=== PATIENT | female | born 1990 | race Caucasian/White ===

== ENCOUNTER 2018-01-13 08:44 | Emergency (ER) | payer SELFPAY ==
[2018-01-13 09:28] LABS: Absolute Lymphocytes (CBC) 1.6 K/uL (0.7-4.9); Absolute Monocytes 0.3 K/uL (0.1-1.3); Absolute Neutrophil 4.6 K/uL (1.8-8.0); Basophils % 0.4 % (0-1.3); Eosinophils % 1.1 % (0-4.4); Hematocrit 42.1 % (36.0-45.0); Lymphocytes % 24.1 % (15.3-44.8); MCH 29.9 pg (27.0-35.0); MCV 90.3 fL (80-100); MPV 9.5 fL (7.6-11.3); Monocytes % 5.1 % (3.3-12.3); RBC Red Blood Cell Count 4.66 M/uL (3.86-4.86)
[2018-01-13] MEDS ORDERED: NA CHLORIDE 0.9% 1,000 ML ONE (09:31)
[2018-01-13] MEDS ORDERED: ONDANSETRON 4 MG/2 ML VIAL ONE (09:31)
[2018-01-13] MEDS ORDERED: Morphine 2 MG/2 ML SYR ONE (09:36)
[2018-01-13 09:52] LABS: Potassium 3.8 mEq/L (3.6-5.0)
[2018-01-13 10:09] LABS: Urine Blood 3+ (NEG); Urine Glucose NEGATIVE (NEG); Urine Protein 1+ (NEG); Urine pH 5.5 (5.0-7.0)
--- NOTE | 2018-01-13 12:12 | RAD REPORT ---
EXAM DESCRIPTION: CTAbdomen Pelvis W Contrast - 01/13/2018 12:05 pm CLINICAL HISTORY: Abdominal pain. COMPARISON: 03/17/2014, 08/23/2013 TECHNIQUE: Biphasic CT imaging of the abdomen and pelvis was performed with 100 ml non-ionic IV cont rast. All CT scans are performed using dose optimization technique as appropriate and may include automated exposure control or mA/KV adjustment according to patient size. FINDINGS: The lung bases are clear. The liver, spleen, pancreas, adrenal glands and kidneys are within normal limits. No bowel obstruction, free air, free fluid or abscess. The appendix is normal. No evidence of signi ficant lymphadenopathy. No suspicious bony findings. IMPRESSION: No acute intra-abdominal or pelvic finding.
--- NOTE | 2018-01-13 12:16 | EDPHYS ---
Physician Documentation [facility] Name: Leonela Ramos Age: 27 yrs Sex: Female : 1990 Arrival Date: 01/13/2018 Time: 08:46 Bed 15 Private MD: Isreal Canchola E ED Physician Seth Smalls HPI: 01/13 09:12 This 27 yrs old Female presents to ER via Ambulatory with complaints of kb Abdominal Pain. 09:12 The patient presents with abdominal pain in the lower abdomen. Onset: The kb symptoms/episode began/occurred this morning, at 02:00. The symptoms do not radiate. Associated signs and symptoms: Pertinent positives: nausea, vaginal bleeding, Pertinent negatives: constipation, diarrhea, fever, vomiting. The symptoms are described as constant. Modifying factors: The symptoms are alleviated by nothing, the symptoms are aggravated by nothing. Severity of pain: At its worst the pain was moderate in the emergency department the pain is unchanged. The patient has not experienced similar symptoms in the past. The patient has not recently seen a physician. 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 - Social history:: Smoking status: Patient uses tobacco products, smokes one-half pack cigarettes per day. ROS: 09:12 Constitutional: Negative for fever, chills, and weight loss, Cardiovascular: Negative kb for chest pain, palpitations, and edema, Respiratory: Negative for shortness of breath, cough, wheezing, and pleuritic chest pain, MS/Extremity: Negative for injury and deformity, Skin: Negative for injury, rash, and discoloration, Neuro: Negative for headache, weakness, numbness, tingling, and seizure. 09:12 Abdomen/GI: Positive for abdominal pain, nausea, Negative for vomiting, diarrhea, constipation, abdominal cramps, abdominal distension, anorexia. 09:12 : Positive for vaginal bleeding. Exam: 09:12 Constitutional: This is a well developed, well nourished patient who is awake, alert, kb and in no acute distress. Head/Face: Normocephalic, atraumatic. Chest/axilla: Normal chest wall appearance and motion. Nontender with no deformity. No lesions are appreciated. Cardiovascular: Regular rate and rhythm with a normal S1 and S2. No gallops, murmurs, or rubs. Normal PMI, no JVD. No pulse deficits. Respiratory: Lungs have equal breath sounds bilaterally, clear to auscultation and percussion. No rales, rhonchi or wheezes noted. No increased work of breathing, no retractions or nasal flaring. Back: No spinal tenderness. No costovertebral tenderness. Full range of motion. Skin: Warm, dry with normal turgor. Normal color with no rashes, no lesions, and no evidence of cellulitis. MS/ Extremity: Pulses equal, no cyanosis. Neurovascular intact. Full, normal range of motion. Neuro: Awake and alert, GCS 15, oriented to person, place, time, and situation. Cranial nerves II-XII grossly intact. Motor strength 5/5 in all extremities. Sensory grossly intact. Cerebellar exam normal. Normal gait. 09:18 Abdomen/GI: Inspection: abdomen appears normal, Bowel sounds: normal, in all quadrants, kb Palpation: soft, in all quadrants, moderate abdominal tenderness, in the right upper quadrant, left upper quadrant, right lower quadrant and left lower quadrant. Vital Signs: 09:21 BP 107 / 67; Pulse 53; Resp 18; Temp 98.3; Pulse Ox 100% on R/A; Pain 10/10; em 09:50 BP 114 / 72; Pulse 53; Resp 18; Pulse Ox 99% on R/A; Pain 9/10; em 11:00 BP 104 / 68; Pulse 81; Resp 20; Pulse Ox 99% on R/A; Pain 4/10; em 12:00 BP 101 / 71; Pulse 55; Resp 18; Pulse Ox 99% on R/A; Pain 3/10; em MDM: 08:51 Patient medically screened. kb 09:15 Data reviewed: vital signs, nurses notes. Data interpreted: Pulse oximetry: on room air kb is 100 %. Interpretation: normal. 12:15 Counseling: I had a detailed discussion with the patient and/or guardian regarding: the kb historical points, exam findings, and any diagnostic results supporting the discharge/admit diagnosis, lab results, radiology results, the need for outpatient follow up, a family practitioner, to return to the emergency department if symptoms worsen or persist or if there are any questions or concerns that arise at home. 01/13 08:59 Order name: CBC with Diff; Complete Time: 09:40 em 01/13 08:59 Order name: Basic Metabolic Panel; Complete Time: 09:59 em 01/13 09:18 Order name: CT Abd/Pelvis - W/Contrast; Complete Time: 12:14 kb 01/13 09:22 Order name: Urine Dipstick--Ancillary (enter results); Complete Time: 10:10 eb 01/13 09:22 Order name: Urine --Ancillary (enter results); Complete Time: 10:10 eb 01/13 09:00 Order name: Urine Dipstick-Ancillary (obtain specimen); Complete Time: 09:19 kb 01/13 09:00 Order name: Urine Test (obtain specimen); Complete Time: 09:19 kb 01/13 09:00 Order name: IV Start; Complete Time: 09:19 kb Administered Medications: 09:35 Drug: NS 0.9% 1000 ml Route: IV; Rate: 1000 ml; Site: left antecubital; em 09:40 Drug: Zofran 4 mg Route: IVP; Site: left antecubital; iw 09:55 Drug: morphine 2 mg Route: IVP; Site: left antecubital; iw Disposition: 01/13/18 12:15 Discharged to Home. Impression: Lower abdominal pain, unspecified. - Condition is Stable. - Discharge Instructions: Abdominal Pain, Adult, [id number]. - Prescriptions for Zofran 4 mg Oral Tablet - take 1 tablet by ORAL route every 6 hours As needed; 20 tablet. Diclofenac Sodium 75 mg Oral Tablet, Delayed Release (E.C.) - take 1 tablet by ORAL route 2 times per day As needed; 30 tablet. - Medication Reconciliation Form, Thank You Letter, Antibiotic Education, Prescription Opioid Use form. - Follow up: Emergency Department; When: As needed; Reason: Worsening of condition. Follow up: Private Physician; When: 2 - 3 days; Reason: Recheck today's complaints, Continuance of care, Re-evaluation by your physician. Addendum: 01/15/2018 08:54 Co-signature as Attending Physician, Seth Slim MD I agree with the assessment and c guthrie plan of care. Signatures: Dispatcher [employer] Kirstie Rogel, CONDUIT BENDER-C CONDUIT BENDER-Seth Cline MD MD cha Munoz, Edgar, FILM PRINTER FILM PRINTER Magalys Jiménez, RN RN iw Corrections: (The following items were deleted from the chart) 01/13 10:00 09:22 Social history: Smoking status: Patient/guardian denies using tobacco, em iw
--- NOTE | 2018-01-13 12:16 | ER ---
Nurse's Notes [facility] Name: Leonela Ramos Age: 27 yrs Sex: Female : 1990 Arrival Date: 01/13/2018 Time: 08:46 Bed 15 Private MD: Isreal Canchola E Diagnosis: Lower abdominal pain, unspecified Presentation: 01/13 08:59 Presenting complaint: Patient states: has had lower abd pain since 0200 today, c/o iw nausea, denies v/d or fever. Transition of care: patient was not received from another setting of care. Onset of symptoms was January 13, 2018. Initial Sepsis Screen: Does the patient meet any 2 criteria? No. Patient's initial sepsis screen is negative. Does the patient have a suspected source of infection? No. Patient's initial sepsis screen is negative. Care prior to arrival: None. 08:59 Method Of Arrival: Ambulatory iw 08:59 Acuity: AMADA 3 iw Triage Assessment: 09:20 General: Appears uncomfortable. General: Appears in no apparent distress. Behavior is em cooperative, anxious. Pain: Complains of pain in left lower quadrant and right lower quadrant. GI: Abdomen is flat, Patient currently denies nausea, vomiting. 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 - Social history:: Smoking status: Patient uses tobacco products, smokes one-half pack cigarettes per day. Screenin:20 Abuse screen: Denies threats or abuse. Nutritional screening: No deficits noted. em Tuberculosis screening: No symptoms or risk factors identified. Fall Risk None identified. Assessment: 09:15 General: Appears in no apparent distress. uncomfortable, Behavior is cooperative, em anxious, Reports reports lower quadrant pain that started this morning with nausea, denies V/D. Pain: Complains of pain in left lower quadrant and right lower quadrant Pain currently is 10 out of 10 on a pain scale. Neuro: Level of Consciousness is awake, alert, obeys commands, Oriented to person, place, time, situation. Cardiovascular: Capillary refill < 3 seconds Patient's skin is warm and dry. Respiratory: Airway is patent Respiratory effort is even, unlabored, Respiratory pattern is regular. GI: Abdomen is flat, Bowel sounds present X 4 quads. Abd is soft and non tender X 4 quads. : No signs and/or symptoms were reported regarding the genitourinary system. EENT: No signs and/or symptoms were reported regarding the EENT system. Derm: Skin is intact, Skin is pink, warm \T\ dry. Musculoskeletal: Range of motion: intact in all extremities. 10:00 Reassessment: Patient appears in no apparent distress at this time. Patient and/or iw family updated on plan of care and expected duration. Pain level reassessed. Patient is alert, oriented x 3, equal unlabored respirations, skin warm/dry/pink. 11:02 Reassessment: Patient appears in no apparent distress at this time. Patient and/or em family updated on plan of care and expected duration. Pain level reassessed. Patient is alert, oriented x 3, equal unlabored respirations, skin warm/dry/pink. Patient states feeling better. 12:00 Reassessment: Patient appears in no apparent distress at this time. Patient and/or em family updated on plan of care and expected duration. Pain level reassessed. Patient is alert, oriented x 3, equal unlabored respirations, skin warm/dry/pink. Patient states feeling better. Patient states symptoms have improved. Vital Signs: 09:21 BP 107 / 67; Pulse 53; Resp 18; Temp 98.3; Pulse Ox 100% on R/A; Pain 10/10; em 09:50 BP 114 / 72; Pulse 53; Resp 18; Pulse Ox 99% on R/A; Pain 9/10; em 11:00 BP 104 / 68; Pulse 81; Resp 20; Pulse Ox 99% on R/A; Pain 4/10; em 12:00 BP 101 / 71; Pulse 55; Resp 18; Pulse Ox 99% on R/A; Pain 3/10; em ED Course: 08:46 Patient arrived in ED. mr 08:47 Isreal Canchola MD is Private Physician. mr 08:50 [facility]ir[facility]C [facility] kb 08:50 Seth Smalls MD is Attending Physician. kb 08:51 Catracho Navarro LVN is Primary Nurse. em 09:01 Triage completed. iw 09:20 No provider procedures requiring assistance completed. Inserted saline lock: 20 gauge em in left antecubital area, using aseptic technique. Blood collected. 09:20 Initial lab(s) drawn, by me, sent to lab. em 09:21 Arm band placed on. em 09:21 Patient has correct armband on for positive identification. Bed in low position. Call em light in reach. Side rails up X2. Adult w/ patient. 09:22 Urine collected: clean catch specimen, ysabel colored. 5 10:17 Flu and/or RSV swab sent to lab. Strep swab sent to lab. 5 12:03 CT completed. Patient moved to CT via wheelchair. Patient moved back from CT. cw1 12:06 CT Abd/Pelvis - W/Contrast In Process Unspecified. EDMS 12:50 IV discontinued, intact, bleeding controlled, No redness/swelling at site. Pressure em dressing applied. Administered Medications: 09:35 Drug: NS 0.9% 1000 ml Route: IV; Rate: 1000 ml; Site: left antecubital; em 09:40 Drug: Zofran 4 mg Route: IVP; Site: left antecubital; iw 09:55 Drug: morphine 2 mg Route: IVP; Site: left antecubital; iw Outcome: 12:15 Discharge ordered by MD. kb 12:50 Discharged to home ambulatory. em 12:50 Condition: good 12:50 Discharge instructions given to patient, Instructed on discharge instructions, follow up and referral plans. medication usage, Demonstrated understanding of instructions, follow-up care, medications, Prescriptions given X 2. 12:51 Patient left the ED. iw Signatures: Dispatcher [employer] EDMS Kirstie Altamirano, MAXIMILIANO BECKP-Sarah Santiago mr Navarro Catracho, PACKING AND WRAPPING SUPERVISOR PACKING AND WRAPPING SUPERVISOR em Magalys Steen, ROSAMARIA RN Luly Ortiz 1 Sarah Helm [facility] Corrections: (The following items were deleted from the chart) 10:00 09:22 Social history: Smoking status: Patient/guardian denies using tobacco, em iw
[2018-01-13 12:58] VITALS: O2SAT 99
[2018-01-13 12:59] VITALS: TEMP 98.3
[2018-01-13 13:00] VITALS: BP 104/68
== END 2018-01-13 12:51 | disposition home or self-care (01) ==
LOC: ER 08:44
DX: R10.30 Lower abdominal pain, unspecified (principal); F41.9 Anxiety disorder, unspecified; F17.210 Nicotine dependence, cigarettes, uncomplicated
CPT/HCPCS: 36415; 74177; 80048; 81003; 81025; 85025; 96374; 96375; 99284; J2270; J2405; J7030; Q9967

== ENCOUNTER 2018-03-10 10:57 | Emergency (ER) | payer SELFPAY ==
[2018-03-10 12:01] LABS: Urine Bacteria <20 /HPF (<20); Urine RBC <5 /HPF (NONE SEEN)
[2018-03-10 12:02] LABS: Urine Culture Reflex Order NOT NEEDED
--- NOTE | 2018-03-10 12:57 | RAD REPORT ---
EXAM DESCRIPTION: CT - Stone Protocol - 03/10/2018 12:39 pm CLINICAL HISTORY: Flank pain. abd pain COMPARISON: Abdomen Pelvis W Contrast dated 01/13/2018; CT ABD PELVIS W CONTRAST dated 03/17/2014 TECHNIQUE: Axial images were obtained without oral or IV contrast. Lack of contrast limits solid org an and vascular assessment. The [id number] spans the entirety of the system partially obscuring uppermost abdomen and lung bases. Coronal reformatted images were obtained and reviewed. All CT scans are performed using dose optimization technique as appropriate and may include automated exposure control or mA/KV adjustment according to patient size. FINDINGS: The lower lung olivo are clear. Imaged portions of the liver and spleen show no suspicious findings on non-contrast imaging. The panc reas and adrenal glands are normal. No pathologic lymphadenopathy in the abdomen or pelvis. No urinary tract stones or obstructive uropathy. No bowel obstruction, free air, intra-abdominal free fluid or abscess. Normal appendix noted.Moderate fecal retention in the colon. No significant bony abnormality. Trace pelvic free fluid, likely physiologic. IMPRESSION: No urinary tract stones or obstructive uropathy. Normal appendix.
--- NOTE | 2018-03-10 13:08 | EDPHYS ---
Physician Documentation [facility] Name: Leonela Bernardo Age: 27 yrs Sex: Female : 1990 Arrival Date: 03/10/2018 Time: 11:00 Bed 19 Private MD: ED Physician Willie Kebede HPI: 03/10 11:27 This 27 yrs old Female presents to ER via EMS with complaints of Abdominal snw Pain. 11:27 The patient presents with abdominal pain right lower quadrant. Onset: The snw symptoms/episode began/occurred suddenly, today. The symptoms do not radiate. Associated signs and symptoms: Pertinent positives: nausea. The symptoms are described as sharp. Severity of pain: At its worst the pain was moderate. The patient has not experienced similar symptoms in the past. It is unknown whether or not the patient has recently seen a physician. 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 - Social history:: Smoking status: Patient uses tobacco products, denies chronic smoking, but will smoke occasionally. - Ebola Screening: : No symptoms or risks identified at this time. ROS: 11:26 Constitutional: Negative for fever, chills, and weight loss, Eyes: Negative for injury, snw pain, redness, and discharge, ENT: Negative for injury, pain, and discharge, Neck: Negative for injury, pain, and swelling, Cardiovascular: Negative for chest pain, palpitations, and edema, Respiratory: Negative for shortness of breath, cough, wheezing, and pleuritic chest pain, Back: Negative for injury and pain, : Negative for injury, bleeding, discharge, and swelling, MS/Extremity: Negative for injury and deformity, Skin: Negative for injury, rash, and discoloration, Neuro: Negative for headache, weakness, numbness, tingling, and seizure. 11:26 Abdomen/GI: Positive for abdominal pain, nausea. Exam: 11:25 Constitutional: This is a well developed, well nourished patient who is anxious, snw alert, and in no acute distress. Head/Face: Normocephalic, atraumatic. Eyes: Pupils equal round and reactive to light, extra-ocular motions intact. Lids and lashes normal. Conjunctiva and sclera are non-icteric and not injected. Cornea within normal limits. Periorbital areas with no swelling, redness, or edema. ENT: Nares patent. No nasal discharge, no septal abnormalities noted. Tympanic membranes are normal and external auditory canals are clear. Oropharynx with no redness, swelling, or masses, exudates, or evidence of obstruction, uvula midline. Mucous membranes moist. Neck: Trachea midline, no thyromegaly or masses palpated, and no cervical lymphadenopathy. Supple, full range of motion without nuchal rigidity, or vertebral point tenderness. No Meningismus. Chest/axilla: Normal chest wall appearance and motion. Nontender with no deformity. No lesions are appreciated. Cardiovascular: Regular rate and rhythm with a normal S1 and S2. No gallops, murmurs, or rubs. Normal PMI, no JVD. No pulse deficits. Respiratory: Lungs have equal breath sounds bilaterally, clear to auscultation and percussion. No rales, rhonchi or wheezes noted. No increased work of breathing, no retractions or nasal flaring. Back: No spinal tenderness. Mild right costovertebral tenderness. Full range of motion. Skin: Warm, dry with normal turgor. Normal color with no rashes, no lesions, and no evidence of cellulitis. MS/ Extremity: Pulses equal, no cyanosis. Neurovascular intact. Full, normal range of motion. Neuro: Awake and alert, GCS 15, oriented to person, place, time, and situation. Cranial nerves II-XII grossly intact. Motor strength 5/5 in all extremities. Sensory grossly intact. Cerebellar exam normal. Normal gait. 11:25 Abdomen/GI: Inspection: abdomen appears normal, Bowel sounds: normal, Palpation: moderate abdominal tenderness, in the right lower quadrant. 11:25 Psych: pt is rocking back and forth with discomfort. Answers questions appropriately. Vital Signs: 11:06 BP 104 / 73; Pulse 56; Resp 18; Temp 98.9(O); Pulse Ox 100% on R/A; Weight 54.43 kg; em Height 5 ft. 4 in. (162.56 cm); Pain 10/10; 12:05 BP 110 / 75; Pulse 58; Resp 16; Pulse Ox 99% on R/A; em 13:00 BP 117 / 73; Pulse 58; Resp 16; Pulse Ox 99% on R/A; em 11:06 Body Mass Index 20.60 (54.43 kg, 162.56 cm) em MDM: 11:16 Patient medically screened. snw 13:09 Data reviewed: vital signs, nurses notes. Data interpreted: Pulse oximetry: on room air snw is 99 %. Interpretation: normal. Counseling: I had a detailed discussion with the patient and/or guardian regarding: the historical points, exam findings, and any diagnostic results supporting the discharge/admit diagnosis, lab results, radiology results, the need for outpatient follow up, to return to the emergency department if symptoms worsen or persist or if there are any questions or concerns that arise at home. Special discussion: Based on the patient's Hx, exam, and Dx evaluation, there is no indication for emergent surgery or inpatient Tx. It is understood by the patient/guardian that if the Sx's persist or worsen they need to return immediately for re-evaluation. Based on the history and exam findings, there is no indication for further emergent testing or inpatient evaluation. I discussed with the patient/guardian the need to see the OB Gyne specialist for further evaluation of the symptoms. I discussed with the patient/guardian the need to see the primary care provider for further evaluation of the symptoms. 03/10 11:52 Order name: Urine Microscopic Only; Complete Time: 12:20 EDMS 03/10 11:56 Order name: Urine Dipstick--Ancillary (enter results) 03/10 11:56 Order name: Test Urine - POC 03/10 11:17 Order name: Urine Test (obtain specimen); Complete Time: 11:32 snw 03/10 11:17 Order name: Urine Dipstick-Ancillary (obtain specimen); Complete Time: 11:32 snw 03/10 12:02 Order name: Stone Protocol; Complete Time: 13:05 EDMS Administered Medications: 13:18 Drug: Dulcolax Suppository 10 mg Route: DE; em 14:00 Follow up: Response: No adverse reaction em 13:18 Drug: Bisacodyl 5 mg Route: PO; em 14:00 Follow up: Response: No adverse reaction em 13:18 Drug: Bisacodyl 5 mg Route: PO; em 14:00 Follow up: Response: No adverse reaction em Disposition: 14:32 Co-signature as Attending Physician, Willie Kebede MD I agree with the assessment and kdr plan of care. Disposition: 03/10/18 13:07 Discharged to Home. Impression: Constipation, unspecified, Lower abdominal pain, unspecified. - Condition is Stable. - Discharge Instructions: Constipation, Adult, Abdominal Pain, Women. - Prescriptions for Miralax 17 gram/dose Oral - take 1 packet by ORAL route once daily dilute powder in 8 ounces of water or juice; 1 Container. - Medication Reconciliation Form, Thank You Letter, Antibiotic Education, Prescription Opioid Use, Work release form form. - Follow up: Private Physician; When: 2 - 3 days; Reason: Recheck today's complaints, Continuance of care, Re-evaluation by your physician. Follow up: Emergency Department; When: As needed; Reason: Worsening of condition. Signatures: Dispatcher [employer] [facility] Willie Kebede MD MD kdr Yael Brannon, IRIDOLOGIST-C IRIDOLOGIST-Csnw Catracho Navarro, STRING LASTER STRING LASTER em Corrections: (The following items were deleted from the chart) 13:21 13:14 Stone Protocol+CT.[email or web address].BRZ ordered. [facility] 14:08 13:07 03/10/2018 13:07 Discharged to Home. Impression: Constipation, unspecified; Lower em abdominal pain, unspecified. Condition is Stable. Forms are Medication Reconciliation Form, Thank You Letter, Antibiotic Education, Prescription Opioid Use. Follow up: Private Physician; When: 2 - 3 days; Reason: Recheck today's complaints, Continuance of care, Re-evaluation by your physician. Follow up: Emergency Department; When: As needed; Reason: Worsening of condition. snw
--- NOTE | 2018-03-10 13:08 | ER ---
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 Transition of care: patient was not received from another setting of care. Onset of symptoms was March 10, 2018. Risk Assessment: Do you want to hurt yourself or someone else? Patient reports no desire to harm self or others. Initial Sepsis Screen: Does the patient meet any 2 criteria? No. Patient's initial sepsis screen is negative. Does the patient have a suspected source of infection? No. Patient's initial sepsis screen is negative. Care prior to arrival: Medication(s) given: [place] 10/325 and Midol. 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 - Social history:: Smoking status: Patient uses tobacco products, denies chronic smoking, but will smoke occasionally. - Ebola Screening: : No symptoms or risks identified at this time. Screenin:07 Abuse screen: Denies threats or abuse. Nutritional screening: No deficits noted. em Tuberculosis screening: No symptoms or risk factors identified. Fall Risk None identified. Assessment: 11:08 General: Appears in no apparent distress. uncomfortable, Behavior is cooperative, em anxious. Pain: Complains of pain in right lower quadrant Pain currently is 10 out of 10 on a pain scale. Pain began this morning. Neuro: Level of Consciousness is awake, alert, obeys commands, Oriented to person, place, time, situation. Cardiovascular: Capillary refill < 3 seconds Patient's skin is warm and dry. Respiratory: Airway is patent Respiratory effort is even, unlabored, Respiratory pattern is regular, symmetrical. GI: Abdomen is flat, Bowel sounds present X 4 quads. Abd is soft X 4 quads Abdomen is tender to palpation in right lower quadrant Reports nausea, Patient currently denies diarrhea, vomiting. : Reports "possibly " Denies burning with urination, Patient is sexually active. EENT: No signs and/or symptoms were reported regarding the EENT system. Derm: Skin is intact, Skin is pink, warm \\T\\ dry. Musculoskeletal: Range of motion: intact in all extremities. 11:11 Reassessment: Patient appears in no apparent distress at this time. I agree with above iw assessment by Catracho Navarro LVN. 12:02 Reassessment: Patient appears in no apparent distress at this time. Patient and/or em family updated on plan of care and expected duration. Pain level reassessed. Patient is alert, oriented x 3, equal unlabored respirations, skin warm/dry/pink. 13:35 Reassessment: Patient appears in no apparent distress at this time. awaiting provider em to speak with pt, provider performing procedure. Vital Signs: 11:06 BP 104 / 73; Pulse 56; Resp 18; Temp 98.9(O); Pulse Ox 100% on R/A; Weight 54.43 kg; em Height 5 ft. 4 in. (162.56 cm); Pain 10/10; 12:05 BP 110 / 75; Pulse 58; Resp 16; Pulse Ox 99% on R/A; em 13:00 BP 117 / 73; Pulse 58; Resp 16; Pulse Ox 99% on R/A; em 11:06 Body Mass Index 20.60 (54.43 kg, 162.56 cm) em ED Course: 11:00 Patient arrived in ED. em 11:07 Patient has correct armband on for positive identification. Placed in gown. Bed in low em position. Call light in reach. Adult w/ patient. Pulse ox on. NIBP on. 11:08 Arm band placed on. em 11:10 Triage completed. iw 11:16 [facility]-C [facility]. snw 11:16 Willie Kebede MD is Attending Physician. snw 11:21 Catracho Navarro LVN is Primary Nurse. em 12:38 CT completed. Patient moved to CT via wheelchair. Patient moved back from CT. cw1 12:38 Note: net upt per santi. cw1 12:39 Stone Protocol In Process Unspecified. EDMS 14:07 No provider procedures requiring assistance completed. Patient did not have IV access em during this emergency room visit. Administered Medications: 13:18 Drug: Dulcolax Suppository 10 mg Route: MI; em 14:00 Follow up: Response: No adverse reaction em 13:18 Drug: Bisacodyl 5 mg Route: PO; em 14:00 Follow up: Response: No adverse reaction em 13:18 Drug: Bisacodyl 5 mg Route: PO; em 14:00 Follow up: Response: No adverse reaction em Outcome: 13:07 Discharge ordered by . pura 14:07 Discharged to home ambulatory. em 14:07 Condition: good 14:07 Discharge instructions given to patient, Instructed on discharge instructions, follow up and referral plans. medication usage, Demonstrated understanding of instructions, follow-up care, medications. 14:08 Patient left the ED. em Signatures: Dispatcher [employer] EDMS Yael Brannon, RESERVATION MANAGER-C RESERVATION MANAGER-Csnw Catracho Navarro LVN LVN em Magalys Steen, Luly Wilder RN cw1
[2018-03-10] MEDS ORDERED: BISACODYL 10 MG RECTAL SUPP ONE (13:14)
[2018-03-10] MEDS ORDERED: BISACODYL E.C. 5 MG TAB PO ONE (13:14)
[2018-03-10 14:14] VITALS: TEMP 98.9
[2018-03-10 14:15] VITALS: O2SAT 99
[2018-03-10 14:16] VITALS: BP 117/73
[2018-03-10 14:57] LABS: Urine Blood TRACE (NEG); Urine Glucose NEGATIVE (NEG); Urine Protein TRACE (NEG); Urine Specific Gravity >1.030 (1.005-1.030)
== END 2018-03-10 14:08 | disposition home or self-care (01) ==
LOC: ER 10:57
DX: K59.00 Constipation, unspecified (principal); F41.9 Anxiety disorder, unspecified; Z72.0 Tobacco use
CPT/HCPCS: 74176; 76377; 81003; 81015; 81025; 99284

== ENCOUNTER 2018-08-07 17:46 | Emergency (ER) | payer SELFPAY ==
[2018-08-07] MEDS ORDERED: MAGNE/ALUM HYDROXD 30 ML UCUP ONE (19:13)
[2018-08-07 19:14] LABS: Absolute Monocytes 0.4 K/uL (0.1-1.3); Absolute Neutrophil 1.9 K/uL (1.8-8.0); Basophils % 0.7 % (0-1.3); Eosinophils % 1.5 % (0-4.4); Hematocrit 39.6 % (36.0-45.0); Lymphocytes % 45.7 % (15.3-44.8); MCH 31.5 pg (27.0-35.0); MCV 89.1 fL (80-100); MPV 8.9 fL (7.6-11.3); Monocytes % 8.1 % (3.3-12.3); RBC Red Blood Cell Count 4.44 M/uL (3.86-4.86)
[2018-08-07] MEDS ORDERED: FAMOTIDINE 20 MG/2 ML VIAL IV ONE (19:14)
[2018-08-07] MEDS ORDERED: ONDANSETRON 4 MG/2 ML VIAL ONE (19:14)
[2018-08-07] MEDS ORDERED: NA CHLORIDE 0.9% 1,000 ML ONE (19:14)
[2018-08-07] MEDS ORDERED: LIDOCAINE VISCOUS 2% SOLN 15 ML UDC ONE (19:14)
[2018-08-07] MEDS ORDERED: MORPHINE 4 MG/ML SYR ONE (19:14)
[2018-08-07 19:30] LABS: Albumin 4.2 g/dL (3.4-5.0); Bilirubin Direct 0.1 mg/dL (0-0.2); Bilirubin Total 0.3 mg/dL (0.2-1.0); Potassium 3.5 mmol/L (3.5-5.1); Protein, Total 7.8 g/dL (6.4-8.2)
[2018-08-07 19:34] LABS: Urine Blood NEGATIVE (NEG); Urine Glucose NEGATIVE (NEG); Urine Protein NEGATIVE (NEG); Urine pH >8.5 (5.0-7.0)
--- NOTE | 2018-08-07 20:25 | RAD REPORT ---
EXAM DESCRIPTION: CT - Abdomen Pelvis W Contrast - 08/07/2018 8:13 pm CLINICAL HISTORY: Abdominal pain COMPARISON: February 2018 TECHNIQUE: Computed axial tomography of the abdomen pelvis was obtained. 100 cc Isovue-300 was admin istered intravenously. Oral contrast was not requested which limits evaluation of bowel. All CT scans are performed using dose optimization technique as appropriate and may include automated exposure control or mA/KV adjustment according to patient size. FINDINGS: Periportal edema is present within the liver. Spleen, pancreas, adrenal and kidneys appear unremarkable. There is no evidence of diverticulitis. The wall of the distal stomach appears thickened. 2 centimeter irregularly-shaped right ovarian cyst without significant free fluid Large amount stool is present throughout the colon. Spondylolysis involves L5 IMPRESSION: Apparent thickening of the wall of the distal stomach may be secondary to pathology such as gastritis or incomplete distention 2 centimeter irregularly-shaped right ovarian cyst without significant free fluid Periportal edema within liver is a nonspecific finding but can be associated with inflammation all
[2018-08-07] MEDS ORDERED: HYDROCODONE/APAP 7.5/325 MG TAB ONE (21:08)
--- NOTE | 2018-08-07 21:33 | ER ---
Nurse's Notes [facility] Name: Leonela Bernardo Age: 27 yrs Sex: Female : 1990 Arrival Date: 08/07/2018 Time: 17:48 Bed 23 Private MD: Isreal Canchola E Diagnosis: Gastritis and duodenitis;Constipation, unspecified Presentation: 08/07 17:50 Presenting complaint: Patient states: Lower abdominal pain and lower back pain and jl7 "When I go to stand up my head hurts really bad but then when I sit back down it goes away." x 3 days Denies N/V/D, denies urinary symptoms. Transition of care: patient was not received from another setting of care. Onset of symptoms was August 04, 2018. Risk Assessment: Do you want to hurt yourself or someone else? Patient reports no desire to harm self or others. Initial Sepsis Screen: Does the patient meet any 2 criteria? No. Patient's initial sepsis screen is negative. Does the patient have a suspected source of infection? No. Patient's initial sepsis screen is negative. Care prior to arrival: None. 17:50 Method Of Arrival: Ambulatory jl7 17:50 Acuity: AMADA 3 jl7 Triage Assessment: 17:53 General: Appears in no apparent distress. uncomfortable, Behavior is calm, cooperative. jl7 Pain: Complains of pain in left low back, right low back, right lower quadrant and left lower quadrant and [place] Pain currently is 8 out of 10 on a pain scale. Neuro: Level of Consciousness is awake, alert, obeys commands, Oriented to person, place, time, situation. Cardiovascular: Patient's skin is warm and dry. Respiratory: Airway is patent Respiratory effort is even, unlabored, Respiratory pattern is regular, symmetrical. Derm: Skin is pink, warm \\T\\ dry. 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 - Social history:: Smoking status: Patient uses tobacco products, smokes one-half pack cigarettes per day. - Ebola Screening: : No symptoms or risks identified at this time. - Family history:: not pertinent, pertinent for. - Hospitalizations: : No recent hospitalization is reported. Screenin:14 Abuse screen: Denies threats or abuse. Denies injuries from another. Nutritional aj screening: No deficits noted. Tuberculosis screening: No symptoms or risk factors identified. Fall Risk None identified. Assessment: 19:12 General: Appears in no apparent distress. comfortable, Behavior is calm, cooperative, aj appropriate for age. Pain: Complains of pain in abdomen and epigastric area and forehead. Neuro: Level of Consciousness is awake, alert, obeys commands, Oriented to person, place, time, situation, Appropriate for age. Neuro: Reports headache. Respiratory: Airway is patent Respiratory effort is even, unlabored, Respiratory pattern is regular, symmetrical. GI: Reports lower abdominal pain, upper abdominal pain, epigastric pain, nausea. Derm: Skin is intact, is healthy with good turgor, Skin is pink, warm \\T\\ dry. normal. 20:22 Reassessment: Patient appears in no apparent distress at this time. patient just came rv back from radiology. Vital Signs: 17:53 BP 116 / 81; Pulse 82; Resp 16 S; Temp 98.8(O); Pulse Ox 100% on R/A; Weight 57.15 kg jl7 (R); Height 5 ft. 4 in. (162.56 cm) (R); Pain 8/10; 19:12 BP 119 / 72; Pulse 81; Resp 16; Pulse Ox 99% on R/A; aj 20:21 BP 115 / 79; Pulse 63 MON; Resp 16 S; Pulse Ox 100% on R/A; rv 21:40 BP 95 / 72; Pulse 71 MON; Resp 16 S; Pulse Ox 100% on R/A; rv 17:53 Body Mass Index 21.63 (57.15 kg, 162.56 cm) jl7 ED Course: 17:48 Patient arrived in ED. sb2 17:49 Isreal Canchola MD is Private Physician. sb2 17:52 Triage completed. jl7 17:53 Arm band placed on right wrist. jl7 17:56 Michelle Cheng RN is Primary Nurse. aj 17:58 Benito De La Rosa MD is Attending Physician. ma2 18:00 Patient has correct armband on for positive identification. Bed in low position. Call rv light in reach. Side rails up X 1. Adult w/ patient. 18:00 Pulse ox on. NIBP on. rv 19:13 Inserted saline lock: 22 gauge in left antecubital area, using aseptic technique. Blood aj collected. By Clifford Jara. 19:28 Radiology exam delayed due to lab results not completed at this time. (BUN/Creatinine). nj 20:12 CT Abd/Pelvis - W/Contrast In Process Unspecified. EDMS 21:41 No provider procedures requiring assistance completed. IV discontinued, bleeding rv controlled, No redness/swelling at site. Pressure dressing applied. Administered Medications: 19:14 Drug: NS 0.9% 1000 ml Route: IV; Rate: 1 bolus; Site: left antecubital; aj 19:14 Drug: morphine 4 mg Route: IVP; Site: left antecubital; aj 20:47 Follow up: Response: No adverse reaction rv 19:14 Drug: Zofran 4 mg Route: IVP; Site: left antecubital; aj 20:47 Follow up: Response: No adverse reaction rv 19:15 Drug: Pepcid 20 mg Route: IVP; Site: left antecubital; aj 20:48 Follow up: Response: No adverse reaction rv 19:15 Drug: GI Cocktail without - (Maalox Suspension 30 ml, Lidocaine Liquid 2 % 15 aj ml) Route: PO; 20:48 Follow up: Response: No adverse reaction rv 21:02 Drug: [place] (7.5 mg-325 mg) 1 tabs Route: PO; rv 21:41 Follow up: Response: Pain is decreased rv Outcome: 21:33 Discharge ordered by MD. huynh 21:42 Discharged to home ambulatory. rv 21:42 Condition: improved 21:42 Discharge instructions given to patient, Instructed on discharge instructions, follow up and referral plans. medication usage, Demonstrated understanding of instructions, follow-up care, medications, Prescriptions given X 4. 21:42 Patient left the ED. rv Signatures: Dispatcher [employer] EDMS Michelle Cheng, RN Carlos Collins Jahala, RN RN jl7 Benito De La Rosa MD MD ma2 Billeau, Sheri sb2 Anthony Whitlock RN RN rv
--- NOTE | 2018-08-07 21:33 | EDPHYS ---
Physician Documentation [facility] Name: Leonela Bernardo Age: 27 yrs Sex: Female : 1990 Arrival Date: 08/07/2018 Time: 17:48 Bed 23 Private MD: Isreal Canchola E ED Physician Benito De La Rosa HPI: 08/07 18:37 This 27 yrs old Female presents to ER via Ambulatory with complaints of ma2 Abdominal Pain, Headache. 18:37 The patient complains of pain to the forehead. The patient describes the headache as ma2 pounding. Onset: The symptoms/episode began/occurred gradually, 2 day(s) ago. Severity of symptoms: At its worst the pain was moderate. Headache History: The patient has had previous headaches. The patient has experienced similar episodes in the past. diffuse abdominal pain that is constant x 3 days unchanged severe. 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 - Social history:: Smoking status: Patient uses tobacco products, smokes one-half pack cigarettes per day. - Ebola Screening: : No symptoms or risks identified at this time. - Family history:: not pertinent, pertinent for. - Hospitalizations: : No recent hospitalization is reported. ROS: 18:37 Constitutional: Negative for fever, chills, and weight loss, Eyes: Negative for injury, ma2 pain, redness, and discharge, Cardiovascular: Negative for chest pain, palpitations, and edema, Respiratory: Negative for shortness of breath, cough, wheezing, and pleuritic chest pain, Back: Negative for injury and pain, : Negative for injury, bleeding, discharge, and swelling, MS/Extremity: Negative for injury and deformity. 18:37 Abdomen/GI: Positive for abdominal pain, Negative for nausea and vomiting, abdominal cramps, anorexia, rectal bleeding, acute changes. 18:37 All other systems are negative. Exam: 18:37 Constitutional: This is a well developed, well nourished patient who is awake, alert, ma2 and in no acute distress. ENT: Nares patent. No nasal discharge, no septal abnormalities noted. Tympanic membranes are normal and external auditory canals are clear. Oropharynx with no redness, swelling, or masses, exudates, or evidence of obstruction, uvula midline. Mucous membranes moist. Neck: Trachea midline, no thyromegaly or masses palpated, and no cervical lymphadenopathy. Supple, full range of motion without nuchal rigidity, or vertebral point tenderness. No Meningismus. Chest/axilla: Normal chest wall appearance and motion. Nontender with no deformity. No lesions are appreciated. Cardiovascular: Regular rate and rhythm with a normal S1 and S2. No gallops, murmurs, or rubs. Normal PMI, no JVD. No pulse deficits. Respiratory: Lungs have equal breath sounds bilaterally, clear to auscultation and percussion. No rales, rhonchi or wheezes noted. No increased work of breathing, no retractions or nasal flaring. Back: No spinal tenderness. No costovertebral tenderness. Full range of motion. MS/ Extremity: Pulses equal, no cyanosis. Neurovascular intact. Full, normal range of motion. Neuro: Awake and alert, GCS 15, oriented to person, place, time, and situation. Cranial nerves II-XII grossly intact. Motor strength 5/5 in all extremities. Sensory grossly intact. Cerebellar exam normal. Normal gait. 18:37 Abdomen/GI: Palpation: severe abdominal tenderness, in the epigastric area and right lower quadrant. Vital Signs: 17:53 BP 116 / 81; Pulse 82; Resp 16 S; Temp 98.8(O); Pulse Ox 100% on R/A; Weight 57.15 kg [facility] (R); Height 5 ft. 4 in. (162.56 cm) (R); Pain 8/10; 19:12 BP 119 / 72; Pulse 81; Resp 16; Pulse Ox 99% on R/A; aj 20:21 BP 115 / 79; Pulse 63 MON; Resp 16 S; Pulse Ox 100% on R/A; rv 21:40 BP 95 / 72; Pulse 71 MON; Resp 16 S; Pulse Ox 100% on R/A; rv 17:53 Body Mass Index 21.63 (57.15 kg, 162.56 cm) [facility] MDM: 18:01 Patient medically screened. ma2 18:37 Differential diagnosis: appendicitis, diverticulitis, gastritis vs gerd. [facility] 21:31 Data reviewed: vital signs, nurses notes, lab test result(s), radiologic studies. ia2 Counseling: I had a detailed discussion with the patient and/or guardian regarding: the historical points, exam findings, and any diagnostic results supporting the discharge/admit diagnosis, the presence of at least one elevated blood pressure reading (>120/80) during this emergency department visit, the need for outpatient follow up. Response to treatment: the patient's symptoms have resolved after treatment. 08/07 18:37 Order name: Basic Metabolic Panel [facility] 08/07 18:37 Order name: CBC with Diff [facility] 08/07 18:37 Order name: Creatinine for Radiology [facility] 08/07 18:37 Order name: Hepatic Function [facility] 08/07 18:37 Order name: Lipase [facility] 08/07 18:50 Order name: Urine Dipstick--Ancillary (enter results) 08/07 18:37 Order name: CT Abd/Pelvis - W/Contrast; Complete Time: 20:48 [facility] 08/07 19:29 Order name: Creatinine (Radiology Only); Complete Time: 19:50 EDMS 08/07 19:31 Order name: Basic Metabolic Panel; Complete Time: 19:50 EDMS 08/07 19:31 Order name: Liver (Hepatic) Function; Complete Time: 19:50 EDMS 08/07 19:31 Order name: Lipase; Complete Time: 19:50 EDMS 08/07 19:35 Order name: Urine Dipstick-Ancillary; Complete Time: 19:50 EDMS 08/07 19:35 Order name: CBC with Automated Diff; Complete Time: 19:50 EDMS 08/07 18:37 Order name: IV Saline Lock; Complete Time: 19:03 ia2 08/07 18:37 Order name: Labs collected and sent; Complete Time: 19:03 ia2 08/07 18:37 Order name: Urine Dipstick-Ancillary (obtain specimen); Complete Time: 19:03 ma2 Administered Medications: 19:14 Drug: NS 0.9% 1000 ml Route: IV; Rate: 1 bolus; Site: left antecubital; aj 19:14 Drug: morphine 4 mg Route: IVP; Site: left antecubital; aj 20:47 Follow up: Response: No adverse reaction rv 19:14 Drug: Zofran 4 mg Route: IVP; Site: left antecubital; aj 20:47 Follow up: Response: No adverse reaction rv 19:15 Drug: Pepcid 20 mg Route: IVP; Site: left antecubital; aj 20:48 Follow up: Response: No adverse reaction rv 19:15 Drug: GI Cocktail without - (Maalox Suspension 30 ml, Lidocaine Liquid 2 % 15 aj ml) Route: PO; 20:48 Follow up: Response: No adverse reaction rv 21:02 Drug: [place] (7.5 mg-325 mg) 1 tabs Route: PO; rv 21:41 Follow up: Response: Pain is decreased rv Disposition: 08/07/18 21:33 Discharged to Home. Impression: Gastritis and duodenitis, Constipation, unspecified. - Condition is Stable. - Discharge Instructions: Constipation, Adult, Gastritis, Adult. - Prescriptions for Fleet Enema - take 1 ampule by RECTAL route 1-2 times daily for 1 day; 1 Cartridge. Colace 100 mg Oral Tablet - take 1 tablet by ORAL route every 12 hours; 14 tablet. Pepcid 20 mg Oral Tablet - take 1 tablet by ORAL route every 12 hours for 10 days; 20 tablet. Tylenol- Codeine #3 300-30 mg Oral Tablet - take 2 tablet by ORAL route every 6 hours As needed; 6 tablet. - Medication Reconciliation Form, Thank You Letter, Antibiotic Education, Prescription Opioid Use, Work release form form. - Follow up: Private Physician; When: Today; Reason: Continuance of care. Signatures: Dispatcher [employer] EDMichelle Nevarez RN RN aj Leal, Jahala, RN RN jl7 Benito De La Rosa MD MD ma2 Anthony Whitlock RN RN rv Corrections: (The following items were deleted from the chart) 21:42 21:33 08/07/2018 21:33 Discharged to Home. Impression: Gastritis and duodenitis; rv Constipation, unspecified. Condition is Stable. Discharge Instructions: Gastritis, Adult. Prescriptions for Fleet Enema - take 1 ampule by RECTAL route 1-2 times daily for 1 day; 1 Cartridge, Colace 100 mg Oral Tablet - take 1 tablet by ORAL route every 12 hours; 14 tablet, Pepcid 20 mg Oral Tablet - take 1 tablet by ORAL route every 12 hours for 10 days; 20 tablet, Tylenol-Codeine #3 300-30 mg Oral Tablet - take 2 tablet by ORAL route every 6 hours As needed; 6 tablet. and Forms are Medication Reconciliation Form, Thank You Letter, Antibiotic Education, Prescription Opioid Use. Follow up: Private Physician; When: Today; Reason: Continuance of care. ma2
[2018-08-07 22:50] VITALS: TEMP 98.8
[2018-08-07 22:52] VITALS: O2SAT 100
[2018-08-07 22:53] VITALS: BP 95/72
== END 2018-08-07 21:42 | disposition home or self-care (01) ==
LOC: ER 17:46
DX: K29.70 Gastritis, unspecified, without bleeding (principal); K29.80 Duodenitis without bleeding; K59.00 Constipation, unspecified; F41.9 Anxiety disorder, unspecified; F17.210 Nicotine dependence, cigarettes, uncomplicated
CPT/HCPCS: 36415; 74177; 80048; 80076; 81003; 83690; 85025; J2405; J7030; Q9967

== ENCOUNTER 2019-03-19 09:25 | Emergency (ER) | payer SELFPAY ==
[2019-03-19 10:26] LABS: Absolute Lymphocytes (CBC) 1.4 K/uL (0.7-4.9); Basophils % 0.3 % (0-1.3); Hematocrit 40.4 % (36.0-45.0); Lymphocytes % 24.5 % (15.3-44.8); MPV 10.3 fL (7.6-11.3); Monocytes % 5.1 % (3.3-12.3); RBC Red Blood Cell Count 4.52 M/uL (3.86-4.86)
[2019-03-19 10:34] LABS: Urine Blood 2+ (NEG); Urine Glucose NEGATIVE (NEG); Urine Protein 1+ (NEG); Urine Specific Gravity 1.015 (1.005-1.030)
--- NOTE | 2019-03-19 10:47 | RAD REPORT ---
EXAM DESCRIPTION: CT - Stone Protocol - 03/19/2019 10:36 am CLINICAL HISTORY: Suprapubic pain, left flank pain COMPARISON: CT imaging July 2018 TECHNIQUE: Axial 5 mm thick images were obtained without oral or IV contrast. The [id number] span s the entirety of the system partially obscuring uppermost abdomen and lung bases. All CT scans are performed using dose optimization technique as appropriate and may include automated exposure control or mA/KV adjustment according to patient size. FINDINGS: No hydronephrosis is present and no obstructing ureteral calculi. No nonobstructing calcul i identified. Patient has prominent extrarenal pelves as a normal anatomic variant. Size of the pelve s similar to the comparison. No suspicious renal masses. Isodense masses and pyelonephritis are not e xcluded on a stone protocol CT scan. No significant adrenal finding. Well filled urinary bladder shows subtle prominence of the bladder wall with subtle stranding in the adjacent fat. No bladder calculus or focal bladder wall mass. No intraluminal abnormality seen. No uterine abnormality seen. Ovarian assessment is limited. In the absence of IV contrast and given t he paucity of abdominal fat in each adnexae, ovaries are not clearly distinguishable from on opacifie d bowel. There is questionable fullness of the right ovary. Imaged portions of the liver, spleen and pancreas show no suspicious findings on non-contrast imaging . No gallbladder or biliary tree abnormality identified. No gastric dilatation or wall thickening. No dilated large or small bowel. Moderate stool volume is p resent filling but not dilating the entire colon. Sigmoid colon is redundant. No appendicitis. No hernia, mass or bulky lymphadenopathy noted. No free air, free fluid or inflammatory stranding. No significant bony abnormality. IMPRESSION: No hydronephrosis or obstructing calculus. Isodense masses and pyelonephritis are not ex cluded. Subtle prominence of the urinary bladder rosario. Cystitis would be a consideration and needs correlati on with UA findings. No acute GI finding. There is moderately large stool volume filling but not dilating the entirety of the colon. 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 There is some subtle fullness of the ovary; however, ovaries overall are l imited in assessment due to the isodensity with on opacified bowel
[2019-03-19 10:53] LABS: Urine Bacteria >50 /HPF (<20); Urine Culture Reflex Order REFLEXED; Urine RBC <5 /HPF (NONE SEEN)
[2019-03-19] MEDS ORDERED: KETOROLAC 30 MG/ML INJ ONE (10:56)
[2019-03-19] MEDS ORDERED: CEFTRIAXONE/SWI 1gm 1 GM/10 ML SYR ONE (11:08)
[2019-03-19] MEDS ORDERED: FENTANYL CITR 100 MCG/2 ML ONE (11:23)
--- NOTE | 2019-03-19 11:40 | EDPHYS ---
Physician Documentation [facility] Name: Leonela Bernardo Age: 28 yrs Sex: Female : 1990 Arrival Date: 03/19/2019 Time: 09:27 Bed 13 Private MD: Isreal Canchola E ED Physician Isreal Campos HPI: 03/19 10:51 This 28 yrs old Female presents to ER via Ambulatory with complaints of Back jr8 Pain, Abdominal Pain, Urinary Problem. 10:56 The patient presents with flank pain, on the left, urinary symptoms, dysuria, urgency. jr8 Onset: The symptoms/episode began/occurred gradually, 4 day(s) ago. Modifying factors: The symptoms are alleviated by nothing, the symptoms are aggravated by urinating. Associated signs and symptoms: Pertinent positives: nausea, vomiting. Severity of symptoms: At their worst the symptoms were moderate, in the emergency department the symptoms are unchanged. It is unknown whether or not the patient has had similar symptoms in the past. The patient has not recently seen a physician. 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 - Social history:: Smoking status: Patient uses tobacco products. - Ebola Screening: : Patient negative for fever greater than or equal to 101.5 degrees Fahrenheit, and additional compatible Ebola Virus Disease symptoms Patient denies exposure to infectious person Patient denies travel to an Ebola-affected area in the 21 days before illness onset No symptoms or risks identified at this time. ROS: 10:56 Constitutional: Negative for fever, chills, and weight loss. jr8 10:56 Abdomen/GI: Positive for abdominal pain, nausea and vomiting, Negative for diarrhea, constipation, abdominal cramps, abdominal distension, anorexia, dysphagia, hematemesis, black/tarry stool, rectal pain, rectal bleeding, bowel incontinence, flatulence. 10:56 : Positive for urinary symptoms, flank pain. 10:56 All other systems are negative. Exam: 10:56 Eyes: Pupils equal round and reactive to light, extra-ocular motions intact. Lids and jr8 lashes normal. Conjunctiva and sclera are non-icteric and not injected. Cornea within normal limits. Periorbital areas with no swelling, redness, or edema. ENT: Nares patent. No nasal discharge, no septal abnormalities noted. Tympanic membranes are normal and external auditory canals are clear. Oropharynx with no redness, swelling, or masses, exudates, or evidence of obstruction, uvula midline. Mucous membranes moist. Neck: Trachea midline, no thyromegaly or masses palpated, and no cervical lymphadenopathy. Supple, full range of motion without nuchal rigidity, or vertebral point tenderness. No Meningismus. Cardiovascular: Regular rate and rhythm with a normal S1 and S2. No gallops, murmurs, or rubs. Normal PMI, no JVD. No pulse deficits. Respiratory: Lungs have equal breath sounds bilaterally, clear to auscultation and percussion. No rales, rhonchi or wheezes noted. No increased work of breathing, no retractions or nasal flaring. Skin: Warm, dry with normal turgor. Normal color with no rashes, no lesions, and no evidence of cellulitis. MS/ Extremity: Pulses equal, no cyanosis. Neurovascular intact. Full, normal range of motion. Neuro: Awake and alert, GCS 15, oriented to person, place, time, and situation. Cranial nerves II-XII grossly intact. Motor strength 5/5 in all extremities. Sensory grossly intact. Cerebellar exam normal. Normal gait. 10:56 Abdomen/GI: Inspection: abdomen appears normal, Bowel sounds: active, all quadrants, Palpation: soft, in all quadrants, mild abdominal tenderness, in the suprapubic area, moderate abdominal tenderness, in the anterior aspect of left lateral abdomen and left lower quadrant, mass, is not appreciated, rebound tenderness, is not appreciated, voluntary guarding, is not appreciated, involuntary guarding, is not appreciated, no appreciated organomegaly, Indicators: McBurney's point is not tender, Duvall's sign is negative, Rovsing's sign is negative, Liver: tenderness, is not appreciated. 10:56 Back: pain, is absent, ROM is normal, normal spinal alignment noted, CVA tenderness, that is moderate, is noted on the left. Vital Signs: 09:34 Weight 58.97 kg; Height 5 ft. 4 in. (162.56 cm); Pain 10/10; sg 09:35 BP 127 / 80; Pulse 86; Resp 16; Pulse Ox 100% on R/A; sg 10:30 BP 127 / 80; Pulse 64; Resp 17 S; Pulse Ox 95% ; ca1 11:40 BP 131 / 82; Pulse 67; Resp 16 S; Temp 98(O); Pulse Ox 98% on R/A; ca1 09:34 Body Mass Index 22.31 (58.97 kg, 162.56 cm) sg MDM: 09:38 Patient medically screened. jr8 11:38 Differential diagnosis: ectopic , kidney stone, nonspecific abdominal pain, jr8 ovarian cyst, pelvic inflammatory disease, urinary tract infection. Data reviewed: vital signs, nurses notes, lab test result(s), radiologic studies, CT scan. Data interpreted: Pulse oximetry: on room air is 95 %. Interpretation: normal. Counseling: I had a detailed discussion with the patient and/or guardian regarding: the historical points, exam findings, and any diagnostic results supporting the discharge/admit diagnosis, lab results, radiology results, the need for outpatient follow up, a family practitioner, to return to the emergency department if symptoms worsen or persist or if there are any questions or concerns that arise at home. Response to treatment: the patient's symptoms have markedly improved after treatment. 03/19 10:05 Order name: Basic Metabolic Panel [facility] 03/19 10:05 Order name: CBC with Diff; Complete Time: 10:35 [facility] 03/19 10:05 Order name: Creatinine for Radiology; Complete Time: 10:49 [facility] 03/19 10:05 Order name: Hepatic Function [facility] 03/19 10:05 Order name: Lipase [facility] 03/19 10:05 Order name: Urine Microscopic Only; Complete Time: 10:54 [facility] 03/19 10:05 Order name: IV Saline Lock; Complete Time: 10:13 [facility] 03/19 10:05 Order name: CT Stone Protocol; Complete Time: 10:49 [facility] 03/19 10:25 Order name: Urine Dipstick--Ancillary (enter results); Complete Time: 10:35 em1 03/19 10:25 Order name: Urine --Ancillary (enter results); Complete Time: 10:35 em 03/19 10:58 Order name: Urine Culture [facility] [place] 03/19 10:05 Order name: Labs collected and sent; Complete Time: 10:13 03/19 10:05 Order name: Urine Test (obtain specimen); Complete Time: 10:24 03/19 10:05 Order name: Urine Dipstick-Ancillary (obtain specimen); Complete Time: 10:24 Administered Medications: 10:49 Not Given (Physician Discretion): TORadol - Ketorolac 15 mg IVP once 8 11:01 Drug: Rocephin 1 grams Route: IV; Rate: calculated rate; Site: left antecubital; ca1 11:40 Follow up: Response: No adverse reaction; IV Status: Completed infusion ca1 11:11 Drug: fentaNYL (PF) 50 mcg Route: IVP; Site: left antecubital; ca1 11:40 Follow up: Response: No adverse reaction; Pain is decreased ca1 Disposition: 03/20 09:42 Co-signature as Attending Physician, Isreal Campos MD I agree with the assessment and wa plan of care. Disposition: 03/19/19 11:39 Discharged to Home. Impression: Acute cystitis, Acute tubulo-interstitial nephritis. - Condition is Stable. - Discharge Instructions: Pyelonephritis, Adult, Urinary Tract Infection, Adult. - Prescriptions for Augmentin 875- 125 mg Oral Tablet - take 1 tablet by ORAL route every 12 hours for 10 days; 20 tablet. Zofran 4 mg Oral Tablet - take 1 tablet by ORAL route every 12 hours As needed; 20 tablet. Tramadol 50 mg Oral Tablet - take 1 tablet by ORAL route every 8 hours as needed; 12 tablet. - Work release form, Medication Reconciliation Form, Thank You Letter, Antibiotic Education, Prescription Opioid Use form. - Follow up: Isreal Canchola MD; When: 2 - 3 days; Reason: Recheck today's complaints, Continuance of care, Re-evaluation by your physician. - Problem is new. - Symptoms have improved. Signatures: Dispatcher [employer] EDMS Jean Chisholm RN RN Nabeel Flannery PA PA jr8 Isreal Campos MD MD wa Acob, Cheryl RN RN ca1 Corrections: (The following items were deleted from the chart) 03/19 10:51 09:35 Allergies: NKA; sg ca1 11:55 11:39 03/19/2019 11:39 Discharged to Home. Impression: Acute cystitis; Acute ca1 tubulo-interstitial nephritis. Condition is Stable. Forms are Medication Reconciliation Form, Thank You Letter, Antibiotic Education, Prescription Opioid Use. Follow up: Isreal Canchola; When: 2 - 3 days; Reason: Recheck today's complaints, Continuance of care, Re-evaluation by your physician. Problem is new. Symptoms have improved. jr8
--- NOTE | 2019-03-19 11:40 | ER ---
Nurse's Notes [facility] Name: Leonela Bernardo Age: 28 yrs Sex: Female : 1990 Arrival Date: 03/19/2019 Time: 09:27 Bed 13 Private MD: Isreal Canchola E Diagnosis: Acute cystitis;Acute tubulo-interstitial nephritis Presentation: 03/19 09:33 Presenting complaint: Patient states: Suprapubic pain, flank pain and pain with sg urination, blood with urination for 2-3 days now, reports urinating and having severe pain then noticed a small black object in the toilet with bloody urine but the pain did not get any better, denies fever/chills/diarrhea at this time. Transition of care: patient was not received from another setting of care. Onset of symptoms was March 19, 2019. Risk Assessment: Do you want to hurt yourself or someone else? Patient reports no desire to harm self or others. Initial Sepsis Screen: Does the patient meet any 2 criteria? No. Patient's initial sepsis screen is negative. Does the patient have a suspected source of infection? No. Patient's initial sepsis screen is negative. Care prior to arrival: None. 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 - Social history:: Smoking status: Patient uses tobacco products. - Ebola Screening: : Patient negative for fever greater than or equal to 101.5 degrees Fahrenheit, and additional compatible Ebola Virus Disease symptoms Patient denies exposure to infectious person Patient denies travel to an Ebola-affected area in the 21 days before illness onset No symptoms or risks identified at this time. Screenin:35 Abuse screen: Denies threats or abuse. Denies injuries from another. Nutritional ca1 screening: No deficits noted. Tuberculosis screening: No symptoms or risk factors identified. Fall Risk IV access (20 points). Assessment: 09:35 General: Appears in no apparent distress. comfortable, Behavior is calm, cooperative, ca1 appropriate for age. Pain: Complains of pain in suprapubic area, right lower quadrant and left lower quadrant Pain radiates to low back area, left low back and right low back, groin Pain currently is 10 out of 10 on a pain scale. Pain began 1 day ago. Neuro: Level of Consciousness is awake, alert, obeys commands, Oriented to person, place, time, situation. Cardiovascular: Heart tones S1 S2 present Capillary refill < 3 seconds Patient's skin is warm and dry. Respiratory: Airway is patent Respiratory effort is even, unlabored, Respiratory pattern is regular, symmetrical, Breath sounds are clear bilaterally. GI: Abdomen is flat, non-distended, Bowel sounds present X 4 quads. Abd is soft X 4 quads Abdomen is tender to palpation in suprapubic area, right lower quadrant and left lower quadrant Reports nausea, vomiting. : Urine is cloudy, Reports burning with urination. EENT: No deficits noted. No signs and/or symptoms were reported regarding the EENT system. Derm: Skin is intact, is healthy with good turgor, Skin is pink, warm \T\ dry. Musculoskeletal: Circulation, motion, and sensation intact. Capillary refill < 3 seconds, Range of motion: intact in all extremities. 10:30 Reassessment: Patient appears in no apparent distress at this time. Patient and/or ca1 family updated on plan of care and expected duration. Pain level reassessed. Patient is alert, oriented x 3, equal unlabored respirations, skin warm/dry/pink. 11:40 Reassessment: Patient appears in no apparent distress at this time. Patient and/or ca1 family updated on plan of care and expected duration. Pain level reassessed. Patient is alert, oriented x 3, equal unlabored respirations, skin warm/dry/pink. Patient states feeling better. Vital Signs: 09:34 Weight 58.97 kg; Height 5 ft. 4 in. (162.56 cm); Pain 10/10; sg 09:35 BP 127 / 80; Pulse 86; Resp 16; Pulse Ox 100% on R/A; sg 10:30 BP 127 / 80; Pulse 64; Resp 17 S; Pulse Ox 95% ; ca1 11:40 BP 131 / 82; Pulse 67; Resp 16 S; Temp 98(O); Pulse Ox 98% on R/A; ca1 09:34 Body Mass Index 22.31 (58.97 kg, 162.56 cm) ED Course: 09:27 Patient arrived in ED. mr 09:27 Isreal Canchola MD is Private Physician. mr 09:33 Iliana Machado, ROSAMARIA is Primary Nurse. ca1 09:33 Nabeel Washburn PA is PHCP. jr8 09:33 Isreal Campos MD is Attending Physician. jr8 09:34 Triage completed. sg 09:34 Arm band placed on. sg 09:35 Patient has correct armband on for positive identification. Placed in gown. Bed in low ca1 position. Call light in reach. Side rails up X 1. Pulse ox on. NIBP on. Warm blanket given. 10:00 No provider procedures requiring assistance completed. Inserted saline lock: 22 gauge ca1 in left antecubital area, using aseptic technique. Blood collected. 10:08 Radiology exam delayed due to test not completed at this time. jg6 10:[address] via wheelchair. ca1 10:36 CT Stone Protocol In Process Unspecified. EDMS 10:36 CT completed. Patient tolerated procedure well. Patient moved to CT via wheelchair. jg6 Patient moved back from CT. 11:38 Isreal Canchola MD is Referral Physician. jr8 11:53 IV discontinued, intact, bleeding controlled, No redness/swelling at site. Pressure ca1 dressing applied. Administered Medications: 10:49 Not Given (Physician Discretion): TORadol - Ketorolac 15 mg IVP once jr8 11:01 Drug: Rocephin 1 grams Route: IV; Rate: calculated rate; Site: left antecubital; ca1 11:40 Follow up: Response: No adverse reaction; IV Status: Completed infusion ca1 11:11 Drug: fentaNYL (PF) 50 mcg Route: IVP; Site: left antecubital; ca1 11:40 Follow up: Response: No adverse reaction; Pain is decreased ca1 Outcome: 11:39 Discharge ordered by . jr8 11:53 Discharged to home ambulatory, with significant other. ca1 11:53 Condition: stable 11:53 Discharge instructions given to patient, Instructed on discharge instructions, follow up and referral plans. medication usage, Demonstrated understanding of instructions, follow-up care, medications, Prescriptions given X 3. 11:55 Patient left the ED. ca1 Signatures: Dispatcher [employer] EDMS Chisholm, JeanROSAMARIA han RN Siri pacheco Nabeel Washburn PA PA jr8 Leonela Espana jg6 Iliana Machado RN RN ca1 Corrections: (The following items were deleted from the chart) :51 09:35 Allergies: MADISON; tammy ca1
[2019-03-19 12:49] LABS: ALT/SGPT 23 U/L (12-78); AST/SGOT 23 U/L (15-37); Alkaline Phosphatase 52 U/L (45-117); BUN Blood Urea Nitrogen 10 mg/dL (7-18); Bicarbonate 26 mmol/L (21-32); Bilirubin Direct 0.1 mg/dL (0-0.2); Bilirubin Total 0.5 mg/dL (0.2-1.0); Glucose Level 85 mg/dL (74-106); Lipase 149 U/L (73-393); Potassium 3.9 mmol/L (3.5-5.1); Protein, Total 7.1 g/dL (6.4-8.2); Sodium Level 141 mmol/L (136-145)
[2019-03-20 19:05] VITALS: BP 131/82; TEMP 98; O2SAT 98
== END 2019-03-19 11:55 | disposition home or self-care (01) ==
LOC: ER 09:25
DX: N30.00 Acute cystitis without hematuria (principal); N10 Acute pyelonephritis; Z72.0 Tobacco use; Z88.6 Allergy status to analgesic agent
CPT/HCPCS: 36415; 74176; 76377; 80048; 80076; 81003; 81015; 81025; 83690; 85025; 87086; 87088; 96365; 96375; 99284; J0696; J3010

== ENCOUNTER 2019-06-16 20:11 | Emergency (ER) | payer SELFPAY ==
[2019-06-16 20:45] LABS: Urine Blood 3+ (NEG); Urine Glucose NEGATIVE (NEG); Urine Specific Gravity 1.025 (1.005-1.030)
[2019-06-16 20:46] LABS: Urine Protein 3+ (NEG)
[2019-06-16] MEDS ORDERED: MORPHINE 2 MG/ML SYR ONE (20:49)
[2019-06-16] MEDS ORDERED: ONDANSETRON 4 MG/2 ML VIAL ONE (20:50)
[2019-06-16 21:07] LABS: Absolute Lymphocytes (CBC) 2.2 K/uL (0.7-4.9); Basophils % 0.2 % (0-1.3); Hematocrit 38.5 % (36.0-45.0); Lymphocytes % 24.3 % (15.3-44.8); MPV 9.7 fL (7.6-11.3); RBC Red Blood Cell Count 4.26 M/uL (3.86-4.86)
[2019-06-16 21:24] LABS: Bilirubin Direct 0.1 mg/dL (0-0.2); Bilirubin Total 0.3 mg/dL (0.2-1.0); Potassium 3.7 mmol/L (3.5-5.1); Protein, Total 6.6 g/dL (6.4-8.2)
[2019-06-16] MEDS ORDERED: MORPHINE 4 MG/ML SYR ONE (21:53)
--- NOTE | 2019-06-16 22:58 | ER ---
Nurse's Notes [facility] Name: Leonela Bernardo Age: 28 yrs Sex: Female : 1990 Arrival Date: 06/16/2019 Time: 20:13 Bed 20 Private MD: Diagnosis: Unspecified ovarian cysts;Urinary tract infection, site not specified Presentation: 06/16 20:17 Presenting complaint: Patient states: i have abdominal and lower back pain, vomiting mg2 and bloody urine for 2 days. i also have history of uti. Transition of care: patient was not received from another setting of care. Onset of symptoms was June 14, 2019. Risk Assessment: Do you want to hurt yourself or someone else? Patient reports no desire to harm self or others. Initial Sepsis Screen: Does the patient meet any 2 criteria? No. Patient's initial sepsis screen is negative. Does the patient have a suspected source of infection? No. Patient's initial sepsis screen is negative. Care prior to arrival: None. 20:17 Method Of Arrival: Ambulatory mg2 20:17 Acuity: AMADA 3 mg2 Triage Assessment: 20:41 General: Appears in no apparent distress. uncomfortable, Behavior is calm, cooperative, cc3 appropriate for age. Pain: Complains of pain in right lower quadrant. GI: Abdomen is flat. 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 - Social history:: Smoking status: Patient uses tobacco products, 3 cigarettes a day, Patient/guardian denies using alcohol, street drugs, IV drugs. - Ebola Screening: : No symptoms or risks identified at this time. Screenin:21 Abuse screen: Denies threats or abuse. Denies injuries from another. Nutritional mg2 screening: No deficits noted. Tuberculosis screening: No symptoms or risk factors identified. 20:41 Fall Risk Ambulatory Aid- None/Bed Rest/Nurse Assist (0 pts). Gait- Normal/Bed cc3 Rest/Wheelchair (0 pts) Mental Status- Oriented to own ability (0 pts). Assessment: 20:41 General: Appears in no apparent distress. uncomfortable, Behavior is calm, cooperative, cc3 appropriate for age. Pain: Complains of pain in right lower quadrant Quality of pain is described as aching. Neuro: Level of Consciousness is awake, alert, obeys commands, Oriented to person, place, time, situation, Appropriate for age. Cardiovascular: Denies chest pain, Capillary refill < 3 seconds in bilateral fingers Patient's skin is warm and dry. Respiratory: Airway is patent Respiratory effort is even, unlabored, Respiratory pattern is regular, symmetrical. GI: Abdomen is flat, Bowel sounds present X 4 quads. Abd is soft X 4 quads Abdomen is tender to palpation in right side. : Reports pain with urination. EENT: No signs and/or symptoms were reported regarding the EENT system. Derm: Skin is intact, is healthy with good turgor, Skin is pink, warm \T\ dry. normal. Musculoskeletal: Circulation, motion, and sensation intact. Range of motion: intact in all extremities. 21:18 Reassessment: Patient appears in no apparent distress at this time. Patient and/or cc3 family updated on plan of care and expected duration. Pain level reassessed. Patient is alert, oriented x 3, equal unlabored respirations, skin warm/dry/pink. 22:10 Reassessment: Patient appears in no apparent distress at this time. Patient and/or cc3 family updated on plan of care and expected duration. Pain level reassessed. Patient is alert, oriented x 3, equal unlabored respirations, skin warm/dry/pink. Patient said she's not relieved from pain with the Morphine, GISELA Barrow informed, no new orders made and said he's waiting for the CT scan result. 23:07 Reassessment: Patient appears in no apparent distress at this time. Patient and/or cc3 family updated on plan of care and expected duration. Pain level reassessed. Patient is alert, oriented x 3, equal unlabored respirations, skin warm/dry/pink. Patient's blood pressure came down to 93/62 mmHg now, patient denies dizziness though and said her blood pressure is always low. GISELA Barrow informed and said to walk the patient around and recheck the blood pressure after. 06/17 00:00 Reassessment: Patient appears in no apparent distress at this time. Patient and/or cc3 family updated on plan of care and expected duration. Pain level reassessed. Patient is alert, oriented x 3, equal unlabored respirations, skin warm/dry/pink. GISELA Barrow discharged the patient home with prescriptions given. IV cannula removed and patient left ER vitally stable and ambulatory. No valuables left in the patient's room. Patient denies pain at this time. Patient states feeling better. Patient states symptoms have improved. Vital Signs: 06/16 20:20 BP 122 / 81; Pulse 83; Resp 18; Temp 98.4(TE); Pulse Ox 100% on R/A; Weight 61.23 kg; mg2 Height 5 ft. 4 in. (162.56 cm); Pain 8/10; 21:15 BP 107 / 88; Pulse 70; Resp 18 S; Pulse Ox 98% on R/A; Pain 8/10; cc3 22:15 BP 94 / 56; Pulse 65; Resp 18 S; Pulse Ox 100% on R/A; cc3 23:07 BP 93 / 62; Pulse 62; Resp 17 S; Pulse Ox 100% on R/A; cc3 23:15 BP 92 / 58; Pulse 86; Resp 17 S; Pulse Ox 100% on R/A; cc3 23:45 BP 98 / 54; Pulse 65; Resp 17 S; Pulse Ox 100% on R/A; Pain 2/10; cc3 20:20 Body Mass Index 23.17 (61.23 kg, 162.56 cm) mg2 ED Course: 20:13 Patient arrived in ED. cf2 20:19 Triage completed. mg2 20:21 Arm band placed on. mg2 20:24 Justin Barrow PA is PHCP. jmm 20:24 Adelfo Blankenship MD is Attending Physician. jmm 20:35 Radiology exam delayed due to lab results not completed at this time. (BUN/Creatinine) kw1 test not completed at this time. 20:41 Naima Rosa is Primary Nurse. cc3 20:41 Patient has correct armband on for positive identification. Bed in low position. Call cc3 light in reach. Side rails up X 1. Pulse ox on. NIBP on. 21:36 CT completed. Patient tolerated procedure well. Patient moved back from CT. mw3 21:39 CT Abd/Pelvis - IV Contrast Only In Process Unspecified. EDMS 06/17 00:00 No provider procedures requiring assistance completed. IV discontinued, intact, cc3 bleeding controlled, No redness/swelling at site. Pressure dressing applied. Administered Medications: 06/16 20:55 Drug: morphine 2 mg Route: IVP; Site: left antecubital; cc3 21:30 Follow up: Response: No adverse reaction; Pain is unchanged, physician notified; RASS: cc3 Alert and Calm (0) 21:00 Drug: Zofran 4 mg Route: IVP; Site: left antecubital; cc3 21:30 Follow up: Response: No adverse reaction; Nausea is decreased cc3 21:50 Drug: morphine 4 mg Route: IVP; Site: left antecubital; cc3 22:10 Follow up: Response: No adverse reaction; Pain is unchanged, physician notified cc3 22:10 Follow up: Response: RASS: Alert and Calm (0) cc3 23:20 Drug: NS 0.9% 1000 ml Route: IV; Rate: 1 bolus; Site: left antecubital; cc3 06/17 00:00 Follow up: Response: No adverse reaction; IV Status: Completed infusion; IV Intake: cc3 1000ml Intake: 00:00 IV: 1000ml; Total: 1000ml. cc3 Outcome: 06/16 22:57 Discharge ordered by . jorje 06/17 00:00 Patient left the ED. cc3 00:00 Discharged to home ambulatory. cc3 00:00 Condition: stable 00:00 Discharge instructions given to patient, Instructed on discharge instructions, follow up and referral plans. medication usage, Demonstrated understanding of instructions, follow-up care, medications, Prescriptions given X 2. Signatures: Dispatcher [employer] EDKS Justin Barrow PA PA Carolann Preciado kw1 Rusty Tafoya RN RN Kristi Quintero mw3 Naima Rosa cc3 Mikey Guerrero cf2 Corrections: (The following items were deleted from the chart) 06/16 22:59 22:10 Reassessment: Patient appears in no apparent distress at this time. Patient cc3 and/or family updated on plan of care and expected duration. Pain level reassessed. Patient is alert, oriented x 3, equal unlabored respirations, skin warm/dry/pink. Patient said she's not relieved from pain with the Morphine, GISELA Barrow informed. cc3 23:14 23:07 Reassessment: Patient appears in no apparent distress at this time. Patient cc3 and/or family updated on plan of care and expected duration. Pain level reassessed. Patient is alert, oriented x 3, equal unlabored respirations, skin warm/dry/pink. Patient's blood pressure came down to 93/62 mmHg now, patient said her blood pressure is always low. GISELA Barrow informed and said to walk the patient around and recheck the blood pressure after. cc3
--- NOTE | 2019-06-16 22:58 | EDPHYS ---
Physician Documentation [facility] Name: Leonela Bernardo Age: 28 yrs Sex: Female : 1990 Arrival Date: 06/16/2019 Time: 20:13 Bed 20 Private MD: ED Physician Adelfo Blankenship HPI: 06/16 20:35 This 28 yrs old Female presents to ER via Ambulatory with complaints of jmm Abdominal Pain, Bloody urine. 20:35 The patient presents with abdominal pain. Onset: The symptoms/episode began/occurred jmm gradually, 3 day(s) ago. The symptoms radiate to right back. Associated signs and symptoms: Pertinent positives: vomiting. This is a 28 year old female with a history of anxiety that presents to the ED with complaints od painful urination, hematuria beginning today along with vomiting and right flank pain. Denies diarrhea. . 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 - Social history:: Smoking status: Patient uses tobacco products, 3 cigarettes a day, Patient/guardian denies using alcohol, street drugs, IV drugs. - Ebola Screening: : No symptoms or risks identified at this time. ROS: 20:35 Constitutional: Negative for fever, chills, and weight loss, Cardiovascular: Negative jmm for chest pain, palpitations, and edema, Respiratory: Negative for shortness of breath, cough, wheezing, and pleuritic chest pain. 20:35 Abdomen/GI: Positive for abdominal pain, vomiting. 20:35 Back: Positive for flank pain, on the right. 20:35 : Positive for urinary symptoms. 20:35 All other systems are negative. Exam: 20:35 Constitutional: This is a well developed, well nourished patient who is awake, alert, jmm and in no acute distress. Head/Face: atraumatic. Eyes: EOMI, no conjunctival erythema appreciated ENT: Moist Mucus Membranes Neck: Trachea midline, Supple Chest/axilla: Normal chest wall appearance and motion. Cardiovascular: Regular rate and rhythm. No edema appreciated Respiratory: Normal respirations, no respiratory distress appreciated 20:35 Abdomen/GI: Inspection: abdomen appears normal, Bowel sounds: normal, Palpation: soft, mild abdominal tenderness, in the right lower quadrant. 20:35 Back: CVA tenderness, that is mild, is noted on the right. 20:35 Musculoskeletal/extremity: ROM: intact in all extremities. 20:35 Skin: Appearance: Color: normal in color. 20:35 Neuro: Orientation: is normal, Mentation: is normal, Memory: is normal. 20:35 Psych: Behavior/mood is pleasant, cooperative. Vital Signs: 20:20 BP 122 / 81; Pulse 83; Resp 18; Temp 98.4(TE); Pulse Ox 100% on R/A; Weight 61.23 kg; mg2 Height 5 ft. 4 in. (162.56 cm); Pain 8/10; 21:15 BP 107 / 88; Pulse 70; Resp 18 S; Pulse Ox 98% on R/A; Pain 8/10; cc3 22:15 BP 94 / 56; Pulse 65; Resp 18 S; Pulse Ox 100% on R/A; cc3 23:07 BP 93 / 62; Pulse 62; Resp 17 S; Pulse Ox 100% on R/A; cc3 23:15 BP 92 / 58; Pulse 86; Resp 17 S; Pulse Ox 100% on R/A; cc3 23:45 BP 98 / 54; Pulse 65; Resp 17 S; Pulse Ox 100% on R/A; Pain 2/10; cc3 20:20 Body Mass Index 23.17 (61.23 kg, 162.56 cm) mg2 MDM: 20:30 Patient medically screened. [facility] 22:52 Data reviewed: vital signs, nurses notes. Counseling: I had a detailed discussion with jorje the patient and/or guardian regarding: the historical points, exam findings, and any diagnostic results supporting the discharge/admit diagnosis, lab results, radiology results, the need for outpatient follow up, to return to the emergency department if symptoms worsen or persist or if there are any questions or concerns that arise at home. ED course: Patient is alert and non toxic in appearance in the ED. Imaging studies negative for appendicitis. Patient prescribed oral abx and advised to follow up with pcp. Patient was otherwise given strict return precaution. Patient understood and agrees with the plan of care. . 06/16 20:31 Order name: Basic Metabolic Panel; Complete Time: 21:25 [facility] 06/16 20:31 Order name: CBC with Diff; Complete Time: 21: [facility] 06/16 20:31 Order name: Creatinine for Radiology; Complete Time: 21: [facility] 06/16 20:31 Order name: Hepatic Function; Complete Time: 21:25 [facility] 06/16 20:31 Order name: Lipase; Complete Time: 21: [facility] 06/16 20:43 Order name: Urine Dipstick--Ancillary (enter results); Complete Time: 20:53 [facility] 06/16 20:31 Order name: IV Saline Lock; Complete Time: 21: [facility] 06/16 20:31 Order name: Labs collected and sent; Complete Time: 21: [facility] 06/16 20:31 Order name: CT Abd/Pelvis - IV Contrast Only [facility] 06/16 20:43 Order name: Urine --Ancillary (enter results); Complete Time: 20:53 [facility] 06/16 20:31 Order name: Urine Dipstick-Ancillary (obtain specimen); Complete Time: 20:41 [facility] 06/16 20:31 Order name: Urine Test (obtain specimen); Complete Time: 20:41 [facility] Administered Medications: 20:55 Drug: morphine 2 mg Route: IVP; Site: left antecubital; cc3 21:30 Follow up: Response: No adverse reaction; Pain is unchanged, physician notified; RASS: cc3 Alert and Calm (0) 21:00 Drug: Zofran 4 mg Route: IVP; Site: left antecubital; cc3 21:30 Follow up: Response: No adverse reaction; Nausea is decreased cc3 21:50 Drug: morphine 4 mg Route: IVP; Site: left antecubital; cc3 22:10 Follow up: Response: No adverse reaction; Pain is unchanged, physician notified cc3 22:10 Follow up: Response: RASS: Alert and Calm (0) cc3 23:20 Drug: NS 0.9% 1000 ml Route: IV; Rate: 1 bolus; Site: left antecubital; cc3 06/17 00:00 Follow up: Response: No adverse reaction; IV Status: Completed infusion; IV Intake: cc3 1000ml Disposition: 06:31 Co-signature as Attending Physician, Adelfo Blankenship MD Available for consultation at ps1 all times . Disposition: 06/16/19 22:57 Discharged to Home. Impression: Unspecified ovarian cysts, Urinary tract infection, site not specified. - Condition is Stable. - Discharge Instructions: Ovarian Cyst, Urinary Tract Infection, Adult. - Prescriptions for Ultracet 37.5- 325 mg Oral Tablet - take 1 tablet by ORAL route every 6 hours - for up to 5 days; do not exceed 8 tablets per day.; 12 tablet. Bactrim DS 800- 160 mg Oral Tablet - take 1 tablet by ORAL route every 12 hours for 10 days; 20 tablet. - Medication Reconciliation Form, Thank You Letter, Antibiotic Education, Prescription Opioid Use form. - Follow up: Private Physician; When: 2 - 3 days; Reason: If symptoms return, Recheck today's complaints, Continuance of care, Re-evaluation by your physician. Signatures: Dispatcher [employer] EDMS Justin Barrow PA PA jmm Singer, Phillip, MD MD ps1 Rusty Tafoya RN RN mg2 Naima Rosa cc3 Corrections: (The following items were deleted from the chart) 00:00 06/16 22:57 06/16/2019 22:57 Discharged to Home. Impression: Unspecified ovarian cysts; cc3 Urinary tract infection, site not specified. Condition is Stable. Forms are Medication Reconciliation Form, Thank You Letter, Antibiotic Education, Prescription Opioid Use. Follow up: Private Physician; When: 2 - 3 days; Reason: If symptoms return, Recheck today's complaints, Continuance of care, Re-evaluation by your physician. jorje
[2019-06-16] MEDS ORDERED: NA CHLORIDE 0.9% 1,000 ML ONE (23:27)
[2019-06-17 00:52] VITALS: TEMP 98.4
[2019-06-17 00:55] VITALS: O2SAT 100
[2019-06-17 00:59] VITALS: BP 98/54
--- NOTE | 2019-06-18 16:41 | RAD REPORT ---
EXAM DESCRIPTION: Abdomen Pelvis W Contrast CLINICAL HISTORY: 28 years Female right lower abdominal pain COMPARISON: None TECHNIQUE: Images were obtained in axial, sagittal, and coronal planes. Intravenous contrast was adm inistered. This exam was performed according to our departmental dose-optimization program which includes use of Automated Exposure Control, adjustment of the mA and/or kV according to patient size and/or use of i terative reconstruction technique. FINDINGS: No abnormality involving the liver, spleen, pancreas, and adrenal glands bilaterally. Mild ly contracted gallbladder. No obstructing renal calcifications bilaterally. No hydronephrosis bilaterally. Unremarkable bladder. Appendix within normal limits. No bowel obstruction, perforation, or inflammation. Marked constipatio n. Cystic appearance right ovary. The largest cyst measures 2.1 cm. No abnormality abdominal aorta or portal vein. No abnormality lower lungs bilaterally. No acute osseous abnormality. IMPRESSION: No acute intra-abdominal abnormality. Marked constipation. Electronically signed by: Hien Teresa MD 06/16/2019 9:48 PM CDT Due to temporary technical issues with the PACS/Fluency reporting system, reports are being signed by the in house radiologist as a courtesy to ensure prompt reporting. The interpreting radiologist is f ully responsible for the content of the report.
== END 2019-06-17 | disposition home or self-care (01) ==
LOC: ER 20:11
DX: N39.0 Urinary tract infection, site not specified (principal); N83.209 Unspecified ovarian cyst, unspecified side; F41.9 Anxiety disorder, unspecified; Z72.0 Tobacco use; Z88.6 Allergy status to analgesic agent
CPT/HCPCS: 36415; 74177; 80048; 80076; 81003; 81025; 83690; 85025; 96361; 96374; 96375; 99284; J2270; J2405; J7030; Q9967

== ENCOUNTER 2019-11-20 20:16 | Emergency (ER) | payer SELFPAY ==
--- OUTSIDE RECORDS SUMMARY | 2019-11-20 20:18 | XMS REPORT ---
:1990 [facility] [address] Maradiaga [address] [place] [address] Care Team Providers Name Role Phone Unavailable Unavailable Unavailable Problems This patient has no known problems. Allergies, Adverse Reactions, Alerts This patient has no known allergies or adverse reactions. Medications This patient has no known medications.
--- NOTE | 2019-11-20 21:10 | ER ---
Nurse's Notes [facility] Name: Leonela Bernardo Age: 29 yrs Sex: Female : 1990 Arrival Date: 11/20/2019 Time: 20:17 Bed 20 Private MD: Diagnosis: Acute upper respiratory infection, unspecified Presentation: 11/19 20:25 Chief complaint: Patient states: Sore throat, cough and congestion x 3 days. Reports ca1 body aches, decreased appetite. Fever at 104.3 today. Coronavirus screen: The patient has NOT traveled to a country currently being monitored by the [facility] within the last 14 days. The patient has NOT had contact with any known and/or suspected case of coronavirus. Ebola Screen: Patient negative for fever greater than or equal to 101.5 degrees Fahrenheit, and additional compatible Ebola Virus Disease symptoms Patient denies exposure to infectious person. Patient denies travel to an Ebola-affected area in the 21 days before illness onset. No symptoms or risks identified at this time. Initial Sepsis Screen: Does the patient meet any 2 criteria? No. Patient's initial sepsis screen is negative. Does the patient have a suspected source of infection? No. Patient's initial sepsis screen is negative. Risk Assessment: Do you want to hurt yourself or someone else? Patient reports no desire to harm self or others. Onset of symptoms was November 20, 2019. 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 - Social history:: Smoking status: Patient reports the use of cigarette tobacco products, smokes one-half pack cigarettes per day. Screenin:41 Abuse screen: Denies threats or abuse. Nutritional screening: No deficits noted. ea Tuberculosis screening: No symptoms or risk factors identified. Fall Risk None identified. Assessment: 20:40 General: Appears in no apparent distress. Behavior is calm, cooperative, appropriate ea for age. Pain: Complains of pain in body aches. Neuro: Level of Consciousness is awake, alert, obeys commands, Oriented to person, place, time. Cardiovascular: Patient's skin is warm and dry. Respiratory: Airway is patent Respiratory effort is Respiratory pattern is regular, symmetrical. Derm: Skin is pink, warm \T\ dry. 21:14 Reassessment: Dm Altamirano HAIR MACHINE OPERATOR at bedside to discuss results with patient; patient lp1 demonstrates understanding of discharge instructions. Vital Signs: 20:25 BP 117 / 79; Pulse 74; Resp 16 S; Temp 98.2(O); Pulse Ox 100% on R/A; Weight 58.97 kg ca1 (R); Height 5 ft. 4 in. (162.56 cm) (R); 20:25 Body Mass Index 22.31 (58.97 kg, 162.56 cm) ca1 ED Course: 20:17 Patient arrived in ED. cl3 20:19 Kirstie Altamirano FNP-C is [facility] kb 20:19 Lee Martinez MD is Attending Physician. kb 20:28 Triage completed. ca1 20:29 Arm band placed on right wrist. ca1 20:31 Yakelin Rodriguez, RN is Primary Nurse. ea 20:41 Patient has correct armband on for positive identification. Bed in low position. Call ea light in reach. Side rails up X2. 21:13 No provider procedures requiring assistance completed. Patient did not have IV access lp1 during this emergency room visit. Administered Medications: No medications were administered Outcome: 21:09 Discharge ordered by MD. kb 21:14 Discharged to home ambulatory. lp1 21:14 Condition: good 21:14 Discharge instructions given to patient, Instructed on discharge instructions, follow up and referral plans. Demonstrated understanding of instructions, follow-up care. 21:15 Patient left the ED. lp1 Signatures: Kirstie Altamirano FNP-C FNP-Ckb Pena, Laura RN RN lp1 Yakelin Rodriguez RN RN ea Acob, Cheryl, RN RN ca1 Carmen Vidal cl3
--- NOTE | 2019-11-20 21:10 | EDPHYS ---
Physician Documentation [facility] Name: Leonela Bernardo Age: 29 yrs Sex: Female : 1990 Arrival Date: 11/20/2019 Time: 20:17 Bed 20 Private MD: ED Physician Lee Martinez HPI: 11/19 21:06 This 29 yrs old Female presents to ER via Ambulatory with complaints of Flu kb Symptoms. 21:06 The patient or guardian reports cough, that is intermittent, described as moderate, kb with no sputum, flu symptoms, low-grade fever, myalgias. Onset: The symptoms/episode began/occurred 2 day(s) ago. Severity of symptoms: At their worst the symptoms were moderate, in the emergency department the symptoms are unchanged. Modifying factors: The symptoms are alleviated by nothing, the symptoms are aggravated by nothing. Associated signs and symptoms: Pertinent positives: fever, rhinorrhea, sore throat. The patient has not experienced similar symptoms in the past. The patient has not recently seen a physician. 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 - Social history:: Smoking status: Patient reports the use of cigarette tobacco products, smokes one-half pack cigarettes per day. ROS: 21:01 Neck: Negative for injury, pain, and swelling, Cardiovascular: Negative for chest pain, kb palpitations, and edema, Abdomen/GI: Negative for abdominal pain, nausea, vomiting, diarrhea, and constipation, Back: Negative for injury and pain, MS/Extremity: Negative for injury and deformity, Skin: Negative for injury, rash, and discoloration, Neuro: Negative for headache, weakness, numbness, tingling, and seizure. 21:01 Constitutional: Positive for body aches, chills, fatigue, fever, malaise. 21:01 ENT: Positive for rhinorrhea, sinus congestion, sore throat. 21:01 Respiratory: Positive for cough, Negative for dyspnea on exertion, hemoptysis, orthopnea, pleurisy, shortness of breath, sputum production, wheezing. Exam: 21:01 Constitutional: This is a well developed, well nourished patient who is awake, alert, kb and in no acute distress. Head/Face: Normocephalic, atraumatic. ENT: Nares patent. No nasal discharge, no septal abnormalities noted. Tympanic membranes are normal and external auditory canals are clear. Oropharynx with no redness, swelling, or masses, exudates, or evidence of obstruction, uvula midline. Mucous membranes moist. Neck: Trachea midline, no thyromegaly or masses palpated, and no cervical lymphadenopathy. Supple, full range of motion without nuchal rigidity, or vertebral point tenderness. No Meningismus. Chest/axilla: Normal chest wall appearance and motion. Nontender with no deformity. No lesions are appreciated. Cardiovascular: Regular rate and rhythm with a normal S1 and S2. No gallops, murmurs, or rubs. Normal PMI, no JVD. No pulse deficits. Respiratory: Lungs have equal breath sounds bilaterally, clear to auscultation and percussion. No rales, rhonchi or wheezes noted. No increased work of breathing, no retractions or nasal flaring. Abdomen/GI: Soft, non-tender, with normal bowel sounds. No distension or tympany. No guarding or rebound. No evidence of tenderness throughout. Skin: Warm, dry with normal turgor. Normal color with no rashes, no lesions, and no evidence of cellulitis. MS/ Extremity: Pulses equal, no cyanosis. Neurovascular intact. Full, normal range of motion. Neuro: Awake and alert, GCS 15, oriented to person, place, time, and situation. Cranial nerves II-XII grossly intact. Motor strength 5/5 in all extremities. Sensory grossly intact. Cerebellar exam normal. Normal gait. Vital Signs: 20:25 BP 117 / 79; Pulse 74; Resp 16 S; Temp 98.2(O); Pulse Ox 100% on R/A; Weight 58.97 kg ca1 (R); Height 5 ft. 4 in. (162.56 cm) (R); 20:25 Body Mass Index 22.31 (58.97 kg, 162.56 cm) ca1 MDM: 20:29 Patient medically screened. kb 21:06 Data reviewed: vital signs, nurses notes. Data interpreted: Pulse oximetry: on room air kb is 100 %. Interpretation: normal. 21:08 Counseling: I had a detailed discussion with the patient and/or guardian regarding: the kb historical points, exam findings, and any diagnostic results supporting the discharge/admit diagnosis, lab results, the need for outpatient follow up, a family practitioner, to return to the emergency department if symptoms worsen or persist or if there are any questions or concerns that arise at home. 11/19 20:30 Order name: Flu; Complete Time: 21:08 kb 11/19 20:30 Order name: Strep; Complete Time: 21:08 kb 11/19 21:09 Order name: Throat Culture EDMS Administered Medications: No medications were administered Disposition: 11/20 06:04 Co-signature as Attending Physician, Lee Martinez MD I agree with the assessment and 4 plan of care. Disposition: 11/20/19 21:09 Discharged to Home. Impression: Acute upper respiratory infection, unspecified. - Condition is Stable. - Discharge Instructions: Upper Respiratory Infection, Adult, [id number], Viral Respiratory Infection, [id number]. - Medication Reconciliation Form, Thank You Letter, Antibiotic Education, Prescription Opioid Use form. - Follow up: Emergency Department; When: As needed; Reason: Worsening of condition. Follow up: Private Physician; When: 2 - 3 days; Reason: Recheck today's complaints, Continuance of care, Re-evaluation by your physician. Signatures: Dispatcher [employer] EDPR Kirstie Altamirano, DWAYNE-C OPERATIONS RESEARCH MANAGER-Ckb Khushboo Yen RN RN lp1 Lee Martinez MD MD 4 Iliana Machado RN RN ca1 Corrections: (The following items were deleted from the chart) 11/19 21:15 21:09 11/20/2019 21:09 Discharged to Home. Impression: Acute upper respiratory lp1 infection, unspecified. Condition is Stable. Discharge Instructions: Upper Respiratory Infection, Adult, [id number], Viral Respiratory Infection, [id number]. Forms are Medication Reconciliation Form, Thank You Letter, Antibiotic Education, Prescription Opioid Use. Follow up: Emergency Department; When: As needed; Reason: Worsening of condition. Follow up: Private Physician; When: 2 - 3 days; Reason: Recheck today's complaints, Continuance of care, Re-evaluation by your physician. kb
[2019-11-20 21:31] VITALS: BP 117/79; TEMP 98.2; O2SAT 100
== END 2019-11-20 21:15 | disposition home or self-care (01) ==
LOC: ER 20:16
DX: J06.9 Acute upper respiratory infection, unspecified (principal); F41.9 Anxiety disorder, unspecified; F17.210 Nicotine dependence, cigarettes, uncomplicated
CPT/HCPCS: 87070; 87081; 87804; 99281

== ENCOUNTER 2019-12-01 21:45 | Emergency (ER) | payer SELFPAY ==
--- OUTSIDE RECORDS SUMMARY | 2019-12-01 21:52 | XMS REPORT ---
:1990 [facility] [address] [place] [address] Dr. Mar[address]aga [address] [place] [id number] Care Team Providers Name Role Phone Unavailable Unavailable Unavailable Problems This patient has no known problems. Allergies, Adverse Reactions, Alerts This patient has no known allergies or adverse reactions. Medications This patient has no known medications.
[2019-12-01] MEDS ORDERED: ONDANSETRON 4 MG/2 ML VIAL ONE (21:54)
[2019-12-01] MEDS ORDERED: NA CHLORIDE 0.9% 1,000 ML ONE (21:54)
[2019-12-01] MEDS ORDERED: MORPHINE 4 MG/ML SYR ONE ×2 (21:54→23:08)
[2019-12-01 22:14] LABS: Basophils % 0.3 % (0-1.3); Hematocrit 37.8 % (36.0-45.0); Lymphocytes % 27.1 % (15.3-44.8); MPV 9.5 fL (7.6-11.3); RBC Red Blood Cell Count 4.23 M/uL (3.86-4.86)
[2019-12-01 22:32] LABS: ALT/SGPT 14 U/L (12-78); AST/SGOT 17 U/L (15-37); Albumin 3.6 g/dL (3.4-5.0); Alkaline Phosphatase 64 U/L (45-117); BUN Blood Urea Nitrogen 14 mg/dL (7-18); Bicarbonate 26 mmol/L (21-32); Bilirubin Direct < 0.1 mg/dL (0-0.2); Bilirubin Total 0.3 mg/dL (0.2-1.0); Glucose Level 93 mg/dL (74-106); Lipase 193 U/L (73-393); Potassium 3.6 mmol/L (3.5-5.1); Protein, Total 6.9 g/dL (6.4-8.2); Sodium Level 141 mmol/L (136-145)
[2019-12-01] MEDS ORDERED: PROMETHAZINE INJ 25 MG/ML AMP ONE (23:06)
[2019-12-02] MEDS ORDERED: CEFTRIAXONE/SWI 1gm 1 GM/10 ML SYR ONE (00:28)
--- NOTE | 2019-12-02 00:29 | ER ---
Nurse's Notes [facility] Name: Leonela Bernardo Age: 29 yrs Sex: Female : 1990 Arrival Date: 12/01/2019 Time: 21:39 Bed 8 Private MD: Diagnosis: Cystitis Presentation: 11/30 21:40 Chief complaint: EMS states: RLQ abdominal pain that began one hour ago, reports has a sg hx of frequent UTI but this pain feels differently than those episodes, EMS report pt states her LMP was the beginning of Oct. states that she has also had blood on tissue after urinating then wiping herself,denies fever/chills, reports today having N/V. Coronavirus screen: The patient has NOT traveled to a country currently being monitored by the CDC within the last 14 days. The patient has NOT had contact with any known and/or suspected case of coronavirus. Ebola Screen: Patient negative for fever greater than or equal to 101.5 degrees Fahrenheit, and additional compatible Ebola Virus Disease symptoms Patient denies exposure to infectious person. Patient denies travel to an Ebola-affected area in the 21 days before illness onset. No symptoms or risks identified at this time. Initial Sepsis Screen: Does the patient meet any 2 criteria? No. Patient's initial sepsis screen is negative. Does the patient have a suspected source of infection? Yes: Acute abdominal pain. Risk Assessment: Do you want to hurt yourself or someone else? Patient reports no desire to harm self or others. Care prior to arrival: None. 21:40 Method Of Arrival: EMS: [facility] sg 21:40 Acuity: AMADA 3 sg Historical: - Allergies: 22:10 No Known Allergies; sg - PMHx: 22:10 Anxiety; kidney infection; Ovarian cyst; sg - PSHx: 22:10 None; sg - Immunization history:: Adult Immunizations not up to date. - Social history:: Smoking status: Patient denies any tobacco usage or history of. Screenin:43 Abuse screen: Denies threats or abuse. Denies injuries from another. Nutritional sg screening: No deficits noted. Tuberculosis screening: No symptoms or risk factors identified. Never had TB. Fall Risk None identified. Assessment: 21:43 General: Appears in no apparent distress. well groomed, well developed, well nourished, sg Behavior is calm, cooperative, appropriate for age. Pain: Complains of pain in right lower quadrant Quality of pain is described as aching, sharp. Neuro: Level of Consciousness is awake, alert, obeys commands, Oriented to person, place, time, Telemetry Technician are equal bilaterally Speech is normal, Facial symmetry appears normal. Cardiovascular: Patient's skin is warm and dry. Chest pain is denied. Respiratory: Airway is patent Respiratory effort is even, unlabored, Respiratory pattern is regular, symmetrical. GI: Abdomen is round non-distended, Bowel sounds present X 4 quads. Reports lower abdominal pain, nausea, vomiting. : Reports cramping, vaginal bleeding that is bright red, spotty. EENT: No signs and/or symptoms were reported regarding the EENT system. Derm: Skin is pink, warm \T\ dry. Musculoskeletal: Circulation, motion, and sensation intact. Range of motion: intact in all extremities. 22:23 Reassessment: Patient appears in no apparent distress at this time. awaiting a urine sg specimen at this time, awaiting CT scan. 22:37 Reassessment: Patient appears in no apparent distress at this time. pt denies needing sg to urinate at this time, a sample will be obtained, IV fluids continue to infuse at this time. Vital Signs: 21:44 BP 114 / 54; Pulse 76; Resp 18; Temp 97.8(O); Pulse Ox 100% on R/A; oe 22:36 BP 116 / 79; Pulse 55; Resp 17; Pulse Ox 100% on R/A; sg 23:30 BP 112 / 72; Pulse 55; Resp 16; Pulse Ox 100% on R/A; sg 12/01 00:00 BP 108 / 60; Pulse 52; Resp 17; Temp 97.8; Pulse Ox 100% on R/A; sg ED Course: 11/30 21:39 Patient arrived in ED. sg 21:40 Patient has correct armband on for positive identification. Bed in low position. Pulse sg ox on. NIBP on. Warm blanket given. Head of bed elevated. 21:42 Triage completed. sg 21:42 Rocael Galeano NP is PHCP. pm1 21:42 Lee Martinez MD is Attending Physician. pm1 21:42 Jean Chisholm RN is Primary Nurse. sg 21:42 Arm band placed on. EKG completed in triage. Results shown to MD. EKG completed in sg triage. Results shown to MD. 22:00 Initial lab(s) drawn, by me, sent to lab. Inserted saline lock: 20 gauge in left sg antecubital area, using aseptic technique. Blood collected. 22:09 Radiology exam delayed due to lab results not completed at this time. test bq not completed at this time. 22:[address] Scan. sg 22:51 Radiology exam delayed due to test not completed at this time. md1 12/01 00:09 CT Abd/Pelvis - IV Contrast Only In Process Unspecified. EDMS 00:38 Awaiting transportation. sg 00:54 No provider procedures requiring assistance completed. IV discontinued, intact, sg bleeding controlled, No redness/swelling at site. Pressure dressing applied. Administered Medications: 11/30 22:00 Drug: NS 0.9% 1000 ml Route: IV; Rate: 1000 ml; Site: left antecubital; sg 22:00 Drug: morphine 4 mg Route: IVP; Site: left antecubital; 22:57 Follow up: Response: No adverse reaction; No change in condition; Pain is unchanged, sg physician notified 22:00 Drug: Zofran (Ondansetron) 4 mg Route: IVP; Site: left antecubital; 22:57 Follow up: Response: No adverse reaction; Nausea is decreased sg 23:11 Drug: Phenergan 12.5 mg Route: IVP; Site: left antecubital; 12/01 00:37 Follow up: Response: No adverse reaction; Nausea is decreased 11/30 23:11 Drug: morphine 4 mg Route: IVP; Site: left antecubital; 12/01 00:37 Follow up: Response: No adverse reaction; Pain is decreased 00:29 Drug: Rocephin 1 grams Route: IV; Rate: calculated rate; Site: left antecubital; Outcome: 11/30 00:56 Discharged to home ambulatory, with family. sg Condition: good Discharge instructions given to patient, Instructed on discharge instructions, follow up and referral plans. medication usage, safety practices, Demonstrated understanding of instructions, follow-up care, medications, Prescriptions given X 4. 12/01 00:26 Discharge ordered by MD. pm1 00:56 Patient left the ED. sg Addendum: 12/05/2019 08:04 Addendum: Culture Results: Positive urine culture. No further action required. Bacteria i w sensitive to prescribed antibiotic. Signatures: Dispatcher [employer] EDJean Ayala, RN Kelley Roy Irene, RN RN iw Marinas, Patrick, MARINE TOWER OPERATOR MARINE TOWER OPERATOR pm1 Jude Mclaughlin Mikaela md1
--- NOTE | 2019-12-02 00:30 | EDPHYS ---
Physician Documentation [facility] Name: Leonela Bernardo Age: 29 yrs Sex: Female : 1990 Arrival Date: 12/01/2019 Time: 21:39 Bed 8 Private MD: ED Physician Lee Martinez HPI: 11/30 21:44 This 29 yrs old Female presents to ER via EMS with complaints of Abdominal pm1 Pain. 21:44 The patient presents with abdominal pain. pm1 21:44 Onset: The symptoms/episode began/occurred 1 hour(s) ago. The symptoms do not radiate. pm1 Associated signs and symptoms: Pertinent positives: nausea and vomiting, dysuria, Pertinent negatives: chest pain, constipation, fever, headache, shortness of breath, vaginal discharge. The symptoms are described as sharp. Modifying factors: The symptoms are alleviated by nothing, the symptoms are aggravated by urinating. Severity of pain: in the emergency department the pain is actually worse. The patient has experienced similar episodes in the past, multiple times, today's symptoms are similar, to previous UTI, but worse. Historical: - Allergies: 22:10 No Known Allergies; sg - PMHx: 22:10 Anxiety; kidney infection; Ovarian cyst; sg - PSHx: 22:10 None; sg - Immunization history:: Adult Immunizations not up to date. - Social history:: Smoking status: Patient denies any tobacco usage or history of. ROS: 21:44 Constitutional: Negative for fever, chills, and weight loss, Neck: Negative for injury, pm1 pain, and swelling, Cardiovascular: Negative for chest pain, palpitations, and edema, Respiratory: Negative for shortness of breath, cough, wheezing, and pleuritic chest pain, MS/Extremity: Negative for injury and deformity, Skin: Negative for injury, rash, and discoloration. 21:44 Abdomen/GI: Positive for abdominal pain, Negative for nausea, vomiting, and diarrhea. 21:44 Back: Positive for flank pain, bilaterally. 21:44 All other systems are negative. Exam: 21:44 Constitutional: This is a well developed, well nourished patient who is awake, alert, pm1 and in no acute distress. Head/Face: Normocephalic, atraumatic. Neck: Trachea midline, no thyromegaly or masses palpated, and no cervical lymphadenopathy. Supple, full range of motion without nuchal rigidity, or vertebral point tenderness. No Meningismus. Chest/axilla: Normal chest wall appearance and motion. Nontender with no deformity. No lesions are appreciated. Cardiovascular: Regular rate and rhythm with a normal S1 and S2. No gallops, murmurs, or rubs. Normal PMI, no JVD. No pulse deficits. Respiratory: Lungs have equal breath sounds bilaterally, clear to auscultation and percussion. No rales, rhonchi or wheezes noted. No increased work of breathing, no retractions or nasal flaring. 21:44 Back: No spinal tenderness. No costovertebral tenderness. Full range of motion. Skin: Warm, dry with normal turgor. Normal color with no rashes, no lesions, and no evidence of cellulitis. MS/ Extremity: Pulses equal, no cyanosis. Neurovascular intact. Full, normal range of motion. 21:44 Abdomen/GI: Inspection: abdomen appears normal, Bowel sounds: normal, Palpation: soft, in all quadrants, moderate abdominal tenderness, in the suprapubic area, mass, is not appreciated, rebound tenderness, is not appreciated. 21:44 Neuro: Orientation: is normal, Motor: is normal, moves all fours. Vital Signs: 21:44 BP 114 / 54; Pulse 76; Resp 18; Temp 97.8(O); Pulse Ox 100% on R/A; oe 22:36 BP 116 / 79; Pulse 55; Resp 17; Pulse Ox 100% on R/A; sg 23:30 BP 112 / 72; Pulse 55; Resp 16; Pulse Ox 100% on R/A; sg 12/01 00:00 BP 108 / 60; Pulse 52; Resp 17; Temp 97.8; Pulse Ox 100% on R/A; sg MDM: 11/30 21:45 Patient medically screened. pm1 12/01 00:21 Data reviewed: vital signs. Data interpreted: Pulse oximetry: on room air is 100 %. pm1 Interpretation: normal. Counseling: I had a detailed discussion with the patient and/or guardian regarding: the historical points, exam findings, and any diagnostic results supporting the discharge/admit diagnosis, lab results, radiology results, the need for outpatient follow up, to return to the emergency department if symptoms worsen or persist or if there are any questions or concerns that arise at home. 11/30 21:44 Order name: Basic Metabolic Panel pm1 11/30 21:44 Order name: CBC with Diff pm11/30 21:44 Order name: Creatinine for Radiology; Complete Time: 22:32 pm1 11/30 21:44 Order name: Hepatic Function; Complete Time: 22:42 pm1 11/30 21:44 Order name: Lipase; Complete Time: 22:42 pm1 11/30 21:48 Order name: Basic Metabolic Panel; Complete Time: 22:42 EDMS 11/30 21:44 Order name: CT Abd/Pelvis - IV Contrast Only pm1 11/30 21:48 Order name: CBC with Automated Diff; Complete Time: 22:26 EDMS 11/30 23:02 Order name: Urine Dipstick--Ancillary (enter results); Complete Time: 00:55 2 11/30 23:02 Order name: Urine --Ancillary (enter results); Complete Time: 00:55 [facility] 12/01 00:27 Order name: Urine Microscopic Only 12/01 00:27 Order name: Urine Culture pm11/30 21:44 Order name: Urine Dipstick-Ancillary (obtain specimen); Complete Time: 22:57 pm1 11/30 21:44 Order name: Urine Test (obtain specimen); Complete Time: 22:57 pm1 11/30 21:44 Order name: IV Saline Lock; Complete Time: 22:09 pm1 11/30 21:44 Order name: Labs collected and sent; Complete Time: 22:10 pm1 Administered Medications: 11/30 22:00 Drug: NS 0.9% 1000 ml Route: IV; Rate: 1000 ml; Site: left antecubital; sg 22:00 Drug: morphine 4 mg Route: IVP; Site: left antecubital; sg 22:57 Follow up: Response: No adverse reaction; No change in condition; Pain is unchanged, sg physician notified 22:00 Drug: Zofran (Ondansetron) 4 mg Route: IVP; Site: left antecubital; sg 22:57 Follow up: Response: No adverse reaction; Nausea is decreased sg 23:11 Drug: Phenergan 12.5 mg Route: IVP; Site: left antecubital; sg 03/16 00:37 Follow up: Response: No adverse reaction; Nausea is decreased sg 11/30 23:11 Drug: morphine 4 mg Route: IVP; Site: left antecubital; sg 12/01 00:37 Follow up: Response: No adverse reaction; Pain is decreased 00:29 Drug: Rocephin 1 grams Route: IV; Rate: calculated rate; Site: left antecubital; sg Disposition: 04:26 Co-signature as Attending Physician, Lee Martinez MD I agree with the assessment and tw4 plan of care. Disposition: 12/02/19 00:26 Discharged to Home. Impression: Cystitis. - Condition is Stable. - Discharge Instructions: Urinary Tract Infection, Adult. - Prescriptions for Pyridium 200 mg Oral Tablet - take 1 tablet by ORAL route every 8 hours for 3 days; 9 tablet. Bactrim DS 800- 160 mg Oral Tablet - take 1 tablet by ORAL route every 12 hours for 10 days; 20 tablet. Tylenol- Codeine #3 300-30 mg Oral Tablet - take 2 tablets by ORAL route every 6 hours As needed; 20 tablet. Zofran 4 mg Oral Tablet - take 1 tablet by ORAL route every 8 hours As needed; 20 tablet. - Medication Reconciliation Form, Thank You Letter, Antibiotic Education, Prescription Opioid Use form. - Follow up: Emergency Department; When: As needed; Reason: Worsening of condition. Follow up: Private Physician; When: 2 - 3 days; Reason: Recheck today's complaints, Continuance of care, Re-evaluation by your physician. - Problem is new. - Symptoms have improved. Signatures: Dispatcher [employer] EDJean Ayala RN RN sg Rocael Galeano, SALES ENABLEMENT ANALYST SALES ENABLEMENT ANALYST pm1 Lee Martinez MD MD tw4 Corrections: (The following items were deleted from the chart) 00:56 00:26 12/02/2019 00:26 Discharged to Home. Impression: Cystitis. Condition is Stable. sg Forms are Medication Reconciliation Form, Thank You Letter, Antibiotic Education, Prescription Opioid Use. Follow up: Emergency Department; When: As needed; Reason: Worsening of condition. Follow up: Private Physician; When: 2 - 3 days; Reason: Recheck today's complaints, Continuance of care, Re-evaluation by your physician. Problem is new. Symptoms have improved. pm1
[2019-12-02 00:54] LABS: Urine Culture Reflex Order NOT NEEDED
[2019-12-02 00:54] LABS: Urine Blood 3+ (NEG); Urine Glucose NEGATIVE (NEG); Urine Protein 3+ (NEG); Urine Specific Gravity 1.025 (1.005-1.030)
[2019-12-02 00:56] LABS: Urine Bacteria >50 /HPF (<20); Urine RBC >50 /HPF (NONE SEEN)
[2019-12-02 01:28] VITALS: O2SAT 100
[2019-12-02 01:30] VITALS: BP 108/60; TEMP 97.8
--- NOTE | 2019-12-02 09:03 | RAD REPORT ---
EXAM DESCRIPTION: CT Abdomen and Pelvis With Intravenous Contrast CLINICAL HISTORY: The patient is 29 years old and is Female; ABD PAIN TECHNIQUE: Axial computed tomography images of the abdomen and pelvis with intravenous contrast. S agittal and coronal reformatted images were created and reviewed. This CT exam was performed using one or more of the following dose reduction techniques: automated exposure control, adjustment of t he mA and/or kV according to patient size, and/or use of iterative reconstruction technique. COMPARISON: CT of the abdomen and pelvis June 16, 2019. FINDINGS: LUNG BASES: Unremarkable. No mass. No consolidation. ABDOMEN: LIVER: Unremarkable. No mass. GALLBLADDER AND BILE DUCTS: No calcified stones. No ductal dilation. PANCREAS: No ductal dilation. No mass. SPLEEN: Unremarkable. ADRENALS: Unremarkable. No mass. KIDNEYS AND URETERS: Mild enhancement of the urothelium of the right ureter is present. The kidn eys enhance symmetrically. No obstructing renal or ureteral calculus is seen. STOMACH AND BOWEL: The stomach is distended with food contents. The small bowel is relatively no rmal in caliber. A moderate amount stool is present throughout colon. There is no bowel obstruction. PELVIS: APPENDIX: The appendix is normal in caliber without surrounding inflammation. BLADDER: Mild diffuse bladder wall thickening is present. REPRODUCTIVE: A 2 cm left ovarian cyst is present. No follow-up imaging is recommended. The uter us and right ovary are unremarkable. ABDOMEN and PELVIS: INTRAPERITONEAL SPACE: Unremarkable. No free air. No significant fluid collection. 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 There is no anterolisthesis. SOFT TISSUES: The soft tissues are normal. VASCULATURE: Unremarkable. No abdominal aortic aneurysm. LYMPH NODES: Unremarkable. No enlarged lymph nodes. IMPRESSION: 1. Bladder wall thickening out of proportion to the degree of distention suggestive of cystitis. 2. Mild enhancement of the right urothelium which may be secondary to ureteritis. Electronically signed by: Carmen Skinner MD 12/01/2019 11:52 PM CDT Due to temporary technical issues with the PACS/Fluency reporting system, reports are being signed by the in house radiologist as a courtesy to ensure prompt reporting. The interpreting radiologist is f ully responsible for the content of the report.
== END 2019-12-02 00:56 | disposition home or self-care (01) ==
LOC: ER 21:45
DX: N30.90 Cystitis, unspecified without hematuria (principal)
CPT/HCPCS: 36415; 74177; 80048; 80076; 81003; 81015; 81025; 83690; 85025; 87077; 87086; 87088; 87186; 96374; 96375; 99284; J0696; J2405; J2550; J7030; Q9967

== ENCOUNTER 2020-03-10 01:39 | Emergency (ER) | payer SELFPAY ==
--- OUTSIDE RECORDS SUMMARY | 2020-03-10 02:35 | XMS REPORT | Continuity of Care Document ---
:1990 Author Organization [facility] t Address [address] [place] [address] Care Team Providers Name Role Phone Pcp, Does Not Have A Attending Clinician Problems This patient has no known problems. Allergies, Adverse Reactions, Alerts This patient has no known allergies or adverse reactions. Medications This patient has no known medications. Procedures This patient has no known procedures. 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
--- OUTSIDE RECORDS SUMMARY | 2020-03-10 02:35 | XMS REPORT | Summary of Care ---
:1990 Author Organization [facility] Address [address] [place] [address] Care Team Providers Name Role Phone Pcp, Does Not Have A Primary Care Provider Reason for Visit Reason Comments Appointment Encounter Details Date Type Department Care Team Description 01/14/2020 Telephone [facility]- A delmy Pcp, Patient Does Not Appointment [address] [place] [address] [address] [facility] [phone] [place], [place] [address] Allergies No Known Allergiesdocumented as of this encounter (statuses as of 01/14/2020) Medications Medication Sig Dispensed Refills Start Date End Date Status ALPRAZOLAM ORAL Take by mouth. 0 Active amoxicillin 875 mg Take 1 tablet by 20 tablet 0 01/30/2018 Active tablet mouth 2 (two) times daily. traMADOL 50 mg tablet Take 1 tablet by 12 tablet 0 01/30/2018 Active mouth every 6 (six) hours as needed for Pain (scale 4-6). documented as of this encounter (statuses as of 01/14/2020) Active Problems No known active problemsdocumented as of this encounter (statuses as of 01/14/2020) Social History Tobacco Use Types Packs/Day Years Used Date Current Every Day Smoker Cigarettes 0.25 Smokeless Tobacco: Never Used Alcohol Use Drinks/Week oz/Week Comments Not Asked 0 Standard drinks or equivalent 0.0 Sex Assigned at Date Recorded Not on file Job Start Date Occupation Industry Not on file Not on file Not on file Travel History Travel Start Travel End No recent travel history available. documented as of this encounter Last Filed Vital Signs Not on filedocumented in this encounter Plan of Treatment Date Type Specialty Care Team Description 01/17/2020 [facility] [address], [place] [address] [phone] Health Maintenance Due Date Last Done Comments VARICELLA VACCINES (1 of 2 - 2-dose childhood series) 1991 PNEUMOCOCCAL 0-64 YEARS COMBINED SERIES (1 of 1 - 1996 PPSV23) DTaP,Tdap,and Td Vaccines (1 - Tdap) 2001 PAP SMEAR 2011 INFLUENZA VACCINE (#1) 2019 documented as of this encounter Results Not on filedocumented in this encounter Insurance Payer Benefit Plan Subscriber ID Effective Phone Address Typ e / Group Dates [place] xxxxxxxxx 2019-Prese [phone] P [address] [place] X Medicaid WOMEN WOMEN nt 00 [id number] [place] [address] [facility] [id number] 2015-Pres [address] [place] [address] documented as of this encounter
[2020-03-10 03:05] LABS: Urine Blood 3+ (NEG); Urine Glucose NEGATIVE (NEG); Urine Protein 2+ (NEG); Urine Specific Gravity >1.030 (1.005-1.030)
[2020-03-10] MEDS ORDERED: PROMETHAZINE INJ 25 MG/ML AMP ONE ×2 (03:31→04:14)
[2020-03-10] MEDS ORDERED: NA CHLORIDE 0.9% 1,000 ML ONE (03:32)
[2020-03-10] MEDS ORDERED: FENTANYL CITR 100 MCG/2 ML ONE (03:32)
[2020-03-10 03:40] LABS: Absolute Lymphocytes (CBC) 2.1 K/uL (0.7-4.9); Basophils % 0.3 % (0-1.3); Hematocrit 37.9 % (36.0-45.0); Lymphocytes % 34.4 % (15.3-44.8); MPV 10.3 fL (7.6-11.3); RBC Red Blood Cell Count 4.19 M/uL (3.86-4.86)
[2020-03-10 03:48] LABS: Potassium 3.6 mmol/L (3.5-5.1)
[2020-03-10 04:03] LABS: Urine Bacteria <20 /HPF (<20); Urine Culture Reflex Order NOT NEEDED; Urine Mucus 2+ /HPF (NONE SEEN); Urine RBC >50 /HPF (NONE SEEN)
[2020-03-10 04:04] LABS: Urine Urothelial Cells <5 /HPF (NONE SEEN)
[2020-03-10] MEDS ORDERED: CIPROFLOXACIN HCL 500 MG TAB ONE (06:09)
--- NOTE | 2020-03-10 06:21 | EDPHYS ---
Physician Documentation [facility] Name: Leonela Bernardo Age: 29 yrs Sex: Female : 1990 Arrival Date: 03/10/2020 Time: 01:42 Bed 16 Private MD: ED Physician Hayden Mancuso HPI: 03/10 03:19 This 29 yrs old Female presents to ER via Ambulatory with complaints of snw Abdominal Pain, Vomiting. 03:19 The patient presents with abdominal pain right lower quadrant. Onset: The snw symptoms/episode began/occurred gradually, 3 day(s) ago, and became worse and became persistent. The symptoms do not radiate. Associated signs and symptoms: Pertinent positives: nausea and vomiting. The symptoms are described as steady. Severity of pain: At its worst the pain was moderate severe in the emergency department the pain is unchanged. The patient has not experienced similar symptoms in the past. The patient has not recently seen a physician, the patient's primary care provider is Dr. Dr. Canchola. 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 - Social history:: Smoking status: Patient denies any tobacco usage or history of. Patient/guardian denies using alcohol, street drugs. ROS: 03:18 Constitutional: Negative for fever, chills, and weight loss, Eyes: Negative for injury, snw pain, redness, and discharge, ENT: Negative for injury, pain, and discharge, Neck: Negative for injury, pain, and swelling, Cardiovascular: Negative for chest pain, palpitations, and edema, Respiratory: Negative for shortness of breath, cough, wheezing, and pleuritic chest pain, Back: Negative for injury and pain, MS/Extremity: Negative for injury and deformity, Skin: Negative for injury, rash, and discoloration, Neuro: Negative for headache, weakness, numbness, tingling, and seizure, Psych: Negative for depression, anxiety, suicide ideation, homicidal ideation, and hallucinations. 03:18 Abdomen/GI: Positive for abdominal pain, nausea and vomiting, of the suprapubic area and right lower quadrant. 03:18 : Positive for urinary symptoms, hematuria, burning with urination. Exam: 03:18 Constitutional: This is a well developed, well nourished patient who is awake, alert, snw and in no acute distress. Head/Face: Normocephalic, atraumatic. Eyes: Pupils equal round and reactive to light, extra-ocular motions intact. Lids and lashes normal. Conjunctiva and sclera are non-icteric and not injected. Cornea within normal limits. Periorbital areas with no swelling, redness, or edema. ENT: Nares patent. No nasal discharge, no septal abnormalities noted. Tympanic membranes are normal and external auditory canals are clear. Oropharynx with no redness, swelling, or masses, exudates, or evidence of obstruction, uvula midline. Mucous membranes moist. Neck: Trachea midline, no thyromegaly or masses palpated, and no cervical lymphadenopathy. Supple, full range of motion without nuchal rigidity, or vertebral point tenderness. No Meningismus. Chest/axilla: Normal chest wall appearance and motion. Nontender with no deformity. No lesions are appreciated. Cardiovascular: Regular rate and rhythm with a normal S1 and S2. No gallops, murmurs, or rubs. Normal PMI, no JVD. No pulse deficits. Respiratory: Lungs have equal breath sounds bilaterally, clear to auscultation and percussion. No rales, rhonchi or wheezes noted. No increased work of breathing, no retractions or nasal flaring. Back: No spinal tenderness. No costovertebral tenderness. Full range of motion. Skin: Warm, dry with normal turgor. Normal color with no rashes, no lesions, and no evidence of cellulitis. MS/ Extremity: Pulses equal, no cyanosis. Neurovascular intact. Full, normal range of motion. Neuro: Awake and alert, GCS 15, oriented to person, place, time, and situation. Cranial nerves II-XII grossly intact. Motor strength 5/5 in all extremities. Sensory grossly intact. Cerebellar exam normal. Normal gait. Psych: Awake, alert, with orientation to person, place and time. Behavior, mood, and affect are within normal limits. 03:18 Abdomen/GI: Inspection: abdomen appears normal, Bowel sounds: diminished, Palpation: moderate abdominal tenderness, in the suprapubic area and right lower quadrant. Vital Signs: 02:00 BP 123 / 49; Pulse 51; Resp 16; Temp 97.9; Pulse Ox 100% on R/A; Weight 58.97 kg (R); jb4 Height 5 ft. 4 in. (162.56 cm); Pain 10/10; 03:30 BP 98 / 45; Pulse 50; Resp 16; Pulse Ox 100% on R/A; jb4 04:15 BP 100 / 61; Pulse 41; Resp 16; Pulse Ox 100% on R/A; jb4 05:45 BP 97 / 64; Pulse 52; Resp 16; Pulse Ox 98% on R/A; Pain 5/10; jb4 02:00 Body Mass Index 22.31 (58.97 kg, 162.56 cm) jb4 MDM: 02:55 Patient medically screened. [facility] 04:05 Data reviewed: vital signs, nurses notes, lab test result(s), radiologic studies. Data [facility] interpreted: Pulse oximetry: on room air is 100 %. Interpretation: normal. Counseling: I had a detailed discussion with the patient and/or guardian regarding: the historical points, exam findings, and any diagnostic results supporting the discharge/admit diagnosis, lab results, radiology results. Transition of care: After a detail discussion of the patient's case, care is transferred to Hayden Mancuso MD. 06:17 Differential diagnosis: Nonspecific abd pain, gastritis, diverticulitis, 7 pyelonephritis, UTI, renal calculus. Response to treatment: the patient's symptoms have markedly improved after treatment. 03/10 02:24 Order name: Urine Culture [facility] 03/10 02:24 Order name: Urine Microscopic Only; Complete Time: 04:06 [facility] 03/10 02:45 Order name: Urine Dipstick--Ancillary (enter results); Complete Time: 03:08 [facility] 03/10 02:45 Order name: Urine --Ancillary (enter results); Complete Time: 03:08 [facility] 03/10 02:52 Order name: CBC with Diff; Complete Time: 03:57 [facility] 03/10 02:52 Order name: Chem 7; Complete Time: 03:57 [facility] 03/10 02:24 Order name: Urine Test (obtain specimen); Complete Time: 02:45 snw 03/10 03:01 Order name: CT Abd/Pelvis - PO and IV Contrast snw 03/10 02:24 Order name: Urine Dipstick-Ancillary (obtain specimen); Complete Time: 02:45 snw Administered Medications: 02:51 Not Given (Other Intervention Used): Phenergan 25 mg IM once snw 03:35 Drug: Phenergan 6.25 mg Route: IVP; Site: left antecubital; 4 04:00 Follow up: Response: No adverse reaction; Nausea is decreased jb4 03:38 Drug: NS 0.9% 1000 ml Route: IV; Rate: 1 bolus; Site: left antecubital; jb4 03:38 Drug: fentaNYL (PF) 25 mcg {Note: Rass score 0.} Route: IVP; Site: left antecubital; jb4 04:14 Follow up: Response: No adverse reaction; Pain is decreased; RASS: Alert and Calm (0) jb4 04:09 Drug: Phenergan 6.25 mg Route: IVP; Site: left antecubital; jb4 04:30 Follow up: Response: No adverse reaction; Nausea is decreased jb4 06:05 Drug: Cipro 500 mg Route: PO; jb4 06:20 Follow up: Response: No adverse reaction 4 Disposition: 06:35 Co-signature as Attending Physician, Hayden Mancuso MD. mh7 Disposition: 03/10/20 06:19 Discharged to Home. Impression: Urinary tract infection, site not specified, Constipation, unspecified. - Condition is Stable. - Discharge Instructions: High-Fiber Diet, Urinary Tract Infection, Adult, Constipation, Adult, [id number]. - Prescriptions for Colace 100 mg Oral Tablet - take 1 tablet by ORAL route every 12 hours; 14 tablet. Lactulose 10 gram/15 mL Oral Solution - take 30 milliliters by ORAL route once daily; 150 milliliter. Cipro 500 mg Oral Tablet - take 1 tablet by ORAL route every 12 hours for 7 days; 14 tablet. Dulcolax 10 mg Rectal Suppository - insert 1 suppository by RECTAL route once daily As needed; 5 suppository. promethazine 25 mg Oral Tablet - take 1 tablet by ORAL route every 8 hours As needed; 10 tablet. - Medication Reconciliation Form, Thank You Letter, Antibiotic Education, Prescription Opioid Use form. - Follow up: Private Physician; When: 1 - 2 days; Reason: Worsening of condition, Recheck today's complaints, Re-evaluation by your physician. - Problem is an acute exacerbation. - Symptoms have improved. Signatures: Dispatcher [employer] EDMS Leonela Brannony, DWAYNE-C AIRFRAME AND POWERPLANT MECHANIC-Csnw Mathew Calabrese RN RN jb4 Hayden Mancuso MD MD [email or web address] Corrections: (The following items were deleted from the chart) 06:41 06:19 03/10/2020 06:19 Discharged to Home. Impression: Urinary tract infection, site jb4 not specified; Constipation, unspecified. Condition is Stable. Forms are Medication Reconciliation Form, Thank You Letter, Antibiotic Education, Prescription Opioid Use. Follow up: Private Physician; When: 1 - 2 days; Reason: Worsening of condition, Recheck today's complaints, Re-evaluation by your physician. Problem is an acute exacerbation. Symptoms have improved. mh7
--- NOTE | 2020-03-10 06:21 | ER ---
Nurse's Notes [facility] Name: Leonela Bernardo Age: 29 yrs Sex: Female : 1990 Arrival Date: 03/10/2020 Time: 01:42 Bed 16 Private MD: Diagnosis: Urinary tract infection, site not specified;Constipation, unspecified Presentation: 03/10 02:00 Chief complaint: Patient states: I have a UTI and it has been getting worse to the jb4 point now there is blood in my urine. I have been trying to call my primary doctor to be seen and could not get in to be seen. Now I am throwing up and have been for the past 4 days. I am having pain on my right lower stomach that radiates to my right lower back. 02:00 Coronavirus screen: Proceed with normal triage. Ebola Screen: No symptoms or risks jb4 identified at this time. Initial Sepsis Screen: Does the patient meet any 2 criteria? No. Patient's initial sepsis screen is negative. Does the patient have a suspected source of infection? Yes: Acute abdominal pain. Risk Assessment: Do you want to hurt yourself or someone else? Patient reports no desire to harm self or others. Onset of symptoms was March 04, 2020. Transition of care: patient was not received from another setting of care. 02:00 Method Of Arrival: Ambulatory jb4 02:00 Acuity: AMADA 3 jb4 Triage Assessment: 02:00 General: Appears in no apparent distress. uncomfortable, Behavior is calm, cooperative, jb4 appropriate for age. Pain: Complains of pain in right lower quadrant Pain radiates to right low back Pain currently is 10 out of 10 on a pain scale. Quality of pain is described as stabbing, Pain began 4 days ago Is continuous. EENT: No signs and/or symptoms were reported regarding the EENT system. Neuro: Level of Consciousness is awake, alert, obeys commands, Oriented to person, place, time, situation. Cardiovascular: Patient's skin is warm and dry. Respiratory: Airway is patent Respiratory effort is even, unlabored, Respiratory pattern is regular, symmetrical. GI: Abdomen is flat, non-distended, Reports lower abdominal pain, nausea, vomiting. : Reports burning with urination, pain in right flank(s), lower quadrant(s) in lower back since 4 days ago with urination. Derm: Skin is intact, Skin is pink, warm \T\ dry. Musculoskeletal: Circulation, motion, and sensation intact. Range of motion: intact in all extremities. 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 - Social history:: Smoking status: Patient denies any tobacco usage or history of. Patient/guardian denies using alcohol, street drugs. Screenin:20 Abuse screen: Denies threats or abuse. Nutritional screening: No deficits noted. jb4 Tuberculosis screening: No symptoms or risk factors identified. Fall Risk None identified. Assessment: 02:20 General: see triage assessment.. jb4 02:20 Reassessment: Pt states my heart rate and blood pressure always run low. jb4 03:30 Reassessment: Patient appears in no apparent distress at this time. Patient and/or jb4 family updated on plan of care and expected duration. Pain level reassessed. Patient is alert, oriented x 3, equal unlabored respirations, skin warm/dry/pink. Patient states feeling better. 04:00 Reassessment: Patient appears in no apparent distress at this time. Patient and/or jb4 family updated on plan of care and expected duration. Pain level reassessed. Patient is alert, oriented x 3, equal unlabored respirations, skin warm/dry/pink. PT finished oral contrast, CT notified, Reports increase nausea, provider notified, see MAR for orders. 05:35 Reassessment: Patient appears in no apparent distress at this time. Patient and/or jb4 family updated on plan of care and expected duration. Pain level reassessed. Pt is resting in bed with eyes closed. no s/s of pain, distress, or discomfort noted. 06:35 Reassessment: Patient appears in no apparent distress at this time. Patient and/or jb4 family updated on plan of care and expected duration. Pain level reassessed. Patient is alert, oriented x 3, equal unlabored respirations, skin warm/dry/pink. Pt verbalized understanding of d/c and follow up instructions. Denies questions or concerns. Ambulated out of ED with steady gait. Vital Signs: 02:00 BP 123 / 49; Pulse 51; Resp 16; Temp 97.9; Pulse Ox 100% on R/A; Weight 58.97 kg (R); jb4 Height 5 ft. 4 in. (162.56 cm); Pain 10/10; 03:30 BP 98 / 45; Pulse 50; Resp 16; Pulse Ox 100% on R/A; jb4 04:15 BP 100 / 61; Pulse 41; Resp 16; Pulse Ox 100% on R/A; jb4 05:45 BP 97 / 64; Pulse 52; Resp 16; Pulse Ox 98% on R/A; Pain 5/10; jb4 02:00 Body Mass Index 22.31 (58.97 kg, 162.56 cm) jb4 ED Course: 01:42 Patient arrived in ED. ag3 02:00 Mathew Calabrese, RN is Primary Nurse. jb4 02:00 Arm band placed on right wrist. jb4 02:19 Triage completed. jb4 02:20 Patient has correct armband on for positive identification. Placed in gown. Bed in low jb4 position. Call light in reach. Side rails up X 1. Pulse ox on. NIBP on. 02:45 Hayden Mancuso MD is Attending Physician. mh7 02:45 Urine Microscopic Only Sent. jb4 02:45 Urine Culture Sent. jb4 02:59 [facility] 03:31 Radiology exam delayed due to lab results not completed at this time. (BUN/Creatinine) kw1 test not completed at this time. 03:51 Radiology exam delayed due to lab results not completed at this time. test kw1 not completed at this time. 05:23 CT Abd/Pelvis - PO and IV Contrast In Process Unspecified. EDMS 06:40 No provider procedures requiring assistance completed. IV discontinued, intact, jb4 bleeding controlled, No redness/swelling at site. Pressure dressing applied. Administered Medications: 02:51 Not Given (Other Intervention Used): Phenergan 25 mg IM once snw 03:35 Drug: Phenergan 6.25 mg Route: IVP; Site: left antecubital; jb4 04:00 Follow up: Response: No adverse reaction; Nausea is decreased jb4 03:38 Drug: NS 0.9% 1000 ml Route: IV; Rate: 1 bolus; Site: left antecubital; jb4 03:38 Drug: fentaNYL (PF) 25 mcg {Note: Rass score 0.} Route: IVP; Site: left antecubital; jb4 04:14 Follow up: Response: No adverse reaction; Pain is decreased; RASS: Alert and Calm (0) jb4 04:09 Drug: Phenergan 6.25 mg Route: IVP; Site: left antecubital; jb4 04:30 Follow up: Response: No adverse reaction; Nausea is decreased jb4 06:05 Drug: Cipro 500 mg Route: PO; jb4 06:20 Follow up: Response: No adverse reaction jb4 Outcome: 06:19 Discharge ordered by . mh7 06:40 Discharged to home ambulatory. jb4 06:40 Condition: stable 06:40 Discharge instructions given to patient, Instructed on discharge instructions, follow up and referral plans. medication usage, Demonstrated understanding of instructions, follow-up care, medications, Prescriptions given X 5 06:41 Patient left the ED. jb4 Signatures: Dispatcher [employer] EDMS Yael Brannon, MACHINE BUFFER-C MACHINE BUFFER-Csnw Mathew Calabrese, RN RN jb4 Carolann Chao Alice ag3 Holmes, Maurice, MD MD mh7 Corrections: (The following items were deleted from the chart) 07:26 07:26 No provider procedures requiring assistance completed. jb4 jb4 07:26 07:26 IV discontinued, intact, bleeding controlled, No redness/swelling at site. jb4 Pressure dressing applied, jb4
[2020-03-10 06:47] VITALS: TEMP 97.9
[2020-03-10 06:52] VITALS: BP 97/64; O2SAT 98
[2020-03-10] MEDS ORDERED: LEVALBUTEROL 1.25 MG/3 ML NEB ONE (07:53)
[2020-03-10] MEDS ORDERED: METHYLPREDNISOLONE 125 MG INJ ONE (07:53)
--- NOTE | 2020-03-11 12:41 | RAD REPORT ---
EXAM DESCRIPTION: CT - Abdomen Pelvis W Contrast - 03/10/2020 7:16 am CLINICAL HISTORY: Hematuria. Vomiting. TECHNIQUE: Axial computed tomography images of the abdomen and pelvis with intravenous contrast. S agittal and coronal reformatted images were created and reviewed. This CT exam was performed using one or more of the following dose reduction techniques: automated exposure control, adjustment of t he mA and/or kV according to patient size, and/or use of iterative reconstruction technique. COMPARISON: 12/01/2019. FINDINGS: Lung bases: Unremarkable. No mass. No consolidation. ABDOMEN: Liver: Unremarkable. No mass. Gallbladder and bile ducts: Unremarkable. No calcified stones. No ductal dilation. Pancreas: Unremarkable. No mass. No ductal dilation. Spleen: Unremarkable. No splenomegaly. Adrenals: Unremarkable. No mass. Kidneys and ureters: Right urothelial thickening has resolved. Homogeneous and symmetric enhan cement of each kidney without stone. No perinephric fluid collection noted. No hydronephrosis. Stomach and bowel: Large amounts of colonic stool identified diffusely. No obstruction. No i nflammatory process noted. No mucosal thickening. PELVIS: Appendix: No findings to suggest acute appendicitis. Bladder: Urinary bladder thickening has resolved. Reproductive: Unremarkable as visualized. ABDOMEN and PELVIS: Intraperitoneal space: Unremarkable. No free air. No significant fluid collection. Bones/joints: No acute fracture. No dislocation. Soft tissues: Unremarkable. Vasculature: Unremarkable. No abdominal aortic aneurysm. Lymph nodes: Unremarkable. No enlarged lymph nodes. IMPRESSION: 1. There has been resolution of right urothelial and bladder thickening since 0. 2. Large amount of diffuse colonic stool present without obstruction. Electronically signed by: Miranda Hancock MD 03/10/2020 5:32 AM CDT Due to temporary technical issues with the PACS/Fluency reporting system, reports are being signed by the in house radiologist without review as a courtesy to ensure prompt reporting. The interpreting r adiologist is fully responsible for the content of the report.
== END 2020-03-10 06:41 | disposition home or self-care (01) ==
LOC: ER 01:39
DX: N39.0 Urinary tract infection, site not specified (principal); K59.00 Constipation, unspecified; F41.9 Anxiety disorder, unspecified; Z88.6 Allergy status to analgesic agent
CPT/HCPCS: 36415; 74177; 80048; 81003; 81015; 81025; 85025; 87086; 87088; 96374; 96375; 99284; J2550; J2930; J3010; J7030; Q9967

== ENCOUNTER 2022-08-01 06:42 | Emergency (ER) | payer SELFPAY ==
--- OUTSIDE RECORDS SUMMARY | 2022-08-01 06:48 | XMS REPORT | Continuity of Care Document ---
:[address] [facility] t Address [address] [place] [address] Care Team Providers Name Role Phone Sanam Bowers Primary Care Physician JUAN MANUEL GTZ Attending Clinician Unavailable Juan Manuel Zavala Attending Clinician Siri Silverio RN Attending Clinician Markell Fisher Attending Clinician Unavailable Evangelina Collado LVN Attending Clinician RITESH INMAN Attending Clinician Unavailable Elis Ozuna Attending Clinician Tony Hill MD Attending Clinician Margie Gill MD Attending Clinician [phone] Ritesh Inman MD Attending Clinician Mireya CASTELLON Attending Clinician Unavailable Mireya Gomez Attending Clinician Trista Reddy Attending Clinician Jose Graves Attending Clinician Pcp, Patient Does Not Have A Attending Clinician [phone] UNKNOWN, ATTENDING Attending Clinician Unavailable ROZINA LUJAN Attending Clinician Unavailable kaleigh Attending Clinician Unavailable Margie Gill MD Admitting Clinician [phone] MARGIE GILL Admitting Clinician Unavailable kaleigh Admitting Clinician Unavailable Payers Payer Name Policy Type Policy Number Effective Date Expiration Date S ource Problems Condition Condition Condition Status Onset Resolution Last Treating Co mments Source Name Details Category Date Date Treatment Clinician Date Bradycardi Bradycardi Disease Active U nivers a a 9-11 ity of 00:00: [place] [facility] Hypotensio Hypotensio Disease Active U nivers n n 9-11 ity of 00:00: [place] [facility] Hypothyroi Hypothyroi Disease Active U nivers dism dism 9- ity of 00:00: [place] [facility] Elevated Elevated Disease Active Unive rs brain brain -11 ity of natriureti natriureti 00:[place] c peptide c peptide 00 Medi aric (BNP) (BNP) Branch level level Cigarette Cigarette Disease Active Uni vers smoker smoker - ity of 00:00: [place] [facility] Syncope, Syncope, Disease Active Unive rs unspecifie unspecifie 9-10 it y of d syncope d [place]ope [place] 00 [place] No known No known Disease Unive rs active active ity of problems problems [facility] Allergies, Adverse Reactions, Alerts Allergy Allergy Status Severity Reaction(s) Onset Inactive Treating Comm ents Source Name Type Date Date Clinician DEXTROAM DRUG Active Other-Cmnt Univ ers PHETAMIN 9-10 ity of E-AMPHET 00:00: [place] AMINE [address] [facility] Dextroam Propensi Active Other - See U nivers phetamin ty to comments 9-10 ity of e-Amphet adverse 00:00: [place] amine reaction 00 Medical s Branch TRAMADOL DRUG Active Rash Univers INGREDI 1- ity of 00:00: [place] [facility] Tramadol Propensi Active Rash Univer s ty to 10-09 ity of adverse 00:00: [place] reaction 00 Medical s [place] NO KNOWN Drug Active Univers ALLERGIE Class ity of S [facility] Social History Social Habit Start Date Stop Date Quantity Comments Source History of tobacco Passive smoker Un iversity of use [facility] ASSERTION [facility] Exposure to 2022-07-14 2022-07-24 Not sure [facility] SARS-CoV-2 (event) 00:00:00 08:16:00 [facility] Alcohol intake 2022-07-24 2022-07-24 0 /d [facility] 00:00:00 00:00:00 [facility] Cigarettes smoked 2022-05-31 2022-05-31 Univers ity of current (pack per 00:00:00 00:00:00 [facility] [place] [facility] ) - Reported Branch Tobacco use and 2022-05-31 2022-05-31 Smokeless Universit y of exposure 00:00:00 00:00:00 tobacco non-user [facility] [place] Sex Ass[birth year] At [birth year] Universit y of 00:00:00 00:00:00 [facility] Smoking Status Start Date Stop Date Source Smokes tobacco daily 2022-05-31 00:00:00 [facility] [place] [facility] Ordered Filled Start Stop Current Ordering Indication Dosage Frequency Signature Comments Components Source Medication Medication Date Date Medication? Clinician (SIG) Name Name HYDROcodone 2021-09 No 1{tbl} 1 tablet, Univers -acetaminop 09-23 Oral, ity of hen (NORCO 15:15: 15:14 ONCE, 1 Rajeev as 5) 5-325 mg 00 :00 dose, On Medi aric tablet 1 [place] Branch tablet 07/24/22 at 0915, CONSTANTIN ketorolac 2021-09 No 60mg 60 mg, Unive rs (TORADOL) 09-23 Intramuscu ity of injection 15:15: 15:16 lar, ONCE, [place] 60 mg 00 :00 1 dose, On Medical [place] [facility] 07/24/22 at 0915, CONSTANTIN levothyroxi Yes [id number] 100ug Take 1 Univers ne 100 mcg 9-17 tablet by ity of tablet 00:00: mouth [place] 00 every Medical morning. Branch levothyroxi 2021-0 Yes [id number] 100ug Take 1 Univers ne 100 mcg 9-17 tablet by ity of tablet 00:00: mouth [place] 00 every Medical morning. Branch levothyroxi 2021-0 Yes [id number] 100ug Take 1 Univers ne 100 mcg 9-17 tablet by ity of tablet 00:00: mouth [place] 00 every Medical morning. Branch levothyroxi 2021-0 Yes [id number] 100ug Take 1 Univers ne 100 mcg 9-17 tablet by ity of tablet 00:00: mouth [place] 00 every Medical morning. Branch levothyroxi 2021-0 Yes [id number] 100ug Take 1 Univers ne 100 mcg 9-17 tablet by ity of tablet 00:00: mouth [place] 00 every Medical morning. Branch levothyroxi 2021-0 Yes [id number] 100ug Take 1 Univers ne 100 mcg 9-17 tablet by ity of tablet 00:00: mouth [place] 00 every Medical morning. Branch levothyroxi 2021-0 Yes [id number] 100ug Take 1 Univers ne 100 mcg 9-17 tablet by ity of tablet 00:00: mouth [place] 00 every Medical morning. Branch levothyroxi 2021-0 Yes [id number] 100ug Take 1 Univers ne 100 mcg 9-17 tablet by ity of tablet 00:00: mouth [place] 00 every Medical morning. Branch levothyroxi 2021-0 Yes [id number] 100ug Take 1 Univers ne 100 mcg 9-17 tablet by ity of tablet 00:00: mouth [place] 00 every Medical morning. Branch amphetamine 0 Yes 25mg Take 25 mg Univers -dextroamph 9-16 by mouth ity of etamine 11:43: every [place] (ADDERALL 45 morning. Medica l XR) 25 mg Branch 24 hr capsule amphetamine 2021-0 Yes 25mg Take 25 mg Univers -dextroamph 9-16 by mouth ity of etamine 11:43: every [place] (ADDERALL 45 morning. Medica l XR) 25 mg Branch 24 hr capsule amphetamine 2021-0 Yes 25mg Take 25 mg Univers -dextroamph 9-16 by mouth ity of etamine 11:43: every [place] (ADDERALL 45 morning. Medica l XR) 25 mg Branch 24 hr capsule amphetamine 2021-0 Yes 25mg Take 25 mg Univers -dextroamph 9-16 by mouth ity of etamine 11:43: every [place] (ADDERALL 45 morning. Medica l XR) 25 mg Branch 24 hr capsule amphetamine 2022-0 Yes 25mg Take 25 mg Univers -dextroamph 9-16 by mouth ity of etamine 11:43: every [place] (ADDERALL 45 morning. Medica l XR) 25 mg Branch 24 hr capsule amphetamine 2022-0 Yes 25mg Take 25 mg Univers -dextroamph 9-16 by mouth ity of etamine 11:43: every (ADDERALL 45 morning. Medica l XR) 25 mg Branch 24 hr capsule amphetamine 2022-0 Yes 25mg Take 25 mg Univers -dextroamph 9-16 by mouth ity of etamine 11:43: every [place] (ADDERALL 45 morning. Medica l XR) 25 mg Branch 24 hr capsule amphetamine 2022-0 Yes 25mg Take 25 mg Univers -dextroamph 9-16 by mouth ity of etamine 11:43: every [place] (ADDERALL 45 morning. Medica l XR) 25 mg Branch 24 hr capsule amphetamine 2022-0 Yes 25mg Take 25 mg Univers -dextroamph 9-16 by mouth ity of etamine 11:43: every [place] (ADDERALL 45 morning. Medica l XR) 25 mg Branch 24 hr capsule ketorolac 2021- No 30mg 30 mg, Unive rs (TORADOL) 06-03 Slow IV ity of injection 03:45: 02:55 Push, [place] 30 mg 00 :00 ONCE, 1 Medical dose, On [facility] 06/02/22 at 2245, Routine NaCl 0.9% 2021- No 1000mL at 250 Uni vers (NS) bolus 06-02 mL/hr, ity of infusion 21:00: 21:30 1,000 mL, Rajeev as 1,000 mL 00 :36 IV Medical Piggyback, [place] ONCE, 1 dose, On [facility] 06/02/22 at 1600, CONSTANTIN ketorolac 2021- No 30mg 30 mg, Unive rs (TORADOL) 06-02 Slow IV ity of injection 18:45: 18:02 Push, [place] 30 mg 00 :00 ONCE, 1 Medical dose, On [facility] 06/02/22 at 1345, Routine pantoprazol Yes 40mg 40 mg, Univ ers e - Oral, ity of (PROTONIX) 17:30: DAILY, [place] EC tablet 00 First dose Medi aric 40 mg on [facility] Branch 06/02/22 at 1230, Until Discontinu ed, Routine gadobenate 2021- No [id number] .2mL/kg 11.3 mL Univers dimeglumine 06-02 (0.2 mL/kg i ty of (MULTIHANCE 16:00: 15:36 ?56.5 kg), [place] -20 mL) 00 :00 Intravenou Medica l injection s, ONCE, 1 Bran ch 11.3 mL dose, On [place] 06/02/22 at 1100, Routine acetaminoph Yes 1{tbl} 1 tablet, Univers en-codeine 06-02 Oral, ity of (TYLENOL 12:30: Q4HPRN, [place] #3) 300-30 26 Starting Medic al mg tablet 1 on [place] Branch tablet 06/02/22 at 0730, Until Discontinu ed, Routine, Pain (scale 4-6) HYDROcodone Yes 1{tbl} 1 tablet, Univers -acetaminop -15 Oral, ity of hen (NORCO 12:30: Q[facility]HPRN, [facility]) 5-325 mg 16 Starting Medi aric tablet 1 on [place] Branch tablet 06/02/22 at 0730, Until Discontinu ed, Routine, Pain (scale 7-10) sennosides- Yes 1{tbl} 1 tablet, Univers docusate -15 Oral, ity of sodium 02:00: DAILY, [place] (SENOKOT-S) 00 First dose Me dical 8.6-50 mg on Mon per tablet 06/01/22 at 1 tablet 2100, Until Discontinu ed, Routine ketorolac 2021- No 30mg 30 mg, Unive rs (TORADOL) 06-01 Slow IV ity of injection 20:45: 20:48 Push, [place] 30 mg 00 :00 ONCE, 1 Medical dose, On Branch Mon06/01/22 at 1545, Routine lactated 2021- No 1000mL at 999 [facility] ers ringers IV 06-01 mL/hr, ity of infusion 18:00: 18:00 1,000 mL, Rajeev as 1,000 mL 00 :00 Intravenou Medic al s, ONCE, 1 Branch dose, On Mon06/01/22 at 1300, Routine polyethylen 2021- No 17g 17 g, Univ ers e glycol 06-01 Oral, ity of 3350 powder 14:00: 01:50 DAILY, [place] as 17 g 00 :52 First dose Medical on Mon06/01/22 at 0900, Until Discontinu ed, Routine magnesium 2021- No 4g 4 g, IV [facility] ers sulfate in 06-01 Piggyback, it y of water 4 13:30: 14:00 ONCE, 1 [place] gram/50 mL 00 :00 dose, On Medic al (8 %) IV Mon Piggyback 4 06/01/22 at g 0830, Routine KCL 2021- No 40meq 40 mEq, Univers (KLOR-CON 06-01 Oral, ity of M20) tablet 13:30: 13:19 ONCE, 1 [place] 40 mEq 00 :00 dose, On Medical Mon06/01/22 at 0830, Routine cyclobenzap Yes 10mg 10 mg, [facility] ers rine 05-31 Oral, TID, ity of (FLEXERIL) 19:00: First dose [place] tablet 10 00 (after Medical mg last Branch modificati on) on Mon05/31/22 at 1400, Until Discontinu ed, Routine levothyroxi Yes 100ug 100 mcg, U nivers ne 05-31 Oral, ity of (SYNTHROID) 11:00: QAM-0600, [place] tablet 100 00 First dose Med ical mcg (after Branch last modificati on) on Mon05/31/22 at 0600, Until Discontinu ed, Routine cyclobenzap 2021- No 5mg 5 mg, Univ ers rine 05-30 Oral, TID, ity of (FLEXERIL) 16:45: 17:51 First dose [place] tablet 5 mg 00 :10 on Mon Medica l 05/30/22 at Branch 1145, Until Discontinu ed, Routine DOPamine 2021- No 2.5ug/k 2.5-7.5 Un maría 800 mg/500 05-30 g/min mcg/kg/min i ty of mL (1,600 16:30: 01:51 ?55.5 kg Rajeev as mcg/mL) 55 :19 ( Medica l infusion .6094 Branch RTU mL/hr, rounded to 5.2-15.61 mL/hr), IV Infusion, TITRATE, Target SBP > 90, OK to keep HR > 40 if SBP at target and patient comfortabl e, Starting on Mon05/30/22 at 1130
In itiate infusion at 2.5 mcg/kg/min . &nb sp;Increas e by 2.5 mcg/kg/min every 1 minute to 5 minutes as needed to reach and maintain goal blood pressure.& nbsp;&nbsp ;Maximum dose = 20 mcg/kg/min . If goal not maintained at maximum allowed dose, contact prescriber . &nb sp;Adminis ter only one peripheral intravenou s vasopresso r at a time.
lidocaine 2021- No 5mL 5 mL, Univer s 1% (PF) 05-30 Subcutaneo ity o f (XYLOCAINE) 16:30: 17:45 , ONCE, [place] injection 5 00 :00 1 dose, On Me dical mL Mon [place] 05/30/22 at 1130, Routine NaCl 0.9% Yes 10mL 10 mL, Univer s (NS) 05-30 Slow IV ity of injection 16:20: [place], PRN, [place] 10 mL 14 Starting Medical on Mon [place] 05/30/22 at 1120, Until Discontinu ed, Routine, line maintenanc e morpHINE (2 2021- No 2mg 2 mg, Slow Univers mg/mL) 05-30 IV Push, ity of injection 2 14:49: 12:30 Q6HPRN, [place] mg 56 :42 Starting Medical on Mon [place] 05/30/22 at 0949, Until [place] 06/02/22 at 0730, Routine, Pain (scale 7-10) HYDROcodone 2021- No 1{tbl} 1 tablet, Univers -acetaminop 05-30 Oral, ity of hen (NORCO 14:49: 12:30 Q4HPRN, Rajeev as 5) 5-325 mg 30 :42 Starting Medi aric tablet 1 on [facility] Branch tablet 05/30/22 at 0949, Until [place] 06/02/22 at 0730, Routine, Pain (scale 4-6) cholecalcif Yes 2000U 2,000 Univ ers lorenzo 05-30 Units, ity of (vitamin 14:00: Oral, [place] D3) tablet 00 DAILY, Medical 2,000 Units First dose Br anch (after last modificati on) on Mon05/30/22 at 0900, Until Discontinu ed, Routine thiamine Yes 100mg 100 mg, Unive rs (VITAMIN 05-30 Oral, ity of B1) tablet 14:00: DAILY, [place] 100 mg 00 First dose Medical on [facility] Branch 05/30/22 at 0900, Until Discontinu ed, Routine levothyroxi 2021- No 100ug 100 mcg, Univers ne 05-30 Intravenou ity of (SYNTHROID) 13:45: 13:52 s, ONCE, 1 [place] injection 00 :00 dose, On Medica l 100 mcg [facility] 05/30/22 at 0845, Routine levothyroxi 2021- No 50ug 50 mcg, Un maría ne 05-30 Oral, ity of (SYNTHROID) 11:00: 16:20 QAM-0600, [place] tablet 50 00 :48 First dose Medi aric mcg (after Branch last modificati on) on [facility] 05/30/22 at 0600, Until Discontinu ed, Routine morpHINE (2 2021- No 2mg 2 mg, Slow Univers mg/mL) 05-30 IV Push, ity of injection 2 09:14: 09:27 PRN, 1 [place] as mg 26 :00 dose, Medical Starting Branch on Mon05/30/22 at 0414, Until Mon05/30/22 at 0427, Routine, headache DOPamine 2021- No 2.5ug/k 2.5-7.5 [place] maría 800 mg/500 05-30 g/min mcg/kg/min i ty of mL (1,600 02:53: 16:32 ?55.5 kg Rajeev as mcg/mL) 09 :25 ( Medica l infusion .6094 Branch RTU mL/hr, rounded to 5.2-15.61 mL/hr), IV Infusion, TITRATE, SBP Goal 100-140 mmHg, HR > 60, Starting on [place] 05/29/22 at 2153
In itiate infusion at 2.5 mcg/kg/min . &nb sp;Increas e by 2.5 mcg/kg/min every 1 minute to 5 minutes as needed to reach and maintain goal blood pressure.& nbsp;&nbsp ;Maximum dose = 20 mcg/kg/min . If goal not maintained at maximum allowed dose, contact prescriber . &nb sp;Adminis ter only one peripheral intravenou s vasopresso r at a time.
ibuprofen 2021- No 600mg 600 mg, Uni vers (IBU) 05-30 Oral, ity of tablet 600 02:52: 15:41 TIDPRN, [place] as mg 32 :06 Starting Medical on [facility] 05/29/22 at 2152, Until [facility] 05/30/22 at 1041, Routine, Pain (scale 1-3) DOPamine 2021- No 2.5ug/k 2.5-7.5 [place] maría 800 mg/500 05-30 g/min mcg/kg/min i ty of mL (,600 02:39: 02:53 ?55.5 kg Rajeev as mcg/mL) 25 :28 ( Medica l infusion .6094 Branch RTU mL/hr, rounded to 5.2-15.61 mL/hr), IV Infusion, TITRATE, SBP Goal 100-140 mmHg, HR > 60, Starting on [place] 05/29/22 at 2139
In itiate infusion at 2.5 mcg/kg/min . &nb sp;Increas e by 2.5 mcg/kg/min every 1 minute to 5 minutes as needed to reach and maintain goal blood pressure.& nbsp;&nbsp ;Maximum dose = 7.5 mcg/kg/min . If goal not maintained at maximum allowed dose, contact prescriber . &nb sp;Adminis ter only one peripheral intravenou s vasopresso r at a time.
hydrocortis 2021- No 50mg 50 mg, Uni vers one sod 05-29 Intravenou ity o f succ 22:00: 09:27 s, Q6H, 3 [place] (CORTEF) 00 :00 doses, Medical injection First dose Bran ch 50 mg on [place] 05/29/22 at 1700, Last dose on 05/30/22 at 0000, 2 mL proCHLORper Yes 10mg 10 mg, Univ ers azine 05-29 Slow IV ity of (COMPAZINE) 21:28: Push, [place] injection 31 Q6HPRN, Medical 10 mg Starting Branch on [place] 05/29/22 at 1628, Until Discontinu ed, Routine, Nausea and Vomiting (N/V), alternate with ondansetro n levothyroxi No 50ug 50 mcg, Un maría ne 05-29 Intravenou ity of (SYNTHROID) 17:15: 17:53 s, ONCE, 1 [place] injection 00 :00 dose, On Medica l 50 mcg [facility] 05/29/22 at 1215, Routine clonazePAM Yes 2mg 2 mg, Univer s (KLONOPIN) 05-29 Oral, BID, ity of tablet 2 mg 16:15: First dose [place] 00 (after Medical last Branch modificati on) on [place] 05/29/22 at 1115, Until Discontinu ed, Routine cosyntropin 2021- No 250ug 250 mcg, Univers (CORTROSYN) 05-29 Slow IV ity of injection 15:45: 16:40 Push, [place] 250 mcg 00 :00 ONCE, 1 Medical dose, On Branch [place] 05/29/22 at 1045, Routine enoxaparin Yes 30mg 30 mg, Unive rs (LOVENOX) 05-29 Subcutaneo ity of injection 14:00: [place], DAILY, [place] 30 mg 00 First dose Medical on [facility] 05/29/22 at 0900, Until Discontinu ed, Routine DOPamine No 5ug/kg/ 5 Unive rs 800 mg/500 05-29 min mcg/kg/min it y of mL (1,600 12:00: 01:40 ?55.5 kg Rajeev as mcg/mL) 00 :01 (10.4063 Medical infusion mL/hr, Branch RTU rounded to 10.41 mL/hr), IV Infusion, CONTINUOUS , Starting on [place] 05/29/22 at 0700 levothyroxi 2021- No 25ug 25 mcg, Un maría ne 05-29 Oral, ity of (SYNTHROID) 11:00: 11:19 QAM-0600, [place] tablet 25 00 :00 1 dose, Medical mcg First dose Branch on [place] 05/29/22 at 0600, Routine atropine No .5mg 0.5 mg, IV Un maría injection 05-29 Push, ity of 0.5 mg 06:00: 05:02 ONCE, 1 [place] 00 :00 dose, On Medical [facility] 05/29/22 at 0100, Routine ondansetron Yes 4mg 4 mg, Slow Univers (ZOFRAN 05-29 IV Push, ity of (PF)) 05:41: Q6HPRN, [place] injection 4 54 Starting Medi aric mg on [facility] 05/29/22 at 0041, Until Discontinu ed, Routine, Nausea and Vomiting (N/V) butalbital- 2021- No 1{tbl} 1 tablet, Univers acetaminoph 05-29 Oral, ity of en-caff 01:18: 16:35 Q4HPRN, [place] (ESGIC) 20 :31 Starting Medical 50-325-40 on Sat Branch mg tablet 1 05/28/22 at tablet 2018, Until 05/30/22 at 1135, Routine, headache clonazePAM 2021- No 1mg 1 mg, Unive rs (KLONOPIN) 05-28 Oral, BID, it y of tablet 1 mg 20:45: 05:01 First dose [place] 00 :41 on Sat Medical 05/28/22 at Branch 1545, Until Discontinu ed, Routine acetaminoph Yes 650mg 650 mg, Un maría en 05-28 Oral, ity of (TYLENOL) 18:51: Q6HPRN, [place] tablet 650 25 Starting Medic al mg on Sat Branch 05/28/22 at 1351, Until Discontinu ed, Routine, Pain (scale 1-3) ketorolac 2021- No 15mg 15 mg, Unive rs (TORADOL) 05-28 Slow IV ity of injection 18:50: 15:41 Push, [place] 15 mg 26 :06 Q6HPRN, Medical Starting Branch on 05/28/22 at 1350, Until 05/30/22 at 1041, Routine, Pain (scale 4-6) iopamidol 2021- No [id number] 70mL 70 mL, Univers (ISOVUE 05-28 Intravenou ity o f 370-500 mL) 18:15: 18:15 s, ONCE, 1 [place] injection 00 :00 dose, On Medica l 70 mL Sat Branch 05/28/22 at 1315, Routine NaCl 0.9% 2021- No 1000mL at 999 Uni vers (NS) bolus 05-28 mL/hr, ity of infusion 16:00: 16:36 1,000 mL, Rajeev as 1,000 mL 00 :00 IV Medical Infusion, Branch ONCE, 1 dose, On 05/28/22 at 1100, CONSTANTIN acetaminoph 2021- No 1000mg 1,000 mg, Univers en 05-28 Oral, ity of (TYLENOL) 16:00: 15:50 ONCE, 1 [place] tablet 00 :00 dose, On Medical 1,000 mg Sat Branch 05/28/22 at 1100, CONSTANTIN ALPRAZOLAM 2021- No Take by Uni vers ORAL 05-28 mouth. ity of 15:31: 00:00 [place] 37 :00 Medical Branch NaCl 0.9% 2021- No 1000mL at 999 Uni vers (NS) bolus 05-28 mL/hr, ity of infusion 14:45: 15:05 1,000 mL, Rajeev as 1,000 mL 00 :00 IV Medical Infusion, Branch ONCE, 1 dose, On 05/28/22 at 0945, CONSTANTIN ondansetron 2021- No 4mg 4 mg, Slow Univers (ZOFRAN 05-28 IV Push, ity of (PF)) 14:45: 14:35 ONCE, 1 [place] injection 4 00 :00 dose, On Medi aric mg Sat Branch 05/28/22 at 0945, CONSTANTIN NaCl 0.9% 2021- No 1000mL at 999 Uni vers (NS) bolus 05-28 mL/hr, ity of infusion 14:30: 15:05 1,000 mL, Rajeev as 1,000 mL 00 :00 IV Medical Infusion, Branch ONCE, 1 dose, On 05/28/22 at 0930, CONSTANTIN ondansetron Yes [id number] 4mg Take 1 Univers (ZOFRAN 10-10 tablet by ity of ODT) 4 mg 00:00: mouth [place] disintegrat 00 every 8 Medic al ing tablet (eight) Branch hours as needed for Nausea and Vomiting (N/V). ondansetron 2021-2021- No [id number] 4mg Take 1 Univers (ZOFRAN 10-10 tablet by ity of ODT) 4 mg 00:00: 00:00 mouth [place] disintegrat 00 :00 every 8 Medic al ing tablet (eight) Branch hours as needed for Nausea and Vomiting (N/V). cephALEXin 2021-2- No [id number] 500mg Take 1 Univers (KEFLEX) 10-10 capsule by ity of 500 mg 00:00: 05:59 mouth 3 [place] capsule 00 :00 (three) Medical times Branch daily for 10 days. metroNIDAZO 2020-0 2020- No [id number] 500mg Take 1 Univers LE (FLAGYL) 05-13 tablet by it y of 500 mg 00:00: 04:59 mouth 2 [place] tablet 00 :00 (two) Medical times Branch daily for 7 days. metroNIDAZO 2020-0 1- No [id number] 500mg Take 1 Univers LE 500 mg 05-10 tablet by ity of tablet 00:00: 04:59 mouth 2 [place] 00 :00 (two) Medical times Branch daily for 7 days. metroNIDAZO 2020- No [id number] 500mg Take 1 Univers LE 500 mg 05-10 tablet by ity of tablet 00:00: 04:59 mouth 2 [place] 00 :00 (two) Medical times Branch daily for 7 days. metroNIDAZO 2020- No [id number] 500mg Take 1 Univers LE 500 mg 05-10 tablet by ity of tablet 00:00: 04:59 mouth 2 [place] 00 :00 (two) Medical times Branch daily for 7 days. metroNIDAZO 2020- No [id number] 500mg Take 1 Univers LE 500 mg 05-10 tablet by ity of tablet 00:00: 04:59 mouth 2 [place] 00 :00 (two) Medical times Branch daily for 7 days. ALPRAZOLAM Yes Take by [facility] ers ORAL 8-21 mouth. ity of 23:35: [address] ALPRAZOLAM Yes Take by [facility] ers ORAL 8-21 mouth. ity of 23:35: [address] ALPRAZOLAM Yes Take by [facility] ers ORAL 8-21 mouth. ity of 23:35: [address] ALPRAZOLAM Yes Take by [facility] ers ORAL 8-21 mouth. ity of 23:35: [address] ALPRAZOLAM Yes Take by [facility] ers ORAL 8-21 mouth. ity of 18:35: [address] valACYclovi 2020- No [id number] 1g Take 1 Univers r 1 gram 05-08- tablet by ity o f tablet 00:00: 04:59 mouth 3 [place] 00 :00 (three) Medical times Branch daily for 7 days. valACYclovi 2020- No [id number] 1g Take 1 Univers r 1 gram -08 05-29 tablet by ity o f tablet 00:00: 04:59 mouth 3 [place] 00 :00 (three) Medical times Branch daily for 7 days. valACYclovi 2020- No [id number] 1g Take 1 Univers r 1 gram -08 05-29 tablet by ity o f tablet 00:00: 04:59 mouth 3 [place] 00 :00 (three) Medical times Branch daily for 7 days. valACYclovi 2021-0 2021- No [id number] 1g Take 1 Univers r 1 gram 05-08- tablet by ity o f tablet 00:00: 04:59 mouth 3 [place] 00 :00 (three) Medical times [place] daily for 7 days. clonazePAM 2021-0 Yes 2mg Take 2 mg Un maría 2 mg tablet 8-09 by mouth 2 it y of 00:00: (two) [place] 00 times Medical daily. Branch clonazePAM 2021-0 Yes 2mg Take 2 mg Un mar[place] 2 mg tablet 8-09 by mouth 2 it y of 00:00: (two) [place] 00 times Medical daily. Branch clonazePAM 2021-0 Yes 2mg Take 2 mg [place] mar[place] 2 mg tablet 8-09 by mouth 2 it y of 00:00: (two) [place] 00 times Medical daily. Branch clonazePAM 2021-0 Yes 2mg Take 2 mg [place] 2 mg tablet 8-09 by mouth 2 it y of 00:00: (two) [place] 00 times Medical daily. Branch clonazePAM 2021-0 Yes 2mg Take 2 mg [place] 2 mg tablet 8-09 by mouth 2 it y of 00:00: (two) [place] 00 times Medical daily. Branch clonazePAM 2021-0 Yes 2mg Take 2 mg Un mar[place] 2 mg tablet 8-09 by mouth 2 it y of 00:00: (two) [place] 00 times Medical daily. Branch clonazePAM 2021-0 Yes 2mg Take 2 mg [place] 2 mg tablet 8-09 by mouth 2 it y of 00:00: (two) [place] 00 times Medical daily. Branch clonazePAM 2021-0 Yes 2mg Take 2 mg [place] 2 mg tablet 8-09 by mouth 2 it y of 00:00: (two) [place] 00 times Medical daily. Branch clonazePAM 2021-0 Yes 2mg Take 2 mg Un mar[place] 2 mg tablet 8-09 by mouth 2 it y of 00:00: (two) [place] 00 times Medical daily. Branch clonazePAM 2021-0 Yes 2mg Take 2 mg Un mar[place] 2 mg tablet 8-09 by mouth 2 it y of 00:00: (two) [place] 00 times Medical daily. Branch clonazePAM 2021-0 Yes 2mg Take 2 mg Un mar[place] 2 mg tablet 8-09 by mouth 2 it y of 00:00: (two) 00 times Medical daily. Branch clonazePAM 2020-0 Yes 2mg Take 2 mg Un maría 2 mg tablet 04-26 by mouth 2 it y of 00:00: (two) times Medical daily. Branch clonazePAM 2020-0 Yes 2mg Take 2 mg Un maría 2 mg tablet 04-26 by mouth 2 it y of 00:00: (two) 00 times Medical daily. Branch clonazePAM 2020-0 Yes 2mg Take 2 mg Un maría 2 mg tablet 04-26 by mouth 2 it y of 00:00: (two) 00 times Medical daily. Branch ALPRAZOLAM 2017-0 Yes Take by Univ ers ORAL 5-15 mouth. ity of 16:08: [place] 13 Medical Branch amoxicillin 2018-0 Yes 875mg Take 1 Uni vers 875 mg 5-15 tablet by ity of tablet 00:00: mouth 2 (two) Medical times Branch daily. traMADOL 50 2018-0 Yes 50mg Take 1 Univ ers mg tablet 5-15 tablet by ity o f 00:00: mouth 00 every 6 Medical (six) Branch hours as needed for Pain (scale 4-6). amoxicillin 2018-0 Yes 875mg Take 1 Uni vers 875 mg 5-15 tablet by ity of tablet 00:00: mouth [place] (two) Medical times Branch daily. traMADOL 50 2018-0 Yes 50mg Take 1 Univ ers mg tablet 5-15 tablet by ity o f 00:00: mouth 00 every 6 Medical (six) Branch hours as needed for Pain (scale 4-6). amoxicillin 2018-0 Yes 875mg Take 1 Uni vers 875 mg 5-15 tablet by ity of tablet 00:00: mouth 2 (two) Medical times Branch daily. traMADOL 50 2018-0 Yes 50mg Take 1 Univ ers mg tablet 5-15 tablet by ity o f 00:00: mouth 00 every 6 Medical (six) Branch hours as needed for Pain (scale 4-6). amoxicillin 2018-0 Yes 875mg Take 1 Uni vers 875 mg 5-15 tablet by ity of tablet 00:00: mouth 2 (two) Medical times Branch daily. traMADOL 50 2018-0 Yes 50mg Take 1 Univ ers mg tablet 5-15 tablet by ity o f 00:00: mouth [place] 00 every 6 Medical (six) Branch hours as needed for Pain (scale 4-6). amoxicillin 2018-0 Yes 875mg Take 1 Uni vers 875 mg 5-15 tablet by ity of tablet 00:00: mouth 2 [place] 00 (two) Medical times Branch daily. traMADOL 50 2017-0 Yes 50mg Take 1 Univ ers mg tablet 5-15 tablet by ity o f 00:00: mouth [place] 00 every 6 Medical (six) Branch hours as needed for Pain (scale 4-6). amoxicillin 2017-0 Yes 875mg Take 1 Uni vers 875 mg 5-15 tablet by ity of tablet 00:00: mouth 2 [place] 00 (two) Medical times Branch daily. traMADOL 50 2017-0 Yes 50mg Take 1 Univ ers mg tablet 5-15 tablet by ity o f 00:00: mouth [place] 00 every 6 Medical (six) Branch hours as needed for Pain (scale 4-6). amoxicillin 2017-2021- No 875mg Take 1 Un maría 875 mg 5-15 09-10 tablet by ity of tablet 00:00: 00:00 mouth 2 [place] 00 :00 (two) Medical times Branch daily. traMADOL 50 2017-0 2021- No 50mg Take 1 Uni vers mg tablet 5-15 09-10 tablet by ity of 00:00: 00:00 mouth [place] 00 :00 every 6 Medical (six) Branch hours as needed for Pain (scale 4-6). Vital Signs Vital Name Observation Time Observation Value Comments Source Systolic blood 2022-07-24 117 mm[Hg] [facility] pressure 14:19: [facility] Diastolic blood 2022-07-24 85 mm[Hg] [place] o pressure 14:19: [facility] Heart rate 2022-07-24 89 /min : [facility] Body temperature 2022-07-24 36.28 Arlene :: [facility] Respiratory rate 2022-07-24 16 /min :: [facility] Body height 2022-07-24 162.6 cm : [facility] Body weight 2022-07-24 58.968 kg : [facility] BMI 2022-07-24 22.31 kg/m2 University 14:19:00 [facility] Systolic blood 2022-06-03 98 mm[Hg] University of pressure 13:23:00 [facility] Diastolic blood 2022-06-03 65 mm[Hg] University o f pressure 13:23:00 [facility] Heart rate 2022-06-03 107 /min University 13:23:00 [facility] Body temperature 2022-06-03 36.44 Arlene [facility] 13:19:00 [facility] Respiratory rate 2022-06-03 18 /min University 13:19:00 [facility] Oxygen saturation 2022-06-03 97 /min [facility] in Arterial blood 13:19:00 [facility] by Pulse oximetry [place] Body weight 2022-06-03 58.469 kg bed scale was [facility] 09:36:00 used, pt [facility] [place] [facility] to Branch stand on the regular scale BMI 2022-06-03 22.13 kg/m2 [facility] 09:36:00 [facility] Body height 2022-06-01 162.6 cm [facility] 01:00:00 [facility] Systolic blood 2021-10-10 121 mm[Hg] University of pressure 05:10:00 [facility] Diastolic blood 2021-10-10 90 mm[Hg] University o f pressure 05:10:00 [facility] Heart rate 2021-10-10 74 /min [facility] 05:10:00 [facility] Body temperature 2021-10-10 36.56 Arlene [facility] 05:10:00 [facility] Respiratory rate 2021-10-10 19 /min [facility] 05:10:00 [facility] Body height 2021-10-10 162.6 cm [facility] 05:10:00 [facility] Body weight 2021-10-10 56.7 kg [facility] 05:10:00 [facility] BMI 2021-10-10 21.46 kg/m2 [facility] 05:10:00 [facility] Oxygen saturation 2021-10-10 100 /min [facility] in Arterial blood 05:10:00 [facility] by Pulse oximetry [place] Procedures Procedure Date / Time Performing Source Performed Clinician CONSENT/REFUSAL FOR DIAGNOSIS 2022-07-24 Doctor Unassigned, [facility] AND TREATMENT 14:13:56 [employer] Medical Branch MAGNESIUM 2022-06-03 Balaji Krueger [facility] [place] 09:34:00 Medical Branch BASIC METABOLIC PANEL (NA, K, 2022-06-03 Balaji Krueger [facility] CL, CO2, GLUCOSE, BUN, 09:34:00 Medical B ran CREATININE, CA) CBC WITH DIFF 2022-06-03 Balaji Krueger [facility] [place] 09:34:00 Medical Branch MR CARDIAC MORPHOLOGY W WO 2022-06-02 Richie [facility] CONTRAST 15:45:00 Medical Branch MAGNESIUM 2022-06-02 Malik [facility] [place] 10:03:00 Medical Branch HEPATIC FUNCTION PANEL 2022-06-02 [facility] ([id number]) (ALB,T.PRO,BILI 10:03:00 Medical Branch T,BU/BC,ALT,AST,ALK PHOS) BASIC METABOLIC PANEL (NA, K, 2022-06-02 Richie [facility] CL, CO2, GLUCOSE, BUN, 10:03:00 Medical [facility] CREATININE, CA) CBC WITH DIFF 2022-06-02 Malik [facility] 10:03:00 Medical Branch PROTHROMBIN TIME / INR 2022-06-02 [facility] 10:03:00 Medical Branch HEPATITIS B SURFACE ANTIBODY 2022-06-02 Malik [facility] 10:03:00 Medical Branch HCV ANTIBODY 2022-06-02 Richie [facility] 10:03:00 Medical Branch HBC ANTIBODY (IGM & IGG) 2022-06-02 Malik [facility] 10:03:00 Medical Branch GC & CHLAMYDIA AMPLIFIED 2022-06-01 [facility] ASSAY 17:08:[address] [facility] Branch ANTICARDIOLIPIN ANTIBODIES 2022-06-01 Malki [facility] 15:17:00 Medical Branch THYROID PEROXIDASE (TPO) AB 2022-06-01 Malik [facility] 15:17:00 Medical Branch CYCLIC CITRULLINATED PEPTIDE 2022-06-01 Malik [facility] 15:17:00 Medical Branch ANTI-B2 GLYCOPROTEIN I AB 2022-06-01 Darshan [facility] 15:17:00 Medical Branch BASIC METABOLIC PANEL (NA, K, 2022-06-01 Jean Huynh [facility] CL, CO2, GLUCOSE, BUN, 00:45:00 Medical B ran CREATININE, CA) CBC WITH DIFF 2022-06-01 Amina [facility] 00:45:00 Medical Branch PROTHROMBIN TIME / INR 2022-06-01 Amina, [facility] 00:45:00 Medical Branch ACTIVATED PARTIAL THRMPLAS 2022-06-01 Amina, [facility] RAJ 00:45:00 Medical Branch HEPATITIS B SURFACE ANTIGEN 2022-06-01 Darshan Gan [facility] 00:45:00 Medical Branch LACTIC ACID WHOLE BLOOD 2022-06-01 Amina, [facility] 00:45:00 Medical Branch LYME, LATE DISEASE (ABS, 2022-06-01 Abhi Moseley [facility] JESS W/REFLEX TO WB) 00:45:00 Medical Br anch MAGNESIUM 2022-05-31 [facility] 08:24:00 Medical Branch BASIC METABOLIC PANEL (NA, K, 2022-05-31 Tony Hill [facility] CL, CO2, GLUCOSE, BUN, 08:24:00 [facility] CREATININE, CA) HIV 1/2 AG-AB WITH REFLEX 2022-05-31 Pradip Abhi [facility] 08:24:[address] [facility] Branch XR CHEST 1 VW 2022-05-30 Daniel [facility] xa 18:12:[address] [facility] Branch URINALYSIS 2022-05-30 [facility] [facility] Branch URINE CULTURE 2022-05-30 Liz [facility] xa 18:08:[address] [facility] Branch PROTEIN CREAT RATIO URINE 2022-05-30 [facility] 18:08:[address] [facility] Branch CREATINE KINASE 2022-05-30 Daniel [facility] xa 17:56:00 Medical Branch BASIC METABOLIC PANEL (NA, K, 2022-05-30 Tony Hill [facility] CL, CO2, GLUCOSE, BUN, 17:56:00 Medical B ranzachary CREATININE, CA) CT HEAD WO CONTRAST 2022-05-30 [facility] [place] 11:06:02 Medical Branch FREE T4 2022-05-30 Liz [facility] [place] 06:11:00 Medical Branch CBC WITH DIFF 2022-05-30 Liz [facility] [place] 06:11:00 [facility] HB ECG ROUTINE & RHYTHM STRIP 2022-05-30 [facility] 05:23:39 [facility] RHEUMATOID FACTOR 2022-05-29 Liz [facility] 22:41:00 [facility] C4 COMPLEMENT 2022-05-29 Liz [facility] [place] 22:41:00 Medical Branch SEDIMENTATION RATE 2022-05-29 Liz [facility] 22:41:00 [facility] PROTHROMBIN TIME / INR 2022-05-29 Liz [facility] 22:41:00 [facility] ACTIVATED PARTIAL THRMPLAS 2022-05-29 [facility] 22:41:00 [facility] ANTI-NUCLEAR ANTIBODY SCREEN 2022-05-29 Tony Hill [facility] 22:41:00 Medical [place] ANTI-NUCLEAR ANTIBODY TITER 2022-05-29 Liz Tony [facility] 22:41:00 [facility] ANTI-SSB(LA) 2022-05-29 Abhi Moseley [facility] xa 22:41:00 [facility] ANTI-DOUBLE STRANDED DNA 2022-05-29 Liz Tony [facility] 22:41:00 [facility] GALV ONLY - SYPHILIS IGG/IGM 2022-05-29 Darshan Gan [facility] 22:41:00 [facility] ANTI-NUCLEAR 2022-05-29 [facility]augh [facility] [place] ANTIBODY-PATHOLOGIST 22:41:00 Medical [facility] nch INTERPRETATION CORTISOL STIMULATION 60 MIN 2022-05-29 Tony Hill [facility] 17:46:00 Medical Branch CORTISOL STIMULATION 30 MIN 2022-05-29 [facility] 17:16[facility] [facility] Branch ADRENOCORTICOTROPIC HORMONE 2022-05-[address] [facility] 16:30:00 Medical Branch C-REACTIVE PROTEIN 2022-05-[address] [facility] 16:30:00 Medical Branch CORTISOL STIMULATION 0 MIN 2022-05-29 [facility] 16:30:00 Medical Branch XR CHEST 1 VW 2022-05-29 [facility] 14:46:47 Medical Branch TRANSTHORACIC ECHO (TTE) 2022-05-29 [facility] COMPLETE 13:59:00 Medical Branch HB ECG ROUTINE & RHYTHM STRIP 2022-05-29 Daniel Tony [facility] 12:47:45 Medical Branch PHOSPHORUS 2022-05-29 [facility] [place] 09:48:00 Medical Branch MAGNESIUM 2022-05-29 [facility] xa 09:48:00 Medical Branch CORTISOL AM 2022-05-29 [facility] 09:48:00 Medical Branch TROPONIN I 2022-05-29 [facility] xa 09:48:[address] [facility] Branch HEPATIC FUNCTION PANEL 2022-05-29 [facility] ([id number]) (ALB,T.PRO,BILI 09:48:00 Medical Branch T,BU/BC,ALT,AST,ALK PHOS) BASIC METABOLIC PANEL (NA, K, 2022-05-29 [facility] CL, CO2, GLUCOSE, BUN, 09:48:00 Medical B ranch CREATININE, CA) CBC WITH DIFF 2022-05-29 [facility] xa 09:48:00 Medical Branch LACTIC ACID WHOLE BLOOD 2022-05-28 [facility] 19:46:00 Medical Branch HB ECG ROUTINE & RHYTHM STRIP 2022-05-28 [facility] Tony [facility] 19:30:05 Medical Branch MRSA / MSSA SCREEN BY PCR, 2022-05-28 [facility] [place] NARES 18:47:[address] CHEST PULMONARY ANGIOGRAM 2022-05-28 Elis Oconnor [facility] 17:17:12 Medical Branch COVID-19 (ID NOW RAPID 2022-05-28 Elis Oconnor [facility] TESTING) 16:37:00 Medical Branch LAB ONLY COVID INTERPRETATION 2022-05-28 Elis Oconnor [facility] 16:37:00 [facility] HB ECG ROUTINE & RHYTHM STRIP 2022-05-28 Elis Oconnor [facility] 13:55:[address] [facility] Branch PHOSPHORUS 2022-05-28 [facility] [facility] Branch CREATINE KINASE 2022-05-28 [facility] [place] 13:36:00 [facility] MAGNESIUM 2022-05-28 [facility] [place] 13:36:00 [facility] TROPONIN I 2022-05-28 [facility] 13:36:00 [facility] FREE T4 2022-05-28 [facility] 13:36:00 [facility] THYROID STIMULATING HORMONE 2022-05-28 Elvin Elis [facility] 13:36:00 [facility] COMP. METABOLIC PANEL ([id number]) 2022-05-28 Elis Oconnor [facility] 13:36:00 [facility] ETHANOL 2022-05-28 [facility] [place] 13:36:00 [facility] CBC WITH DIFF 2022-05-28 [facility] [place] 13:36:00 [facility] URINALYSIS 2022-05-28 [facility] 13:36:00 [facility] POCT TEST 2022-05-28 [facility] 13:36:00 [facility] N-TERMINAL PRO-BNP 2022-05-28 Elvin [facility] f [place] 13:36:00 [facility] URINE DRUG (IMMUNOASSAY) - 2022-05-28 Elvin Elis [facility] COMPREHENSIVE DRUG SCREEN W/O 13:36:00 [place] dical Branch REFLEX CONSENT/REFUSAL FOR DIAGNOSIS 2022-05-28 Doctor Unassigned, [facility] AND TREATMENT 13:23:47 [employer] Medical Branch HOSPITAL ADMISSION 2022-05-28 Doctor Unassigned, [facility] 05:01:00 [employer] Medical Branch ASSIGNMENT OF BENEFITS 2021-10-10 Doctor Unasstabby, [facility] 06:40:03 [employer] Medical Branch URINALYSIS 2021-10-10 Mireya Castellon [facility] [place] 06:00:00 Medical [place] POCT TEST 2021-10-10 Mireya Castellon [place] o f [place] 06:00:00 Medical [place] NOTICE OF PRIVACY PRACTICES 2021-10-10 Doctor Unasstabby [facility] 05:07:28 [employer] Medical Branch CONSENT/REFUSAL FOR DIAGNOSIS 2021-10-10 Doctor Unassigned, [facility] AND TREATMENT 05:07:13 [employer] Medical [place] Encounters Start End Encounter Admission Attending Care Care Encounter Source Date/Time Date/Time Type Type Clinicians Facility Department ID 2022-07-24 2022-07-24 Emergency X [facility] [id number] Univers 08:22:00 10:05:00 JUAN MANUEL itmiranda [facility] 2022-07-24 2022-07-24 [facility] [id number] Univers 08:22:00 10:05:00 Juan Manuel S ANGELTON 350.1.13.10 i ty of [place] QUIT[place] [id number] [facility] 084 Branch 2022-07-19 2022-07-19 Patient Siri Silverio [id number] Univers 00:00:00 00:00:00 Outreach Sejal H[place] 350.1.13.10 i [place] [id number] [facility] 403 Branch 2022-06-20 2022-06-20 Patient JASON Tran [id number] Univers 00:00:00 00:00:00 Outreach Markell [place] 350.1.13.10 [place] [id number] [address] 2022-06-15 2022-06-15 Patient Siri Silverio JASON [id number] Univers 00:00:00 00:00:00 Outreach E H[place] 350.1.13.10 [place] [id number] [address] 2022-06-14 2022-06-14 Patient Siri Silverio JASON [id number] Univers 00:00:00 00:00:00 Outreach E H[place] 350.1.13.10 [place] [id number] [address] 2022-06-10 2022-06-10 Transition JASON Collado [id number] Univers 00:00:00 00:00:00 of Care Evangelina H[place] 350.1.13.10 [place] [id number] [address] 2022-06-06 2022-06-06 Transition JASON Collado [id number] Univers 00:00:00 00:00:00 of Care Evangelina [place] 350.1.13.10 [place] [id number] [address] 2022-06-06 2022-06-06 Transition JASON Collado [id number] Univers 00:00:00 00:00:00 of Care Evangelina [place] 350.1.13.10 [place] [id number] [address] 2022-06-03 2022-06-03 Outpatient Justina INMAN [facility] [id number] Univers 13:52:31 23:59:00 RITESH apple of [facility] 2022-05-28 2022-06-03 Elis Oakes 1.2.840. 114 [id number] Univers 08:29:00 11:43:00 Encounter Tony Hill 350.1.13.10 ity [facility] 4.2 .7.2.686 Bobbi Ritesh Inman [id number] [place] [id number] Branch 2022-05-28 2022-06-03 Inpatient U [facility] [id number] Univers 08:29:00 11:43:00 [facility] of [facility] 2021-10-09 2021-10-10 Emergency X Mireya [facility] ERT [id number] Univers 23:25:00 01:50:00 ity of [facility] 2021-10-09 2021-10-10 Emergency Mireya Castellon [facility] [id number] Univers 23:25:00 01:50:00 Latrice DAVIS 350.1.13.10 i ty of [facility] 4.2.7.2.686 [facility] [id number] [address] 2021-05-12 2021-05-12 Telephone [facility] 1.2.840.114 [id number] Univers 00:00:00 00:00:00 [facility] 350.1.13.10 i ty of [place] 4.2.7.2.686 Rajeev as Balbir?Blea [id number] [address] Medical Office Building 2021-05-10 2021-05-10 Telephone [facility] 1.2.840.114 [id number] Univers 00:00:00 00:00:00 [facility] 350.1.13.10 it y of [place] [facility] [id number] [address] ([facility]) 2021-05-10 2021-05-10 Telephone [facility] [id number] Univers 00:00:00 00:00:00 Patient Health 350.1.13.10 it y of [place] A Balbir?Blea [id number] [address] Medical Office Building 2021-05-08 2021-05-08 Outpatient R LALI, [facility] [id number] Univers 18:20:00 18:20:00 ATTENDING ity of [facility] 2021-05-07 2021-05-07 Outpatient R TAI, [facility] [id number] Univers 09:00:00 09:00:00 WONDIFUL ity o da [facility] 2020-05-05 2020-05-05 Outpatient attema_bailee [facility] [id number] [place] 11:45:00 11:45:00 [id number] [facility] 2020-01-14 2020-01-14 Telephone Pcp, [facility] [id number] 00:00:00 00:00:00 Patient [employer] 350.1.13.10 Does Not REGIONAL 4.2.7.2.686 Have A MATERNAL [id number] & CHILD [address] [place] [address] 2020-01-14 2020-01-14 Telephone Pcp, [facility] [id number] Univers 00:00:00 00:00:00 Patient [employer] 350.1.13.10 it y of Does Not [facility] [place] A MATERNAL [id number] Med ical & CHILD [address] [place] [address] Results Test Description Test Time Test Comments Results Result Comments Source LYME, LATE DISEASE (ABS, JESS W/REFLEX TO WB) 2022-06-03 04 :33:35 Test Item Value Reference Range Interpretation Comme nts LYME EIA (test code = 89926-9) See_Comment When the Borrelia burgdorferi Abs, Total by JESS result is negative, no further testing is done.INTERPRETIVE INFORMATION: Aditya rrelia Burgdorferi Abs,Total by EL JANA ?0.99 BETHEL or Less: ...... Negative : Antibody to B. ? burgdorferi not detected. ?1.00 - 1.20 BETHEL......... Equivocal: Repe at testing in ? 10-14 days may be helpful. ?1.21 BETHEL or Greater: ... Positive: Proba ble presence of ? antibody to B. burgdorferi ? detected.Perfor med By: [address] [id number] aboratory Director: Gavin villafana MD, PhD [Automated message] The sy stem which generated this result tra nsmitted reference range: 0.00 - 1 .20 BETHEL. The reference range was not u sed to interpret this result as ermias l/abnormal. [facility]OX[facility] (TPO) [id number] 16:21:03 Test Item Value Reference Interpretation Comments Range TPO Ab IgG (test See_Comment H [Automated code = [id number]) message] The system which generated this result transmitted reference range : 0.0 - 100.0 WHO Units. The reference range was not used to interpret this result as normal/abnormal . ДМИТРИЙ (test code = Interpretation: ДМИТРИЙ) Negative: ?<= 100 WHO UnitsPositive: ? > 100 WHO Units A positive result indicates the presence of TPO antibodies and suggests thepossibility of John's thyroiditis and/or Graves' disease. ?A negativeresult indicates no TPO antibodies or levels below the negative cut-off ofthe assay. ?The presence of antibodies to TPO can be used in conjunction withclinical findings and other laboratory tests to aid in the diagnosis ofautoimmune thyroid diseases such as John's thyroiditis and Graves'disease. Lab Interpretation Abnormal (test code = 00251-8) [facility]aleCYCLIC CITRULLINATED [id number] 16:04:26 Test Item Value Reference Range Interpretation Comments CCP IgG (test code = 2.6 U 0-20 [id number]) ДМИТРИЙ (test code = ДМИТРИЙ) INTERPRETATION: UNITS: Negative <20Weak Positive 20-39Moderate Positive 40-59Strong Positive >=60 A positive result indicates the presence of CCP IgG antibodies and suggests the possibility of RA antibodies and suggests the possibility of SLE. A negative result indicates no CCP IgG antibodies or levels below the cut-off ofthe assay. Lab Interpretation (test Normal code = 58657-0) [facility]aleANTICARDIOLIPIN [id number] 15:58:16 Test Item Value Reference Interpretation Comments Range Anticardiolipin See_Comment [Automated Antibody IgG (test message] The code = [id number]) system wh ich generated this result transmitted reference range: 0.0 - 10.0 GPL. The reference range was not used to interpret this result as normal/abnormal . Anticardiolipin See_Comment [Automated Antibody IgM (test message] The code = [id number]) system [facility] generated this result transmitted reference range: 0.0 - 10.0 MPL. The reference range was not used to interpret this result as normal/abnormal . Anticardiolipin See_Comment [Automated Antibody IgA (test message] The code = [id number]) system [facility] generated this result transmitted reference range: 0.0 - 15.0 APL. The reference range was not used to interpret this result as normal/abnormal . ДМИТРИЙ (test code = Interpretation: ? ДМИТРИЙ) ? IgG ?IgM ?IgANegative Values: ? <10.0 ?<10.0 ? <15.0Indeterminate ("Montero" zone) Values: ? ?10.0-19.0 ? ?10.0-25.0 ? ? 15.0-27.0Medium Values: ? 20.0-80.0 ? ?26.0-80.0 ? ? 28.0-80.0High Positive Values: ? >80.0 ?>80.0 ? >80.0 Note:Medium-high levels of anticardiolipin antibodies (mainly of the IgG isotype)have been associated with thrombosis, recurrent losses andthrombocytopenia in patients with Antiphospholipid Syndrome and SLE relateddisorders.It is recommended to repeat the test that give values in theIndeterminate "Montero" zone range at a later date (i.e. 4-6 weeks) to confirmpositivity. ?Juan Horn et al. ?J Thromb Haemost 2006; 4: 2210-4 Lab Interpretation Normal (test code = 94387-7) [facility] GLYCOPROTEIN I [id number] 15:53:57 Test Item Value Reference Interpretation Comments Range Anti-B2 See_Comment [Automated Glycoprotein 1 IgG message] The (test code = system which 0661874575) generated this result transmitted reference range : 0.0 - 20.0 SGU. The reference range was not used to interpret this result as normal/abnormal . Anti-B2 See_Comment [Automated Glycoprotein 1 IgM message] The (test code = system which 2797983541) generated this result transmitted reference range : 0.0 - 20.0 SMU. The reference range was not used to interpret this result as normal/abnormal . Anti-B2 See_Comment [Automated Glycoprotein 1 IgA message] The (test code = system which 0926162898) generated this result transmitted reference range : 0.0 - 20.0 JAY. The reference range was not used to interpret this result as normal/abnormal . ДМИТРИЙ (test code = INTERPRETATION:Values ДМИТРИЙ) over 20 SGU, SMU, or JAY units are considered positive. NOTE:A positive test for anti-B2 Glycoprotein I antibodies may indicate the presence of Antiphospholipid Syndrome. ?Anti-B2 Glycoprotein I antibodies have been associated with thrombosis, recurrent losses and/or thrombocytopenia. TEST PERFORMED AT:[facility] [id number] [place] [address] [place] [address] Lab Interpretation Normal (test code = 88734-1) [facility]AT[facility] SURFACE [id number] 15:44:25 Test Item Value Reference Range Interpretation Comments HBsAB (test code = Indeterminate 7173697549) HBsAb mIU/mL Semi-Quantitative (test code = 8728801432) ДМИТРИЙ (test code = Unable to determine if ДМИТРИЙ) antibody to Hepatitis B Surface Antigen is present at levels consistent with immunity. ?Patient's immune status should be assessed with other clinical information and/or retesting in 4-6 weeks as clinically indicated. ?If any questions, please contact Clinical Chemistry Director manager field investigations at .Interpretati on: ?Hepatitis B Surface Antibody ? Negative - Patient is considered to be not immune to infection with HBV. ? ? Positive - Anti-HBs detected at greater than or equal to 12 mIU/mL. ?Patient is considered to be immune to infection with HBV. ? [facility]BC ANTIBODY (IGM & IGG)2022-06-02 11:48:38 Test Item Value Reference Range Interpretation Comments HBC (test code = 6050111556) Negative HBC Semi-Quantitative (test code = 4622351664) [facility]aleHCV [id number] 11:48:37 Test Item Value Reference Range Interpretation Comments HCV Ab (test code = 58429-8) Negative HCV Semi-Quantitative (test code = 86128-2) [facility]aleHEPATIC FUNCTION PANEL (41976) (ALB,T.PRO,BILI T,BU/BC,ALT,AST,ALK PHOS)2022-06-02 11:06:34 Test Item Value Reference Range Interpretation Comments TOTAL BILI (test code = 2459660833) 0.2 mg/dL 0.1-1.1 BILI UNCON (test code = 9101730787) 0.1 mg/dL 0.1-1.1 BILI CONJ (test code = 7190345227) 0.0 mg/dL 0-0.3 T PROTEIN (test code = 0982005055) 5.0 g/dL 6.3-8.2 L ALBUMIN (test code = 3308553693) 2.8 g/dL 3.5-5 L ALK PHOS (test code = 8450621700) 54 U/L 34-122 ALTv (test code = 1742-6) 12 U/L 5-35 AST(SGOT) (test code = 2927843432) 18 U/L 13-40 Lab Interpretation (test code = Abnormal 96355-3) [facility]IUM2022-09-15 11:06:34 Test Item Value Reference Range Interpretation Comments MAGNESIUM (test code = 6324218872) 2.1 mg/dL 1.7-2.4 Lab Interpretation (test code = Normal 66349-1) [facility]OLIC PANEL (NA, K, CL, CO2, GLUCOSE, BUN, CREATININE, CA)2022-06-02 11:06:34 Test Item Value Reference Range Interpretation Comments NA (test code = 139 mmol/L 135-145 6469279230) K (test code = 4.2 mmol/L 3.5-5 1885221142) CL (test code = 112 mmol/L 98-108 H 7080156864) CO2 TOTAL (test code = 26 mmol/L 23-31 3285214813) AGAP (test code = 2-16 L 1924500450) BUN (test code = 16 mg/dL 7-23 7434412187) GLUCOSE (test code = 84 mg/dL 70-110 4886848200) CREATININE (test code = 0.75 mg/dL 0.5-1.04 4344593523) CALCIUM (test code = 7.9 mg/dL 8.6-10.6 L 6073645496) eGFR (test code = mL/min/1.73m2 0002504306) ДМИТРИЙ (test code = ДМИТРИЙ) Association of Glomerular Filtration Rate (GFR) and Staging of Kidney Disease* + --+ --+ ------+| GFR (mL/min/1.73 m2) ?| With Kidney Damage ?| ?Without Kidney Damage+ --------+ --------+ +| ?>90 ?| ?Stage one ?| ? Normal ?+ ---+ ---+ -------+| ?60-89 ?| ?Stage two ?| ? Decreased GFR ? + --+ --+ ------+| ?30-59 ?| ?Stage three ?| ? Stage three ? + --+ --+ ------+| ?15-29 ?| ?Stage four ? | ? Stage four ?+ ---+ ---+ -------+| ?<15 (or dialysis) ? ?| ?Stage five ? | ? Stage five ?+ ---+ ---+ -------+ *Each stage assumes the associated GFR level has been in effect for at least three months. ?Stages 1 to 5, with or without kidney disease, indicate chronic kidney disease. Notes: Determination of stages one and two (with eGFR >59mL/min/1.73 m2) requires estimation of kidney damage for at least three months as defined by structural or functional abnormalities of the kidney, manifested by either:Pathological abnormalities or Markers of kidney damage (including abnormalities in the composition of the blood or urine or abnormalities in imaging tests). Lab Interpretation Abnormal (test code = 08328-3) [facility] WITH [id number] 10:25:33 Test Item Value Reference Range Interpretation Comments WBC (test code = See_Comment [Automated 6690-2) message] The sy stem which generated this result transmitted reference range : 4.30 - 11.10 10*3/?L. The reference range was not used to interpret this result as normal/abnormal . RBC (test code = See_Comment L [Automated 789-8) message] The sy stem which generated this result transmitted reference range : 3.93 - 5.25 10*6/?L. The reference range was not used to interpret this result as normal/abnormal . HGB (test code = 10.9 g/dL 11.6-15 L 718-7) HCT (test code = 31.4 % 35.7-45.2 L 4544-3) MCV (test code = 89.2 fL 80.6-95.5 787-2) MCH (test code = 31.0 pg 25.9-32.8 785-6) MCHC (test code = 34.7 g/dL 31.6-35.1 786-4) RDW-SD (test code = 41.0 fL 39-49.9 58381-2) RDW-CV (test code = 12.6 % 12-15.5 788-0) PLT (test code = See_Comment L [Automated 777-3) message] The sy stem which generated this result transmitted reference range : 166 - 358 10*3/ ?L. The reference r merlyn was not used to interpret this result as normal/abnormal . MPV (test code = 10.6 fL 9.5-12.9 79737-1) NRBC/100 WBC (test See_Comment [Automat ed code = 6213699514) message] The system which generated this result transmitted reference range : 0.0 - 10.0 /100 WBCs. The refer ence range was not u sed to interpret th is result as normal/abnormal . NRBC x10^3 (test code See_Comment [Auto mated = 6604768438) message] The s ystem which generated this result transmitted reference range : 10*3/?L. The reference range was not used to interpret this result as normal/abnormal . GRAN MAT (NEUT) % 58.3 % (test code = 770-8) IMM GRAN % (test code 0.30 % = 4874778736) LYMPH % (test code = 33.2 % 736-9) MONO % (test code = 5.5 % 5905-5) EOS % (test code = 2.5 % 713-8) BASO % (test code = 0.2 % 706-2) GRAN MAT x10^3(ANC) 3.49 10*3/uL 1.88-7.09 (test code = 7088946243) IMM GRAN x10^3 (test 0-0.06 code = 1597664830) LYMPH x10^3 (test code 1.99 10*3/uL 1.32-3.29 = 731-0) MONO x10^3 (test code 0.33 10*3/uL 0.33-0.92 = 742-7) EOS x10^3 (test code = 0.15 10*3/uL 0.03-0.39 711-2) BASO x10^3 (test code 0.01-0.07 = 704-7) Lab Interpretation Abnormal (test code = 80665-1) [facility]aleProthrombin Time / [id number] 10:25:12 Test Item Value Reference Range Interpretation Comments PROTIME PATIENT (test See_Comment [Auto mated message] code = 5964-2) The system [employer] generated this result transmitted ref erence range: 10.1 - 1 2.6 Seconds. The re ference range was not u sed to interpret this result as normal/abnor mal. INR (test code = 6301-6) Nor mal INR <1.1; Warfarin Therap eutic range 2.0 to 3. 0 or 2.5 to 3.5, dep ending upon the indica tions. Lab Interpretation (test Normal code = 55899-3) [facility]aleHEPATITIS B SURFACE [id number] 21:24:29 Test Item Value Reference Range Interpretation Comments HBsAg Semi-Quantitative (test code = Negative Negative 5195-3) [facility]aleBASI METABOLIC PANEL (NA, K, CL, CO2, GLUCOSE, BUN, CREATININE, CA)2022-06-01 01:26:24 Test Item Value Reference Range Interpretation Comments NA (test code = 141 mmol/L 135-145 1656172053) K (test code = 3.7 mmol/L 3.5-5 1477435701) CL (test code = 110 mmol/L 98-108 H 6583839664) CO2 TOTAL (test code = 27 mmol/L 23-31 0688686891) AGAP (test code = 2-16 3299518582) BUN (test code = 16 mg/dL 7-23 8286065501) GLUCOSE (test code = 101 mg/dL 70-110 9700252862) CREATININE (test code = 0.83 mg/dL 0.5-1.04 4089683559) CALCIUM (test code = 8.3 mg/dL 8.6-10.6 L 1838806128) eGFR (test code = mL/min/1.73m2 5600019574) ДМИТРИЙ (test code = ДМИТРИЙ) Association of Glomerular Filtration Rate (GFR) and Staging of Kidney Disease* + --+ --+ ------+| GFR (mL/min/1.73 m2) ?| With Kidney Damage ?| ?Without Kidney Damage+ --------+ --------+ +| ?>90 ?| ?Stage one ?| ? Normal ?+ ---+ ---+ -------+| ?60-89 ?| ?Stage two ?| ? Decreased GFR ? + --+ --+ ------+| ?30-59 ?| ?Stage three ?| ? Stage three ? + --+ --+ ------+| ?15-29 ?| ?Stage four ? | ? Stage four ?+ ---+ ---+ -------+| ?<15 (or dialysis) ? ?| ?Stage five ? | ? Stage five ?+ ---+ ---+ -------+ *Each stage assumes the associated GFR level has been in effect for at least three months. ?Stages 1 to 5, with or without kidney disease, indicate chronic kidney disease. Notes: Determination of stages one and two (with eGFR >59mL/min/1.73 m2) requires estimation of kidney damage for at least three months as defined by structural or functional abnormalities of the kidney, manifested by either:Pathological abnormalities or Markers of kidney damage (including abnormalities in the composition of the blood or urine or abnormalities in imaging tests). Lab Interpretation Abnormal (test code = 92760-4) [facility] BranchL[facility] Acid Whole [id number] 01:17:52 Test Item Value Reference Range Interpretation Comments LACTIC ACID (test code = 1.01 mmol/L 0.5-2.2 9180095826) Lab Interpretation (test code = Normal 22013-4) [facility]aleaPTT2022-09-14 01:09:01 Test Item Value Reference Range Interpretation Comments APTT Patient (test code = See_Comment [ Automated message] 3173-2) The system [employer] generated this result transmitted ref erence range: 26 - 36 Seconds. The re ference range was not u sed to interpret this result as normal/abnor mal. Lab Interpretation (test Normal code = 00552-7) [facility]aleProthrombin Time / [id number] 01:09:01 Test Item Value Reference Range Interpretation Comments PROTIME PATIENT (test See_Comment [Auto mated message] code = 5964-2) The system [employer] generated this result transmitted ref erence range: 10.1 - 1 2.6 Seconds. The re ference range was not u sed to interpret this result as normal/abnor mal. INR (test code = 6301-6) Nor mal INR <1.1; Warfarin Therap eutic range 2.0 to 3. 0 or 2.5 to 3.5, dep ending upon the indica tions. Lab Interpretation (test Normal code = 05954-2) [facility]aleCB WITH [id number] 01:03:39 Test Item Value Reference Range Interpretation Comments WBC (test code = See_Comment [Automated message] 6690-2) The system [employer] generated this result transmitted ref erence range: 4.30 - 1 1.10 10*3/?L. The re ference range was not u sed to interpret this result as normal/abnor mal. RBC (test code = See_Comment [Automated message] 789-8) The system [employer] generated this result transmitted ref erence range: 3.93 - 5 .25 10*6/?L. The re ference range was not u sed to interpret this result as normal/abnor mal. HGB (test code = 13.4 g/dL 11.6-15 718-7) HCT (test code = 39.5 % 35.7-45.2 4544-3) MCV (test code = 91.0 fL 80.6-95.5 787-2) MCH (test code = 30.9 pg 25.9-32.8 785-6) MCHC (test code = 33.9 g/dL 31.6-35.1 786-4) RDW-SD (test code 40.8 fL 39-49.9 = 96081-3) RDW-CV (test code 12.3 % 12-15.5 = 788-0) PLT (test code = See_Comment [Automated message] 777-3) The system whic h generated this result transmitted ref erence range: 166 - 35 8 10*3/?L. The re ference range was not u sed to interpret this result as normal/abnor mal. MPV (test code = 10.8 fL 9.5-12.9 10113-1) NRBC/100 WBC (test See_Comment [Automat ed message] code = 7127959020) The syste m which generated this result transmitted ref erence range: 0.0 - 10 .0 /100 WBCs. The refer ence range was not u sed to interpret this result as normal/abnor mal. NRBC x10^3 (test See_Comment [Automated message] code = 9334547758) The syste m which generated this result transmitted ref erence range: 10*3/?L. The reference range was not used to interpr et this result as normal/abnormal . GRAN MAT (NEUT) % 56.8 % (test code = 770-8) IMM GRAN % (test 0.10 % code = 1115288871) LYMPH % (test code 37.1 % = 736-9) MONO % (test code 4.3 % = 5905-5) EOS % (test code = 1.2 % 713-8) BASO % (test code 0.5 % = 706-2) GRAN MAT 4.67 10*3/uL 1.88-7.09 x10^3(ANC) (test code = 7631419748) IMM GRAN x10^3 0-0.06 (test code = 3117969848) LYMPH x10^3 (test 3.05 10*3/uL 1.32-3.29 code = 731-0) MONO x10^3 (test 0.35 10*3/uL 0.33-0.92 code = 742-7) EOS x10^3 (test 0.10 10*3/uL 0.03-0.39 code = 711-2) BASO x10^3 (test 0.04 10*3/uL 0.01-0.07 code = 704-7) [facility]aleTransthoracic echo (TTE)2022-05-29 16:43:30 Test Item Value Reference Range Interpretation Comments Height (test code = in 8904638675) Weight (test code = lbs 8264202803) Systolic BP (test code = mmHg 1789861414) Diastolic BP (test code mmHg = 9903829284) Heart Rate (test code = bpm 3521385971) BSA (test code = 1.60 m2 9208240698) Ao root annulus (test 2.8 cm code = 1364322577) Ao root diam (test code 2.80 cm = 7300021988) Aortic root (test code = 2.8 cm 4706344885) LVOT diameter (test code 1.80 cm = 8796507900) LVOT area (test code = 2.60 cm2 8038454889) LVIDD (test code = 4.50 cm 3282794447) Left Ventricular End 91.2 mL Diastolic Volume by Teichholz Method (test code = 2662981) IVS (test code = 0.71 cm 1986083961) Interventricular Septum 0.71 cm Diastolic Thickness by 2D (test code = 2417679) LVPWD (test code = 0.71 cm 0228751784) PW (test code = 0.71 cm 0.6-1.4 8629239122) EF(Teich) (test code = 61.00 % 0833001942) LVIDS (test code = 3.00 cm 6045341261) Left Ventricular End 35.6 mL Systolic Volume by Teichholz Method (test code = 7077929) FS (test code = 33 % 9033113876) EF - 2D (test code = 61.00 % 00344946) LA size (test code = 2.9 cm 5445313478) Pulmonic Regurgitant End 161.8 cm/s Max Velocity (test code = 1750390552) LAV(MOD-sp4) (test code 29.10 mL = 3967512147) MV stenosis pressure 1/2 65.3 ms time (test code = 5909993174) E wave decelartion time 0.23 s (test code = 1504265863) MV Peak E Yaz (test code 121.5 cm/s = 5003166010) MV Peak A Yaz (test code 43.8 cm/s = 9149325031) E/A ratio (test code = ratio 7971863328) MR max PG (test code = 65.00 mm[Hg] 3561239442) MR max yaz (test code = 401.70 cm/s 9337883160) Mr max yaz (test code = 401.7 m/s 6894719984) MV Prop V (test code = 44.60 cm/s 6586097132) MV E/e' septal (test 19.3 cm/s code = 8706179225) Tapse (test code = 2.13 cm 5087250977) LVOT stroke volume (test 72.90 cm3 code = 8188123997) LVOT peak yaz (test code 144.5 cm/s = 7294833618) LVOT mn grad (test code mmHg = 4389691531) AV LVOT peak gradient mmHg (test code = 9132648366) LVOT peak VTI (test code 28.5 cm = 5449192478) LV V1 mean (test code = 104.40 cm/s 4599009043) Aortic valve mean 112.8 cm/s velocity (test code = 7996475031) Ao peak yaz (test code = 161.3 cm/s 5619809151) Ao VTI (test code = 34.5 cm 7434318841) AV area by cont VTI 2.1 cm2 (test code = 4841558203) AV area peak yaz (test 2.3 cm2 code = 3871262192) Ao max PG (test code = 10.40 mm[Hg] 2836066092) AV peak gradient (test mmHg code = 0138755138) AV valve area (test code 2.11 cm2 = 0088900282) AV mean gradient (test mmHg code = 1966515018) Radiology Study observation (narrative) (test code = 46150-9) ДМИТРИЙ (test code = ДМИТРИЙ) ?Left?Ventricle: Left ventricle size is normal. Normal wall thickness. Normal wall motion. Normal systolic function with a visually estimated EF of 60 - 65%. Normal diastolic function. ?Tricuspid?Valve: Insufficient regurgant jet to estimate RVSP. ?RA pressure is 0-5 mmHg. Left VentricleLeft ventricle size is normal. Normal wall thickness. Normal wall motion. Normal systolic function with a visually estimated EF of 60 - 65%. Normal diastolic function.Right VentricleRight ventricle size is normal. Normal systolic function.Left AtriumLeft atrium size is normal.Right AtriumRight atrium size is normal.Mitral ValveMitral valve structure is normal. Trace transvalvular regurgitation.Tricusp id ValveTricuspid valve structure is normal. Trace transvalvular regurgitation. Insufficient regurgant jet to estimate RVSP. RA pressure is 0-5 mmHg.Aortic ValveAortic valve structure is normal.Pulmonic ValveNot well visualized. Pulmonic valve is normal in structure and function.Ascending AortaAorta is normal in size.PericardiumThe pericardium is normal.Study DetailsStudy quality was adequate. A complete echocardiogram was performed using 2D, color flow Doppler and spectral Doppler. [facility] [id number] 13:36:00 Test Item Value Reference Range Interpretation Comments POCT PREG (test code = 1605) Negative On board controls acceptable with Present C Line (test code = 3574) POCT PREG LOT # (test code = 3575) [id number] POCT PREG TEST DATE (test 08/17/2023 code = 3576) Lab Interpretation (test code = Normal 55369-2) [facility] [id number] 06:00:00 Test Item Value Reference Range Interpretation Comments POCT PREG (test code = 1605) negative On board controls acceptable with positive C Line (test code = 3574) POCT PREG LOT # (test code = 3575) [id number] POCT PREG TEST DATE (test 09/17/2022 code = 3576) Lab Interpretation (test code = Normal 89927-8) [facility]
[2022-08-01 08:11] LABS: Absolute Lymphocytes (CBC) 1.7 K/uL (0.7-4.9); Hematocrit 40.1 % (36.0-45.0); Lymphocytes % 23.4 % (15.3-44.8); MCV 92.3 fL (80-100); MPV 8.5 fL (7.6-11.3); RBC Red Blood Cell Count 4.34 M/uL (3.86-4.86)
[2022-08-01] MEDS ORDERED: NA CHLORIDE 0.9% 500 ML ONE (08:12)
[2022-08-01] MEDS ORDERED: HYDROCODONE/APAP 5/325 MG TAB ONE (08:12)
[2022-08-01 08:37] LABS: Albumin 3.9 g/dL (3.4-5.0); Bilirubin Direct 0.2 mg/dL (0-0.2); Bilirubin Total 0.9 mg/dL (0.2-1.0); Magnesium 2.3 mg/dL (1.8-2.4); Potassium 3.9 mmol/L (3.5-5.1); Protein, Total 7.3 g/dL (6.4-8.2); Troponin High Sensitivity 3.6 pg/mL (<58.9)
[2022-08-01] MEDS ORDERED: MORPHINE 4 MG/ML SYR ONE (08:41)
[2022-08-01 08:52] LABS: Urine Blood Negative (Negative); Urine Glucose Negative (Negative); Urine Protein Negative (Negative); Urine Specific Gravity >=1.030 (1.005-1.030); Urine pH 5.5 (5.0-7.0)
[2022-08-01 09:03] LABS: Urine Bacteria <20 /HPF (<20); Urine Mucus 1+ /HPF (None Seen); Urine RBC <5 /HPF (None Seen)
[2022-08-01 09:07] LABS: Urine Specific Gravity/Preg >1.030 (1.005-1.030)
--- NOTE | 2022-08-01 09:15 | EDPHYS ---
Physician Documentation [facility] Name: Leonela Bernardo Age: 31 yrs Sex: Female : 1990 Arrival Date: 08/01/2022 Time: 06:47 Bed 13 Private MD: ED Physician Noah Louis HPI: 08/01 07:24 This 31 yrs old Female presents to ER via Unassigned with complaints of Passed Out rn Prior To Arrival. 07:24 The patient has experienced syncope. Onset: The symptoms/episode began/occurred this rn morning. Duration: The patient has had multiple episodes, that last an unknown period of time. Associated injury: The patient did not suffer any apparent associated injury. Associated signs and symptoms: Pertinent positives: lightheadedness, weakness, Pertinent negatives: abdominal pain, chest pain, confusion, diaphoresis, seizure, shortness of breath, vomiting. Current symptoms: "pain all over". The patient has experienced similar episodes in the past. The patient has been recently seen by a physician:. Pt reports 2 episodes of syncope this AM, unknown duration. Has POTS and recently diagnosed with Lupus, pcp placed on hydroxychloroquine, prednisone, and methotrexate. Pt reports started medication almost 1 month ago, has been hurting "all over", and trouble sleeping. Denies drug use. No injury from syncope or fall. Denies recent illness or fever. No chest pain/sob/abd pain/vomiting/diarrhea. . 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 - Social history:: Smoking status: Reported history of juuling and/or vaping. - Family history:: not pertinent. - Hospitalizations: : Patient was recently seen at. ROS: 07:24 Constitutional: Negative for fever, chills, and weight loss, Eyes: Negative for injury, rn pain, redness, and discharge, Neck: Negative for injury, pain, and swelling, Cardiovascular: Negative for chest pain, palpitations, and edema, Respiratory: Negative for shortness of breath, cough, wheezing, and pleuritic chest pain, Abdomen/GI: Negative for abdominal pain, nausea, vomiting, diarrhea, and constipation, Back: Negative for injury and pain, MS/Extremity: Negative for injury and deformity, Skin: Negative for injury, rash, and discoloration, Neuro: Negative for headache, numbness, tingling, and seizure. Exam: 07:24 Constitutional: This is a well developed, well nourished patient who is awake, alert, rn and in no acute distress. Ambulatory without assistance to triage room. Head/Face: Normocephalic, atraumatic. Eyes: Pupils equal round and reactive to light, extra-ocular motions intact. Neck: Trachea midline, no masses palpated, and no cervical lymphadenopathy. Supple, full range of motion without nuchal rigidity, or vertebral point tenderness. No Meningismus. Cardiovascular: Tachycardic, regular. No pulse deficits. Respiratory: No increased work of breathing, no retractions or nasal flaring. Abdomen/GI: Soft, non-tender Back: No spinal tenderness. No costovertebral tenderness. Full range of motion. Skin: Warm, dry with normal turgor. Normal color with no rashes, no lesions, and no evidence of cellulitis. MS/ Extremity: Pulses equal, no cyanosis. Neuro: Awake and alert, GCS 15, oriented to person, place, time, and situation. Cranial nerves II-XII grossly intact. Motor strength 5/5 in all extremities. Sensory grossly intact. Cerebellar exam normal. Normal gait. Vital Signs: 07:34 BP 122 / 83; Pulse 91; Resp 16; Temp 98.6; Pulse Ox 99% on R/A; Weight 58.97 kg; Height iw 5 ft. 4 in. (162.56 cm); Pain 10/10; 09:23 BP 118 / 78; Pulse 89; Pulse Ox 100% on R/A; ko1 07:34 Body Mass Index 22.31 (58.97 kg, 162.56 cm) iw MDM: 06:51 ED course: Patient medically screened awaiting Dr Louis's arrival.. ms3 06:58 Patient medically screened. ms3 09:10 Differential Diagnosis: cardiac arrhythmia, idiopathic syncope, vasovagal episode, furniture reproducer side effect, POTS. Data reviewed: vital signs, nurses notes, lab test result(s), and as a result, I will discharge patient. Counseling: I had a detailed discussion with the patient and/or guardian regarding: the historical points, exam findings, and any diagnostic results supporting the discharge/admit diagnosis, lab results, the need for outpatient follow up, to return to the emergency department if symptoms worsen or persist or if there are any questions or concerns that arise at home. Response to treatment: the patient's symptoms have mildly improved after treatment, and as a result, I will discharge patient. Special discussion: I discussed with the patient/guardian in detail that at this point there is no indication for admission to the hospital. It is understood, however, that if the symptoms persist or worsen the patient needs to return immediately for re-evaluation. Based on the history and exam findings, there is no indication for further emergent testing or inpatient evaluation. I discussed with the patient/guardian the need to see the wiping rag washer for further evaluation of the symptoms. ED course: No acute findings in blood today, normal vitals, most likely medication side effect, recommend rheumatology f/u since patient no longer comfortable taking her meds prescribed by pcp. She states she is going to stop taking her meds. Understands how stopping meds abruptly can lead to problems and understands risks, she believes this is best course. Return precautions given and understood.. 08/01 07:17 Order name: Basic Metabolic Panel; Complete Time: :08/01 07:17 Order name: CBC with Diff; Complete Time: :08/01 07:17 Order name: CPK; Complete Time: :08/01 07:17 Order name: Hepatic Function; Complete Time: :08/01 07:17 Order name: Magnesium; Complete Time: :08/01 07:17 Order name: Protime (+inr); Complete Time: :08/01 07:17 Order name: Ptt, Activated; Complete Time: 09:08/01 07:17 Order name: Troponin High Sensitivity; Complete Time: 09:08/01 07:17 Order name: Urine Microscopic Only; Complete Time: 09:10 08/01 08:53 Order name: Urine Dipstick-Ancillary; Complete Time: 09:02 EDMS 08/01 08:57 Order name: Urine --Ancillary (enter results); Complete Time: 09:10 bd 08/01 07:17 Order name: Cardiac monitoring; Complete Time: 09:25 rn 08/01 07:17 Order name: EKG - Nurse/Tech; Complete Time: 09:25 rn 08/01 07:17 Order name: IV Saline Lock; Complete Time: 08:54 rn 08/01 07:17 Order name: Labs collected and sent; Complete Time: 09:25 rn 08/01 07:17 Order name: O2 Per Protocol; Complete Time: 08:54 rn 08/01 07:17 Order name: O2 Sat Monitoring; Complete Time: 08:54 rn 08/01 07:17 Order name: Urine Dipstick-Ancillary (obtain specimen); Complete Time: 08:54 rn 08/01 07:17 Order name: Urine Test (obtain specimen); Complete Time: 08:54 rn Administered Medications: 08:23 Drug: NS 0.9% 500 ml Route: IV; Rate: bolus; Site: left antecubital; iw 08:23 Not Given (Patient Refused): HYDROcodone-acetaminophen 5 mg-325 mg 1 tabs PO once iw 08:45 Drug: morphine 4 mg Route: IVP; Infused Over: 4 mins; Site: left antecubital; ko1 09:25 Follow up: Response: No adverse reaction; Pain is decreased ko1 Disposition Summary: 08/01/22 09:14 Discharge Ordered Location: Home rn Problem: an ongoing problem rn Symptoms: have improved rn Condition: Stable rn Diagnosis - Syncope rn - Adverse effect of medication rn Followup: rn - With: Private Physician - When: As needed - Reason: Recheck today's complaints, Re-evaluation by your physician Discharge Instructions: - Discharge Summary Sheet rn - Syncope rn Forms: - Medication Reconciliation Form rn - Thank You Letter rn - Antibiotic 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
--- NOTE | 2022-08-01 09:15 | ER ---
Nurse's Notes [facility] Name: Leonela Bernardo Age: 31 yrs Sex: Female : 1990 Arrival Date: 08/01/2022 Time: 06:47 Bed 13 Private MD: Diagnosis: Syncope;Adverse effect of medication Presentation: 08/01 07:34 Chief complaint: Patient states: woke up on kitchen floor twice , started at 2 am, has iw hx of POTS. Coronavirus screen: At this time, the client does not indicate any symptoms associated with coronavirus-19. Ebola Screen: Patient negative for fever greater than or equal to 101.5 degrees Fahrenheit, and additional compatible Ebola Virus Disease symptoms Patient denies exposure to infectious person. Patient denies travel to an Ebola-affected area in the 21 days before illness onset. No symptoms or risks identified at this time. Initial Sepsis Screen: Does the patient meet any 2 criteria? No. Patient's initial sepsis screen is negative. Does the patient have a suspected source of infection? No. Patient's initial sepsis screen is negative. Risk Assessment: Do you want to hurt yourself or someone else? Patient reports no desire to harm self or others. Onset of symptoms was August 01, 2022. 07:34 Method Of Arrival: Ambulatory iw 07:34 Acuity: AMAAD 3 iw Triage Assessment: 09:24 General: Appears in no apparent distress. uncomfortable, Behavior is cooperative, ko1 appropriate for age, agitated. Pain: Complains of pain in all over. 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 - Social history:: Smoking status: Reported history of juuling and/or vaping. - Family history:: not pertinent. - Hospitalizations: : Patient was recently seen at. Screenin:24 Abuse screen: Denies threats or abuse. Denies injuries from another. Nutritional iw screening: No deficits noted. Tuberculosis screening: No symptoms or risk factors identified. Fall Risk IV access (20 points). Assessment: 08:23 Reassessment: pt refuses hydrocodone, states "that's not gonna work, i dont want that, iw I already take that, i wanna talk to the doctor". Vital Signs: 07:34 BP 122 / 83; Pulse 91; Resp 16; Temp 98.6; Pulse Ox 99% on R/A; Weight 58.97 kg; Height iw 5 ft. 4 in. (162.56 cm); Pain 10/10; 09:23 BP 118 / 78; Pulse 89; Pulse Ox 100% on R/A; ko1 07:34 Body Mass Index 22.31 (58.97 kg, 162.56 cm) iw ED Course: 06:47 Patient arrived in ED. bp1 06:58 Noah Louis MD is Attending Physician. rn 07:36 Triage completed. iw 07:38 Arm band placed on. iw 07:41 Magalys Steen, RN is Primary Nurse. iw 08:04 Initial lab(s) drawn, by me, sent to lab. Inserted saline lock: 22 gauge in left iw antecubital area, using aseptic technique. Blood collected. 08:54 Urine Microscopic Only Sent. ko1 09:23 Patient has correct armband on for positive identification. Bed in low position. Call ko1 light in reach. Side rails up X 1. Adult w/ patient. Client placed on continuous cardiac and pulse oximetry monitoring. NIBP monitoring applied. 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 09:23 No provider procedures requiring assistance completed. IV discontinued, intact, ko1 bleeding controlled, No redness/swelling at site. Pressure dressing applied. Administered Medications: 08:23 Drug: NS 0.9% 500 ml Route: IV; Rate: bolus; Site: left antecubital; iw 08:23 Not Given (Patient Refused): HYDROcodone-acetaminophen 5 mg-325 mg 1 tabs PO once iw 08:45 Drug: morphine 4 mg Route: IVP; Infused Over: 4 mins; Site: left antecubital; ko1 09:25 Follow up: Response: No adverse reaction; Pain is decreased ko1 Medication: 09:23 VIS not applicable for this client. ko1 Outcome: 09:14 Discharge ordered by . rn 09:23 Discharged to home ambulatory, with family. ko1 09:23 Condition: improved 09:23 Discharge instructions given to patient, family, Instructed on discharge instructions, follow up and referral plans. Demonstrated understanding of instructions, follow-up care. 09:26 Patient left the ED. ko1 Signatures: Magalys Steen RN RN iw Nieto, Roman, MD MD rn Paniauga, Brittany bp1 Oliver, Kathy, RN RN ko1
[2022-08-01 09:41] VITALS: TEMP 98.6
[2022-08-01 09:47] VITALS: BP 118/78; O2SAT 100
== END 2022-08-01 09:26 | disposition home or self-care (01) ==
LOC: ER 06:42
DX: R55 Syncope and collapse (principal); T50.995A Adverse effect of other drugs, medicaments and biological substances, initial encounter
CPT/HCPCS: 36415; 80048; 80076; 81003; 81015; 81025; 82550; 83735; 84484; 85025; 85610; 85730; 96374; 99284; J7040

== ENCOUNTER → 2023-10-30 | Emergency (ER) | payer SELFPAY ==
[~2023-10-30] MED LIST: CEFTRIAXONE 1000 MG/VIAL ONE; FENTANYL CITR 100 MCG/2 ML ONE; KETOROLAC 30 MG/ML INJ ONE; NA CHLORIDE 0.9% 1,000 ML ONE; ONDANSETRON 4 MG/2 ML VIAL ONE
--- OUTSIDE RECORDS SUMMARY | 2023-10-30 14:45 | XMS REPORT | Continuity of Care Document ---
Author Name Unknown Address [address] [facility] [place]. [address] [place] [address] [facility] Address [address] [facility]. 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 Role Phone ADAL CROOKS Primary Care Physician Unavailab JARED Heath Attending Clinician Unavailable Jared Hancock MD Attending Clinician [phone] REMIGIO WALLIS Attending Clinician UnavailRemigio Randle Attending Clinician + [phone] JUAN MANUEL GTZ Attending Clinician Unavailable Juan Manuel Zavala S Attending Clinician [phone] Siri Silverio RN Attending Clinician [phone] Markell Fisher Attending Clinician Unavail able Evangelina Collado LVN Attending Clinician [phone] MARCUS INMAN Attending Clinician Unavailable Elis Ozuna Attending Clinician [phone] Tony Hill MD Attending Clinician [phone] Margie Gill MD Attending Clinici an Marcus Inman MD Attending Clinician Mireya CASTELLON Attending Clinician Unavailable Mireya Gomez Attending Clinician [phone] Trista Reddy Attending Clinician Jose Graves Attending Clinician [phone] Pcp, Patient Does Not Have A Attending Clinician UNKNOWN, ATTENDING Attending Clinician Unavailab ROZINA Redding Attending Clinician Unavailjonatan farris Attending Clinician Unavailable JARED HANCOCK Admitting Clinician Unavailable REMIGIO WALLIS Admitting Clinician UnavailMargie Broderick MD Admitting Clinici an MARGIE GILL Admitting Clinician Unavailable kaleigh Admitting Clinician Unavailable Payers Payer Name Policy Type Policy Number Effective Date Expirati on Date Source Problems Condition Name Condition Details Condition Category Status Onset Date Resolution Date Last Treatment Date Treating Clinician Comments Source Bradycardi a Bradycardi a Disease Active 05-29 00:00: 00 [facility] Hypotensio n Hypotensio n Disease Active 05-29 00:00: 00 [facility] Hypothyroi dism Hypothyroi dism Disease Active 05-29 00:00: 00 [facility] Elevated brain natriureti c peptide (BNP) level Elevated brain natriureti c peptide (BNP) level Disease Active 05-29 00:00: 00 [facility] Cigarette smoker Cigarette smoker Disease Active 05-29 00:00: 00 [facility] Syncope, unspecifie d syncope type Syncope, unspecifie d syncope type Disease Active 05-28 00:00: 00 [facility] No known active problems No known active problems Disease [facility] Allergies, Adverse Reactions, Alerts Allergy Name Allergy Type Status Severity Reaction(s) Onset Date Inactive Date Treating Clinician Comments Source PHENAZOP YRIDINE DRUG INGREDI Active Other-Cmnt 4-16 00:00: 00 [facility] Phenazop yridine Propensi ty to adverse reaction s Active Other - See comments -16 00:00: 00 [facility] DEXTROAM PHETAMIN E-AMPHET AMINE DRUG Active Other-Cmnt 9- 00:00: 00 [facility] Dextroam phetamin e-Amphet amine Propensi ty to adverse reaction s Active Other - See comments 9- 00:00: 00 [facility] TRAMADOL DRUG INGREDI Active Rash - 00:00: 00 [facility] Tramadol Propensi ty to adverse reaction s Active Rash 10-09 00:00: 00 [facility] NO KNOWN ALLERGIE S Drug Class Active [facility] Social History Social Habit Start Date Stop Date Quantity Comments Source History of tobacco use Passive smoker [facility] ASSERTION [facility] Exposure to SARS-CoV-2 (event) 2022-12-22 00:00:00 2023-01-01 21:11:00 Not sure [facility] Alcohol intake 2022-12-29 00:00:00 2022-12-29 00:00:00 0 /d [facility] Cigarettes smoked current (pack per day) - Reported 2022-05-31 00:00:00 2022-05-31 00:00:00 [facility] Tobacco use and exposure 2022-05-31 00:00:00 2022-05-31 00:00:00 Smokeless tobacco non-user [facility] Sex Assigned At 1990 00:00:00 1990 00:00:00 [facility] Smoking Status Start Date Stop Date Source Smokes tobacco daily 2022-05-31 00:00:00 [facility] Medications Ordered Medication Name Filled Medication Name Start Date Stop Date Current Medication? Ordering Clinician Indication Dosage Frequency Signature (SIG) Comments Components Source ciprofloxac in HCl (CIPRO) tablet 500 mg 01-02 06:00: 00 01-02 04:58 :00 No 500mg 500 mg, Oral, ONCE, 1 dose, On 01/02/23 at 0100, [facility]
Re ason for Anti-Infec tive: Documented Infection< br>Documen michael Infection Site: Urine
D uration of Therapy: Other (see Comments) [facility] morpHINE (4 mg/mL) injection 4 mg 01-02 04:30: 00 01-02 04:15 :00 No 4mg 4 mg, Slow IV Push, ONCE, 1 dose, On 01/01/23 at 2330, STAT [facility] NaCl 0.9% (NS) bolus infusion 500 mL 01-02 04:29: 00 01-02 05:06 :00 No 500mL at 999 mL/hr, 500 mL, IV Piggyback, ONCE, 1 dose, On 01/01/23 at 2330, STAT [facility] ondansetron (ZOFRAN (PF)) injection 4 mg 01-02 03:45: 00 01-02 03:34 :00 No 4mg 4 mg, Slow IV Push, ONCE, 1 dose, On 01/01/23 at 2245, CONSTANTIN [facility] ketorolac (TORADOL) injection 30 mg 01-02 03:30: 00 01-02 03:34 :00 No 30mg 30 mg, Slow IV Push, ONCE, 1 dose, On 01/01/23 at 2245, Routine [facility] ciprofloxac in HCl 500 mg tablet 01-01 00:00: 00 Yes [id number] 500mg Take 1 tablet by mouth in the morning and 1 tablet in the evening. [facility] ondansetron (ZOFRAN (PF)) injection 4 mg 12-29 08:30: 00 12-29 08:19 :00 No 4mg 4 mg, Slow IV Push, ONCE, 1 dose, On Yashira 12/29/22 at 0330, CONSTANTIN [facility] FENTanyl PF (SUBLIMAZE (PF)) injection 50 mcg 12-29 08:15: 00 12-29 08:19 :00 No 50ug 50 mcg, Slow IV Push, ONCE, 1 dose, On [facility] 12/29/22 at 0315, STAT [facility] HYDROcodone -acetaminop hen (NORCO 5) 5-325 mg tablet 1 tablet 12-29 08:15: 00 12-29 07:32 :00 No 1{tbl} 1 tablet, Oral, ONCE, 1 dose, On [facility] 12/29/22 at 0315, CON[facility]ANTIN [facility] iopamidol (ISOVUE 370-500 mL) injection 75 mL 12-29 08:15: 00 12-29 08:15 :00 No [id number] 75mL 75 mL, Intravenou s, ONCE, 1 dose, On [facility] 12/29/22 at 0315, Routine [facility] ketorolac (TORADOL) injection 15 mg 12-29 07:30: 00 12-29 06:50 :00 No 15mg 15 mg, Slow IV Push, ONCE, 1 dose, On Yashira 12/29/22 at 0230, Routine [facility] cefTRIAXone (ROCEPHIN) 1,000 mg in NaCl 0.9% (NS) 100 mL MINI-BAG 12-29 07:15: 00 12-29 08:23 :00 No 1000mg 1,000 mg, IV Piggyback, ONCE, 1 dose, On [facility] 12/29/22 at 0215, Administer over 30 Minutes, 100 mL
Reas on for Anti-Infec tive: Documented Infection< br>Documen michael Infection Site: Urine
D uration of Therapy: Other (see Comments) [facility] phenazopyri dine 200 mg tablet 12-29 00:00: 00 Yes [id number] 200mg Take 1 tablet by mouth in the morning and 1 tablet at noon and 1 tablet in the evening. [facility] phenazopyri dine 200 mg tablet 12-29 00:00: 00 Yes [id number] 200mg Take 1 tablet by mouth in the morning and 1 tablet at noon and 1 tablet in the evening. [facility] cefpodoxime 100 mg tablet 12-29 00:00: 00 01-06 04:59 :00 No [id number] 100mg Take 1 tablet by mouth in the morning and 1 tablet in the evening. Do all this for 7 days. [facility] cefpodoxime 100 mg tablet 12-29 00:00: 00 01-06 04:59 :00 No [id number] 100mg Take 1 tablet by mouth in the morning and 1 tablet in the evening. Do all this for 7 days. [facility] HYDROcodone -acetaminop hen (NORCO 5) 5-325 mg tablet 1 tablet 2021-09 15:15: 00 07-24 15:14 :00 No 1{tbl} 1 tablet, Oral, ONCE, 1 dose, On 07/24/22 at 0915, CON[facility]ANTIN [facility] ketorolac (TORADOL) injection 60 mg 2021-09 15:15: 00 07-24 15:16 :00 No 60mg 60 mg, Intramuscu lar, ONCE, 1 dose, On 07/24/22 at 0915, CON[facility]ANTIN [facility] levothyroxi ne 100 mcg tablet 06-04 00:00: 00 Yes [id number] 100ug Take 1 tablet by mouth every morning. [facility] levothyroxi ne 100 mcg tablet 06-04 00:00: 00 Yes [id number] 100ug Take 1 tablet by mouth every morning. [facility] levothyroxi ne 100 mcg tablet 06-04 00:00: 00 Yes [id number] 100ug Take 1 tablet by mouth every morning. [facility] levothyroxi ne 100 mcg tablet 06-04 00:00: 00 Yes [id number] 100ug Take 1 tablet by mouth every morning. [facility] levothyroxi ne 100 mcg tablet 06-04 00:00: 00 Yes [id number] 100ug Take 1 tablet by mouth every morning. [facility] levothyroxi ne 100 mcg tablet 06-04 00:00: 00 Yes [id number] 100ug Take 1 tablet by mouth every morning. [facility] levothyroxi ne 100 mcg tablet 0 06-04 00:00: 00 Yes [id number] 100ug Take 1 tablet by mouth every morning. [facility] levothyroxi ne 100 mcg tablet 0 06-04 00:00: 00 Yes [id number] 100ug Take 1 tablet by mouth every morning. [facility] levothyroxi ne 100 mcg tablet 06-04 00:00: 00 Yes [id number] 100ug Take 1 tablet by mouth every morning. [facility] levothyroxi ne 100 mcg tablet 06-04 00:00: 00 Yes [id number] 100ug Take 1 tablet by mouth every morning. [facility] levothyroxi ne 100 mcg tablet 06-04 00:00: 00 Yes [id number] 100ug Take 1 tablet by mouth every morning. [facility] amphetamine -dextroamph etamine (ADDERALL XR) 25 mg 24 hr capsule 06-03 11:43: 45 Yes 25mg Take 25 mg by mouth every morning. [facility] amphetamine -dextroamph etamine (ADDERALL XR) 25 mg 24 hr capsule 06-03 11:43: 45 Yes 25mg Take 25 mg by mouth every morning. [facility] amphetamine -dextroamph etamine (ADDERALL XR) 25 mg 24 hr capsule 06-03 11:43: 45 Yes 25mg Take 25 mg by mouth every morning. [facility] amphetamine -dextroamph etamine (ADDERALL XR) 25 mg 24 hr capsule 06-03 11:43: 45 Yes 25mg Take 25 mg by mouth every morning. [facility] amphetamine -dextroamph etamine (ADDERALL XR) 25 mg 24 hr capsule 06-03 11:43: 45 Yes 25mg Take 25 mg by mouth every morning. [facility] amphetamine -dextroamph etamine (ADDERALL XR) 25 mg 24 hr capsule 06-03 11:43: 45 Yes 25mg Take 25 mg by mouth every morning. [facility] amphetamine -dextroamph etamine (ADDERALL XR) 25 mg 24 hr capsule 06-03 11:43: 45 Yes 25mg Take 25 mg by mouth every morning. [facility] amphetamine -dextroamph etamine (ADDERALL XR) 25 mg 24 hr capsule 06-03 11:43: 45 Yes 25mg Take 25 mg by mouth every morning. [facility] amphetamine -dextroamph etamine (ADDERALL XR) 25 mg 24 hr capsule 06-03 11:43: 45 Yes 25mg Take 25 mg by mouth every morning. [facility] amphetamine -dextroamph etamine (ADDERALL XR) 25 mg 24 hr capsule 06-03 11:43: 45 Yes 25mg Take 25 mg by mouth every morning. [facility] amphetamine -dextroamph etamine (ADDERALL XR) 25 mg 24 hr capsule 06-03 11:43: 45 Yes 25mg Take 25 mg by mouth every morning. [facility] ketorolac (TORADOL) injection 30 mg 06-03 03:45: 00 06-03 02:55 :00 No 30mg 30 mg, Slow IV Push, ONCE, 1 dose, On Yashira 06/02/22 at 2245, Routine [facility] NaCl 0.9% (NS) bolus infusion 1,000 mL 06-02 21:00: 00 06-02 21:30 :36 No 1000mL at 250 mL/hr, 1,000 mL, IV Piggyback, ONCE, 1 dose, On Yashira 06/02/22 at 1600, CONSTANTIN [facility] ketorolac (TORADOL) injection 30 mg 06-02 18:45: 00 06-02 18:02 :00 No 30mg 30 mg, Slow IV Push, ONCE, 1 dose, On Yashira 06/02/22 at 1345, Routine [facility] pantoprazol e (PROTONIX) EC tablet 40 mg 06-02 17:30: 00 Yes 40mg 40 mg, Oral, DAILY, First dose on Mon06/02/22 at 1230, Until Discontinu ed, Routine [facility] gadobenate dimeglumine (MULTIHANCE -20 mL) injection 11.3 mL 06-02 16:00: 00 06-02 15:36 :00 No [id number] .2mL/kg 11.3 mL (0.2 mL/kg ?56.5 kg), Intravenou s, ONCE, 1 dose, On Mon06/02/22 at 1100, Routine [facility] acetaminoph en-codeine (TYLENOL #3) 300-30 mg tablet 1 tablet 06-02 12:30: 26 Yes 1{tbl} 1 tablet, Oral, Q4HPRN, Starting on Mon06/02/22 at 0730, Until Discontinu ed, Routine, Pain (scale 4-6) [facility] HYDROcodone -acetaminop hen (NORCO 5) 5-325 mg tablet 1 tablet 06-02 12:30: 16 Yes 1{tbl} 1 tablet, Oral, Q4HPRN, Starting on Mon06/02/22 at 0730, Until Discontinu ed, Routine, Pain (scale 7-10) [facility] sennosides- docusate sodium (SENOKOT-S) 8.6-50 mg per tablet 1 tablet 06-02 02:00: 00 Yes 1{tbl} 1 tablet, Oral, DAILY, First dose on Mon06/01/22 at 2100, Until Discontinu ed, [facility]ine [facility] ketor[facility]TORADOL[facility] injection 30 mg 06-01 20:45: 00 06-01 20:48 :00 No 30mg 30 mg, Slow IV Push, ONCE, 1 dose, On Mon06/01/22 at 1545, Routine [facility] lactated ringers IV infusion 1,000 mL 06-01 18:00: 00 06-01 18:00 :00 No 1000mL at 999 mL/hr, 1,000 mL, Intravenou s, ONCE, 1 dose, On Mon06/01/22 at 1300, Routine [facility] polyethylen e glycol 3350 powder 17 g 06-01 14:00: 00 06-02 01:50 :52 No 17g 17 g, Oral, DAILY, First dose on Mon06/01/22 at 0900, Until Discontinu ed, Routine [facility] magnesium sulfate in water 4 gram/50 mL (8 %) IV Piggyback 4 g 06-01 13:30: 00 06-01 14:00 :00 No 4g 4 g, IV Piggyback, ONCE, 1 dose, On Mon06/01/22 at 0830, Routine [facility] KCL (KLOR-CON M20) tablet 40 mEq 06-01 13:30: 00 06-01 13:19 :00 No 40meq 40 mEq, Oral, ONCE, 1 dose, On Mon06/01/22 at 0830, Routine [facility] cyclobenzap rine (FLEXERIL) tablet 10 mg 05-31 19:00: 00 Yes 10mg 10 mg, Oral, TID, First dose (after last modificati on) on Mon05/31/22 at 1400, Until Discontinu ed, Routine [facility] levothyroxi ne (SYNTHROID) tablet 100 mcg 05-31 11:00: 00 Yes 100ug 100 mcg, Oral, QAM-0600, First dose (after last modificati on) on Mon05/31/22 at 0600, Until Discontinu ed, Routine [facility] cyclobenzap rine (FLEXERIL) tablet 5 mg 05-30 16:45: 00 05-31 17:51 :10 No 5mg 5 mg, Oral, TID, First dose on Mon05/30/22 at 1145, Until Discontinu ed, Routine [facility] DOPamine 800 mg/500 mL (1,600 mcg/mL) infusion RTU 05-30 16:30: 55 06-02 01:51 :19 No 2.5ug/k g/min 2.5-7.5 mcg/kg/min ?55.5 kg (5.2031-15 .6094 mL/hr, rounded to 5.2-15.61 mL/hr), IV Infusion, TITRATE, Target SBP > 90, OK to keep HR > 40 if SBP at target and patient comfortabl e, Starting on Mon05/30/22 at 1130
In itiate infusion at 2.5 mcg/kg/min . &nb sp;Increas e by 2.5 mcg/kg/min every 1 minute to 5 minutes as needed to reach and maintain goal blood pressure.& amp;nbsp;& nbsp;Maxim um dose = 20 mcg/kg/min . If goal not maintained at maximum allowed dose, contact prescriber . &nb sp;Adminis ter only one peripheral intravenou s vasopresso r at a time.
[facility] lidocaine 1% (PF) (XYLOCAINE) injection 5 mL 05-30 16:30: 00 05-30 17:45 :00 No 5mL 5 mL, Subcutaneo us, ONCE, 1 dose, On Mon05/30/22 at 1130, Routine [facility] NaCl 0.9% (NS) injection 10 mL 05-30 16:20: 14 Yes 10mL 10 mL, Slow IV Push, PRN, Starting on Mon05/30/22 at 1120, Until Discontinu ed, Routine, line maintenanc e [facility] morpHINE (2 mg/mL) injection 2 mg 05-30 14:49: 56 06-02 12:30 :42 No 2mg 2 mg, Slow IV Push, Q6HPRN, Starting on Mon05/30/22 at 0949, Until Yashira 06/02/22 at 0730, Routine, Pain (scale 7-10) [facility] HYDROcodone -acetaminop hen (NORCO 5) 5-325 mg tablet 1 tablet 05-30 14:49: 30 06-02 12:30 :42 No 1{tbl} 1 tablet, Oral, Q4HPRN, Starting on Mon05/30/22 at 0949, Until Yashira 06/02/22 at 0730, Routine, Pain (scale 4-6) [facility] cholecalcif lorenzo (vitamin D3) tablet 2,000 Units 05-30 14:00: 00 Yes 2000U 2,000 Units, Oral, DAILY, First dose (after last modificati on) on Mon05/30/22 at 0900, Until Discontinu ed, Routine [facility] thiamine (VITAMIN B1) tablet 100 mg 05-30 14:00: 00 Yes 100mg 100 mg, Oral, DAILY, First dose on Mon05/30/22 at 0900, Until Discontinu ed, Routine [facility] levothyroxi ne (SYNTHROID) injection 100 mcg 05-30 13:45: 00 05-30 13:52 :00 No 100ug 100 mcg, Intravenou s, ONCE, 1 dose, On Mon05/30/22 at 0845, Routine [facility] levothyroxi ne (SYNTHROID) tablet 50 mcg 05-30 11:00: 00 05-30 16:20 :48 No 50ug 50 mcg, Oral, QAM-0600, First dose (after last modificati on) on Mon05/30/22 at 0600, Until Discontinu ed, Routine [facility] morpHINE (2 mg/mL) injection 2 mg 05-30 09:14: 26 05-30 09:27 :00 No 2mg 2 mg, Slow IV Push, PRN, 1 dose, Starting on Mon05/30/22 at 0414, Until Mon05/30/22 at 0427, Routine, headache [facility] DOPamine 800 mg/500 mL (1,600 mcg/mL) infusion RTU 05-30 02:53: 09 05-30 16:32 :25 No 2.5ug/k g/min 2.5-7.5 mcg/kg/min ?55.5 kg (5.2031-15 .6094 mL/hr, rounded to 5.2-15.61 mL/hr), IV Infusion, TITRATE, SBP Goal 100-140 mmHg, HR > 60, Starting on Mon05/29/22 at 2153
In itiate infusion at 2.5 mcg/kg/min . &nb sp;Increas e by 2.5 mcg/kg/min every 1 minute to 5 minutes as needed to reach and maintain goal blood pressure.& nbsp;&nbsp ;Maximum dose = 20 mcg/kg/min . If goal not maintained at maximum allowed dose, contact prescriber . &nb sp;Adminis ter only one peripheral intravenou s vasopresso r at a time.
[facility] ibuprofen (IBU) tablet 600 mg 05-30 02:52: 32 05-30 15:41 :06 No 600mg 600 mg, Oral, TIDPRN, Starting on Mon05/29/22 at 2152, Until Mon05/30/22 at 1041, Routine, Pain (scale 1-3) [facility] DOPamine 800 mg/500 mL (1,600 mcg/mL) infusion RTU 05-30 02:39: 25 05-30 02:53 :28 No 2.5ug/k g/min 2.5-7.5 mcg/kg/min ?55.5 kg (5.2031-15 .6094 mL/hr, rounded to 5.2-15.61 mL/hr), IV Infusion, TITRATE, SBP Goal 100-140 mmHg, HR > 60, Starting on Mon05/29/22 at 2139
In itiate infusion at 2.5 mcg/kg/min . &nb sp;Increas e by 2.5 mcg/kg/min every 1 minute to 5 minutes as needed to reach and maintain goal blood pressure.& nbsp;&nbsp ;Maximum dose = 7.5 mcg/kg/min . If goal not maintained at maximum allowed dose, contact prescriber . &nb sp;Adminis ter only one peripheral intravenou s vasopresso r at a time.
[facility] hydrocortis one sod succ (CORTEF) injection 50 mg 05-29 22:00: 00 05-30 09:27 :00 No 50mg 50 mg, Intravenou s, Q6H, 3 doses, First dose on Mon05/29/22 at 1700, Last dose on Mon05/30/22 at 0000, 2 mL [facility] proCHLORper azine (COMPAZINE) injection 10 mg 05-29 21:28: 31 Yes 10mg 10 mg, Slow IV Push, Q6HPRN, Starting on Mon05/29/22 at 1628, Until Discontinu ed, Routine, Nausea and Vomiting (N/V), alternate with ondansetro n [facility] levothyroxi ne (SYNTHROID) injection 50 mcg 05-29 17:15: 00 05-29 17:53 :00 No 50ug 50 mcg, Intravenou s, ONCE, 1 dose, On Mon05/29/22 at 1215, Routine [facility] clonazePAM (KLONOPIN) tablet 2 mg 05-29 16:15: 00 Yes 2mg 2 mg, Oral, BID, First dose (after last modificati on) on Mon05/29/22 at 1115, Until Discontinu ed, Routine [facility] cosyntropin (CORTROSYN) injection 250 mcg 05-29 15:45: 00 05-29 16:40 :00 No 250ug 250 mcg, Slow IV Push, ONCE, 1 dose, On Mon05/29/22 at 1045, Routine [facility] enoxaparin (LOVENOX) injection 30 mg 05-29 14:00: 00 Yes 30mg 30 mg, Subcutaneo us, DAILY, First dose on Mon05/29/22 at 0900, Until Discontinu ed, Routine [facility] DOPamine 800 mg/500 mL (1,600 mcg/mL) infusion RTU 05-29 12:00: 00 05-30 01:40 :01 No 5ug/kg/ min 5 mcg/kg/min ?55.5 kg (10.4063 mL/hr, rounded to 10.41 mL/hr), IV Infusion, CONTINUOUS , Starting on 05/29/22 at 0700 [facility] levothyroxi ne (SYNTHROID) tablet 25 mcg 05-29 11:00: 00 05-29 11:19 :00 No 25ug 25 mcg, Oral, QAM-0600, 1 dose, First dose on 05/29/22 at 0600, Routine [facility] atropine injection 0.5 mg 05-29 06:00: 00 05-29 05:02 :00 No .5mg 0.5 mg, IV Push, ONCE, 1 dose, On 05/29/22 at 0100, Routine [facility] ondansetron (ZOFRAN (PF)) injection 4 mg 05-29 05:41: 54 Yes 4mg 4 mg, Slow IV Push, Q6HPRN, Starting on 05/29/22 at 0041, Until Discontinu ed, Routine, Nausea and Vomiting (N/V) [facility] butalbital- acetaminoph en-caff (ESGIC) 50-325-40 mg tablet 1 tablet 05-29 01:18: 20 05-30 16:35 :31 No 1{tbl} 1 tablet, Oral, Q4HPRN, Starting on 05/28/22 at 2018, Until 05/30/22 at 1135, Routine, headache [facility] clonazePAM (KLONOPIN) tablet 1 mg 05-28 20:45: 00 05-29 05:01 :41 No 1mg 1 mg, Oral, BID, First dose on 05/28/22 at 1545, Until Discontinu ed, Routine [facility] acetaminoph en (TYLENOL) tablet 650 mg 05-28 18:51: 25 Yes 650mg 650 mg, Oral, Q6HPRN, Starting on 05/28/22 at 1351, Until Discontinu ed, Routine, Pain (scale 1-3) [facility] ketorolac (TORADOL) injection 15 mg 05-28 18:50: 26 05-30 15:41 :06 No 15mg 15 mg, Slow IV Push, Q6HPRN, Starting on 05/28/22 at 1350, Until 05/30/22 at 1041, Routine, Pain (scale 4-6) [facility] iopamidol (ISOVUE 370-500 mL) injection 70 mL 05-28 18:15: 00 05-28 18:15 :00 No [id number] 70mL 70 mL, Intravenou s, ONCE, 1 dose, On 05/28/22 at 1315, Routine [facility] NaCl 0.9% (NS) bolus infusion 1,000 mL 05-28 16:00: 00 05-28 16:36 :00 No 1000mL at 999 mL/hr, 1,000 mL, IV Infusion, ONCE, 1 dose, [facility] 05/28/22 at 1100[facility] 1,000 mg 05-28 16:00: 00 05-28 15:50 :00 No 1000mg 1,000 mg, Oral, ONCE, 1 dose, On 05/28/22 at 1100, [facility] ALPRAZOLAM ORAL 05-28 15:31: 37 05-28 00:00 :00 No Take by mouth. [facility] NaCl 0.9% (NS) bolus infusion 1,000 mL 05-28 14:45: 00 05-28 15:05 :00 No 1000mL at 999 mL/hr, 1,000 mL, IV Infusion, ONCE, 1 dose, On 05/28/22 at 0945, [facility] ondans[facility] (ZOFRAN (PF)) injection 4 mg 05-28 14:45: 00 05-28 14:35 :00 No 4mg 4 mg, Slow IV Push, ONCE, 1 dose, On 05/28/22 at 0945, [facility] NaCl 0.9% (NS) bolus infusion 1,000 mL 05-28 14:30: 00 05-28 15:05 :00 No 1000mL at 999 mL/hr, 1,000 mL, IV Infusion, ONCE, 1 dose, On 05/28/22 at 0930, CONSTANTIN [facility] ondansetron (ZOFRAN ODT) 4 mg disintegrat ing tablet 10-10 00:00: 00 Yes [id number] 4mg Take 1 tablet by mouth every 8 (eight) hours as needed for Nausea and Vomiting (N/V). [facility] ondansetron (ZOFRAN ODT) 4 mg disintegrat ing tablet 10-10 00:00: 00 05-28 00:00 :00 No [id number] 4mg Take 1 tablet by mouth every 8 (eight) hours as needed for Nausea and Vomiting (N/V). [facility] cephALEXin (KEFLEX) 500 mg capsule 10-10 00:00: 00 10-21 05:59 :00 No [id number] 500mg Take 1 capsule by mouth 3 (three) times daily for 10 days. [facility] metroNIDAZO LE (FLAGYL) 500 mg tablet 05-13 00:00: 00 05-21 04:59 :00 No [id number] 500mg Take 1 tablet by mouth 2 (two) times daily for 7 days. [facility] metroNIDAZO LE 500 mg tablet 05-10 00:00: 00 05-18 04:59 :00 No [id number] 500mg Take 1 tablet by mouth 2 (two) times daily for 7 days. [facility] metroNIDAZO LE 500 mg tablet 05-10 00:00: 00 05-18 04:59 :00 No [id number] 500mg Take 1 tablet by mouth 2 (two) times daily for 7 days. [facility] metroNIDAZO LE 500 mg tablet 05-10 00:00: 00 05-18 04:59 :00 No [id number] 500mg Take 1 tablet by mouth 2 (two) times daily for 7 days. [facility] metroNIDAZO LE 500 mg tablet 05-10 00:00: 00 05-18 04:59 :00 No [id number] 500mg Take 1 tablet by mouth 2 (two) times daily for 7 days. [facility] ALPRAZOLAM ORAL 05-08 23:35: 02 Yes Take by mouth. [facility] ALPRAZOLAM ORAL 05-08 23:35: 02 Yes Take by mouth. [facility] ALPRAZOLAM ORAL 05-08 23:35: 02 Yes Take by mouth. [facility] ALPRAZOLAM ORAL 05-08 23:35: 02 Yes Take by mouth. [facility] ALPRAZOLAM ORAL 05-08 18:35: 02 Yes Take by mouth. [facility] valACYclovi r 1 gram tablet 05-08 00:00: 00 05-16 04:59 :00 No [id number] 1g Take 1 tablet by mouth 3 (three) times daily for 7 days. [facility] valACYclovi r 1 gram tablet 05-08 00:00: 00 05-16 04:59 :00 No [id number] 1g Take 1 tablet by mouth 3 (three) times daily for 7 days. [facility] valACYclovi r 1 gram tablet 05-08 00:00: 00 05-16 04:59 :00 No [id number] 1g Take 1 tablet by mouth 3 (three) times daily for 7 days. [facility] valACYclovi r 1 gram tablet 05-08 00:00: 00 05-16 04:59 :00 No [id number] 1g Take 1 tablet by mouth 3 (three) times daily for 7 days. [facility] clonazePAM 2 mg tablet 04-26 00:00: 00 Yes 2mg Take 2 mg by mouth 2 (two) times daily. [facility] clonazePAM 2 mg tablet 04-26 00:00: 00 Yes 2mg Take 2 mg by mouth 2 (two) times daily. [facility] clonazePAM 2 mg tablet 2020-0 04-26 00:00: 00 Yes 2mg Take 2 mg by mouth 2 (two) times daily. [facility] clonazePAM 2 mg tablet 04-26 00:00: 00 Yes 2mg Take 2 mg by mouth 2 (two) times daily. [facility] clonazePAM 2 mg tablet 04-26 00:00: 00 Yes 2mg Take 2 mg by mouth 2 (two) times daily. [facility] clonazePAM 2 mg tablet 04-26 00:00: 00 Yes 2mg Take 2 mg by mouth 2 (two) times daily. [facility] clonazePAM 2 mg tablet 04-26 00:00: 00 Yes 2mg Take 2 mg by mouth 2 (two) times daily. [facility] clonazePAM 2 mg tablet 04-26 00:00: 00 Yes 2mg Take 2 mg by mouth 2 (two) times daily. [facility] clonazePAM 2 mg tablet 04-26 00:00: 00 Yes 2mg Take 2 mg by mouth 2 (two) times daily. [facility] clonazePAM 2 mg tablet 04-26 00:00: 00 Yes 2mg Take 2 mg by mouth 2 (two) times daily. [facility] clonazePAM 2 mg tablet 04-26 00:00: 00 Yes 2mg Take 2 mg by mouth 2 (two) times daily. [facility] clonazePAM 2 mg tablet 2020-0 04-26 00:00: 00 Yes 2mg Take 2 mg by mouth 2 (two) times daily. [facility] clonazePAM 2 mg tablet 0 04-26 00:00: 00 Yes 2mg Take 2 mg by mouth 2 (two) times daily. [facility] clonazePAM 2 mg tablet 04-26 00:00: 00 Yes 2mg Take 2 mg by mouth 2 (two) times daily. [facility] clonazePAM 2 mg tablet 2020-04-26 00:00: 00 Yes 2mg Take 2 mg by mouth 2 (two) times daily. [facility] clonazePAM 2 mg tablet 8-09 00:00: 00 Yes 2mg Take 2 mg by mouth 2 (two) times daily. [facility] ALPRAZOLAM ORAL 15 16:08: 13 Yes Take by mouth. [facility] amoxicillin 875 mg tablet 01-30 00:00: 00 Yes 875mg Take 1 tablet by mouth 2 (two) times daily. [facility] traMADOL 50 mg tablet 01-30 00:00: 00 Yes 50mg Take 1 tablet by mouth every 6 (six) hours as needed for Pain (scale 4-6). [facility] amoxicillin 875 mg tablet 01-30 00:00: 00 Yes 875mg Take 1 tablet by mouth 2 (two) times daily. [facility] traMADOL 50 mg tablet 01-30 00:00: 00 Yes 50mg Take 1 tablet by mouth every 6 (six) hours as needed for Pain (scale 4-6). [facility] amoxicillin 875 mg tablet 01-30 00:00: 00 Yes 875mg Take 1 tablet by mouth 2 (two) times daily. [facility] traMADOL 50 mg tablet 01-30 00:00: 00 Yes 50mg Take 1 tablet by mouth every 6 (six) hours as needed for Pain (scale 4-6). [facility] amoxicillin 875 mg tablet 01-30 00:00: 00 Yes 875mg Take 1 tablet by mouth 2 (two) times daily. [facility] traMADOL 50 mg tablet 15 00:00: 00 Yes 50mg Take 1 tablet by mouth every 6 (six) hours as needed for Pain (scale 4-6). [facility] amoxicillin 875 mg tablet 0 15 00:00: 00 Yes 875mg Take 1 tablet by mouth 2 (two) times daily. [facility] traMADOL 50 mg tablet 0 15 00:00: 00 Yes 50mg Take 1 tablet by mouth every 6 (six) hours as needed for Pain (scale 4-6). [facility] amoxicillin 875 mg tablet 01-30 00:00: 00 Yes 875mg Take 1 tablet by mouth 2 (two) times daily. [facility] traMADOL 50 mg tablet 01-30 00:00: 00 Yes 50mg Take 1 tablet by mouth every 6 (six) hours as needed for Pain (scale 4-6). [facility] amoxicillin 875 mg tablet 01-30 00:00: 00 05-28 00:00 :00 No 875mg Take 1 tablet by mouth 2 (two) times daily. [facility] traMADOL 50 mg tablet 01-30 00:00: 00 05-28 00:00 :00 No 50mg Take 1 tablet by mouth every 6 (six) hours as needed for Pain (scale 4-6). [facility] Vital Signs Vital Name Observation Time Observation Value Comments S ource Systolic blood pressure 2023-01-02 05:00:00 93 mm[Hg] [facility] Diastolic blood pressure 2023-01-02 05:00:00 64 mm[Hg] [facility] Heart rate 2023-01-02 05:00:00 50 /min [facility] Body temperature 2023-01-02 05:00:00 36.22 Arlene [facility] Oxygen saturation in Arterial blood by Pulse oximetry 2023-01-02 05:00:00 98 /min [facility] Respiratory rate 2023-01-02 03:00:00 19 /min [facility] Body height 2023-01-02 02:00:00 162.6 cm [facility] Body weight 2023-01-02 02:00:00 63.504 kg [facility] BMI 2023-01-02 02:00:00 24.03 kg/m2 [facility] Systolic blood pressure 2022-12-29 08:00:00 118 mm[Hg] [facility] Diastolic blood pressure 2022-12-29 08:00:00 68 mm[Hg] [facility] Heart rate 2022-12-29 08:00:00 53 /min [facility] Respiratory rate 2022-12-29 08:00:00 16 /min [facility] Oxygen saturation in Arterial blood by Pulse oximetry 2022-12-29 08:00:00 100 /min [facility] Body temperature 2022-12-29 06:43:00 36.61 Arlene [facility] Body height 2022-12-29 06:43:00 162.6 cm [facility] Body weight 2022-12-29 06:43:00 58.968 kg [facility] BMI 2022-12-29 06:43:00 22.31 kg/m2 [facility] Systolic blood pressure 2022-07-24 14:19:00 117 mm[Hg] [facility] Diastolic blood pressure 2022-07-24 14:19:00 85 mm[Hg] [facility] Heart rate 2022-07-24 14:19:00 89 /min [facility] Body temperature 2022-07-24 14:19:00 36.28 Arlene [facility] Respiratory rate 2022-07-24 14:19:00 16 /min [facility] Body height 2022-07-24 14:19:00 162.6 cm [facility] Body weight 2022-07-24 14:19:00 58.968 kg [facility] BMI 2022-07-24 14:19:00 22.31 kg/m2 [facility] Systolic blood pressure 2022-06-03 13:23:00 98 mm[Hg] [facility] Diastolic blood pressure 2022-06-03 13:23:00 65 mm[Hg] [facility] Heart rate 2022-06-03 13:23:00 107 /min [facility] Body temperature 2022-06-03 13:19:00 36.44 Arlene [facility] Respiratory rate 2022-06-03 13:19:00 18 /min [facility] Oxygen saturation in Arterial blood by Pulse oximetry 2022-06-03 13:19:00 97 /min [facility] Body weight 2022-06-03 09:36:00 58.469 kg bed scale was used, pt refused to stand on the regular scale [facility] BMI 2022-06-03 09:36:00 22.13 kg/m2 [facility] Body height 2022-06-01 01:00:00 162.6 cm [facility] Systolic blood pressure 2021-10-10 05:10:00 121 mm[Hg] [facility] Diastolic blood pressure 2021-10-10 05:10:00 90 mm[Hg] [facility] Heart rate 2021-10-10 05:10:00 74 /min [facility] Body temperature 2021-10-10 05:10:00 36.56 Arlene [facility] Respiratory rate 2021-10-10 05:10:00 19 /min [facility] Body height 2021-10-10 05:10:00 162.6 cm [facility] Body weight 2021-10-10 05:10:00 56.7 kg [facility] BMI 2021-10-10 05:10:00 21.46 kg/m2 [facility] Oxygen saturation in Arterial blood by Pulse oximetry 2021-10-10 05:10:00 100 /min [facility] Procedures Procedure Date / Time Performed Performing Clinician Source US OVARY TORSION 2023-01-02 04:11:07 Jared Hancock [facility] POCT TEST 2023-01-02 02:50:00 Jared Hancock [facility] COMP. METABOLIC PANEL (32634) 2023-01-02 02:44:00 Jared Hancock [facility] CBC WITH DIFF 2023-01-02 02:44:00 Jared Hancock [facility] URINALYSIS 2023-01-02 02:44:00 Jared Hancock [facility] NOTICE OF PRIVACY PRACTICES 2023-01-02 01:58:59 Doctor Unassigned, [place] [facility] CONSENT/REFUSAL FOR DIAGNOSIS AND TREATMENT 2023-01-02 01:58:33 Doctor Unassigned, [place] [facility] BASIC METABOLIC PANEL (NA, K, CL, CO2, GLUCOSE, BUN, CREATININE, CA) 2022-12-29 06:49:00 Remigio Wallis [facility] CBC WITH DIFF 2022-12-29 06:49:00 Yasmin [facility] URINALYSIS 2022-12-29 06:47:00 Yasmin [facility] POCT TEST 2022-12-29 06:47:00 Yasmin [facility] NOTICE OF PRIVACY PRACTICES 2022-12-29 06:39:53 Doctor Unassigned, [place] [facility] CONSENT/REFUSAL FOR DIAGNOSIS AND TREATMENT 2022-12-29 06:37:56 Doctor Unassigned, [place] [facility] CONSENT/REFUSAL FOR DIAGNOSIS AND TREATMENT 2022-07-24 14:13:56 Doctor Unassigned, [place] [facility] MAGNESIUM 2022-06-03 09:34:00 Evans [facility] BASIC METABOLIC PANEL (NA, K, CL, CO2, GLUCOSE, BUN, CREATININE, CA) 2022-06-03 09:34:00 Evans [facility] CBC WITH DIFF 2022-06-03 09:34:00 Evans [facility] MR CARDIAC MORPHOLOGY W WO CONTRAST 2022-06-02 15:45:00 [facility] MAGNESIUM 2022-06-02 10:03:00 [facility] HEPATIC FUNCTION PANEL ([id number]) (ALB,T.PRO,BILI T,BU/BC,ALT,AST,ALK PHOS) 2022-06-02 10:03:00 [facility] BASIC METABOLIC PANEL (NA, K, CL, CO2, GLUCOSE, BUN, CREATININE, CA) 2022-06-02 10:03:00 [facility] CBC WITH DIFF 2022-06-02 10:03:00 [facility] PROTHROMBIN TIME / INR 2022-06-02 10:03:00 [facility] HEPATITIS B SURFACE ANTIBODY 2022-06-02 10:03:00 [facility] HCV ANTIBODY 2022-06-02 10:03:00 [facility] HBC ANTIBODY (IGM & IGG) 2022-06-02 10:03:00 [facility] GC & CHLAMYDIA AMPLIFIED ASSAY 2022-06-01 17:08:00 [facility] ANTICARDIOLIPIN ANTIBODIES 2022-06-01 15:17:00 [facility] THYROID PEROXIDASE (TPO) AB 2022-06-01 15:17:00 [facility] CYCLIC CITRULLINATED PEPTIDE 2022-06-01 15:17:00 [facility] ANTI-B2 GLYCOPROTEIN I AB 2022-06-01 15:17:00 [facility] BASIC METABOLIC PANEL (NA, K, CL, CO2, GLUCOSE, BUN, CREATININE, CA) 2022-06-01 00:45:00 Amina [facility] CBC WITH DIFF 2022-06-01 00:45:00 Amina [facility] PROTHROMBIN TIME / INR 2022-06-01 00:45:00 Amina [facility] ACTIVATED PARTIAL THRMPLAS RAJ 2022-06-01 00:45:00 Amina [facility] HEPATITIS B SURFACE ANTIGEN 2022-06-01 00:45:00 [facility] LACTIC ACID WHOLE BLOOD 2022-06-01 00:45:00 Amina [facility] LYME, LATE DISEASE (ABS, JESS W/REFLEX TO WB) 2022-06-01 00:45:00 Abhi Moseley [facility] MAGNESIUM 2022-05-31 08:24:00 Aria Hyde [facility] BASIC METABOLIC PANEL (NA, K, CL, CO2, GLUCOSE, BUN, CREATININE, CA) 2022-05-31 08:24:00 Tony Hill [facility] HIV 1/2 AG-AB WITH REFLEX 2022-05-31 08:24:00 [facility]W 2022-05-30 18:12:00 Tony Hill [facility] URINALYSIS 2022-05-30 18:08:00 Tony Hill [facility] URINE CULTURE 2022-05-30 18:08:00 Tony Hill [facility] PROTEIN CREAT RATIO URINE RANDOM 2022-05-30 18:08:00 Tony Hill [facility] CREATINE KINASE 2022-05-30 17:56:00 Tony Hill [facility] BASIC METABOLIC PANEL (NA, K, CL, CO2, GLUCOSE, BUN, CREATININE, CA) 2022-05-30 17:56:00 Tony Hill [facility] CT HEAD WO CONTRAST 2022-05-30 11:06:02 Barrett [facility] FREE T4 2022-05-30 06:11:00 Tony Hill [facility] CBC WITH DIFF 2022-05-30 06:11:00 Tony Hill [facility] HB ECG ROUTINE & RHYTHM STRIP 2022-05-30 05:23:39 Barrett [facility] RHEUMATOID FACTOR 2022-05-29 22:41:00 Liz Tony [facility] C4 COMPLEMENT 2022-05-29 22:41:00 Liz Tony [facility] SEDIMENTATION RATE 2022-05-29 22:41:00 Liz [facility] PROTHROMBIN TIME / INR 2022-05-29 22:41:00 Liz [facility] ACTIVATED PARTIAL THRMPLAS RAJ 2022-05-29 22:41:00 Liz [facility] ANTI-NUCLEAR ANTIBODY SCREEN 2022-05-29 22:41:00 Tony Hill [facility] ANTI-NUCLEAR ANTIBODY TITER 2022-05-29 22:41:00 Liz Tony [facility] ANTI-SSB(LA) 2022-05-29 22:41:00 Abhi Moseley [facility] ANTI-DOUBLE STRANDED DNA 2022-05-29 22:41:00 Liz Tony [facility] GALV ONLY - SYPHILIS IGG/IGM 2022-05-29 22:41:00 Darshan Gan [facility] ANTI-NUCLEAR ANTIBODY-PATHOLOGIST INTERPRETATION 2022-05-29 22:41:00 Tony Hill [facility] CORTISOL STIMULATION 60 MIN 2022-05-29 17:46[facility]00 [facility] 30 MIN 2022-05-29 17:16:00 Liz [facility] ADRENOCORTICOTROPIC HORMONE 2022-05-29 16:30:00 Liz [facility] C-REACTIVE PROTEIN 2022-05-29 16:30:00 [facility] 0 MIN 2022-05-29 16:30:00 Liz [facility] XR CHEST 1 VW 2022-05-29 14:46:47 Anthony Fischer [facility] TRANSTHORACIC ECHO (TTE) COMPLETE 2022-05-29 13:59:00 Liz [facility] HB ECG ROUTINE & RHYTHM STRIP 2022-05-29 12:47:45 Liz [facility] PHOSPHORUS 2022-05-29 09:48:00 Liz [facility] MAGNESIUM 2022-05-29 09:48:00 Liz [facility] CORTISOL AM 2022-05-29 09:48:00 Aria Hyde [facility] TROPONIN I 2022-05-29 09:48:00 Liz [facility] HEPATIC FUNCTION PANEL ([id number]) (ALB,T.PRO,BILI T,BU/BC,ALT,AST,ALK PHOS) 2022-05-29 09:48:00 Liz [facility] BASIC METABOLIC PANEL (NA, K, CL, CO2, GLUCOSE, BUN, CREATININE, CA) 2022-05-29 09:48:00 Liz [facility] CBC WITH DIFF 2022-05-29 09:48:00 Liz [facility] LACTIC ACID WHOLE BLOOD 2022-05-28 19:46:00 Liz [facility] HB ECG ROUTINE & RHYTHM STRIP 2022-05-28 19:30:05 Liz [facility] MRSA / MSSA SCREEN BY MELISSA ACEVEDO 2022-05-28 18:47:00 Tony Hill [facility] CT CHEST PULMONARY ANGIOGRAM 2022-05-28 17:17:12 [facility] (ID NOW RAPID TESTING) 2022-05-28 16:37:00 [facility] COVID INTERPRETATION 2022-05-28 16:37:00 [facility] HB ECG ROUTINE & RHYTHM STRIP 2022-05-28 13:55:45 [facility] PHOSPHORUS 2022-05-28 13:36:00 [facility] CREATINE KINASE 2022-05-28 13:36:00 [facility] MAGNES[facility]UM 2022-05-28 13:36:00 Elvin [facility] TROPONIN I 2022-05-28 13:36:00 [facility] FREE T4 2022-05-28 13:36:00 Tony Hill [facility] THYROID STIMULATING HORMONE 2022-05-28 13:36:00 Elvin [facility] COMP. METABOLIC PANEL ([id number]) 2022-05-28 13:36:00 [facility] ETHANOL 2022-05-28 13:36[facility] 2022-05-28 13:36[facility]00 [facility] 2022-05-28 13:36:00 [facility] PO[facility] 2022-05-28 13:36:00 Elvin [facility] N-TERMINAL PRO-BNP 2022-05-28 13:36:00 Elvin [facility] URINE DRUG (IMMUNOASSAY) - COMPREHENSIVE DRUG SCREEN W/O REFLEX 2022-05-28 13:36:00 Elvin [facility] CONSENT/REFUSAL FOR DIAGNOSIS AND TREATMENT 2022-05-28 13:23:47 Doctor Unassigned, [place] [facility] HOSPITAL ADMISSION 2022-05-28 05:01:00 Doctor Unassigned, [place] [facility] ASSIGNMENT OF BENEFITS 2021-10-10 06:40:03 Doctor Unassigned, [place] [facility] URINALYSIS 2021-10-10 06:00:00 Mireya Castellon [facility] POCT TEST 2021-10-10 06:00:00 Mireya Castellon [facility] NOTICE OF PRIVACY PRACTICES 2021-10-10 05:07:28 Doctor Unassigned, [place] [facility] CONSENT/REFUSAL FOR DIAGNOSIS AND TREATMENT 2021-10-10 05:07:13 Doctor Unassigned, [place] [facility] Encounters Start Date/Time End Date/Time Encounter Type Admission Type Attending [facility] Facility Care Department Encounter ID Source 2023-05-17 08:28:58 2023-05-17 08:28:[address] [facility] [id number] Crow Mckeon 2023-01-01 21:14:00 2023-01-02 00:10:00 Emergency X JARED HANCOCK [facility] ERT [id number] [facility] 2023-01-01 21:14:00 2023-01-02 00:10:00 Emergency Jared Hancock [facility] [id number] 350.1.13.10 4.2.7.2.686 [id number] [facility] 2022-12-29 01:38:00 2022-12-29 03:46:00 Emergency X REMIGIO WALLIS [facility] ERT [id number] [facility] 2022-12-29 01:38:00 2022-12-29 03:46:00 Emergency Remigio Wallis [facility] [id number] 350.1.13.10 4.2.7.2.686 [id number] [facility] 2022-07-24 08:22:00 2022-07-24 10:05:00 Emergency X JUAN MANUEL GTZ [facility] ERT [id number] [facility] 2022-07-24 08:22:00 2022-07-24 10:05:00 Emergency Juan Manuel Gtz [facility] [id number] 350.1.13.10 4.2.7.2.686 [id number] [facility] 2022-07-19 00:00:00 2022-07-19 00:00:00 Patient Outreach Siri Silverio JASON [facility] [id number] 350.1.13.10 4.2.7.2.686 [id number] [facility] 2022-06-20 00:00:00 2022-06-20 00:00:00 Patient Outreach ChelseaMarkell elder [place] [id number] 350.1.13.10 4.2.7.2.686 [id number] [facility] 2022-06-15 00:00:00 2022-06-15 00:00:00 Patient Outreach Siri Silverio JASON [place] [id number] 350.1.13.10 4.2.7.2.686 [id number] [facility] 2022-06-14 00:00:00 2022-06-14 00:00:00 Patient Outreach Siri Silverio [facility] [id number] 350.1.13.10 4.2.7.2.686 [id number] [facility] 2022-06-10 00:00:00 2022-06-10 00:00:00 Transition of Care Evangelina Collado [id number] 350.1.13.10 4.2.7.2.686 [id number] [facility] 2022-06-06 00:00:00 2022-06-06 00:00:00 Transition of Care Evangelina Collado [id number] 350.1.13.10 4.2.7.2.686 [id number] [facility] 2022-06-06 00:00:00 2022-06-06 00:00:00 Transition of Care Evangelina Collado [id number] 350.1.13.10 4.2.7.2.686 [id number] [facility] 2022-06-03 13:52:31 2022-06-03 23:59:00 Outpatient Justina [facility] [id number] [facility] 2022-05-28 08:29:00 2022-06-03 11:43:00 Hospital Encounter Elvin, Elis Hill, Tony Young, Margie Inman, [facility] 1..114 350.1.13.10 4.2.7.2.686 [id number] [facility] 2022-05-28 08:29:00 2022-06-03 11:43:00 Inpatient Rip [facility] [id number] [facility] 2021-10-09 23:25:00 2021-10-10 01:50:00 Emergency X Mireya CASTELLON [facility] ERT [id number] [facility] 2021-10-09 23:25:00 2021-10-10 01:50:00 Emergency Mireya Castellon [facility] 1..114 350.1.13.10 4.2.7.2.686 [id number] [facility] 2021-05-12 00:00:00 2021-05-12 00:00:00 Telephone Trista Eason [facility] access hospitale?[facility] 1..114 350.1.13.10 4.2.7.2.686 [id number] [facility] 2021-05-10 00:00:00 2021-05-10 00:00:00 Telephone Jose Álvarez [facility] 1.2.840.114 350.1.13.10 4.2.7.2.686 [id number] [facility] 2021-05-10 00:00:00 2021-05-10 00:00:00 Telephone Pcp, Patient Does Not Have A [facility] Balbir?[facility] 1.840.114 350.1.13.10 4.2.7.2.686 [id number] [facility] 2021-05-08 18:20:00 2021-05-08 18:20:00 Outpatient R LALI, ATTENDING [facility] [id number] [facility] 2021-05-07 09:00:00 2021-05-07 09:00:00 Outpatient R TAI, JOSHFUL [facility] [id number] [facility] 2020-05-05 11:45:00 2020-05-05 11:45:00 Outpatient kaleigh [facility] [id number] [facility] 2020-01-14 00:00:00 2020-01-14 00:00:00 Telephone Pcp, Patient Does Not Have A [facility] NUCLEAR RADIATION ENGINEER [facility] & CHILD [facility] [id number] [facility] 2020-01-14 00:00:00 2020-01-14 00:00:00 Telephone Pcp, Patient Does Not Have A [facility] NUCLEAR RADIATION ENGINEER [facility] CHILD [facility] [id number] Results Test Description Test Time Test Comments Results Result Co mments Source [facility] [id number] 06:47:00* Test Item Value Reference Range Interpretation Comme nts POCT PREG (test code = 1605) Negative On board controls acceptable with C Line (test code = 3574) Present POCT PREG LOT # (test code = 3575) [id number] POCT PREG TEST DATE ( test code = 3576) 04/25/2024 Lab Interpretation (test cod e = 23648-1) Normal [facility] SouthLY[facility], LATE DISEASE (ABS, JESS W/REFLEX TO WB) 2022-06-03 04:33:35* Test Item Value Reference Range Interpretation Comme nts LYME EIA (test code = 03716-5) See_Comment When the Borreli a burgdorferi Abs, Total by JESS result is negative, no further testing is done.INTERPRETIVE INFORMATION: Borrelia Burgdorferi Abs,Total by JESS ?0.99 BETHEL or Less: ...... Negative: Antibody to B. ? burgdorferi not detected. ?1.00 - 1.20 BETHEL......... Equivocal: Repeat testing in ? 10-14 days may be helpful. ?1.21 BETHEL or Greater: ... Positive: Probable presence of ? antibody to B. burgdorferi ? detected.Performed By: [facility] [place] [address] [id number] Director: Gavin Collado MD, PhD [Automated message] The system which generated this result transmitted reference range: 0.00 - 1.20 BETHEL. The reference range was not used to interpret this result as normal/abnormal. [facility] SouthTHYROID PEROXIDASE (TPO) [id number] 16:21:03 * Test Item Value Reference Range Interpretation Comments TPO Ab IgG (test code = 2174844559) See_Comment H [Automated message] The system which generated this result transmitted reference range: 0.0 - 100.0 WHO Units. The reference range was not used to interpret this result as normal/abnormal. ДМИТРИЙ (test code = ДМИТРИЙ) Interpretation: Negative: ?<= 100 WHO UnitsPositive: ? > [...] as John's thyroiditis and Graves'disease. Lab Interpretation (test code = 86216-9) Abnormal [facility] SouthCYCLIC CITRULLINATED [id number] 16:04:26* Test Item Value Reference Range Interpretation Comme nts CCP IgG (test code = 2110818246) 2.6 U 0-20 ДМИТРИЙ (test code = ДМИТРИЙ) INTERPRETATION: UNITS: Negative <20Weak Positive 20-39Moderate Positive 40-59Strong Positive >=60 A positive result indicates the presence of CCP IgG antibodies and suggests the possibility of RA antibodies and suggests the possibility of SLE. A negative result indicates no CCP IgG antibodies or levels below the cut-off ofthe assay. Lab Interpretation (test code = 94658-0) Normal [facility] SouthANTICARDIOLIPIN [id number] 15:58:16 * Test Item Value Reference Range Interpretation Comments Anticardiolipin Antibody IgG (test code = 2520777906) See_Comment [Automated message] The system which generated this result transmitted reference range: 0.0 - 10.0 GPL. The reference range was not used to interpret this result as normal/abnormal . Anticardiolipin Antibody IgM (test code = 2240534258) See_Comment [Automated message] The system which generated this result transmitted reference range: 0.0 - 10.0 MPL. The reference range was not used to interpret this result as normal/abnormal . Anticardiolipin Antibody IgA (test code = 9352125056) See_Comment [Automated message] The system which generated this result transmitted reference range: 0.0 - 15.0 APL. The reference range was not used to interpret this result as normal/abnormal . ДМИТРИЙ (test code = ДМИТРИЙ) Interpretation: ? IgG ?IgM ?IgANegative Values: ? <10.0 [...] Thromb Haemost 2006; 4: 2210-4 Lab Interpretation (test code = 37670-5) Normal [facility] SouthANTI-B2 GLYCOPROTEIN I [id number] 15:53:57* Test Item Value Reference Range Interpretation Comments Anti-B2 Glycoprotein 1 IgG (test code = 0233087935) See_Comment [Automated message] The system which generated this result transmitted reference range: 0.0 - 20.0 SGU. The reference range was not used to interpret this result as normal/abnormal. Anti-B2 Glycoprotein 1 IgM (test code = 1033463525) See_Comment [Automated message] The system which generated this result transmitted reference range: 0.0 - 20.0 SMU. The reference range was not used to interpret this result as normal/abnormal. Anti-B2 Glycoprotein 1 IgA (test code = 7769811457) See_Comment [Automated message] The system which generated this result transmitted reference range: 0.0 - 20.0 JAY. The reference range was not used to interpret this result as normal/abnormal. ДМИТРИЙ (test code = ДМИТРИЙ) INTERPRETATION:Values over 20 SGU, SMU, or JAY units are considered positive. NOTE:A positive test for anti-B2 Glycoprotein I antibodies may indicate the presence of Antiphospholipid Syndrome. ?Anti-B2 Glycoprotein I antibodies have been associated with thrombosis, recurrent losses and/or thrombocytopenia. TEST PERFORMED AT:[facility] [id number] [place] [address], [address] [employer] [facility] [place] [address] Lab Interpretation (test code = 44362-1) Normal [facility] SouthHEPATITIS B SURFACE [id number] 15:44:25* Test Item Value Reference Range Interpretation Comme nts HBsAB (test code = 5261119327) Indeterminate HBsAb Semi-Quantitative (test code = 6216232461) mIU/mL ДМИТРИЙ (test code = ДМИТРИЙ) Unable to determine if antibody to Hepatitis B Surface Antigen is present at levels consistent with immunity. ?Patient's immune status should be assessed with other clinical information and/or retesting in 4-6 weeks as clinically indicated. ?If any questions, please contact Clinical Chemistry Director traffic operations manager at .Interpretati on: ?Hepatitis B Surface Antibody ? Negative - Patient is considered to be not immune to infection with HBV. ? ? Positive - Anti-HBs detected at greater than or equal to 12 mIU/mL. ?Patient is considered to be immune to infection with HBV. ? [facility] SouthHBC ANTIBODY (IGM & IGG)2022-06-02 11:48:38* Test Item Value Reference Range Interpretation Comme [facility] H[facility] (test code = 3049387366) Negative HBC Semi-Quantitative (test code = 0234398484) [facility] SouthHCV [id number] 11:48:37* Test Item Value Reference Range Interpretation Comme [facility] HCV Ab (test code = 40609-5) Negative HCV Semi-Quantitative (test code = 20208-1) [facility] SouthHEPATIC FUNCTION PANEL (50829) (ALB,T.PRO,BILI T,BU/BC,ALT,AST,ALK PHOS)2022-06-02 11:06:34* Test Item Value Reference Range Interpretation Comme nts TOTAL BILI (test code = 4437761827) 0.2 mg/dL 0.1-1.1 BILI UNCON (test code = 6440056230) 0.1 mg/dL 0.1-1.1 BILI CONJ (test code = 0933980460) 0.0 mg/dL 0-0.3 T PROTEIN (test code = 4509101088) 5.0 g/dL 6.3-8.2 L ALBUMIN (test code = 1158920466) 2.8 g/dL 3.5-5 L ALK PHOS (test code = 3313374491) 54 U/L 34-122 ALTv (test code = 1742-6) 12 U/L 5-35 AST(SGOT) (test code = 7605276117) 18 U/L 13-40 Lab Interpretation (test cod e = 11255-8) Abnormal [facility] SouthMAGNESIUM2022-09-15 11:06:34* Test Item Value Reference Range Interpretation Comme nts MAGNESIUM (test code = 0627200527) 2.1 mg/dL 1.7-2.4 Lab Interpretation (test cod e = 02552-2) Normal [facility] (NA, K, CL, CO2, GLUCOSE, BUN, CREATININE, CA)2022-06-02 11:06:34* Test Item Value Reference Range Interpretation Comme nts NA (test code = 2880354139) 139 mmol/L 135-145 K (test code = 2591270299) 4.2 mmol/L 3.5-5 CL (test code = 6948713824) 112 mmol/L 98-108 H CO2 TOTAL (test code = 0491052840) 26 mmol/L 23-31 AGAP (test code = 8963803572) 2-16 L BUN (test code = 9263380097) 16 mg/dL 7-23 GLUCOSE (test code = 6573201012) 84 mg/dL 70-110 CREATININE (test code = 4344350554) 0.75 mg/dL 0.5-1.04 CALCIUM (test code = 4029048732) 7.9 mg/dL 8.6-10.6 L eGFR (test code = 1270990407) mL/min/1.73m2 ДМИТРИЙ (test code = ДМИТРИЙ) Association of [...] or abnormalities in imaging tests). Lab Interpretation (test code = 86918-2) Abnormal [facility] WITH [id number] 10:25:33* Test Item Value Reference Range Interpretation Comme nts WBC (test code = 6690-2) See_Comment [Automated [employer]] The system which generated this result transmitted reference range: 4.30 - 11.10 10*3/?L. The reference range was not used to interpret this result as normal/abnormal. RBC (test code = 789-8) See_Comment L [[employer]] The system which generated this result transmitted reference range: 3.93 - 5.25 10*6/?L. The reference range was not used to interpret this result as normal/abnormal. HGB (test code = 718-7) 10.9 g/dL 11.6-15 L HCT (test code = 4544-3) 31.4 % 35.7-45.2 L MCV (test code = 787-2) 89.2 fL 80.6-95.5 MCH (test code = 785-6) 31.0 pg 25.9-32.8 MCHC (test code = 786-4) 34.7 g/dL 31.6-35.1 RDW-SD (test code = 80306-0) 41.0 fL 39-49.9 RDW-CV (test code = 788-0) 12.6 % 12-15.5 PLT (test code = 777-3) See_Comment L [Automated messa ge] The system which generated this result transmitted reference range: 166 - 358 10*3/?L. The reference range was not used to interpret this result as normal/abnormal. MPV (test code = 92241-7) 10.6 fL 9.5-12.9 NRBC/100 WBC (test code = 5911602259) See_Comment [Automated [employer]] The system which generated this result transmitted reference range: 0.0 - 10.0 /100 WBCs. The reference range was not used to interpret this result as normal/abnormal. NRBC x10^3 (test code = 3968091149) See_Comment [Automated messa ge] The system which generated this result transmitted reference range: 10*3/?L. The reference range was not used to interpret this result as normal/abnormal. GRAN MAT (NEUT) % (test code = 770-8) 58.3 % IMM GRAN % (test code = 2054726178) 0.30 % LYMPH % (test code = 736-9) 33.2 % MONO % (test code = 5905-5) 5.5 % EOS % (test code = 713-8) 2.5 % BASO % (test code = 706-2) 0.2 % GRAN MAT x10^3(ANC) (test code = 3959498066) 3.49 10*3/uL 1.88-7.09 IMM GRAN x10^3 (test code = 7066384160) 0-0.06 LYMPH x10^3 (test code = 731-0) 1.99 10*3/uL 1.32-3.29 MONO x10^3 (test code = 742-7) 0.33 10*3/uL 0.33-0.92 EOS x10^3 (test code = 711-2) 0.15 10*3/uL 0.03-0.39 BASO x10^3 (test code = 704-7) 0.01-0.07 Lab Interpretation (test code = 11667-5) Abnormal [facility] SouthProthrombin Time / [id number] 10:25:12* Test Item Value Reference Range Interpretation Comme nts PROTIME PATIENT (test code = 5964-2) See_Comment [Automated [employer]] The system which generated this result transmitted reference range: 10.1 - 12.6 Seconds. The reference range was not used to interpret this result as normal/abnormal. INR (test code = 6301-6) Normal INR <1.1; Warfarin Therapeutic range 2.0 to 3.0 or 2.5 to 3.5, depending upon the indications. Lab Interpretation (test code = 32015-3) Normal [facility] B SURFACE [id number] 21:24:29 * Test Item Value Reference Range Interpretation Comme [facility] HBsAg Semi-Quantitative (basilio t code = 5195-3) Negative Negative [facility] METABOLIC PANEL (NA, K, CL, CO2, GLUCOSE, BUN, CREATININE, CA)2022-06-01 01:26:24* Test Item Value Reference Range Interpretation Comme [facility] NA (test code = 0467253185) 141 mmol/L 135-145 K (test code = 7035270726) 3.7 mmol/L 3.5-5 CL (test code = 3823715686) 110 mmol/L 98-108 H CO2 TOTAL (test code = 2200156865) 27 mmol/L 23-31 AGAP (test code = 2625280419) 2-16 BUN (test code = 0114246246) 16 mg/dL 7-23 GLUCOSE (test code = 0488308217) 101 mg/dL 70-110 CREATININE (test code = 6614999395) 0.83 mg/dL 0.5-1.04 CALCIUM (test code = 6958211395) 8.3 mg/dL 8.6-10.6 L eGFR (test code = 5512285567) mL/min/1.73m2 ДМИТРИЙ (test code = ДМИТРИЙ) Association of [...] or abnormalities in imaging tests). Lab Interpretation (test code = 12925-3) Abnormal [facility] SouthLactic Acid Whole [id number] 01:17:52* Test Item Value Reference Range Interpretation Comme [facility] LACTIC ACID (test code = 0264885603) 1.01 mmol/L 0.5-2.2 Lab Interpretation (test cod e = 29730-6) Normal [facility] SouthaPTT2022-09-14 01:09:01* Test Item Value Reference Range Interpretation Comme [facility] APTT Patient (test code = 3173-2) See_Comment [[employer]] The system which generated this result transmitted reference range: 26 - 36 Seconds. The reference range was not used to interpret this result as normal/abnormal. Lab Interpretation (test code = 50162-1) Normal [facility] SouthProthrombin Time / [id number] 01:09:01* Test Item Value Reference Range Interpretation Comme [facility] PROTIME PATIENT (test code = 5964-2) See_Comment [[employer]] The system which generated this result transmitted reference range: 10.1 - 12.6 Seconds. The reference range was not used to interpret this result as normal/abnormal. INR (test code = 6301-6) Normal INR <1.1; Warfarin Therapeutic range 2.0 to 3.0 or 2.5 to 3.5, depending upon the indications. Lab Interpretation (test code = 84686-0) Normal [facility] WITH [id number] 01:03:39* Test Item Value Reference Range Interpretation Comme nts WBC (test code = 6690-2) See_Comment [Automated messa ge] The system which generated this result transmitted reference range: 4.30 - 11.10 10*3/?L. The reference range was not used to interpret this result as normal/abnormal. RBC (test code = 789-8) See_Comment [Automated messa ge] The system which generated this result transmitted reference range: 3.93 - 5.25 10*6/?L. The reference range was not used to interpret this result as normal/abnormal. HGB (test code = 718-7) 13.4 g/dL 11.6-15 HCT (test code = 4544-3) 39.5 % 35.7-45.2 MCV (test code = 787-2) 91.0 fL 80.6-95.5 MCH (test code = 785-6) 30.9 pg 25.9-32.8 MCHC (test code = 786-4) 33.9 g/dL 31.6-35.1 RDW-SD (test code = 76445-3) 40.8 fL 39-49.9 RDW-CV (test code = 788-0) 12.3 % 12-15.5 PLT (test code = 777-3) See_Comment [Automated [employer] ge] The system which generated this result transmitted reference range: 166 - 358 10*3/?L. The reference range was not used to interpret this result as normal/abnormal. MPV (test code = 53804-0) 10.8 fL 9.5-12.9 NRBC/100 WBC (test code = 0854232889) See_Comment [Automated me ssage] The system which generated this result transmitted reference range: 0.0 - 10.0 /100 WBCs. The reference range was not used to interpret this result as normal/abnormal. NRBC x10^3 (test code = 0886567475) See_Comment [Automated me ssage] The system which generated this result transmitted reference range: 10*3/?L. The reference range was not used to interpret this result as normal/abnormal. GRAN MAT (NEUT) % (test code = 770-8) 56.8 % IMM GRAN % (test code = 8942063987) 0.10 % LYMPH % (test code = 736-9) 37.1 % MONO % (test code = 5905-5) 4.3 % EOS % (test code = 713-8) 1.2 % BASO % (test code = 706-2) 0.5 % GRAN MAT x10^3(ANC) (test code = 6354571732) 4.67 10*3/uL 1.88-7.09 IMM GRAN x10^3 (test code = 6981829053) 0-0.06 LYMPH x10^3 (test code = 731-0) 3.05 10*3/uL 1.32-3.29 MONO x10^3 (test code = 742-7) 0.35 10*3/uL 0.33-0.92 EOS x10^3 (test code = 711-2) 0.10 10*3/uL 0.03-0.39 BASO x10^3 (test code = 704-7) 0.04 10*3/uL 0.01-0.07 [facility]Transthor[facility] echo (TTE)2022-05-29 16:43:30* Test Item Value Reference Range Interpretation Comme nts Height (test code = 4207344814) in Weight (test code = 7088872087) lbs Systolic BP (test code = 9786411348) mmHg Diastolic BP (test code = 9483838214) mmHg Heart Rate (test code = 8508337196) bpm BSA (test code = 1505271027) 1.60 m2 Ao root annulus (test code = 1466456204) 2.8 cm Ao root diam (test code = 8921831638) 2.80 cm Aortic root (test code = 3823703102) 2.8 cm LVOT diameter (test code = 2768395154) 1.80 cm LVOT area (test code = 4081751360) 2.60 cm2 LVIDD (test code = 8876743193) 4.50 cm Left Ventricular End Diastolic Volume by Teichholz Method (test code = 3195402) 91.2 mL IVS (test code = 6267210298) 0.71 cm Interventricular Septum Diastolic Thickness by 2D (test code = 2302749) 0.71 cm LVPWD (test code = 2401562876) 0.71 cm PW (test code = 3798109457) 0.71 cm 0.6-1.1 EF(Teich) (test code = 6678155160) 61.00 % LVIDS (test code = 5292613081) 3.00 cm Left Ventricular End Systolic Volume by Teichholz Method (test code = 4929346) 35.6 mL FS (test code = 4046488303) 33 % EF - 2D (test code = 66792888) 61.00 % LA size (test code = 6030393288) 2.9 cm Pulmonic Regurgitant End Max Velocity (test code = 1704687514) 161.8 cm/s LAV(MOD-sp4) (test code = 2786612466) 29.10 mL MV stenosis pressure 1/2 time (test code = 2945525860) 65.3 ms E wave decelartion time (test code = 8528465839) 0.23 s MV Peak E Rafat (test code = 6717962060) 121.5 cm/s MV Peak A Rafat (test code = 9437533956) 43.8 cm/s E/A ratio (test code = 8826300244) ratio MR max PG (test code = 2948479006) 65.00 mm[Hg] MR max rafat (test code = 1903711180) 401.70 cm/s Mr max rafat (test code = 7456658883) 401.7 m/s MV Prop V (test code = 7599268353) 44.60 cm/s MV E/e' septal (test code = 0692786427) 19.3 cm/s Tapse (test code = 8145581098) 2.13 cm LVOT stroke volume (test code = 7860187379) 72.90 cm3 LVOT peak rafat (test code = 8962036185) 144.5 cm/s LVOT mn grad (test code = 7526948749) mmHg AV LVOT peak gradient (test code = 5333767180) mmHg LVOT peak VTI (test code = 6324979315) 28.5 cm LV V1 mean (test code = 3362429739) 104.40 cm/s Aortic valve mean velocity (test code = 3726427628) 112.8 cm/s Ao peak rafat (test code = 9313190603) 161.3 cm/s Ao VTI (test code = 1466996387) 34.5 cm AV area by cont VTI (test code = 3207899908) 2.1 cm2 AV area peak rafat (test code = 3298717331) 2.3 cm2 Ao max PG (test code = 7749496406) 10.40 mm[Hg] AV peak gradient (test code = 9425826028) mmHg AV valve area (test code = 6256038438) 2.11 cm2 AV mean gradient (test code = 7203098309) mmHg Radiology Study observation (narrative) (test code = 25598-9) ДМИТРИЙ (test code = ДМИТРИЙ) ?Left?Ventricle: Left [...] 2D, color flow Doppler and spectral Doppler. [facility] [id number] 13:36:00* Test Item Value Reference Range Interpretation Comme nts POCT PREG (test code = 1605) Negative On board controls acceptable with C Line (test code = 3574) Present POCT PREG LOT # (test code = 3575) [id number] POCT PREG TEST DATE ( test code = 3576) 08/17/2023 Lab Interpretation (test cod e = 72326-7) [facility] [id number] 06:00:00* Test Item Value Reference Range Interpretation Comme nts POCT PREG (test code = 1605) negative On board controls acceptable with C Line (test code = 3574) positive POCT PREG LOT # (test code = 3575) [id number] POCT PREG TEST DATE ( test code = 3576) 09/17/2022 Lab Interpretation (test cod e = 43953-9) Normal [facility]
[2023-10-30 17:51] LABS: Absolute Lymphocytes (CBC) 2.1 K/uL (0.7-4.9); Hematocrit 36.8 % (36.0-45.0); Lymphocytes % 34.7 % (15.3-44.8); MCV 88.5 fL (80-100); MPV 9.3 fL (7.6-11.3); Platelets 165 thou/uL (152-406); RBC Red Blood Cell Count 4.16 M/uL (3.86-4.86)
[2023-10-30 18:01] LABS: Urine Bacteria <20 /HPF (<20); Urine Bilirubin NEGATIVE (Negative); Urine Blood Negative (Negative); Urine Clarity Extremely Turbid (Clear); Urine Color Light-Yellow (Yellow); Urine Glucose NEGATIVE (Negative); Urine Mucus Slight /HPF (None Seen); Urine Protein TRACE (Negative); Urine RBC <5 /HPF (None Seen); Urine Urobilinogen 1+ (Normal)
[2023-10-30 18:10] LABS: Albumin 3.6 g/dL (3.4-5.0); Bilirubin Total 0.3 mg/dL (0.2-1.0); Protein, Total 6.8 g/dL (6.4-8.2)
[2023-10-30 18:23] LABS: Potassium 3.8 mEq/L (3.5-5.1)
--- NOTE | 2023-10-30 19:59 | RAD REPORT ---
EXAM DESCRIPTION: CT - Abdomen Pelvis W Contrast - 10/30/2023 7:35 pm CLINICAL HISTORY: Abdominal pain COMPARISON: 2022 TECHNIQUE: Computed axial tomography of the abdomen pelvis was obtained. 100 cc Isovue-300 was admin istered intravenously. Oral contrast was not requested which limits evaluation of bowel and appendix All CT scans are performed using dose optimization technique as appropriate and may include automated exposure control or mA/KV adjustment according to patient size. FINDINGS: The liver, spleen, pancreas, adrenal and kidneys appear unremarkable. There is no evidence of diverticulitis. Large amount stool within the colon. No adnexal mass. Normal appendix IMPRESSION: Large amount stool within the colon.
--- NOTE | 2023-10-30 20:15 | ER ---
Nurse's Notes [facility] Name: Leonela Ramos Age: 32 yrs Sex: Female : 1990 Arrival Date: 10/30/2023 Time: 14:39 Bed 19 Private MD: Diagnosis: UTI/ Urinary tract infection, site not specified Presentation: 10/30 16:01 Chief complaint: Patient states: Right side back and abdominal pain for about 1.5 nj1 weeks, getting worse. Urine smell strong, has only urinated once today. Vomited today, nauseous, able to keep fluids down. Coronavirus screen: Vaccine status: Patient reports being unvaccinated. Ebola Screen: Patient denies travel to an Ebola-affected area in the 21 days before illness onset. Initial Sepsis Screen: Does the patient meet any 2 criteria? No. Patient's initial sepsis screen is negative. Does the patient have a suspected source of infection? No. Patient's initial sepsis screen is negative. Risk Assessment: Do you want to hurt yourself or someone else? Patient reports no desire to harm self or others. Onset of symptoms was October 2023. 16:01 Method Of Arrival: Ambulatory nj1 16:01 Acuity: AMADA 3 nj1 16:05 Note Pt states "This is fucking ridiculous" when asked to go back to waiting room and nj1 informed about the process for treatment. Historical: - Allergies: 16:04 PENICILLINS; nj1 16:04 Tramadol HCl; nj1 - PMHx: 16:04 Lupus erythematosus; POTS; UTI; nj1 - Immunization history:: Client reports having NOT received the Covid vaccine. - Social history:: Smoking status: Reported history of juuling and/or vaping. Screenin:00 [facility] ED Fall Risk Assessment (Adult) History of falling in the last 3 months, db including since admission No falls in past 3 months (0 pts) Confusion or Disorientation No (0 pts) Intoxicated or Sedated No (0 pts) Impaired Gait No (0 pts) Mobility Assist Device Used No (0 pt) Altered Elimination No (0 pt) Score/Fall Risk Level 0 - 2 = Low Risk Oriented to surroundings, Maintained a safe environment. Abuse screen: Denies threats or abuse. Denies injuries from another. Nutritional screening: No deficits noted. Tuberculosis screening: No symptoms or risk factors identified. Assessment: 17:35 Reassessment: Patient appears in no apparent distress at this time. Patient and/or db family updated on plan of care and expected duration. Pain level reassessed. Patient is alert, oriented x 3, equal unlabored respirations, skin warm/dry/pink. General: Appears in no apparent distress. comfortable, Behavior is calm, cooperative. Pain: Complains of pain in back and abdomen. Neuro: Level of Consciousness is awake, alert, obeys commands, Oriented to person, place, time, situation. GI: Abdomen is flat, non-distended, Bowel sounds present X 4 quads. Abd is soft. 19:15 General: Appears uncomfortable, Behavior is cooperative. Pain: Complains of pain in ha1 abdomen Pain radiates to back Pain currently is 8 out of 10 on a pain scale. Quality of pain is described as throbbing, Pain began suddenly, Is intermittent, Alleviated by medications. Neuro: Level of Consciousness is awake, alert, obeys commands, Oriented to person, place, time, situation. Cardiovascular: Capillary refill < 3 seconds Patient's skin is warm and dry. Respiratory: Airway is patent Respiratory effort is even, unlabored, Respiratory pattern is regular, symmetrical. Derm: Skin is pink, warm \\T\\ dry. Musculoskeletal: Circulation, motion, and sensation intact. Range of motion: intact in all extremities. 20:15 Reassessment: Patient and/or family updated on plan of care and expected duration. Pain ha1 level reassessed. Patient is alert, oriented x 3, equal unlabored respirations, skin warm/dry/pink. 20:40 Reassessment: DISCHARGE PENDING ON PROVIDER SEE PT. FOR DISCHARGE. [facility] Vital Signs: 16:01 BP 114 / 84; Pulse 69; Resp 16; Temp 98.7(O); Pulse Ox 100% ; Weight 58.97 kg; Height 5 az1 ft. 4 in. ; Pain 8/10; 17:53 BP 111 / 56; Pulse 57; Resp 18; Pulse Ox 100% on R/A; db 18:30 BP 113 / 81; Pulse 57; Resp 18; Pulse Ox 99% on R/A; db 16:01 Body Mass Index 22.31 (58.97 kg, 162.56 cm) [facility] 16:01 Pain Scale: Adult nj1 ED Course: 14:42 Patient arrived in ED. im 14:45 [facility] sb[facility] 14:45 Terence Amaya MD is Attending Physician. sb4 16:04 Triage completed. nj1 16:04 Arm band placed on right wrist. nj1 16:35 Radiology exam delayed due to IV insertion attempt and/or patient not having nj appropriate IV at this time. 16:35 Radiology exam delayed due to lab results not completed at this time. (BUN/Creatinine) nj test not completed at this time. 17:27 Daniela Martinez, RN is Primary Nurse. db 17:40 Inserted saline lock: 20 gauge in right antecubital area, using aseptic technique. db Blood collected. 18:00 Patient has correct armband on for positive identification. Call light in reach. Side db rails up X 1. Pulse ox on. NIBP on. Warm blanket given. 19:37 CT Abd/Pelvis - IV Contrast Only In Process Unspecified. EDMS 20:15 Roger Lam MD is Referral Physician. sb4 21:00 No provider procedures requiring assistance completed. IV discontinued, intact, ha1 bleeding controlled, No redness/swelling at site. Pressure dressing applied. 21:01 Provided Education on: MEDICATION ADMINISTRATION . ha1 Administered Medications: 17:40 Drug: NS 0.9% IV 1000 ml IV at 1 bolus Per protocol; 1000 mL bolus Route: IV; Rate: 1 db bolus; Site: right antecubital; 17:40 Drug: Ondansetron IVP 4 mg IVP once; over 2 minutes Route: IVP; Site: right antecubital;db 18:02 Drug: Ketorolac IVP 30 mg IVP once Route: IVP; Site: right antecubital; db 19:28 Drug: fentaNYL (PF) IVP 50 mcg IVP once Route: IVP; Site: right antecubital; ha1 20:00 Follow up: Response: No adverse reaction; Pain is decreased; RASS: Alert and Calm (0) ha1 20:32 Drug: Rocephin IV 1 grams IV at calculated rate once; Given slow IV push per pharmacy ha1 instructions Route: IV; Rate: calculated rate; Site: left antecubital; 20:58 Follow up: Response: No adverse reaction ha1 Medication: 21:01 VIS not applicable for this client. ha1 Outcome: 20:15 Discharge ordered by MD. luna 21:00 Discharged to home ambulatory, with family, ha1 21:00 Condition: stable 21:00 Discharge instructions given to patient, family, Instructed on discharge instructions, follow up and referral plans. medication usage, Demonstrated understanding of instructions, follow-up care, medications, Prescriptions given X 1, 21:02 Patient left the ED. 1 Signatures: Dispatcher [employer] EDAR Carlos Grove Heidy, RN RN 1 Daniela Martinez RN RN Andra Montano, PA-C PA-C sb4 Valeria Ho RN RN nj1 Teresa Dietrich Corrections: (The following items were deleted from the chart) 16:04 16:04 PMHx: UTI; [facility] nj1
--- NOTE | 2023-10-30 20:15 | EDPHYS ---
Physician Documentation [facility] Name: Leonela Ramos Age: 32 yrs Sex: Female : 1990 Arrival Date: 10/30/2023 Time: 14:39 Bed 19 Private MD: ED Physician Terence Amaya HPI: 10/30 18:30 This 32 yrs old Female presents to ER via Ambulatory with complaints of Low Back Pain, sb4 Abdominal Pain, Vomiting. 18:30 right low back pain and lower abdominal pain x 2 weeks. also reports foul smelling sb4 urine. reports history of pyelonephritis. denies fever. has been vomiting over the past few days, can no longer keep anything down. urinating less frequently now. states she originally was experiencing dysuria but is not anymore. Historical: - Allergies: 16:04 PENICILLINS; nj1 16:04 Tramadol HCl; nj1 - PMHx: 16:04 Lupus erythematosus; POTS; UTI; nj1 - Immunization history:: Client reports having NOT received the Covid vaccine. - Social history:: Smoking status: Reported history of juuling and/or vaping. ROS: 18:30 Constitutional: Negative for fever, chills, and weight loss, sb4 18:30 Abdomen/GI: Positive for abdominal pain, nausea and vomiting, 18:30 : Positive for injury or acute deformity, urinary symptoms, flank pain, 18:30 All other systems are negative, Exam: 18:30 Constitutional: This is a well developed, well nourished patient who is awake, alert, sb4 and in no acute distress. Head/Face: Normocephalic, atraumatic. Eyes: Extra-ocular motions intact. Periorbital areas with no swelling, redness, or edema. ENT: Mucous membranes moist. Cardiovascular: Regular rate and rhythm with a normal S1 and S2. Respiratory: Lungs have equal breath sounds bilaterally, clear to auscultation and percussion. No rales, rhonchi or wheezes noted. No increased work of breathing, no retractions or nasal flaring. Abdomen/GI: Soft, non-tender, no distension. Skin: Warm, dry with normal turgor. Normal color with no rashes, no lesions, and no evidence of cellulitis. MS/ Extremity: Pulses equal, no cyanosis. Neurovascular intact. Full, normal range of motion. Neuro: Awake and alert, GCS 15, oriented to person, place, time, and situation. Motor strength 5/5 in all extremities. Sensory grossly intact. 18:30 Back: CVA tenderness, that is moderate, is noted on the right, Vital Signs: 16:01 BP 114 / 84; Pulse 69; Resp 16; Temp 98.7(O); Pulse Ox 100% ; Weight 58.97 kg; Height 5 nj1 ft. 4 in. ; Pain 8/10; 17:53 BP 111 / 56; Pulse 57; Resp 18; Pulse Ox 100% on R/A; db 18:30 BP 113 / 81; Pulse 57; Resp 18; Pulse Ox 99% on R/A; db 16:01 Body Mass Index 22.31 (58.97 kg, 162.56 cm) nj1 16:01 Pain Scale: Adult nj1 MDM: 16:06 Patient medically screened. sb4 18:30 Differential diagnosis: UTI, pyelo, nephrolithiasis, ureterolithiasis. sb4 20:14 Data reviewed: vital signs, nurses notes, lab test result(s), radiologic studies, and sb4 as a result, I will discharge patient. Counseling: I had a detailed discussion with the patient and/or guardian regarding the historical points, exam findings, and any diagnostic results supporting the discharge/admit diagnosis, lab results, radiology results, the need for outpatient follow up, a urologist. 10/30 16:06 Order name: CBC with Diff; Complete Time: 17:55 sb4 10/30 16:06 Order name: CMP; Complete Time: 18:24 sb4 10/30 16:06 Order name: Lipase; Complete Time: 18:24 sb4 10/30 16:06 Order name: Test, Urine; Complete Time: 18:07 sb4 10/30 16:06 Order name: Urinalysis w/ reflexes; Complete Time: 18:06 sb4 10/30 18:07 Order name: Urine Culture EDDC 10/30 16:06 Order name: CT Abd/Pelvis - IV Contrast Only; Complete Time: 20:01 sb4 10/30 16:06 Order name: IV Saline Lock; Complete Time: 17:51 sb4 10/30 16:06 Order name: Labs collected and sent; Complete Time: 17:51 sb4 Administered Medications: 17:40 Drug: NS 0.9% IV 1000 ml IV at 1 bolus Per protocol; 1000 mL bolus Route: IV; Rate: 1 db bolus; Site: right antecubital; 17:40 Drug: Ondansetron IVP 4 mg IVP once; over 2 minutes Route: IVP; Site: right antecubital;db 18:02 Drug: Ketorolac IVP 30 mg IVP once Route: IVP; Site: right antecubital; db 19:28 Drug: fentaNYL (PF) IVP 50 mcg IVP once Route: IVP; Site: right antecubital; ha1 20:00 Follow up: Response: No adverse reaction; Pain is decreased; RASS: Alert and Calm (0) ha1 20:32 Drug: Rocephin IV 1 grams IV at calculated rate once; Given slow IV push per pharmacy ha1 instructions Route: IV; Rate: calculated rate; Site: left antecubital; 20:58 Follow up: Response: No adverse reaction ha1 Disposition Summary: 10/30/23 20:15 Discharge Ordered Notes: Location: Home sb4 Problem: new sb4 Symptoms: are unchanged sb4 Condition: Stable sb4 Diagnosis - UTI/ Urinary tract infection, site not specified sb4 Followup: sb4 - With: Roger Lam MD - When: 2 - 3 days - Reason: Further diagnostic work-up, Recheck today's complaints, Re-evaluation by your physician Discharge Instructions: - Discharge Summary Sheet sb4 - Urodynamic Testing sb4 - Urinary Tract Infection, Adult, [id number] sb4 Forms: - Medication Reconciliation Form sb4 - Thank You Letter sb4 - Antibiotic Education sb4 - Prescription Opioid Use sb4 - Patient Portal Instructions sb4 - Leadership Thank You Letter sb4 Prescriptions: - ketorolac 10 mg Oral tablet - take 1 tablet ORAL route every 4 to 6 hours for 3 days as needed for pain; do sb4 not exceed 4 doses per 24 hrs; 15 tablet; Refills: 0, Product Selection Permitted - Zofran 4 mg Oral Tablet - take 1 tablet ORAL route every 12 hours As needed; 20 tablet; Refills: 0, sb4 Product Selection Permitted - Bactrim DS 800-160 mg Oral Tablet - take 1 tablet ORAL route every 12 hours for 10 days; 20 tablet; Refills: 0, sb4 Product Selection Permitted Signatures: Dispatcher [employer] Jeanne Steele RN RN ha1 Daniela Martinez RN RN Andra Montano PA-C PADonna sb4 Valeria Ho RN RN nj1 Corrections: (The following items were deleted from the chart) 16:04 16:04 PMHx: UTI; nj1 nj1
[2023-10-30 21:09] VITALS: TEMP 98.7
[2023-10-30 21:32] VITALS: BP 113/81; O2SAT 99
== END ==
LOC: MERGE 14:39 → ER 14:39
DX: N39.0 Urinary tract infection, site not specified (principal)
CPT/HCPCS: 36415; 74177; 80053; 81001; 81025; 83690; 85025; 87086; 87088; J0696; J2405; J3010; J7030; Q9967

== ENCOUNTER 2024-02-26 16:30 | Emergency (ER) | payer SELFPAY ==
--- OUTSIDE RECORDS SUMMARY | 2024-02-26 16:37 | XMS REPORT | Continuity of Care Document ---
Author Name Unknown Address [address] [facility]. [address] [place] [address] [facility] [address] [facility]. [address] [place] [address] Care Team Providers [facility] Expedition Guide Name Role Phone ADAL CROOKS Primary Care Physician Unavailab CONCEPCIÓN Burton Attending Clinician Unavail able Alex Concepción MANZANO Attending Clinician + ASHLYN RAMOS Attending Clinician UnavailAshlyn Carcamo CNM Attending Clinician JARED HANCOCK Attending Clinician Unavailable Jared Hancock MD Attending Clinician [phone] REMIGIO WALLIS Attending Clinician UnavailRemigio Randle Attending Clinician + [phone] JUAN MANUEL GTZ Attending Clinician Unavailable Juan Manuel Zavala Attending Clinician [phone] Siri Silverio RN Attending Clinician [phone] Markell Fisher Attending Clinician Unavail able Evangelina Collado LVN Attending Clinician RITESH INMAN Attending Clinician Unavailable Shonna Ozunaanne Attending Clinician Tony Hill MD Attending Clinician [phone] Margie Gill MD Attending Clinici an Ritesh Inman MD Attending Clinician [phone] Mireya CASTELLON Attending Clinician Unavailable Mireya Gomez Attending Clinician [phone] Jenaro SLOTTER OPERATOR HELPERTrista Gabriel Attending Clinician [phone] Jose Graves Attending Clinician [phone] Pcp, Patient Does Not Have A Attending Clinician UNKNOWN, ATTENDING Attending Clinician Unavailab ROZINA Redding Attending Clinician Unavaila traci farris Attending Clinician Unavailable CONCEPCIÓN JOHNSON Admitting Clinician Unavail able JARED HANCOCK Admitting Clinician Unavailable REMIGIO WALLIS Admitting Clinician Unavaila Margie Corona MD Admitting Clinici an MARGIE GILL Admitting Clinician Unavailable kaleigh Admitting Clinician Unavailable Payers Payer Name Policy Type Policy Number Effective Date Expirati on Date Source [employer] [place] [employer] [id number] 2023 00:00:00 Problems Condition Name Condition Details Condition Category Status Onset Date Resolution Date Last Treatment Date Treating Clinician Comments Source Menorrhagi a with irregular cycle Menorrhagi a with irregular cycle Disease Active 01-16 00:00: 00 [facility] Dysmenorrh ea Dysmenorrh ea Disease Active 01-16 00:00: 00 [facility] Well woman exam Well woman exam Disease Active - 00:00: 00 [facility] Bradycardi a Bradycardi a Disease Active - 00:00: 00 [facility] Hypotensio n Hypotensio n Disease Active 00:00: 00 [facility] Hypothyroi dism Hypothyroi dism Disease Active 9-11 00:00: 00 [facility] Elevated brain natriureti c peptide (BNP) level Elevated brain natriureti c peptide (BNP) level Disease Active 9- 00:00: 00 [facility] Cigarette smoker Cigarette smoker Disease Active - 00:00: 00 [facility] Elevated brain natriureti c peptide (BNP) level Elevated brain natriureti c peptide (BNP) level Disease Active 05-29 00:00: 00 [facility] Syncope, unspecifie d syncope type Syncope, unspecifie d syncope type Disease Active 05-28 00:00: 00 [facility] No known active problems No known active problems Disease [facility] Allergies, Adverse Reactions, Alerts Allergy Name Allergy Type Status Severity Reaction(s) Onset Date Inactive Date Treating Clinician Comments Source PHENAZOP YRIDINE DRUG INGREDI Active N/V 4-16 00:00: 00 [facility] Phenazop yridine Propensi ty to adverse reaction s Active Nausea and/or Vomiting -16 00:00: 00 [facility] DEXTROAM PHETAMIN E-AMPHET AMINE DRUG Active Dizziness - 00:00: 00 [facility] Dextroam phetamin e-Amphet amine Propensi ty to adverse reaction s Active Dizziness - 00:00: 00 [facility] TRAMADOL DRUG INGREDI Active Rash -22 00:00: 00 [facility] Tramadol Propensi ty to adverse reaction s Active Rash - 00:00: 00 [facility] NO KNOWN ALLERGIE S Drug Class Active [facility] Social History Social Habit Start Date Stop Date Quantity Comments Source History of tobacco use Passive smoker [facility] ASSERTION [facility]coholic beverage intake 2024-02-05 00:00:00 2024-02-05 00:00:00 Current drinker of alcohol (finding) [facility] Alcohol intake 2024-01-17 00:00:00 2024-01-17 00:00:00 Current drinker of alcohol (finding) [facility] Tobacco use and exposure 2024-01-12 00:00:00 2024-01-12 00:00:00 Smokeless tobacco non-user [facility] History of Social function 2024-01-12 00:00:00 2024-01-12 00:00:00 [facility] Alcohol Comment 2024-01-12 00:00:00 2024-01-12 00:00:00 Socially [facility] Exposure to SARS-CoV-2 (event) 2022-12-22 00:00:00 2023-01-01 21:11:00 Not sure [facility] Cigarettes smoked current (pack per day) - Reported 2022-05-31 00:00:00 2022-05-31 00:00:00 [facility] Sex assigned at 1990 00:00:00 1990 00:00:00 [facility] Smoking Status Start Date Stop Date Source Never smoked tobacco [facility] Smokes tobacco daily 2022-05-31 00:00:00 [facility] Medications Ordered Medication Name Filled Medication Name Start Date Stop Date Current Medication? Ordering Clinician Indication Dosage Frequency Signature (SIG) Comments Components Source medroxyPROG ESTERone (DEPO-PROVE RA) syringe 150 mg 01-16 12:30: 00 03-12 12:29 :00 Yes [id number] 150mg 150 mg, Intramuscu lar, [id number], 5 doses, First dose on Mon01/17/24 at 0730, Last dose on Mon12/18/24 at 0730, Routine [facility] ciprofloxac in HCl (CIPRO) tablet 500 mg 01-02 06:00: 00 01-02 04:58 :00 No 500mg 500 mg, Oral, ONCE, 1 dose, On 01/02/23 at 0100, CONSTANTIN
Re ason for Anti-Infec tive: Documented Infection< br>Documen michael Infection Site: Urine
D uration of Therapy: Other (see Comments) [facility] morpHINE (4 mg/mL) injection 4 mg 01-02 04:30: 00 01-02 04:15 :00 No 4mg 4 mg, Slow IV Push, ONCE, 1 dose, On [place] 01/01/23 at 2330, STAT [facility] NaCl 0.9% (NS) bolus infusion 500 mL 01-02 04:29: 00 01-02 05:06 :00 No 500mL at 999 mL/hr, 500 mL, IV Piggyback, ONCE, 1 dose, On [place] 01/01/23 at 2330, STAT [facility] ondansetron (ZOFRAN (PF)) injection 4 mg 01-02 03:45: 00 01-02 03:34 :00 No 4mg 4 mg, Slow IV Push, ONCE, 1 dose, On [place] 01/01/23 at 2245, CONSTANTIN [facility] ketorolac (TORADOL) injection 30 mg 01-02 03:30: 00 01-02 03:34 :00 No 30mg 30 mg, Slow IV Push, ONCE, 1 dose, On [place] 01/01/23 at 2245, Routine [facility] ciprofloxac in HCl 500 mg tablet 01-01 00:00: 00 01-11 00:00 :00 No [id number] 500mg Take 1 tablet by mouth in the morning and 1 tablet in the evening. [facility] ondansetron (ZOFRAN (PF)) injection 4 mg 12-29 08:30: 00 12-29 08:19 :00 No 4mg 4 mg, Slow IV Push, ONCE, 1 dose, On [place] 12/29/22 at 0330, CONSTANTIN [facility] FENTanyl PF (SUBLIMAZE (PF)) injection 50 mcg 12-29 08:15: 00 12-29 08:19 :00 No 50ug 50 mcg, Slow IV Push, ONCE, 1 dose, On [place] 12/29/22 at 0315, STAT [facility] HYDROcodone -acetaminop hen (NORCO 5) 5-325 mg tablet 1 tablet 12-29 08:15: 00 12-29 07:32 :00 No 1{tbl} 1 tablet, Oral, ONCE, 1 dose, On [place] 12/29/22 at 0315, CONSTANTIN [facility] iopamidol (ISOVUE 370-500 mL) injection 75 mL 12-29 08:15: 00 12-29 08:15 :00 No [id number] 75mL 75 mL, Intravenou s, ONCE, 1 dose, On [place] 12/29/22 at 0315, Routine [facility] ketorolac (TORADOL) injection 15 mg 12-29 07:30: 00 12-29 06:50 :00 No 15mg 15 mg, Slow IV Push, ONCE, 1 dose, On [place] 12/29/22 at 0230, Routine [facility] cefTRIAXone (ROCEPHIN) 1,000 mg in NaCl 0.9% (NS) 100 mL MINI-BAG 12-29 07:15: 00 12-29 08:23 :00 No 1000mg 1,000 mg, IV Piggyback, ONCE, 1 dose, On [place] 12/29/22 at 0215, Administer over 30 Minutes, 100 mL
Reas on for Anti-Infec tive: Documented Infection< br>Documen michael Infection Site: Urine
D uration of Therapy: Other (see Comments) [facility] phenazopyri dine 200 mg tablet 12-29 00:00: 00 01-11 00:00 :00 No [id number] 200mg Take 1 tablet by mouth in the morning and 1 tablet at noon and 1 tablet in the evening. [facility] cefpodoxime 100 mg tablet 12-29 00:00: 00 01-06 04:59 :00 No [id number] 100mg Take 1 tablet by mouth in the morning and 1 tablet in the evening. Do all this for 7 days. [facility] HYDROcodone -acetaminop hen (NORCO 5) 5-325 mg tablet 1 tablet 2021-09 15:15: 00 07-24 15:14 :00 No 1{tbl} 1 tablet, Oral, ONCE, 1 dose, On 07/24/22 at 0915, [facility] ketorolac (TORADOL) injection 60 mg 2021-09 15:15: 00 07-24 15:16 :00 No 60mg 60 mg, Intramuscu lar, ONCE, 1 dose, On 07/24/22 at 0915, [facility] levothyroxi ne 100 mcg tablet 06-04 00:00: 00 01-11 00:00 :00 No [id number] 100ug Take 1 tablet by mouth every morning. [facility] amphetamine -dextroamph etamine (ADDERALL XR) 25 mg 24 hr capsule 06-03 11:43: 45 01-11 00:00 :00 No 25mg Take 25 mg by mouth every morning. [facility] ketorolac (TORADOL) injection 30 mg 06-03 03:45: 00 06-03 02:55 :00 No 30mg 30 mg, Slow IV Push, ONCE, 1 dose, On [place] 06/02/22 at 2245, Routine [facility] NaCl 0.9% (NS) bolus infusion 1,000 mL 06-02 21:00: 00 06-02 21:30 :36 No 1000mL at 250 mL/hr, 1,000 mL, IV Piggyback, ONCE, 1 dose, On [place] 06/02/22 at 1600, [facility] ketorolac (TORADOL) injection 30 mg 06-02 18:45: 00 06-02 18:02 :00 No 30mg 30 mg, Slow IV Push, ONCE, 1 dose, On [place] 06/02/22 at 1345, Routine [facility] pantoprazol e (PROTONIX) EC tablet 40 mg 06-02 17:30: 00 Yes 40mg 40 mg, Oral, DAILY, First dose on Mon06/02/22 at 1230, Until Discontinu ed, [facility] gadobenate dimeglumine (MULTIHANCE -20 mL) injection 11.3 mL 06-02 16:00: 00 06-02 15:36 :00 No [id number] .2mL/kg 11.3 mL (0.2 mL/kg ?56.5 kg), Intravenou s, ONCE, 1 dose, On Mon06/02/22 at 1100, Routine [facility] acetaminoph en-codeine (TYLENOL #3) 300-30 mg tablet 1 tablet 06-02 12:30: 26 Yes 1{tbl} 1 tablet, Oral, Q4HPRN, Starting on Mon06/02/22 at 0730, Until Discontinu ed, Routine, Pain (scale 4-6) [facility] HYDROcodone -acetaminop hen (NORCO 5) 5-325 mg tablet 1 tablet 06-02 12:30: 16 Yes 1{tbl} 1 tablet, Oral, Q4HPRN, Starting on Mon06/02/22 at 0730, Until Discontinu ed, Routine, Pain (scale 7-10) [facility] sennosides- docusate sodium (SENOKOT-S) 8.6-50 mg per tablet 1 tablet 06-02 02:00: 00 Yes 1{tbl} 1 tablet, Oral, DAILY, First dose on Mon06/01/22 at 2100, Until Discontinu ed, Routine [facility] ketorolac (TORADOL) injection 30 mg 06-01 20:45: 00 06-01 20:48 :00 No 30mg 30 mg, Slow IV Push, ONCE, 1 dose, On Mon06/01/22 at 1545, Routine [facility] lactated ringers IV infusion 1,000 mL 06-01 18:00: 00 06-01 18:00 :00 No 1000mL at 999 mL/hr, 1,000 mL, Intravenou s, ONCE, 1 dose, On Mon06/01/22 at 1300, Routine [facility] polyethylen e glycol 3350 powder 17 g 06-01 14:00: 00 06-02 01:50 :52 No 17g 17 g, Oral, DAILY, First dose on Mon06/01/22 at 0900, Until Discontinu ed, Routine [facility] magnesium sulfate in water 4 gram/50 mL (8 %) IV Piggyback 4 g 06-01 13:30: 00 06-01 14:00 :00 No 4g 4 g, IV Piggyback, ONCE, 1 dose, On Mon06/01/22 at 0830, Routine [facility] KCL (KLOR-CON M20) tablet 40 mEq 06-01 13:30: 00 06-01 13:19 :00 No 40meq 40 mEq, Oral, ONCE, 1 dose, On Mon06/01/22 at 0830, [facility]ine [facility] cyclobenzap rine (FLEXERIL) tablet 10 mg 05-31 19:00: 00 Yes 10mg 10 mg, Oral, TID, First dose (after last modificati on) on Mon05/31/22 at 1400, Until Discontinu ed, Routine [facility] levothyroxi ne (SYNTHROID) tablet 100 mcg 05-31 11:00: 00 Yes 100ug 100 mcg, Oral, QAM-0600, First dose (after last modificati on) on Mon05/31/22 at 0600, Until Discontinu ed, Routine [facility] cyclobenzap rine (FLEXERIL) tablet 5 mg 05-30 16:45: 00 05-31 17:51 :10 No 5mg 5 mg, Oral, TID, First dose on Mon05/30/22 at 1145, Until Discontinu ed, Routine [facility] DOPamine 800 mg/500 mL (1,600 mcg/mL) infusion [...] intravenou s vasopresso r at a time.
[facility] lidocaine 1% (PF) (XYLOCAINE) injection 5 mL 05-30 16:30: 00 05-30 17:45 :00 No 5mL 5 mL, Subcutaneo us, ONCE, 1 dose, On Mon05/30/22 at 1130, Routine [facility] NaCl 0.9% (NS) injection 10 mL 05-30 16:20: 14 Yes 10mL 10 mL, Slow IV Push, PRN, Starting on Mon05/30/22 at 1120, Until Discontinu ed, Routine, line maintenanc e [facility] morpHINE (2 mg/mL) injection 2 mg 05-30 14:49: 56 06-02 12:30 :42 No 2mg 2 mg, Slow IV Push, Q6HPRN, Starting on Mon05/30/22 at 0949, Until [place] 06/02/22 at 0730, Routine, Pain (scale 7-10) [facility] HYDROcodone -acetaminop hen (NORCO 5) 5-325 mg tablet 1 tablet 05-30 14:49: 30 06-02 12:30 :42 No 1{tbl} 1 tablet, Oral, Q4HPRN, Starting on Mon05/30/22 at 0949, Until [place] 06/02/22 at 0730, Routine, Pain (scale 4-6) [facility] cholecalcif lorenzo (vitamin D3) tablet 2,000 Units 05-30 14:00: 00 Yes 2000U 2,000 Units, Oral, DAILY, First dose (after last modificati on) on Mon05/30/22 at 0900, Until Discontinu ed, Routine [facility] thiamine (VITAMIN B1) tablet 100 mg 05-30 14:00: 00 Yes 100mg 100 mg, Oral, DAILY, First dose on Mon05/30/22 at 0900, Until Discontinu ed, Routine [facility] levothyroxi ne (SYNTHROID) injection 100 mcg 05-30 13:45: 00 05-30 13:52 :00 No 100ug 100 mcg, Intravenou s, ONCE, 1 dose, On Mon05/30/22 at 0845, Routine [facility] levothyroxi ne (SYNTHROID) tablet 50 mcg 05-30 11:00: 00 05-30 16:20 :48 No 50ug 50 mcg, Oral, QAM-0600, First dose (after last modificati on) on Mon05/30/22 at 0600, Until Discontinu ed, Routine [facility] morpHINE (2 mg/mL) injection 2 mg 05-30 09:14: 26 05-30 09:27 :00 No 2mg 2 mg, Slow IV Push, PRN, 1 dose, Starting on Mon05/30/22 at 0414, Until Mon05/30/22 at 0427, Routine, headache [facility] DOPamine 800 mg/500 mL (1,600 mcg/mL) infusion [...] intravenou s vasopresso r at a time.
[facility] ibuprofen (IBU) tablet 600 mg 05-30 02:52: 32 05-30 15:41 :06 No 600mg 600 mg, Oral, TIDPRN, Starting on Mon05/29/22 at 2152, Until Mon05/30/22 at 1041, Routine, Pain (scale 1-3) [facility] DOPamine 800 mg/500 mL (1,600 mcg/mL) infusion [...] intravenou s vasopresso r at a time.
[facility] hydrocortis one sod succ (CORTEF) injection 50 mg 05-29 22:00: 00 05-30 09:27 :00 No 50mg 50 mg, Intravenou s, Q6H, 3 doses, First dose on Mon05/29/22 at 1700, Last dose on Mon05/30/22 at 0000, 2 mL [facility] proCHLORper azine (COMPAZINE) injection 10 mg 05-29 21:28: 31 Yes 10mg 10 mg, Slow IV Push, Q6HPRN, Starting on Mon05/29/22 at 1628, Until Discontinu ed, Routine, Nausea and Vomiting (N/V), alternate with ondansetro n [facility] levothyroxi ne (SYNTHROID) injection 50 mcg 05-29 17:15: 00 05-29 17:53 :00 No 50ug 50 mcg, Intravenou s, ONCE, 1 dose, On Mon05/29/22 at 1215, Routine [facility] clonazePAM (KLONOPIN) tablet 2 mg 05-29 16:15: 00 Yes 2mg 2 mg, Oral, BID, First dose (after last modificati on) on Mon05/29/22 at 1115, Until Discontinu ed, Routine [facility] cosyntropin (CORTROSYN) injection 250 mcg 05-29 15:45: 00 05-29 16:40 :00 No 250ug 250 mcg, Slow IV Push, ONCE, 1 dose, On Mon05/29/22 at 1045, Routine [facility] enoxaparin (LOVENOX) injection 30 mg 05-29 14:00: 00 Yes 30mg 30 mg, Subcutaneo us, DAILY, First dose on Mon05/29/22 at 0900, Until Discontinu ed, Routine [facility] DOPamine 800 mg/500 mL (1,600 mcg/mL) infusion RTU 05-29 12:00: 00 05-30 01:40 :01 No 5ug/kg/ min 5 mcg/kg/min ?55.5 kg (10.4063 mL/hr, rounded to 10.41 mL/hr), IV Infusion, CONTINUOUS , Starting on Mon05/29/22 at 0700 [facility] levothyroxi ne (SYNTHROID) tablet 25 mcg 05-29 11:00: 00 05-29 11:19 :00 No 25ug 25 mcg, Oral, QAM-0600, 1 dose, First dose on 05/29/22 at 0600, Routine [facility] atropine injection 0.5 mg 05-29 06:00: 00 05-29 05:02 :00 No .5mg 0.5 mg, IV Push, ONCE, 1 dose, On 05/29/22 at 0100, Routine [facility] ondansetron (ZOFRAN (PF)) injection 4 mg 05-29 05:41: 54 Yes 4mg 4 mg, Slow IV Push, Q6HPRN, Starting on 05/29/22 at 0041, Until Discontinu ed, Routine, Nausea and Vomiting (N/V) [facility] butalbital- acetaminoph en-caff (ESGIC) 50-325-40 mg tablet 1 tablet 05-29 01:18: 20 05-30 16:35 :31 No 1{tbl} 1 tablet, Oral, Q4HPRN, Starting on 05/28/22 at 2018, Until 05/30/22 at 1135, Routine, headache [facility] clonazePAM (KLONOPIN) tablet 1 mg 05-28 20:45: 00 05-29 05:01 :41 No 1mg 1 mg, Oral, BID, First dose on 05/28/22 at 1545, Until Discontinu ed, Routine [facility] acetaminoph en (TYLENOL) tablet 650 mg 05-28 18:51: 25 Yes 650mg 650 mg, Oral, Q6HPRN, Starting on 05/28/22 at 1351, Until Discontinu ed, Routine, Pain (scale 1-3) [facility] ketorolac (TORADOL) injection 15 mg 05-28 18:50: 26 05-30 15:41 :06 No 15mg 15 mg, Slow IV Push, Q6HPRN, Starting on 05/28/22 at 1350, Until 05/30/22 at 1041, Routine, Pain (scale 4-6) [facility] iopamidol (ISOVUE 370-500 mL) injection 70 mL 05-28 18:15: 00 05-28 18:15 :00 No [id number] 70mL 70 mL, Intravenou s, ONCE, 1 dose, On 05/28/22 at 1315, Routine [facility] NaCl 0.9% (NS) bolus infusion 1,000 mL 05-28 16:00: 00 05-28 16:36 :00 No 1000mL at 999 mL/hr, 1,000 mL, IV Infusion, ONCE, 1 dose, On 05/28/22 at 1100, CONSTANTIN [facility] acetaminoph en (TYLENOL) tablet 1,000 mg 05-28 16:00: 00 05-28 15:50 :00 No 1000mg 1,000 mg, Oral, ONCE, 1 dose, [facility] 05/28/22 at 1100[facility] 15:31: 37 05-28 00:00 :00 No Take by mouth. [facility] NaCl 0.9% (NS) bolus infusion 1,000 mL 05-28 14:45: 00 05-28 15:05 :00 No 1000mL at 999 mL/hr, 1,000 mL, IV Infusion, ONCE, 1 dose, On 05/28/22 at 0945, CONSTANTIN [facility] ondansetron (ZOFRAN (PF)) injection 4 mg 05-28 14:45: 00 05-28 14:35 :00 No 4mg 4 mg, Slow IV Push, ONCE, 1 dose, On 05/28/22 at 0945, CONSTANTIN [facility] NaCl 0.9% (NS) bolus infusion 1,000 mL 05-28 14:30: 00 2022- 09-10 15:05 :00 No 1000mL at 999 mL/hr, 1,000 mL, IV Infusion, ONCE, 1 dose, On 05/28/22 at 0930, CONSTANTIN [facility] ondansetron (ZOFRAN ODT) 4 mg disintegrat ing tablet 10-10 00:00: 00 05-28 00:00 :00 No [id number] 4mg Take 1 tablet by mouth every 8 (eight) hours as needed for Nausea and Vomiting (N/V). [facility] cephALEXin (KEFLEX) 500 mg capsule 10-10 00:00: 00 10-21 05:59 :00 No [id number] 500mg Take 1 capsule by mouth 3 (three) times daily for 10 days. [facility] metroNIDAZO LE (FLAGYL) 500 mg tablet 05-13 00:00: 00 05-21 04:59 :00 No [id number] 500mg Take 1 tablet by mouth 2 (two) times daily for 7 days. [facility] metroNIDAZO LE 500 mg tablet 05-10 00:00: 00 05-18 04:59 :00 No [id number] 500mg Take 1 tablet by mouth 2 (two) times daily for 7 days. [facility] ALPRAZOLAM ORAL 05-08 23:35: 02 Yes Take by mouth. [facility] ALPRAZOLAM ORAL 05-08 18:35: 02 Yes Take by mouth. [facility] valACYclovi r 1 gram tablet 05-08 00:00: 00 05-16 04:59 :00 No [id number] 1g Take 1 tablet by mouth 3 (three) times daily for 7 days. [facility] clonazePAM 2 mg tablet 04-26 00:00: 00 Yes 2mg Take 1 tablet by mouth in the morning and 1 tablet in the evening. [facility] ALPRAZOLAM ORAL 01-30 16:08: 13 Yes Take by mouth. [facility] amoxicillin 875 mg tablet 01-30 00:00: 00 05-28 00:00 :00 No 875mg Take 1 tablet by mouth 2 (two) times daily. [facility] traMADOL 50 mg tablet 01-30 00:00: 00 05-28 00:00 :00 No 50mg Take 1 tablet by mouth every 6 (six) hours as needed for Pain (scale 4-6). [facility] Vital Signs Vital Name Observation Time Observation Value Comments S david Systolic blood pressure 2024-01-17 12:15:00 136 mm[Hg] [facility] Diastolic blood pressure 2024-01-17 12:15:00 73 mm[Hg] [facility] Heart rate 2024-01-17 12:15:00 79 /min [facility] Body temperature 2024-01-17 12:15:00 36.72 Arlene [facility] Respiratory rate 2024-01-17 12:15:00 18 /min [facility] Body height 2024-01-17 12:15:00 162.6 cm [facility] Body weight 2024-01-17 12:15:00 62.398 kg [facility] BMI 2024-01-17 12:15:00 23.61 kg/m2 [facility] Systolic blood pressure 2024-01-12 14:22:00 122 mm[Hg] [facility] Diastolic blood pressure 2024-01-12 14:22:00 79 mm[Hg] [facility] Heart rate 2024-01-12 14:22:00 76 /min [facility] Body temperature 2024-01-12 14:22:00 36.72 Arlene [facility] Respiratory rate 2024-01-12 14:22:00 18 /min [facility] Body height 2024-01-12 14:22:00 162.6 cm [facility] Body weight 2024-01-12 14:22:00 63.231 kg [facility] BMI 2024-01-12 14:22:00 23.93 kg/m2 [facility] Systolic blood pressure 2023-01-02 05:00:00 93 mm[Hg] [facility] Diastolic blood pressure 2023-01-02 05:00:00 64 mm[Hg] [facility] Heart rate 2023-01-02 05:00:00 50 /min [facility] Body temperature 2023-01-02 05:00:00 36.22 Arlene [facility] Oxygen saturation in Arterial blood by Pulse oximetry 2023-01-02 05:00:00 98 /min [facility] Respiratory rate 2023-01-02 03:00:00 19 /min [facility] Body height 2023-01-02 02:00:00 162.6 cm [facility] Body weight 2023-01-02 02:00:00 63.504 kg [facility] BMI 2023-01-02 02:00:00 24.03 kg/m2 [facility] Systolic blood pressure 2022-12-29 08:00:00 118 mm[Hg] [facility] Diastolic blood pressure 2022-12-29 08:00:00 68 mm[Hg] [facility] Heart rate 2022-12-29 08:00:00 53 /min [facility] Respiratory rate 2022-12-29 08:00:00 16 /min [facility] Oxygen saturation in Arterial blood by Pulse oximetry 2022-12-29 08:00:00 100 /min [facility] Body temperature 2022-12-29 06:43:00 36.61 Arlene [facility] Body height 2022-12-29 06:43:00 162.6 cm [facility] Body weight 2022-12-29 06:43:00 58.968 kg [facility] BMI 2022-12-29 06:43:00 22.31 kg/m2 [facility] Systolic blood pressure 2022-07-24 14:19:00 117 mm[Hg] [facility] Diastolic blood pressure 2022-07-24 14:19:00 85 mm[Hg] [facility] Heart rate 2022-07-24 14:19:00 89 /min [facility] Body temperature 2022-07-24 14:19:00 36.28 Arlene [facility] Respiratory rate 2022-07-24 14:19:00 16 /min [facility] Body height 2022-07-24 14:19:00 162.6 cm [facility] Body weight 2022-07-24 14:19:00 58.968 kg [facility] BMI 2022-07-24 14:19:00 22.31 kg/m2 [facility] Systolic blood pressure 2022-06-03 13:23:00 98 mm[Hg] [facility] Diastolic blood pressure 2022-06-03 13:23:00 65 mm[Hg] [facility] Heart rate 2022-06-03 13:23:00 107 /min [facility] Body temperature 2022-06-03 13:19:00 36.44 Arlene [facility] Respiratory rate 2022-06-03 13:19:00 18 /min [facility] Oxygen saturation in Arterial blood by Pulse oximetry 2022-06-03 13:19:00 97 /min [facility] Body weight 2022-06-03 09:36:00 58.469 kg bed scale was used, pt refused to stand on the regular scale [facility] 2022-06-03 09:36:00 22.13 kg/m2 [facility] Body height 2022-06-01 01:00:00 162.6 cm [facility] Systolic blood pressure 2021-10-10 05:10:00 121 mm[Hg] [facility] Diastolic blood pressure 2021-10-10 05:10:00 90 mm[Hg] [facility] Heart rate 2021-10-10 05:10:00 74 /min [facility] Body temperature 2021-10-10 05:10:00 36.56 Arlene [facility] Respiratory rate 2021-10-10 05:10:00 19 /min [facility] Body height 2021-10-10 05:10:00 162.6 cm [facility] Body weight 2021-10-10 05:10:00 56.7 kg [facility] BMI 2021-10-10 05:10:00 21.46 kg/m2 [facility] Oxygen saturation in Arterial blood by Pulse oximetry 2021-10-10 05:10:00 100 /min [facility] Procedures Procedure Date / Time Performed Performing Clinician Source POCT TEST 2024-01-17 12:15:00 Ashlyn Ramos [facility] US OVARY TORSION 2023-01-02 04:11:07 Jared Hancock [facility] POCT TEST 2023-01-02 02:50:00 Jared Hancock [facility] COMP. METABOLIC PANEL ([id number]) 2023-01-02 02:44:00 Jared Hancock [facility] CBC WITH DIFF 2023-01-02 02:44:00 Jared Hancock [facility] URINALYSIS 2023-01-02 02:44:00 [facility] 2023-01-02 01:58:59 Doctor Unassigned, [place] [facility] CONSENT/REFUSAL FOR DIAGNOSIS AND TREATMENT 2023-01-02 01:58:33 Doctor Unassigned, [place] [facility] BASIC METABOLIC PANEL (NA, K, CL, CO2, GLUCOSE, BUN, CREATININE, CA) 2022-12-29 06:49:00 [facility] CBC WITH DIFF 2022-12-29 06:49:00 [facility] URINALYSIS 2022-12-29 06:47:00 [facility] POCT TEST 2022-12-29 06:47:00 [facility] NOTICE OF PRIVACY PRACTICES 2022-12-29 06:39:53 Doctor Unassigned, [place] [facility] CONSENT/REFUSAL FOR DIAGNOSIS AND TREATMENT 2022-12-29 06:37:56 Doctor Unassigned, [place] [facility] CONSENT/REFUSAL FOR DIAGNOSIS AND TREATMENT 2022-07-24 14:13:56 Doctor Unassigned, [place] [facility] MAGNESIUM 2022-06-03 09:34:00 Balaji Krueger [facility] BASIC METABOLIC PANEL (NA, K, CL, CO2, GLUCOSE, BUN, CREATININE, CA) 2022-06-03 09:34:00 Balaji Krueger [facility] CBC WITH DIFF 2022-06-03 09:34:00 Balaji Krueger [facility] MR CARDIAC MORPHOLOGY W WO CONTRAST 2022-06-02 15:45:00 Malik [facility] MAGNESIUM 2022-06-02 10:03:00 Malik [facility] HEPATIC FUNCTION PANEL ([id number]) (ALB,T.PRO,BILI T,BU/BC,ALT,AST,ALK PHOS) 2022-06-02 10:03:00 Richie [facility] BASIC METABOLIC PANEL (NA, K, CL, CO2, GLUCOSE, BUN, CREATININE, CA) 2022-06-02 10:03:00 Malik [facility] CBC WITH DIFF 2022-06-02 10:03:00 Malik [facility] PROTHROMBIN TIME / INR 2022-06-02 10:03:00 Richie [facility] HEPATITIS B SURFACE ANTIBODY 2022-06-02 10:03:00 Richie [facility] HCV ANTIBODY 2022-06-02 10:03:00 Richie [facility] HBC ANTIBODY (IGM & IGG) 2022-06-02 10:03:00 Richie [facility] GC & CHLAMYDIA AMPLIFIED ASSAY 2022-06-01 17:08:00 Richie [facility] ANTICARDIOLIPIN ANTIBODIES 2022-06-01 15:17:00 Richie [facility] THYROID PEROXIDASE (TPO) AB 2022-06-01 15:17:00 Richie [facility] CYCLIC CITRULLINATED PEPTIDE 2022-06-01 15:17[facility] ANTI-B2 GLYCOPROTEIN I AB 2022-06-01 15:17:00 [facility] BASIC METABOLIC PANEL (NA, K, CL, CO2, GLUCOSE, BUN, CREATININE, CA) 2022-06-01 00:45:00 Amina [facility] CBC WITH DIFF 2022-06-01 00:45:00 Amina [facility] PROTHROMBIN TIME / INR 2022-06-01 00:45:00 Amina [facility] ACTIVATED PARTIAL THRMPLAS RAJ 2022-06-01 00:45:00 Jean Huynh [facility] HEPATITIS B SURFACE ANTIGEN 2022-06-01 00:45:00 Darshan Gan [facility] LACTIC ACID WHOLE BLOOD 2022-06-01 00:45:00 Jean Huynh [facility] LYME, LATE DISEASE (ABS, JESS W/REFLEX TO WB) 2022-06-01 00:45:00 Abhi Moseley [facility] MAGNESIUM 2022-05-31 08:24:00 Barrett [facility] BASIC METABOLIC PANEL (NA, K, CL, CO2, GLUCOSE, BUN, CREATININE, CA) 2022-05-31 08:24:00 Tony Hill [facility] HIV 1/2 AG-AB WITH REFLEX 2022-05-31 08:24:00 Abhi Moseley [facility] XR CHEST 1 VW 2022-05-30 18:12:00 Liz [facility] URINALYSIS 2022-05-30 18:08:00 Liz Tony [facility] URINE CULTURE 2022-05-30 18:08:00 Liz [facility] PROTEIN CREAT RATIO URINE RANDOM 2022-05-30 18:08:00 Liz Tony [facility] CREATINE KINASE 2022-05-30 17:56:00 Liz Tony [facility] BASIC METABOLIC PANEL (NA, K, CL, CO2, GLUCOSE, BUN, CREATININE, CA) 2022-05-30 17:56:00 Tony Hill [facility] CT HEAD WO CONTRAST 2022-05-30 11:06:02 Barrett [facility] FREE T4 2022-05-30 06:11:00 Liz Tony [facility] CBC WITH DIFF 2022-05-30 06:11:00 Liz Tony [facility] HB ECG ROUTINE & RHYTHM STRIP 2022-05-30 05:23:39 Barrett [facility] RHEUMATOID FACTOR 2022-05-29 22:41:00 [facility] 2022-05-29 22:41:00 Tony Hill [facility] SEDIMENTATION RATE 2022-05-29 22:41:00 Tony Hill [facility] PROTHROMBIN TIME / INR 2022-05-29 22:41:00 Tony Hill [facility] ACTIVATED PARTIAL THRMPLAS RAJ 2022-05-29 22:41:00 Tony Hill [facility] ANTI-NUCLEAR ANTIBODY SCREEN 2022-05-29 22:41:00 Tony Hill [facility] ANTI-NUCLEAR ANTIBODY TITER 2022-05-29 22:41:00 Tony Hill [facility] ANTI-SSB(LA) 2022-05-29 22:41:00 Abhi Moseley [facility] ANTI-DOUBLE STRANDED DNA 2022-05-29 22:41:00 Liz [facility] GALV ONLY - SYPHILIS IGG/IGM 2022-05-29 22:41:00 Darshan Gan [facility] ANTI-NUCLEAR ANTIBODY-PATHOLOGIST INTERPRETATION 2022-05-29 22:41:00 Tnoy Hill [facility] CORTISOL STIMULATION 60 MIN 2022-05-29 17:46:00 Liz [facility] CORTISOL STIMULATION 30 MIN 2022-05-29 17:16:00 Liz [facility] ADRENOCORTICOTROPIC HORMONE 2022-05-29 16:30:00 Liz Tony [facility] C-REACTIVE PROTEIN 2022-05-29 16:30:00 Liz Tony [facility] CORTISOL STIMULATION 0 MIN 2022-05-29 16:30:00 Liz Tony [facility] XR CHEST 1 VW 2022-05-29 14:46:47 Anthony Fischer [facility] TRANSTHORACIC ECHO (TTE) COMPLETE 2022-05-29 13:59:00 Tony Hill [facility] HB ECG ROUTINE & RHYTHM STRIP 2022-05-29 12:47:45 Tony Hill [facility] PHOSPHORUS 2022-05-29 09:48:00 Tony Hill [facility] MAGNESIUM 2022-05-29 09:48:00 Liz Tony [facility] CORTISOL AM 2022-05-29 09:48:00 Aria Hyde [facility] TROPONIN I 2022-05-29 09:48:00 Tony Hill [facility] HEPATIC FUNCTION PANEL ([id number]) (ALB,T.PRO,BILI T,BU/BC,ALT,AST,ALK PHOS) 2022-05-29 09:48:00 [facility]OLIC PANEL (NA, K, CL, CO2, GLUCOSE, BUN, CREATININE, CA) 2022-05-29 09:48:00 Liz [facility] CBC WITH DIFF 2022-05-29 09:48:00 Liz [facility] LACTIC ACID WHOLE BLOOD 2022-05-28 19:46:00 Liz [facility] HB ECG ROUTINE & RHYTHM STRIP 2022-05-28 19:30:05 Liz [facility] MRSA / MSSA SCREEN BY PCR, MELISSA 2022-05-28 18:47:00 Liz [facility] CT CHEST PULMONARY ANGIOGRAM 2022-05-28 17:17:12 [facility]ID [facility] 2022-05-28 16:37:00 Elvin [facility] LAB ONLY COVID INTERPRETATION 2022-05-28 16:37:00 [facility] & RHYTHM STRIP 2022-05-28 13:55:45 Eils Oconnor [facility] PHOSPHORUS 2022-05-28 13:36:00 [facility] CREATINE KINASE 2022-05-28 13:36:00 [facility] MAGN[facility]IUM 2022-05-28 13:36:00 [facility] TROPONIN I 2022-05-28 13:36:00 [facility] FREE T4 2022-05-28 13:36:00 Tony Hill [facility] THYROID STIMULATING HORMONE 2022-05-28 13:36:00 Elis Oconnor [facility] COMP. METABOLIC PANEL ([id number]) 2022-05-28 13:36:00 Elis Oconnor [facility] ETHANOL 2022-05-28 13:36:00 [facility] WITH DIFF 2022-05-28 13:36:00 Elis Oconnor [facility] URINALYSIS 2022-05-28 13:36:00 [facility] PO[facility] TEST 2022-05-28 13:36:00 [facility] N-TERMINAL PRO-BNP 2022-05-28 13:36:00 [facility] URINE [facility]UG (IMMUNOASSAY) - COMPREHENSIVE DRUG SCREEN W/O REFLEX 2022-05-28 13:36:00 [facility] CONSENT/REFUSAL FOR DIAGNOSIS AND TREATMENT 2022-05-28 13:23:47 Doctor Unassigned, [place] [facility] HOSPITAL ADMISSION 2022-05-28 05:01:00 Doctor Unassigned, [place] [facility] ASSIGNMENT OF BENEFITS 2021-10-10 06:40:03 Doctor Unassigned, [place] [facility] URINALYSIS 2021-10-10 06:00:00 Mireya Castellon [facility] POCT TEST 2021-10-10 06:00:00 Mireya Castellon [facility] NOTICE OF PRIVACY PRACTICES 2021-10-10 05:07:28 Doctor Unassigned, [place] [facility] CONSENT/REFUSAL FOR DIAGNOSIS AND TREATMENT 2021-10-10 05:07:13 Doctor Unassigned, [place] [facility] Encounters Start Date/Time End Date/Time Encounter Type Admission Type Attending [facility] Care Facility Care Department Encounter ID Source 2024-02-05 07:00:01 2024-02-05 23:59:00 Outpatient CONCEPCIÓN DURAND [facility] [id number] [facility] 2024-02-05 07:00:01 2024-02-05 23:59:00 Hospital Encounter Concepción Johnson [facility] 1..840.114 350.1.13.10 4.2.7.2.686 [id number] [facility] 2024-01-17 07:15:00 2024-01-17 07:34:15 Outpatient R ASHLYN RAMOS [facility] [id number] [facility] 2024-01-17 07:15:00 2024-01-17 07:34:15 Office Visit Ashlyn Ramos [facility] AUDITOR [facility]ILD [facility] 1.2.840.114 350.1.13.10 4.2.7.2.686 [id number] [facility] 2024-01-17 07:30:00 2024-01-17 07:32:46 Outpatient R ASHLYN RAMOS [facility] [id number] [facility] 2024-01-15 00:00:00 2024-01-15 00:00:00 Telephone Concepción Johnson [facility] AUDIT[facility]ILD [facility] 1.2.840.114 350.1.13.10 4.2.7.2.686 [id number] [facility] 2024-01-15 00:00:00 2024-01-15 00:00:00 Telephone Concepción Johnson [facility] AUDITOR [facility] 1.2.840.114 350.1.13.10 4.2.7.2.686 [id number] [facility] 2024-01-12 09:15:00 2024-01-12 10:27:54 Outpatient R CONCEPCIÓN JOHNSON [facility] [id number] [facility] 2024-01-12 09:15:00 2024-01-12 10:27:54 Office Visit Concepción Johnson [facility] AUDITOR [facility] 1.2840.114 350.1.13.10 4.2.7.2.686 [id number] [facility] 2023-05-17 08:28:58 2023-05-17 08:28:[address] [facility] [id number] Crow Mckeon 2023-01-01 21:14:00 2023-01-02 00:10:00 Emergency X HANCOCKJEAN PIERREJARED [facility] E[facility] [id number] [facility] 2023-01-01 21:14:00 2023-01-02 00:10:00 Emergency SantiJean PierreJared [facility] 1.2840.114 350.1.13.10 4.2.7.2.686 [id number] [facility] 2022-12-29 01:38:00 2022-12-29 03:46:00 Emergency X DEDETRISTA REMIGIO [facility] [id number] [facility] 2022-12-29 01:38:00 2022-12-29 03:46:00 Emergency Remigio Wallis [facility] 1.2840.114 350.1.13.10 4.2.7.2.686 [id number] [facility] 2022-07-24 08:22:00 2022-07-24 10:05:00 Emergency X JUAN MANUEL GTZ [facility] [id number] [facility] 2022-07-24 08:22:00 2022-07-24 10:05:00 Emergency Juan Manuel Gtz [facility] 1.284.114 350.1.13.10 4.2.7.2.686 [id number] [facility] 2022-07-19 00:00:00 2022-07-19 00:00:00 Patient Outreach Siri Silverio 1.2.840.114 350.1.13.10 4.2.7.2.686 [id number] [facility] 2022-06-20 00:00:00 2022-06-20 00:00:00 Patient Outreach Markell Tran 1.2.840.114 350.1.13.10 4.2.7.2.686 [id number] [facility] 2022-06-15 00:00:00 2022-06-15 00:00:00 Patient Outreach Siri Silverio 1.2.840.114 350.1.13.10 4.2.7.2.686 [id number] [facility] 2022-06-14 00:00:00 2022-06-14 00:00:00 Patient Outreach Siri Silverio 1.2.840.114 350.1.13.10 4.2.7.2.686 [id number] [facility] 2022-06-10 00:00:00 2022-06-10 00:00:00 Transition of Care Evangelina Collado 1.2.840.114 350.1.13.10 4.2.7.2.686 [id number] [facility] 2022-06-06 00:00:00 2022-06-06 00:00:00 Transition of Care Evangelina Collado 1.2.840.114 350.1.13.10 4.2.7.2.686 [id number] [facility] 2022-06-06 00:00:00 2022-06-06 00:00:00 Transition of Care Evangelina Collado 1.2.840.114 350.1.13.10 4.2.7.2.686 [id number] [facility] 2022-06-03 13:52:31 2022-06-03 23:59:00 Outpatient R ISRAEL BRENT [facility] [id number] [facility] 2022-05-28 08:29:00 2022-06-03 11:43:00 Hospital Encounter Elvin, Elis Hill, Tony Young, [facility]ie [facility] 1.114 350.1.13.10 4.2.7.2.686 [id number] [facility] 2022-05-28 08:29:00 2022-06-03 11:43:00 Inpatient Rip [facility]RAEL BRENT [facility] [id number] [facility] 2021-10-09 23:25:00 2021-10-10 01:50:00 Emergency X Mireya CASTELLON [facility] [id number] [facility] 2021-10-09 23:25:00 2021-10-10 01:50:00 Emergency Mireya Castellon [facility] 1..114 350.1.13.10 4.2.7.2.686 [id number] [facility] 2021-05-12 00:00:00 2021-05-12 00:00:00 Telephone Trista E[facility] 1..114 350.1.13.10 4.2.7.2.686 [id number] [facility] 2021-05-10 00:00:00 2021-05-10 00:00:00 Telephone Jose Álvarez [facility] ([facility] 1..114 350.1.13.10 4.2.7.2.686 [id number] [facility] 2021-05-10 00:00:00 2021-05-10 00:00:00 Telephone Pcp, Patient Does Not Have A [facility] 1.2.840.114 350.1.13.10 4.2.7.2.686 [id number] [facility] 2021-05-08 18:20:00 2021-05-08 18:20:00 Outpatient R UNKNOWN, ATTENDING [facility] [id number] [facility] 2021-05-07 09:00:00 2021-05-07 09:00:00 Outpatient R TAI, WONDIFUL [facility] [id number] [facility] 2020-05-05 11:45:00 2020-05-05 11:45:00 [facility] 2020-01-14 00:00:00 2020-01-14 00:00:00 Telephone Pcp, Patient Does Not Have A [facility] AUDITOR [facility]ILD [facility] 1.2.840.114 350.1.13.10 4.2.7.2.686 [id number] 2020-01-14 00:00:00 2020-01-14 00:00:00 Telephone Pcp, Patient Does Not Have A [facility] AUDITOR [facility] 1.2.840.114 350.1.13.10 4.2.7.2.686 [id number] [facility] Results Test Description Test Time Test Comments Results Result Co mments Source [facility] [id number] 12:15:00* Test Item Value Reference Range Interpretation Comme nts POCT PREG (test code = 1605) Negative On board controls acceptable with C Line (test code = 3574) Yes POCT PREG LOT # (test code = 3575) POCT PREG TEST DATE ( test code = 3576) [facility] [id number] 12:15:00* Test Item Value Reference Range Interpretation Comme nts POCT PREG (test code = 1605) Negative On board controls acceptable with C Line (test code = 3574) Yes POCT PREG LOT # (test code = 3575) POCT PREG TEST DATE ( test code = 3576) [facility] [id number] 02:50:00* Test Item Value Reference Range Interpretation Comme nts POCT PREG (test code = 1605) negative On board controls acceptable with C Line (test code = 3574) positive POCT PREG LOT # (test code = 3575) [id number] POCT PREG TEST DATE ( test code = 3576) 06/23/2024 Lab Interpretation (test cod e = 94931-6) Normal [facility] [id number] 06:47:00* Test Item Value Reference Range Interpretation Comme nts POCT PREG (test code = 1605) Negative On board controls acceptable with C Line (test code = 3574) Present POCT PREG LOT # (test code = 3575) [id number] POCT PREG TEST DATE ( test code = 3576) 04/25/2024 Lab Interpretation (test cod e = 31800-1) [facility] (ABS, JESS W/REFLEX TO WB) 2022-06-03 04:33:35* Test Item Value Reference Range Interpretation Comme nts LYME EIA (test code = 04190-5) See_Comment When the Borreli a burgdorferi Abs, [...] antibody to B. burgdorferi ? detected.Performed By: [employer] [place] [id number] Director: Gavin Collado MD, PhD [Automated message] The system which generated this result transmitted reference range: 0.00 - 1.20 BETHEL. The reference range was not used to interpret this result as normal/abnormal. [facility] (TPO) [id number] 16:21:03 * Test Item Value Reference Range Interpretation Comments TPO Ab IgG (test code = 3970614216) See_Comment H [Automated message] The system which [...] and Graves'disease. Lab Interpretation (test code = 68052-5) Abnormal [facility] CITRULLINATED [id number] 16:04:26* Test Item Value Reference Range Interpretation Comme nts CCP IgG (test code = 1970428899) 2.6 U 0-20 ДМИТРИЙ (test code = ДМИТРИЙ) INTERPRETATION: UNITS: Negative <20Weak Positive 20-39Moderate Positive 40-59Strong Positive >=60 A positive result indicates the presence of CCP IgG antibodies and suggests the possibility of RA antibodies and suggests the possibility of SLE. A negative result indicates no CCP IgG antibodies or levels below the cut-off ofthe assay. Lab Interpretation (test code = 54032-9) Normal [facility] HospitalANTICARDIOLIPIN [id number] 15:58:16 * Test Item Value Reference Range Interpretation Comments Anticardiolipin Antibody IgG (test code = 5197184428) See_Comment [Automated message] The system which generated this result transmitted reference range: 0.0 - 10.0 GPL. The reference range was not used to interpret this result as normal/abnormal . Anticardiolipin Antibody IgM (test code = 5506505629) See_Comment [Automated message] The system which generated this result transmitted reference range: 0.0 - 10.0 MPL. The reference range was not used to interpret this result as normal/abnormal . Anticardiolipin Antibody IgA (test code = 3529067166) See_Comment [Automated message] The system which generated [...] 4: 2210-4 Lab Interpretation (test code = 85670-8) Normal [facility]I-[facility]2 GLYCOPROTEIN I [id number] 15:53:57* Test Item Value Reference Range Interpretation Comments Anti-B2 Glycoprotein 1 IgG (test code = 4630540322) See_Comment [Automated message] The system which generated this result transmitted reference range: 0.0 - 20.0 SGU. The reference range was not used to interpret this result as normal/abnormal. Anti-B2 Glycoprotein 1 IgM (test code = 6432512430) See_Comment [Automated message] The system which generated this result transmitted reference range: 0.0 - 20.0 SMU. The reference range was not used to interpret this result as normal/abnormal. Anti-B2 Glycoprotein 1 IgA (test code = 6254747548) See_Comment [Automated message] The system which generated [...] losses and/or thrombocytopenia. TEST PERFORMED AT:[facility] [id number] [place] [address] [place] [address] Lab Interpretation (test code = 48570-5) Normal [facility]AT[facility]IS B SURFACE [id number] 15:44:25* Test Item Value Reference Range Interpretation Comme nts HBsAB (test code = 4587551721) Indeterminate HBsAb Semi-Quantitative (test code = 1170495425) mIU/mL ДМИТРИЙ (test code = ДМИТРИЙ) Unable to determine if antibody to Hepatitis B Surface Antigen is present at levels consistent with immunity. ?Patient's immune status should be assessed with other clinical information and/or retesting in 4-6 weeks as clinically indicated. ?If any questions, please contact Clinical Chemistry Director chronic disease epidemiologist at .Interpretati on: ?Hepatitis B Surface Antibody ? Negative - Patient is considered to be not immune to infection with HBV. ? ? Positive - Anti-HBs detected at greater than or equal to 12 mIU/mL. ?Patient is considered to be immune to infection with HBV. ? [facility] (IGM & IGG)2022-06-02 11:48:38* Test Item Value Reference Range Interpretation Comme nts HBC (test code = 6999904112) Negative HBC Semi-Quantitative (test code = 9081369699) [facility] [id number] 11:48:37* Test Item Value Reference Range Interpretation Comme nts HCV Ab (test code = 81212-0) Negative HCV Semi-Quantitative (test code = 94240-7) [facility] (73578) (ALB,T.PRO,BILI T,BU/BC,ALT,AST,ALK PHOS)2022-06-02 11:06:34* Test Item Value Reference Range Interpretation Comme nts TOTAL BILI (test code = 4688800148) 0.2 mg/dL 0.1-1.1 BILI UNCON (test code = 0914697091) 0.1 mg/dL 0.1-1.1 BILI CONJ (test code = 1522018584) 0.0 mg/dL 0-0.3 T PROTEIN (test code = 6315525124) 5.0 g/dL 6.3-8.2 L ALBUMIN (test code = 4055210592) 2.8 g/dL 3.5-5 L ALK PHOS (test code = 4069700925) 54 U/L 34-122 ALTv (test code = 1742-6) 12 U/L 5-35 AST(SGOT) (test code = 4256675854) 18 U/L 13-40 Lab Interpretation (test cod e = 16929-7) [facility] 11:06:34* Test Item Value Reference Range Interpretation Comme nts MAGNESIUM (test code = 1959771288) 2.1 mg/dL 1.7-2.4 Lab Interpretation (test cod e = 24567-2) Normal [facility] (NA, K, CL, CO2, GLUCOSE, BUN, CREATININE, CA)2022-06-02 11:06:34* Test Item Value Reference Range Interpretation Comme nts NA (test code = 4980737070) 139 mmol/L 135-145 K (test code = 5901521661) 4.2 mmol/L 3.5-5 CL (test code = 2430593514) 112 mmol/L 98-108 H CO2 TOTAL (test code = 5519097079) 26 mmol/L 23-31 AGAP (test code = 6277820385) 2-16 L BUN (test code = 1845137756) 16 mg/dL 7-23 GLUCOSE (test code = 3022125291) 84 mg/dL 70-110 CREATININE (test code = 6561338180) 0.75 mg/dL 0.5-1.04 CALCIUM (test code = 6020753222) 7.9 mg/dL 8.6-10.6 L eGFR (test code = 1900047693) mL/min/1.73m2 ДМИТРИЙ (test code = ДМИТРИЙ) Association [...] imaging tests). Lab Interpretation (test code = 10915-1) Abnormal [facility] WITH [id number] 10:25:33* Test Item Value Reference Range Interpretation Comme nts WBC (test code = 6690-2) See_Comment [Automated SWYF] The system which generated this result transmitted reference range: 4.30 - 11.10 10*3/?L. The reference range was not used to interpret this result as normal/abnormal. RBC (test code = 789-8) See_Comment L [Automated SWYF] The system which generated this result transmitted [...] 34.7 g/dL 31.6-35.1 RDW-SD (test code = 37915-8) 41.0 fL 39-49.9 RDW-CV (test code = 788-0) 12.6 % 12-15.5 PLT (test code = 777-3) See_Comment L [Automated messa ge] The system which generated this result transmitted reference range: 166 - 358 10*3/?L. The reference range was not used to interpret this result as normal/abnormal. MPV (test code = 04410-9) 10.6 fL 9.5-12.9 NRBC/100 WBC (test code = 8517450978) See_Comment [Automated me ssage] The system which generated this result transmitted reference range: 0.0 - 10.0 /100 WBCs. The reference range was not used to interpret this result as normal/abnormal. NRBC x10^3 (test code = 8666751473) See_Comment [Automated messa ge] The system which generated this result transmitted reference range: 10*3/?L. The reference range was not used to interpret this result as normal/abnormal. GRAN MAT (NEUT) % (test code = 770-8) 58.3 % IMM GRAN % (test code = 5892038752) 0.30 % LYMPH % (test code = 736-9) 33.2 % MONO % (test code = 5905-5) 5.5 % EOS % (test code = 713-8) 2.5 % BASO % (test code = 706-2) 0.2 % GRAN MAT x10^3(ANC) (test code = 3366762930) 3.49 10*3/uL 1.88-7.09 IMM GRAN x10^3 (test code = 5534927294) 0-0.06 LYMPH x10^3 (test code = 731-0) 1.99 10*3/uL 1.32-3.29 MONO x10^3 (test code = 742-7) 0.33 10*3/uL 0.33-0.92 EOS x10^3 (test code = 711-2) 0.15 10*3/uL 0.03-0.39 BASO x10^3 (test code = 704-7) 0.01-0.07 Lab Interpretation (test code = 65354-6) [facility]normal [facility] Hospital[facility]th[facility] / [id number] 10:25:12* Test Item Value Reference Range Interpretation Comme [facility] PROTIME PATIENT (test code = 5964-2) See_Comment [Automated MeUndiesa ge] The system which generated this result transmitted reference range: 10.1 - 12.6 Seconds. The reference range was not used to interpret this result as normal/abnormal. INR (test code = 6301-6) Normal INR <1.1; Warfarin Therapeutic range 2.0 to 3.0 or 2.5 to 3.5, depending upon the indications. Lab Interpretation (test code = 12533-7) Normal [facility] HospitalHEPATITIS B SURFACE [id number] 21:24:29 * Test Item Value Reference Range Interpretation Comme [facility] HBsAg Semi-Quantitative (basilio t code = 5195-3) Negative Negative [facility]OLIC PANEL (NA, K, CL, CO2, GLUCOSE, BUN, CREATININE, CA)2022-06-01 01:26:24* Test Item Value Reference Range Interpretation Comme [facility] NA (test code = 2251582219) 141 mmol/L 135-145 K (test code = 4651490679) 3.7 mmol/L 3.5-5 CL (test code = 1462547485) 110 mmol/L 98-108 H CO2 TOTAL (test code = 2050091086) 27 mmol/L 23-31 AGAP (test code = 5617916141) 2-16 BUN (test code = 2079626223) 16 mg/dL 7-23 GLUCOSE (test code = 6392145884) 101 mg/dL 70-110 CREATININE (test code = 9155366459) 0.83 mg/dL 0.5-1.04 CALCIUM (test code = 2145522014) 8.3 mg/dL 8.6-10.6 L eGFR (test code = 6934407425) mL/min/1.73m2 ДМИТРИЙ (test code = ДМИТРИЙ) Association [...] imaging tests). Lab Interpretation (test code = 62281-1) Abnormal [facility] HospitalLactic Acid Whole Ptjoh0791-27-95 01:17:52* Test Item Value Reference Range Interpretation Comme nts LACTIC ACID (test code = 9285735150) 1.01 mmol/L 0.5-2.2 Lab Interpretation (test cod e = 74457-7) Normal [facility] HospitalaPTT2022-09-14 01:09:01* Test Item Value Reference Range Interpretation Comme nts APTT Patient (test code = 3173-2) See_Comment [Automated messa ge] The system which generated this result transmitted reference range: 26 - 36 Seconds. The reference range was not used to interpret this result as normal/abnormal. Lab Interpretation (test code = 51164-2) Normal [facility] HospitalProthrombin Time / [id number] 01:09:01* Test Item Value Reference Range Interpretation Comme nts PROTIME PATIENT (test code = 5964-2) See_Comment [Automated messa ge] The system which generated this result transmitted reference range: 10.1 - 12.6 Seconds. The reference range was not used to interpret this result as normal/abnormal. INR (test code = 6301-6) Normal INR <1.1; Warfarin Therapeutic range 2.0 to 3.0 or 2.5 to 3.5, depending upon the indications. Lab Interpretation (test code = 14052-2) Normal [facility] HospitalCBC WITH [id number] 01:03:39* Test Item Value Reference Range Interpretation [...] 33.9 g/dL 31.6-35.1 RDW-SD (test code = 28989-7) 40.8 fL 39-49.9 RDW-CV (test code = 788-0) 12.3 % 12-15.5 PLT (test code = 777-3) See_Comment [Automated messa ge] The system which generated this result transmitted reference range: 166 - 358 10*3/?L. The reference range was not used to interpret this result as normal/abnormal. MPV (test code = 58746-4) 10.8 fL 9.5-12.9 NRBC/100 WBC (test code = 0349646502) See_Comment [Automated me ssage] The system which generated this result transmitted reference range: 0.0 - 10.0 /100 WBCs. The reference range was not used to interpret this result as normal/abnormal. NRBC x10^3 (test code = 9126613936) See_Comment [Automated me ssage] The system which generated this result transmitted reference range: 10*3/?L. The reference range was not used to interpret this result as normal/abnormal. GRAN MAT (NEUT) % (test code = 770-8) 56.8 % IMM GRAN % (test code = 9163854771) 0.10 % LYMPH % (test code = 736-9) 37.1 % MONO % (test code = 5905-5) 4.3 % EOS % (test code = 713-8) 1.2 % BASO % (test code = 706-2) 0.5 % GRAN MAT x10^3(ANC) (test code = 4925875849) 4.67 10*3/uL 1.88-7.09 IMM GRAN x10^3 (test code = 5965060926) 0-0.06 LYMPH x10^3 (test code = 731-0) 3.05 10*3/uL 1.32-3.29 MONO x10^3 (test code = 742-7) 0.35 10*3/uL 0.33-0.92 EOS x10^3 (test code = 711-2) 0.10 10*3/uL 0.03-0.39 BASO x10^3 (test code = 704-7) 0.04 10*3/uL 0.01-0.07 [facility] HospitalTransthor[facility] echo (TTE)2022-05-29 16:43:30* Test Item Value Reference Range Interpretation Comme nts Height (test code = 5521163724) in Weight (test code = 7062120250) lbs Systolic BP (test code = 7102615579) mmHg Diastolic BP (test code = 7585468508) mmHg Heart Rate (test code = 5560070033) bpm BSA (test code = 5251278628) 1.60 m2 Ao root annulus (test code = 1225205664) 2.8 cm Ao root diam (test code = 9332698260) 2.80 cm Aortic root (test code = 2290151569) 2.8 cm LVOT diameter (test code = 6436620233) 1.80 cm LVOT area (test code = 3402050509) 2.60 cm2 LVIDD (test code = 2334012873) 4.50 cm Left Ventricular End Diastolic Volume by Teichholz Method (test code = 8743710) 91.2 mL IVS (test code = 3127013989) 0.71 cm Interventricular Septum Diastolic Thickness by 2D (test code = 9512790) 0.71 cm LVPWD (test code = 1055588361) 0.71 cm PW (test code = 6600621356) 0.71 cm 0.6-1.1 EF(Teich) (test code = 3472898213) 61.00 % LVIDS (test code = 5349639821) 3.00 cm Left Ventricular End Systolic Volume by Teichholz Method (test code = 8071237) 35.6 mL FS (test code = 9250396353) 33 % EF - 2D (test code = 17361420) 61.00 % LA size (test code = 5645013455) 2.9 cm Pulmonic Regurgitant End Max Velocity (test code = 3994727325) 161.8 cm/s LAV(MOD-sp4) (test code = 4642558476) 29.10 mL MV stenosis pressure 1/2 time (test code = 0420560631) 65.3 ms E wave decelartion time (test code = 8423943684) 0.23 s MV Peak E Yaz (test code = 8173827254) 121.5 cm/s MV Peak A Yaz (test code = 4971513350) 43.8 cm/s E/A ratio (test code = 3734612807) ratio MR max PG (test code = 6003097986) 65.00 mm[Hg] MR max yaz (test code = 8537366216) 401.70 cm/s Mr max yaz (test code = 1570722533) 401.7 m/s MV Prop V (test code = 7082714949) 44.60 cm/s MV E/e' septal (test code = 0205695955) 19.3 cm/s Tapse (test code = 1369951493) 2.13 cm LVOT stroke volume (test code = 2451362354) 72.90 cm3 LVOT peak yaz (test code = 1858157882) 144.5 cm/s LVOT mn grad (test code = 9349076728) mmHg AV LVOT peak gradient (test code = 1605907871) mmHg LVOT peak VTI (test code = 7451327102) 28.5 cm LV V1 mean (test code = 3993292195) 104.40 cm/s Aortic valve mean velocity (test code = 8235548506) 112.8 cm/s Ao peak yaz (test code = 3371462671) 161.3 cm/s Ao VTI (test code = 1437150549) 34.5 cm AV area by cont VTI (test code = 5505704288) 2.1 cm2 AV area peak yaz (test code = 0731371318) 2.3 cm2 Ao max PG (test code = 1584645804) 10.40 mm[Hg] AV peak gradient (test code = 1176354415) mmHg AV valve area (test code = 1183705520) 2.11 cm2 AV mean gradient (test code = 7124786298) mmHg Radiology Study observation (narrative) (test code = 11048-4) ДМИТРИЙ (test code = ДМИТРИЙ) ?Left?Ventricle: Left [...] 2D, color flow Doppler and spectral Doppler. [facility] [id number] 13:36:00* Test Item Value Reference Range Interpretation Comme nts POCT PREG (test code = 1605) Negative On board controls acceptable with C Line (test code = 3574) Present POCT PREG LOT # (test code = 3575) [id number] POCT PREG TEST DATE ( test code = 3576) 08/17/2023 Lab Interpretation (test cod e = 95554-1) Normal [facility] [id number] 06:00:00* Test Item Value Reference Range Interpretation Comme nts POCT PREG (test code = 1605) negative On board controls acceptable with C Line (test code = 3574) positive POCT PREG LOT # (test code = 3575) [id number] POCT PREG TEST DATE ( test code = 3576) 09/17/2022 Lab Interpretation (test cod e = 78701-8) Normal [facility] Notes Date/Time Note Provider Source 2024-01-15 15:54:41 1265-78-67M17:54:41F ormatting of this note might be different from the original.See other encounter. 23685-2Pzyjbqyur encounter FxcxUH7345-55-84A15:54:48Teleph one encounter NoteTXT1.2.840.411738.1.13.104. 2.7.2.107589|[id number] ble for patient cujj83429-1WrnoXMUXPIOTMKGMfrwz tted C-CDA narrative [id number] Garcia [address] GidpFjubdmjorNqdehlfdvOEYQ18745 99488ULGATMNWOOEEOGTGWSYHNB4262 -04-29T15:54:481.2.840.728847.1 .72.3.15|1.2.840.216058.1.13.10 4.2.7.2.727879_2086279601 Eva Espana LVN [facility] 2024-01-15 15:32:16 9524-03-71D98:32:16F ormatting of this note might be different from the original.Please notify the patient her tsh is elevated she needs to seek her pcp for further mgmtISAC Gan 01/15/2024 3:35 PM 96944-7Wdqckxzej encounter VgwrVN1194-67-26O63:35:52Teleph one encounter NoteTXT1.2.840.674673.1.13.104. 2.7.2.556919|[id number] ble for patient rycw09503-2RfxxZNIHRYSLGNLKgneq tted C-CDA narrative [address] ZvzmOobealvgnKkzvqbqdzMMKF14586 51302FQZKLIRUDZVOSKOCITWANY3815 -04-29T15:35:521.2.840.173468.1 .72.3.15|1.2.840.666035.1.13.10 4.2.7.2.727879_2086256013 [facility] 2024-01-15 08:43:34 6016-31-50V61:43:34F ormatting of this note might be different from the original.Patient informed of results for TSH on 01/11 and to contact PCP for management, verbalized understanding. 73205-0Lizyzotah encounter OmtiOA3362-03-21X13:44:10Teleph one encounter NoteTXT1.2.840.594734.1.13.104. 2.7.2.468527|[id number] ble for patient eqik99860-3OfuhRFPBLSQUSTBMtcnh tted C-CDA narrative [id number] Garcia [address] 55765OPDZCOEBNMZKKMDATSPKIH3762 -04-29T08:44:101.2.840.785798.1 .72.3.15|1.2.840.949680.1.13.10 4.2.7.2.727879_2085678024 Eva Espana [facility] 2024-01-15 08:19:16 1742-12-87Z31:19:16F ormatting of this note might be different from the original.Copied from [facility] #[id number]. Topic: Clinical - Results>> Jan 15, 2024 8:18 AM Patient Sweatband Shaper wrote:Leonela HOPKINS is a 33 year old female requesting call back for result clarification. Please call [phone] signed by Magalys Helm at 01/15/2024 8:20 AM ROK54845-0Vkgmdqjmn encounter PuoyIR5899-06-58H16:20:00Teleph one encounter NoteTXT1.2.840.177101.1.13.104. 2.7.2.134191|[id number] ble for patient twek44500-1DvynIEZBRRWSWMUYmohh tted C-CDA narrative njij6502096Kqckq L [address] 55457ZFZJLQWKHWRFUQQHBHNNKN5660 -04-29T08:20:001.2.840.292069.1 .72.3.15|1.2.840.560829.1.13.10 4.2.7.2.727879_2085647040 Magalys Helm [facility]
[2024-02-26] MEDS ORDERED: FENTANYL CITR 100 MCG/2 ML ONE (17:31)
[2024-02-26 17:57] LABS: Absolute Lymphocytes (CBC) 1.8 K/uL (0.7-4.9); Absolute Monocytes 0.4 K/uL (0.1-1.3); Absolute Neutrophil 3.9 K/uL (1.8-8.0); Basophils % 0.3 % (0-1.3); Eosinophils % 0.5 % (0-4.4); Hematocrit 38.5 % (36.0-45.0); Hemoglobin 13.1 g/dL (12.0-15.0); Lymphocytes % 28.9 % (15.3-44.8); MCH 29.9 pg (27.0-35.0); MCV 88.1 fL (80-100); Monocytes % 6.3 % (3.3-12.3); Nucleated Red Blood Cells % 0.1 % (0-0); Platelets 167 thou/uL (152-406); RBC Red Blood Cell Count 4.38 M/uL (3.86-4.86); Red Cell Distribution Width 12.1 % (12.1-15.2); Specific Gravity > 1.030 (1.005-1.030)
[2024-02-26 18:02] LABS: PT Prothrombin Time 12.1 SECONDS (9.5-12.5); Protime INR 1.1
[2024-02-26 18:03] LABS: Specific Gravity > 1.030 (1.005-1.030); Urine Bacteria None Seen /HPF (<20); Urine Bilirubin NEGATIVE (Negative); Urine Blood 2+ (Negative); Urine Clarity Extremely Turbid (Clear); Urine Color Yellow (Yellow); Urine Culture Reflex Order NOT NEEDED; Urine Glucose NEGATIVE (Negative); Urine Ketones NEGATIVE (Negative); Urine Micro Reflex YN NO BILL MICROSCOPIC; Urine Mucus 3+ /HPF (None Seen); Urine Nitrite NEGATIVE (Negative); Urine Protein TRACE (Negative); Urine Urobilinogen 1+ (Normal); Urine WBC <5 /HPF (<5); Urine pH 5.5 (5.0-7.0)
[2024-02-26] MEDS ORDERED: MORPHINE 4 MG/ML SYR ONE (18:13)
[2024-02-26 18:14] LABS: Albumin 3.9 g/dL (3.4-5.0); Albumin/Globulin Ratio 1.3 (1.1-1.8); Alkaline Phosphatase 50 U/L (45-117); Anion Gap 7.4 mEq/L (5.0-15.0); BUN Blood Urea Nitrogen 10 mg/dL (7-18); Bicarbonate 25 mEq/L (21-32); Bilirubin Direct 0.2 mg/dL (0-0.2); Bilirubin Indirect, Calculated 0.3 mg/dL (0.2-0.8); Bilirubin Total 0.5 mg/dL (0.2-1.0); Creatine Phosphokinase 66 U/L (26-192); Globulin 3.1 g/dL (2.3-3.5); Glomerular Filtration Rate 101 ml/min (=/>90); Glucose Level 94 mg/dL (74-106); Magnesium 2.1 mg/dL (1.6-2.4); Potassium 3.4 mEq/L (3.5-5.1); Sodium Level 141 mEq/L (136-145)
[2024-02-26 18:20] LABS: ALT/SGPT < 14 U/L (13-56); AST/SGOT < 10 U/L (15-37)
--- NOTE | 2024-02-26 18:24 | RAD REPORT ---
EXAM DESCRIPTION: Chi Single View02/26/2024 5:42 pm CLINICAL HISTORY: Chest pain COMPARISON: none FINDINGS: The lungs appear clear of acute infiltrate. The heart is normal size IMPRESSION: No acute abnormalities displayed
--- NOTE | 2024-02-26 19:21 | RAD REPORT ---
EXAM DESCRIPTION: CT - Stone Protocol - 02/26/2024 6:55 pm CLINICAL HISTORY: Abdominal pain. Back pain COMPARISON: 2019 TECHNIQUE: Computed axial tomography of the abdomen pelvis was obtained without oral or IV contrast. Lack of IV and oral contrast limits evaluation of solid organs, appendix, bowel, and vessels. Arce l reformatted images were obtained and reviewed. All CT scans are performed using dose optimization technique as appropriate and may include automated exposure control or mA/KV adjustment according to patient size. FINDINGS: A renal calculus is not seen. An ureteral calculus is not noted. A bladder calculus is not present. No hydronephrosis The liver, spleen, pancreas and adrenals appear grossly normal There is no evidence of diverticulitis. The appendix appears normal Moderate to large amount stool within the colon No adnexal mass IMPRESSION: Negative for a genitourinary calculus Moderate to large amount stool within the colon
[2024-02-26] MEDS ORDERED: dexAMETHasone 10 MG/ML VIAL ONE (19:54)
[2024-02-26] MEDS ORDERED: DIPHENHYDRAMINE 50 MG/ML VIAL ONE (19:54)
[2024-02-26] MEDS ORDERED: METOCLOPRAMIDE 10 MG/2mL INJ ONE (19:55)
--- NOTE | 2024-02-26 20:52 | ER ---
Nurse's Notes [facility] Name: Leonela Ramos Age: 33 yrs Sex: Female : 1990 Arrival Date: 02/26/2024 Time: 16:30 Bed 11 Private MD: Diagnosis: Constipation, unspecified;Low back pain Presentation: 02/25 16:42 Chief complaint: Patient states: LIGHT HEADED AND GEN MALAISE SINCE AM. Coronavirus bp screen: At this time, the client does not indicate any symptoms associated with coronavirus-19. Ebola Screen: No symptoms or risks identified at this time. Initial Sepsis Screen: Does the patient meet any 2 criteria? No. Patient's initial sepsis screen is negative. Does the patient have a suspected source of infection? No. Patient's initial sepsis screen is negative. Risk Assessment: Do you want to hurt yourself or someone else? Patient reports no desire to harm self or others. Onset of symptoms was February 26, 2024. 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 - Infectious Disease History:: Denies. - Social history:: Smoking status: unknown. Screenin:48 [facility] ED Fall Risk Assessment (Adult) History of falling in the last 3 months, cm10 including since admission No falls in past 3 months (0 pts) Confusion or Disorientation No (0 pts) Intoxicated or Sedated No (0 pts) Impaired Gait No (0 pts) Mobility Assist Device Used No (0 pt) Altered Elimination No (0 pt) Score/Fall Risk Level 0 - 2 = Low Risk Oriented to surroundings, Maintained a safe environment, Hourly rounding (assess needs \\T\\ fall precautionary measures) done. Abuse screen: Denies threats or abuse. Denies injuries from another. Nutritional screening: No deficits noted. Tuberculosis screening: No symptoms or risk factors identified. Assessment: 17:40 General: Pt requesting to speak with provider and states that she has a high pain cm10 tolerance and what was ordered was not going to help her pain. Provider made aware.. 17:40 General: Appears in no apparent distress. comfortable, Behavior is calm, cooperative. cm10 Pain: Complains of pain in Generalized body pain. Neuro: No deficits noted. Level of Consciousness is awake, alert, obeys commands, Oriented to person, place, time, situation. Cardiovascular: No deficits noted. Patient's skin is warm and dry. Rhythm is regular. Respiratory: No deficits noted. Airway is patent Respiratory effort is even, unlabored, Respiratory pattern is regular, symmetrical. Derm: No deficits noted. Skin is intact, Skin is pink, warm \\T\\ dry. Musculoskeletal: No deficits noted. Range of motion: intact in all extremities. 18:22 General: Medicated pt at this time and pt asks if the provider had ordered any cm10 additional tests. Asked pt was test she was asking about and states that she wants her kidneys checked. Informed pt that provider ordered labs to check kidneys and pt states, "I normally get my kidneys checked with that dye and in that machine." Informed pt again that labs would be done to check her kidneys and pt states, "I am not leaving here until you find out what is wrong with me." provider made aware.. 19:09 Reassessment: Patient appears in no apparent distress at this time. No changes from cm10 previously documented assessment. Patient and/or family updated on plan of care and expected duration. Pain level reassessed. Patient is alert, oriented x 3, equal unlabored respirations, skin warm/dry/pink. Pt states that she feels fine and is requesting a new provider. 19:35 Reassessment: Pt reporting that she is having a headache at this time. cm10 19:41 Reassessment: Dr. Rasmussen speaking with patient at this time. cm10 Vital Signs: 16:42 BP 113 / 83; Pulse 100; Resp 16; Temp 98; Pulse Ox 100% ; bp 19:09 BP 101 / 65; Pulse 74; Resp 18; Pulse Ox 100% on R/A; cm10 Vitals: 17:40 Cardiac Rhythm Assessment Sinus rhythm. cm10 ED Course: 16:31 Patient arrived in ED. rg4 16:36 Seth Gardiner PA is PHCP. cp 16:36 Hugo Rasmussen MD is Attending Physician. cp 16:43 Triage completed. bp 17:26 Michelle Short, RN is Primary Nurse. ap3 17:26 Acacia Helm, RN is Primary Nurse. cm10 17:40 Patient has correct armband on for positive identification. Bed in low position. Call cm10 light in reach. Side rails up X 1. 17:44 XRAY Chest (1 view) In Process Unspecified. EDMS 17:47 Test, Urine Sent. cm10 17:47 Urinalysis W/Microscopic Sent. cm10 17:47 CK Sent. cm10 17:47 Basic Metabolic Panel Sent. cm10 17:47 CBC with Diff Sent. cm10 17:47 LFT's Sent. cm10 17:47 Magnesium Sent. cm10 17:47 PT-INR Sent. cm10 17:47 Initial lab(s) drawn, by me, sent to lab. Urine collected: clean catch specimen. cm10 Inserted saline lock: 20 gauge in left antecubital area, using aseptic technique. Blood collected. 17:47 Client placed on continuous cardiac and pulse oximetry monitoring. NIBP monitoring cm10 applied. playground monitor on. Pulse ox on. NIBP on. 18:[address] via wheelchair. cm10 18:57 CT Stone Protocol In Process Unspecified. EDMS 20:03 Patient taken to ultrasound. via stretcher. cm10 20:12 Patient moved back from ultrasound. cm10 20:43 Attending Physician role handed off by Hugo Rasmussen MD sp4 20:43 Keaton Hunter MD is Attending Physician. sp4 21:12 No provider procedures requiring assistance completed. IV discontinued, intact, cm10 bleeding controlled, No redness/swelling at site. Pressure dressing applied. 21:13 Provided Education on: Follow-up instructions. cm10 21:13 Arm band placed on. cm10 Administered Medications: 17:47 Drug: fentaNYL (PF) IVP 25 mcg IVP once Route: IVP; Site: left antecubital; cm10 18:00 Follow up: Response: No adverse reaction cm10 18:22 Drug: morphine IVP or IV 4 mg IVP once over 4 mins Route: IVP; Infused Over: 4 mins; cm10 Site: left antecubital; 19:00 Follow up: Response: No adverse reaction cm10 20:02 Drug: metoCLOPramide IVP 10 mg IVP once; over 1 to 2 minutes Route: IVP; Site: left cm10 antecubital; 21:12 Follow up: Response: No adverse reaction cm10 20:02 Drug: Dexamethasone IVP 10 mg IVP once; (not to exceed 40 mg) Route: IVP; Site: left cm10 antecubital; 21:12 Follow up: Response: No adverse reaction cm10 20:02 Drug: diphenhydrAMINE IVP 25 mg IVP once Route: IVP; Site: left antecubital; cm10 21:12 Follow up: Response: No adverse reaction cm10 Medication: 17:40 VIS not applicable for this client. cm10 Outcome: 20:51 Discharge ordered by MD. hicks 21:13 Discharged to home via wheelchair, with significant other, cm10 21:13 Condition: good 21:13 Discharge instructions given to patient, significant other, Instructed on discharge instructions, follow up and referral plans. medication usage, Demonstrated understanding of instructions, follow-up care, medications, Prescriptions given X 1, 21:13 Patient left the ED. cm10 Signatures: Dispatcher [employer] EDMS Seth Gardiner PA PA cp Garcia, Rubi rg4 Rupesh Browne, RN RN Michelle Gavin RN RN ap3 Keaton Hunter MD MD sp4 Acacia Helm RN RN cm10
--- NOTE | 2024-02-26 20:52 | EDPHYS ---
Physician Documentation [facility] Name: Leonela Ramos Age: 33 yrs Sex: Female : 1990 Arrival Date: 02/26/2024 Time: 16:30 Bed 11 Private MD: ED Physician Keaton Hunter HPI: 02/25 17:10 This 33 yrs old Female presents to ER via Ambulatory with complaints of Pain All Over. cp 17:10 The patient presents with pain that is acute, with no known mechanism of injury, cp complains that "kidneys hurt". Associated signs and symptoms: Pertinent positives: pain all over, Pertinent negatives: chest pain, constipation, fever, numbness, vomiting, weakness. 17:10 The problem was sustained hx of chronic Lupus. 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 - Infectious Disease History:: Denies. - Social history:: Smoking status: unknown. ROS: 17:15 Constitutional: Positive for sweats, Negative for fever, poor PO intake, cp 17:15 Eyes: Negative for injury, pain, redness, and discharge, cp 17:15 ENT: Negative for drainage from ear(s), ear pain, sore throat, difficulty swallowing, difficulty handling secretions, 17:15 Cardiovascular: Negative for chest pain, edema, palpitations, 17:15 Respiratory: Negative for cough, shortness of breath, wheezing, 17:15 Abdomen/GI: Negative for abdominal pain, vomiting, diarrhea, constipation, 17:15 Back: Positive for pain at rest, pain with movement, of the kidney area, Exam: 17:20 Constitutional: The patient appears in no acute distress, alert, awake, cp non-diaphoretic, non-toxic, well developed, well nourished, 17:20 Head/Face: Normocephalic, atraumatic. cp 17:20 Eyes: Periorbital structures: appear normal, Conjunctiva: normal, no exudate, no injection, Sclera: no appreciated abnormality, Lids and lashes: appear normal, bilaterally, 17:20 ENT: External ear(s): are unremarkable, Nose: is normal, Mouth: Lips: moist, Oral mucosa: pink and intact, moist, Posterior pharynx: Airway: no evidence of obstruction, patent, 17:20 Neck: ROM/movement: is normal, is supple, without pain, no range of motions limitations, no meningismus, no nuchal rigidity, 17:20 Cardiovascular: Rate: tachycardic, Rhythm: regular, Edema: is not appreciated, JVD: is cp not appreciated, 17:20 Respiratory: the patient does not display signs of respiratory distress, Respirations: normal, no use of accessory muscles, no retractions, labored breathing, is not present, Breath sounds: are clear throughout, no decreased breath sounds, no stridor, no wheezing, 17:20 Abdomen/GI: Exam negative for discomfort, distension, guarding, Inspection: abdomen appears normal, 17:20 Back: CVA tenderness, is absent, 17:20 Neuro: Orientation: to person, place \\T\\ time. Mentation: is normal, Motor: moves all cp fours, strength is normal, Vital Signs: 16:42 BP 113 / 83; Pulse 100; Resp 16; Temp 98; Pulse Ox 100% ; bp 19:09 BP 101 / 65; Pulse 74; Resp 18; Pulse Ox 100% on R/A; cm10 MDM: 16:36 Patient medically screened. cp 18:00 Differential diagnosis: Cholelithiasis Pyelonephritis Ureterolithiasis drug seeking cp behavior. 23:18 Differential Diagnosis altered mental status, sepsis, flu, Kidney stone, other sp4 abdominal pathology. Data reviewed: vital signs, nurses notes, old medical records, lab test result(s), radiologic studies, CT scan, plain films. Consideration of Admission/Observation Escalation of care including admission/observation considered. ED course: Negative CT except for constipation. Patient stable for discharge home with as needed medication for constipation.. . 23:20 ED course: EXAM DESCRIPTION: CT - Stone Protocol - 02/26/2024 6:55 pm CLINICAL HISTORY: sp4 Abdominal pain. Back pain COMPARISON: 2019 TECHNIQUE: Computed axial tomography of the abdomen pelvis was obtained without oral or IV contrast. Lack of IV and oral contrast limits evaluation of solid organs, appendix, bowel, and vessels. Coronal reformatted images were obtained and reviewed. All CT scans are performed using dose optimization technique as appropriate and may include automated exposure control or mA/KV adjustment according to patient size. FINDINGS: A renal calculus is not seen. An ureteral calculus is not noted. A bladder calculus is not present. No hydronephrosis The liver, spleen, pancreas and adrenals appear grossly normal There is no evidence of diverticulitis. The appendix appears normal Moderate to large amount stool within the colon No adnexal mass IMPRESSION: Negative for a genitourinary calculus Moderate to large amount stool within the colon . ED course: EXAM DESCRIPTION: [facility] Single View02/26/2024 5:42 pm CLINICAL HISTORY: Chest pain COMPARISON: none FINDINGS: The lungs appear clear of acute infiltrate. The heart is normal size IMPRESSION: No acute abnormalities displayed. . 02/25 17:05 Order name: Basic Metabolic Panel; Complete Time: 18:22 cp 02/25 18:22 Interpretation: Normal except: K 3.4; CL 112. cp 02/25 17:05 Order name: CBC with Diff; Complete Time: 18:22 cp 02/25 17:05 Order name: LFT's; Complete Time: 18:22 cp 02/25 18:23 Interpretation: Reviewed. cp 02/25 17:05 Order name: Magnesium; Complete Time: 18:22 cp 02/25 17:05 Order name: PT-INR; Complete Time: 18:22 cp 02/25 17:05 Order name: CK; Complete Time: 18:22 cp 02/25 17:05 Order name: Urinalysis W/Microscopic; Complete Time: 18:22 cp 02/25 18:23 Interpretation: Normal except: [facility] Extremely Turbid; Urine SG > 1.030; UBLD 2+; UPROT cp TRACE; UUROB 1+; URBC 11-20; MUCUS 3+. 02/25 17:05 Order name: Test, Urine; Complete Time: 18:22 cp 10 18:23 Interpretation: Reviewed. 02/25 17:05 Order name: XRAY Chest (1 view); Complete Time: 18:27 cp 02/25 18:28 Order name: CT Stone Protocol; Complete Time: 19:23 cp 02/25 19:23 Interpretation: Report reviewed. 02/25 17:05 Order name: Cardiac monitoring; Complete Time: 17:47 cp 02/25 17:05 Order name: IV Saline Lock; Complete Time: 17:47 cp 10 17:05 Order name: Labs collected and sent; Complete Time: 17:47 cp 10 17:05 Order name: O2 Per Protocol; Complete Time: 17:47 cp 10 17:05 Order name: O2 Sat Monitoring; Complete Time: 17:47 cp Administered Medications: 17:47 Drug: fentaNYL (PF) IVP 25 mcg IVP once Route: IVP; Site: left antecubital; cm10 18:00 Follow up: Response: No adverse reaction cm10 18:22 Drug: morphine IVP or IV 4 mg IVP once over 4 mins Route: IVP; Infused Over: 4 mins; cm10 Site: left antecubital; 19:00 Follow up: Response: No adverse reaction cm10 20:02 Drug: metoCLOPramide IVP 10 mg IVP once; over 1 to 2 minutes Route: IVP; Site: left cm10 antecubital; 21:12 Follow up: Response: No adverse reaction cm10 20:02 Drug: Dexamethasone IVP 10 mg IVP once; (not to exceed 40 mg) Route: IVP; Site: left cm10 antecubital; 21:12 Follow up: Response: No adverse reaction cm10 20:02 Drug: diphenhydrAMINE IVP 25 mg IVP once Route: IVP; Site: left antecubital; cm10 21:12 Follow up: Response: No adverse reaction cm10 Disposition: 20:11 Co-signature as Attending Physician, Hugo Rasmussen MD I reviewed the patient's care rt provided by Advanced Practice Provider \\T\\ agree w/ the diagnosis \\T\\ care plan. I personally saw the pt \\T\\ performed a substantive portion of the visit, incldng all aspects of the (History/Exam/Medical Decision Making). 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 HPI: Patient reports having back pain, right-sided as well as abdominal pain. My personal exam of patient reveals: Patient has no true CVAT, no midline tenderness. There are no focal areas of abdominal tenderness on exam. Patient complained of headache, ordered headache cocktail for patient. Offered to order ultrasound to rule out ovarian torsion, cyst. Patient subsequently declined this. At this time, do not believe that further narcotic medications which she is asking for are indicated. There is no signs of ureteral stone on CT scan. There is blood, she possibly did pass a stone recently but there is no signs of infection. The rest of her workup is benign. I informed the patient that the CT scan was adequate to rule out serious acute pathology.. Disposition Summary: 02/26/24 20:51 Discharge Ordered Notes: Location: Home sp4 Problem: new sp4 Symptoms: have improved sp4 Condition: Stable sp4 Diagnosis - Constipation, unspecified sp4 - Low back pain sp4 Followup: sp4 - With: Private Physician - When: 7 - 10 days - Reason: Recheck today's complaints Discharge Instructions: - Discharge Summary Sheet sp4 - Constipation, Adult, [id number] sp4 Forms: - Patient Portal Instructions sp4 Prescriptions: - Dulcolax (bisacodyl) 5 mg Oral tablet, delayed release (enteric coated) - take 2 tablet ORAL route daily PRN constipation; 30 tablet; Refills: 0, Product sp4 Selection Permitted Signatures: Dispatcher [employer] EDMS Seth Gardiner PA PA cp Peltier, Brian, ROSAMARIA RN bp Hugo Rasmussen MD MD rt Keaton Hunter MD MD sp4 Acacia Helm RN RN cm10 Corrections: (The following items were deleted from the chart) 19:49 19:49 Pelvis Complete+US.RAD.BRZ ordered. EDMS EDMS 20:18 20:09 Transvaginal Study Probe ordered. EDMS EDMS
[2024-02-26 21:46] VITALS: BP 101/65; TEMP 98; O2SAT 100
== END 2024-02-26 21:13 | disposition home or self-care (01) ==
LOC: ER 16:30
DX: K59.00 Constipation, unspecified (principal)
CPT/HCPCS: 36415; 71045; 74176; 76377; 80048; 80076; 81001; 81025; 82550; 83735; 85025; 85610; 96374; 96375; 99285; J1100; J1200; J2765; J3010

== ENCOUNTER 2024-03-06 16:50 | Emergency (ER) | payer SELFPAY ==
--- OUTSIDE RECORDS SUMMARY | 2024-03-06 16:55 | XMS REPORT | Continuity of Care Document ---
Author Name Unknown Address [address] [facility] [place] [place] [address] [facility] Address [address] [facility] [place] [place] [address] Care Team Providers Care Care Program Resident Name Role Phone ADAL CROOKS Primary Care Physician Unavailab CONCEPCIÓN Burton Attending Clinician Unavail able CHRISTOPHER NICHOLAS Attending Clinician Unava ilable ANA SINGER Attending Clinician Unavailab ADELFO Donahue Attending Clinician Unavailable Adelfo Blankenship DO Attending Clinician +[phone] Alex Concepción MANZANO Attending Clinician + ASHLYN RAMOS Attending Clinician UnavailAshlyn Carcamo CNM Attending Clinician [phone] JARED HANCOCK Attending Clinician Unavailable Jaerd Hancock MD Attending Clinician [phone] REMIGIO WALLIS Attending Clinician UnavailRemigio Randle Attending Clinician + [phone] JUAN MANUEL GTZ Attending Clinician Unavailable Ellis PAC, Juan Manuel Hernandez Attending Clinician [phone] Jean Claude BLANK, Siri Post Attending Clinician [phone] Chelsea FRIAS, Markell W Attending Clinician Unavail able Evangelina Collado LVN Attending Clinician [phone] RITESH INMAN Attending Clinician Unavailable Elis Ozuna Attending Clinician [phone] Tony Hill MD Attending Clinician [phone] Margie Gill MD Attending Clinici an Ritesh Inman MD Attending Clinician [phone] Mireya CASTELLON Attending Clinician Unavailable Mireya Gomez Attending Clinician [phone] Trista Reddy Attending Clinician [phone] Jose Graves Attending Clinician [phone] Pcp, Patient Does Not Have A Attending Clinician UNKNOWN, ATTENDING Attending Clinician Unavailab ROZINA Redding Attending Clinician Unavaila traci farris Attending Clinician Unavailable ADELFO BLANKENSHIP Admitting Clinician Unavailable CONCEPCIÓN JOHNSON Admitting Clinician Unavail able JARED HANCOCK Admitting Clinician Unavailable REMIGIO WALLIS Admitting Clinician Unavaila Margie Corona MD Admitting Clinici an MARGIE GILL Admitting Clinician Unavailable kaleigh Admitting Clinician Unavailable Payers Payer Name Policy Type Policy Number Effective Date Expirati on Date Source [facility] [id number] 2023 00:00:00 Problems Condition Name Condition Details Condition Category Status Onset Date Resolution Date Last Treatment Date Treating Clinician Comments Source Menorrhagi a with irregular cycle Menorrhagi a with irregular cycle Disease Active 01-16 00:00: 00 [facility] Dysmenorrh ea Dysmenorrh ea Disease Active 01-16 00:00: 00 [facility] Well woman exam Well woman exam Disease Active 4-26 00:00: 00 [facility] Bradycardi a Bradycardi a Disease Active 9-11 00:00: 00 [facility] Hypotensio n Hypotensio n Disease Active 9-11 00:00: 00 [facility] Hypothyroi dism Hypothyroi dism Disease Active - 00:00: 00 [facility] Elevated brain natriureti c peptide (BNP) level Elevated brain natriureti c peptide (BNP) level Disease Active - 00:00: 00 [facility] Cigarette smoker Cigarette smoker Disease Active - 00:00: 00 [facility] Elevated brain natriureti c peptide (BNP) level Elevated brain natriureti c peptide (BNP) level Disease Active - 00:00: 00 [facility] Syncope, unspecifie d syncope type Syncope, unspecifie d syncope type Disease Active - 00:00: 00 [facility] No known active problems No known active problems Disease [facility] Allergies, Adverse Reactions, Alerts Allergy Name Allergy Type Status Severity Reaction(s) Onset Date Inactive Date Treating Clinician Comments Source PHENAZOP YRIDINE DRUG INGREDI Active N/V -16 00:00: 00 [facility] Phenazop yridine Propensi ty to adverse reaction s Active Nausea and/or Vomiting 4-16 00:00: 00 [facility] DEXTROAM PHETAMIN E-AMPHET AMINE DRUG Active Dizziness - 00:00: 00 [facility] Dextroam phetamin e-Amphet amine Propensi ty to adverse reaction s Active Dizziness - 00:00: 00 [facility] TRAMADOL DRUG INGREDI Active Rash 0 1- 00:00: 00 [facility] Tramadol Propensi ty to adverse reaction s Active Rash 1- 00:00: 00 [facility] NO KNOWN ALLERGIE S Drug Class Active [facility] Social History Social Habit Start Date Stop Date Quantity Comments Source History of tobacco use Passive smoker [facility] ASSERTION [facility] Alcoholic beverage intake 2024-03-03 00:00:00 2024-03-03 00:00:00 Current drinker of alcohol (finding) [facility] Alcohol intake 2024-01-17 00:00:00 2024-01-17 00:00:00 Current drinker of alcohol (finding) [facility] Tobacco use and exposure 2024-01-12 00:00:00 2024-01-12 00:00:00 Smokeless tobacco non-user [facility] History of Social function 2024-01-12 00:00:00 2024-01-12 00:00:00 [facility] Alcohol Comment 2024-01-12 00:00:00 2024-01-12 00:00:00 Socially [facility] Exposure to SARS-CoV-2 (event) 2022-12-22 00:00:00 2023-01-01 21:11:00 Not sure [facility] Cigarettes smoked current (pack per day) - Reported 2022-05-31 00:00:00 2022-05-31 00:00:00 [facility] Sex assigned at 1990 00:00:00 1990 00:00:00 [facility] Smoking Status Start Date Stop Date Source Never smoked tobacco [facility] Smokes tobacco daily 2022-05-31 00:00:00 [facility] Medications Ordered Medication Name Filled Medication Name Start Date Stop Date Current Medication? Ordering Clinician Indication Dosage Frequency Signature (SIG) Comments Components Source NaCl 0.9% (NS) bolus infusion 1,000 mL 03-04 03:30: 00 03-04 04:35 :00 No 1000mL at 999 mL/hr, 1,000 mL, IV Infusion, ONCE, 1 dose, On 03/03/24 at 2230, CONSTANTIN [facility] diphenhydrA MINE (BENADRYL) injection 25 mg 03-04 02:45: 00 03-04 03:45 :00 No 25mg 25 mg, Slow IV Push, ONCE, 1 dose, On Chambers 03/03/24 at 2145, STAT [facility] metoclopram ghassan HCl (REGLAN) injection 10 mg 03-04 02:45: 00 03-04 03:45 :00 No 10mg 10 mg, Slow IV Push, ONCE, 1 dose, On [place] 03/03/24 at 2145, CONSTANTIN [facility] iopamidol (ISOVUE 370-500 mL) injection 79 mL 03-01 02:15: 00 03-01 02:15 :00 No [id number] 79mL 79 mL, Intravenou s, ONCE, 1 dose, On Yashira 02/29/24 at 2115, Routine [facility] proCHLORper azine (COMPAZINE) injection 5 mg 03-01 01:45: 00 03-01 01:45 :00 No 5mg 5 mg, Slow IV Push, ONCE, 1 dose, On Mon02/29/24 at 2045, CONSTANTIN [facility] diphenhydrA MINE (BENADRYL) injection 25 mg 03-01 01:45: 00 03-01 01:26 :00 No 25mg 25 mg, Slow IV Push, ONCE, 1 dose, On Mon02/29/24 at 204, STAT [facility] NaCl 0.9% (NS) bolus infusion 500 mL 03-01 01:45: 00 03-01 02:20 :00 No 500mL at 999 mL/hr, 500 mL, IV Infusion, ONCE, 1 dose, On Mon02/29/24 at 204, STAT [facility] medroxyPROG ESTERone (DEPO-PROVE RA) syringe 150 mg 01-16 12:30: 00 03-12 12:29 :00 Yes [id number] 150mg 150 mg, Intramuscu lar, [id number], 5 doses, First dose on Mon01/17/24 at 0730, Last dose on Mon12/18/24 at 0730, Routine [facility] ciprofloxac in HCl (CIPRO) tablet 500 mg 01-02 06:00: 00 01-02 04:58 :00 No 500mg 500 mg, Oral, ONCE, 1 dose, On 01/02/23 at 0100, CONSTANTIN
Re ason for Anti-Infec tive: Documented Infection< br>Documen michael Infection Site: Urine
D uration of Therapy: Other (see Comments) [facility] morpHINE (4 mg/mL) injection 4 mg 01-02 04:30: 00 01-02 04:15 :00 No 4mg 4 mg, Slow IV Push, ONCE, 1 dose, On Mon01/01/23 at 2330, STAT [facility] NaCl 0.9% (NS) bolus infusion 500 mL 01-02 04:29: 00 01-02 05:06 :00 No 500mL at 999 mL/hr, 500 mL, IV Piggyback, ONCE, 1 dose, On Mon01/01/23 at 2330, STAT [facility] ondansetron (ZOFRAN (PF)) injection 4 mg 01-02 03:45: 00 01-02 03:34 :00 No 4mg 4 mg, Slow IV Push, ONCE, 1 dose, On Mon01/01/23 at 2245, CONSTANTIN [facility] ketorolac (TORADOL) injection 30 mg 01-02 03:30: 00 01-02 03:34 :00 No 30mg 30 mg, Slow IV Push, ONCE, 1 dose, On 01/01/23 at 2245, Routine [facility] ciprofloxac in HCl 500 mg tablet 01-01 00:00: 00 01-11 00:00 :00 No [id number] 500mg Take 1 tablet by mouth in the morning and 1 tablet in the evening. [facility] ondansetron (ZOFRAN (PF)) injection 4 mg 12-29 08:30: 00 12-29 08:19 :00 No 4mg 4 mg, Slow IV Push, ONCE, 1 dose, On Yashira 12/29/22 at 0330, CONSTANTIN [facility] FENTanyl PF (SUBLIMAZE (PF)) injection 50 mcg 12-29 08:15: 00 12-29 08:19 :00 No 50ug 50 mcg, Slow IV Push, ONCE, 1 dose, On Yashira 12/29/22 at 0315, STAT [facility] HYDROcodone -acetaminop hen (NORCO 5) 5-325 mg tablet 1 tablet 12-29 08:15: 00 12-29 07:32 :00 No 1{tbl} 1 tablet, Oral, ONCE, 1 dose, On Yashira 12/29/22 at 0315, [facility] iopamidol (ISOVUE 370-500 mL) injection 75 mL 12-29 08:15: 00 12-29 08:15 :00 No [id number] 75mL 75 mL, Intravenou s, ONCE, 1 dose, On Yashira 12/29/22 at 0315, Routine [facility] ketorolac (TORADOL) injection 15 mg 12-29 07:30: 00 12-29 06:50 :00 No 15mg 15 mg, Slow IV Push, ONCE, 1 dose, On Yashira 12/29/22 at 0230, Routine [facility] cefTRIAXone (ROCEPHIN) 1,000 mg in NaCl 0.9% (NS) 100 mL MINI-BAG 12-29 07:15: 00 12-29 08:23 :00 No 1000mg 1,000 mg, IV Piggyback, ONCE, 1 dose, On Yashira 12/29/22 at 0215, Administer over 30 Minutes, 100 mL
Reas on for Anti-Infec tive: Documented Infection< br>Documen michael Infection Site: Urine
D uration of Therapy: Other (see Comments) [facility] phenazopyri dine 200 mg tablet 12-29 00:00: 00 01-11 00:00 :00 No [id number] 200mg Take 1 tablet by mouth in the morning and 1 tablet at noon and 1 tablet in the evening. [facility] cefpodoxime 100 mg tablet 4-13 00:00: 00 01-06 04:59 :00 No [id number] 100mg Take 1 tablet by mouth in the morning and 1 tablet in the evening. Do all this for 7 days. [facility] HYDROcodone -acetaminop hen (NORCO 5) 5-325 mg tablet 1 tablet 2021-09 15:15: 00 07-24 15:14 :00 No 1{tbl} 1 tablet, Oral, ONCE, 1 dose, On 07/24/22 at 0915, CONSTANTIN [facility] ketorolac (TORADOL) injection 60 mg 2021-09 15:15: 00 07-24 15:16 :00 No 60mg 60 mg, Intramuscu lar, ONCE, 1 dose, On 07/24/22 at 0915, [facility] levothyroxi ne 100 mcg tablet 06-04 00:00: 00 01-11 00:00 :00 No [id number] 100ug Take 1 tablet by mouth every morning. [facility] amphetamine -dextroamph etamine (ADDERALL XR) 25 mg 24 hr capsule 06-03 11:43: 45 01-11 00:00 :00 No 25mg Take 25 mg by mouth every morning. [facility] ketorolac (TORADOL) injection 30 mg 06-03 03:45: 00 06-03 02:55 :00 No 30mg 30 mg, Slow IV Push, ONCE, 1 dose, On Yashira 06/02/22 at 2245, Routine [facility] NaCl 0.9% (NS) bolus infusion 1,000 mL 06-02 21:00: 00 06-02 21:30 :36 No 1000mL at 250 mL/hr, 1,000 mL, IV Piggyback, ONCE, 1 dose, On Yashira 06/02/22 at 1600, CONSTANTIN [facility] ketorolac (TORADOL) injection 30 mg 06-02 18:45: 00 06-02 18:02 :00 No 30mg 30 mg, Slow IV Push, ONCE, 1 dose, On Mon06/02/22 at 1345, Routine [facility] pantoprazol e (PROTONIX) EC tablet 40 mg 06-02 17:30: 00 Yes 40mg 40 mg, Oral, DAILY, First dose on Mon06/02/22 at 1230, Until Discontinu ed, Routine [facility] gadobenate dimeglumine (MULTIHANCE -20 mL) injection 11.3 mL 06-02 16:00: 00 06-02 15:36 :00 No [id number] .2mL/kg 11.3 mL (0.2 mL/kg ?56.5 kg), Intravenou s, ONCE, 1 dose, On Mon06/02/22 at 1100, Routine [facility] acetaminoph en-codeine (TYLENOL #3) 300-30 mg tablet 1 tablet 06-02 12:30: 26 Yes 1{tbl} 1 tablet, Oral, Q4HPRN, Starting on Mon06/02/22 at 0730, Until Discontinu ed, Routine, Pain (scale 4-6) [facility] HYDROcodone -acetaminop hen (NORCO 5) 5-325 mg tablet 1 tablet 06-02 12:30: 16 Yes 1{tbl} 1 tablet, Oral, Q4HPRN, Starting on Mon06/02/22 at 0730, Until Discontinu ed, Routine, Pain (scale 7-10) [facility] sennosides- docusate sodium (SENOKOT-S) 8.6-50 mg per tablet 1 tablet 06-02 02:00: 00 Yes 1{tbl} 1 tablet, Oral, DAILY, First dose on Mon06/01/22 at 2100, Until Discontinu ed, Routine [facility] ketorolac (TORADOL) injection 30 mg 06-01 20:45: 00 06-01 20:48 :00 No 30mg 30 mg, Slow IV Push, ONCE, 1 dose, On Mon06/01/22 at 1545, Routine [facility] lactated ringers IV infusion 1,000 mL 06-01 18:00: 00 06-01 18:00 :00 No 1000mL at 999 mL/hr, 1,000 mL, Intravenou s, ONCE, 1 dose, On Mon06/01/22 at 1300, Routine [facility] polyethylen e glycol 3350 powder 17 g 06-01 14:00: 00 06-02 01:50 :52 No 17g 17 g, Oral, DAILY, First dose on Mon06/01/22 at 0900, Until Discontinu ed, Routine [facility] magnesium sulfate in water 4 gram/50 mL (8 %) IV Piggyback 4 g 06-01 13:30: 00 06-01 14:00 :00 No 4g 4 g, IV Piggyback, ONCE, 1 dose, On Mon06/01/22 at 0830, Routine [facility] KCL (KLOR-CON M20) tablet 40 mEq 06-01 13:30: 00 06-01 13:19 :00 No 40meq 40 mEq, Oral, ONCE, 1 dose, On Mon06/01/22 at 0830, Routine [facility] cyclobenzap rine (FLEXERIL) tablet 10 mg 05-31 19:00: 00 Yes 10mg 10 mg, Oral, TID, First dose (after last modificati on) on Mon05/31/22 at 1400, Until Discontinu ed, [facility] ([facility]NTHROID[facility] tablet 100 mcg 05-31 11:00: 00 Yes 100ug 100 mcg, Oral, QAM-0600, First dose (after last modificati on) on Mon05/31/22 at 0600, Until Discontinu ed, Routine [facility] cyclobenzap rine (FLEXERIL) tablet 5 mg 05-30 16:45: 00 05-31 17:51 :10 No 5mg 5 mg, Oral, TID, First dose on Mon05/30/22 at 1145, Until Discontinu ed, Routine [facility] DOPamine 800 mg/500 mL (1,600 mcg/mL) [...] intravenou s vasopresso r at a time.
[facility] lidocaine 1% (PF) (XYLOCAINE) injection 5 mL 05-30 16:30: 00 05-30 17:45 :00 No 5mL 5 mL, Subcutaneo us, ONCE, 1 dose, On Mon05/30/22 at 1130, Routine [facility] NaCl 0.9% (NS) injection 10 mL 05-30 16:20: 14 Yes 10mL 10 mL, Slow IV Push, PRN, Starting on Mon05/30/22 at 1120, Until Discontinu ed, Routine, line maintenanc e [facility] morpHINE (2 mg/mL) injection 2 mg 05-30 14:49: 56 06-02 12:30 :42 No 2mg 2 mg, Slow IV Push, Q6HPRN, Starting on Mon05/30/22 at 0949, Until Yashira 06/02/22 at 0730, Routine, Pain (scale 7-10) [facility] HYDROcodone -acetaminop hen (NORCO 5) 5-325 mg tablet 1 tablet 05-30 14:49: 30 06-02 12:30 :42 No 1{tbl} 1 tablet, Oral, Q4HPRN, Starting on Mon05/30/22 at 0949, Until Yashira 06/02/22 at 0730, Routine, Pain (scale 4-6) [facility] cholecalcif lorenzo (vitamin D3) tablet 2,000 Units 05-30 14:00: 00 Yes 2000U 2,000 Units, Oral, DAILY, First dose (after last modificati on) on Mon05/30/22 at 0900, Until Discontinu ed, Routine [facility] thiamine (VITAMIN B1) tablet 100 mg 05-30 14:00: 00 Yes 100mg 100 mg, Oral, DAILY, First dose on Mon05/30/22 at 0900, Until Discontinu ed, Routine [facility] levothyroxi ne (SYNTHROID) injection 100 mcg 05-30 13:45: 00 05-30 13:52 :00 No 100ug 100 mcg, Intravenou s, ONCE, 1 dose, On Mon05/30/22 at 0845, Routine [facility] levothyroxi ne (SYNTHROID) tablet 50 mcg 05-30 11:00: 00 05-30 16:20 :48 No 50ug 50 mcg, Oral, QAM-0600, First dose (after last modificati on) on Mon05/30/22 at 0600, Until Discontinu ed, Routine [facility] morpHINE (2 mg/mL) injection 2 mg 05-30 09:14: 26 05-30 09:27 :00 No 2mg 2 mg, Slow IV Push, PRN, 1 dose, Starting on Mon05/30/22 at 0414, Until Mon05/30/22 at 0427, Routine, headache [facility] DOPamine 800 mg/500 mL (1,600 mcg/mL) infusion [...] intravenou s vasopresso r at a time.
[facility] ibuprofen (IBU) tablet 600 mg 05-30 02:52: 32 05-30 15:41 :06 No 600mg 600 mg, Oral, TIDPRN, Starting on Mon05/29/22 at 2152, Until Mon05/30/22 at 1041, Routine, Pain (scale 1-3) [facility] DOPamine 800 mg/500 mL (1,600 mcg/mL) infusion [...] intravenou s vasopresso r at a time.
[facility] hydrocortis one sod succ (CORTEF) injection 50 mg 05-29 22:00: 00 05-30 09:27 :00 No 50mg 50 mg, Intravenou s, Q6H, 3 doses, First dose on Mon05/29/22 at 1700, Last dose on Mon05/30/22 at 0000, 2 mL [facility] proCHLORper azine (COMPAZINE) injection 10 mg 05-29 21:28: 31 Yes 10mg 10 mg, Slow IV Push, Q6HPRN, Starting on Mon05/29/22 at 1628, Until Discontinu ed, Routine, Nausea and Vomiting (N/V), alternate with ondansetro n [facility] levothyroxi ne (SYNTHROID) injection 50 mcg 05-29 17:15: 00 05-29 17:53 :00 No 50ug 50 mcg, Intravenou s, ONCE, 1 dose, On Mon05/29/22 at 1215, Routine [facility] clonazePAM (KLONOPIN) tablet 2 mg 05-29 16:15: 00 Yes 2mg 2 mg, Oral, BID, First dose (after last modificati on) on Mon05/29/22 at 1115, Until Discontinu ed, Routine [facility] cosyntropin (CORTROSYN) injection 250 mcg 05-29 15:45: 00 05-29 16:40 :00 No 250ug 250 mcg, Slow IV Push, ONCE, 1 dose, On Mon05/29/22 at 1045, Routine [facility] enoxaparin (LOVENOX) injection 30 mg 05-29 14:00: 00 Yes 30mg 30 mg, Subcutaneo us, DAILY, First dose on Mon05/29/22 at 0900, Until Discontinu ed, Routine [facility] DOPamine 800 mg/500 mL (1,600 mcg/mL) infusion RTU 05-29 12:00: 00 05-30 01:40 :01 No 5ug/kg/ min 5 mcg/kg/min ?55.5 kg (10.4063 mL/hr, rounded to 10.41 mL/hr), IV Infusion, CONTINUOUS , Starting on Mon05/29/22 at 0700 [facility] levothyroxi ne (SYNTHROID) tablet 25 mcg 05-29 11:00: 00 05-29 11:19 :00 No 25ug 25 mcg, Oral, QAM-0600, 1 dose, First dose on Mon05/29/22 at 0600, [facility] at[facility] 0.5 mg 05-29 06:00: 00 05-29 05:02 :00 No .5mg 0.5 mg, IV Push, ONCE, 1 dose, On Mon05/29/22 at 0100, Routine [facility] ondansetron (ZOFRAN (PF)) injection 4 mg 05-29 05:41: 54 Yes 4mg 4 mg, Slow IV Push, Q6HPRN, Starting on 05/29/22 at 0041, Until Discontinu ed, Routine, Nausea and Vomiting (N/V) [facility] butalbital- acetaminoph en-caff (ESGIC) 50-325-40 mg tablet 1 tablet 05-29 01:18: 20 05-30 16:35 :31 No 1{tbl} 1 tablet, Oral, Q4HPRN, Starting on 05/28/22 at 2018, Until 05/30/22 at 1135, Routine, headache [facility] clonazePAM (KLONOPIN) tablet 1 mg 05-28 20:45: 00 05-29 05:01 :41 No 1mg 1 mg, Oral, BID, First dose on 05/28/22 at 1545, Until Discontinu ed, Routine [facility] acetaminoph en (TYLENOL) tablet 650 mg 05-28 18:51: 25 Yes 650mg 650 mg, Oral, Q6HPRN, Starting on 05/28/22 at 1351, Until Discontinu ed, Routine, Pain (scale 1-3) [facility] ketorolac (TORADOL) injection 15 mg 05-28 18:50: 26 05-30 15:41 :06 No 15mg 15 mg, Slow IV Push, Q6HPRN, Starting on 05/28/22 at 1350, Until 05/30/22 at 1041, Routine, Pain (scale 4-6) [facility] iopamidol (ISOVUE 370-500 mL) injection 70 mL 05-28 18:15: 00 05-28 18:15 :00 No [id number] 70mL 70 mL, Intravenou s, ONCE, 1 dose, On 05/28/22 at 1315, Routine [facility] NaCl 0.9% (NS) bolus infusion 1,000 mL 05-28 16:00: 00 05-28 16:36 :00 No 1000mL at 999 mL/hr, 1,000 mL, IV Infusion, ONCE, 1 dose, On 05/28/22 at 1100, [facility] acetaminoph en (TYLENOL) tablet 1,000 mg 05-28 16:00: 00 05-28 15:50 :00 No 1000mg 1,000 mg, Oral, ONCE, 1 dose, On 05/28/22 at 1100, [facility] ALPRAZOLAM ORAL 05-28 15:31: 37 05-28 00:00 :00 No Take by mouth. [facility] NaCl 0.9% (NS) bolus infusion 1,000 mL 05-28 14:45: 00 05-28 15:05 :00 No 1000mL at 999 mL/hr, 1,000 mL, IV Infusion, ONCE, 1 dose, On 05/28/22 at 0945, [facility] ondansetron (ZOFRAN (PF)) injection 4 mg 05-28 14:45: 00 05-28 14:35 :00 No 4mg 4 mg, Slow IV Push, ONCE, 1 dose, On 05/28/22 at 0945, CONSTANTIN [facility] NaCl 0.9% (NS) bolus infusion 1,000 mL 05-28 14:30: 00 05-28 15:05 :00 No 1000mL at 999 mL/hr, 1,000 mL, IV Infusion, ONCE, 1 dose, On 05/28/22 at 0930, CONSTANTIN [facility] ondansetron (ZOFRAN ODT) 4 mg disintegrat ing tablet 10-10 00:00: 00 05-28 00:00 :00 No [id number] 4mg Take 1 tablet by mouth every 8 (eight) hours as needed for Nausea and Vomiting (N/V). [facility] cephALEXin (KEFLEX) 500 mg capsule 10-10 00:00: 00 10-21 05:59 :00 No [id number] 500mg Take 1 capsule by mouth 3 (three) times daily for 10 days. [facility] metroNIDAZO LE (FLAGYL) 500 mg tablet 05-13 00:00: 00 05-21 04:59 :00 No [id number] 500mg Take 1 tablet by mouth 2 (two) times daily for 7 days. [facility] metroNIDAZO LE 500 mg tablet 05-10 00:00: 00 05-18 04:59 :00 No [id number] 500mg Take 1 tablet by mouth 2 (two) times daily for 7 days. [facility] ALPRAZOLAM ORAL 05-08 23:35: 02 Yes Take by mouth. [facility] ALPRAZOLAM ORAL 05-08 18:35: 02 Yes Take by mouth. [facility] valACYclovi r 1 gram tablet 05-08 00:00: 00 05-16 04:59 :00 No [id number] 1g Take 1 tablet by mouth 3 (three) times daily for 7 days. [facility] clonazePAM 2 mg tablet 04-26 00:00: 00 Yes 2mg Take 1 tablet by mouth in the morning and 1 tablet in the evening. [facility] ALPRAZOLAM ORAL 01-30 16:08: 13 Yes Take by mouth. [facility] amoxicillin 875 mg tablet 01-30 00:00: 00 05-28 00:00 :00 No 875mg Take 1 tablet by mouth 2 (two) times daily. [facility] traMADOL 50 mg tablet 01-30 00:00: 00 05-28 00:00 :00 No 50mg Take 1 tablet by mouth every 6 (six) hours as needed for Pain (scale 4-6). [facility] Vital Signs Vital Name Observation Time Observation Value Comments S ource Systolic blood pressure 2024-03-04 02:26:00 117 mm[Hg] [facility] Diastolic blood pressure 2024-03-04 02:26:00 76 mm[Hg] [facility] Heart rate 2024-03-04 02:26:00 78 /min [facility] Body temperature 2024-03-04 02:26:00 37 Arlene [facility] Respiratory rate 2024-03-04 02:26:00 18 /min [facility] Body height 2024-03-04 02:26:00 162.6 cm [facility] Body weight 2024-03-04 02:26:00 59.693 kg [facility] BMI 2024-03-04 02:26:00 22.59 kg/m2 [facility] Oxygen saturation in Arterial blood by Pulse oximetry 2024-03-04 02:26:00 100 /min [facility] Systolic blood pressure 2024-03-01 03:39:00 91 mm[Hg] [facility] Diastolic blood pressure 2024-03-01 03:39:00 54 mm[Hg] [facility] Heart rate 2024-03-01 03:39:00 62 /min [facility] Respiratory rate 2024-03-01 03:39:00 16 /min [facility] Oxygen saturation in Arterial blood by Pulse oximetry 2024-03-01 03:39:00 97 /min [facility] [facility] Body temperature 2024-02-29 23:01:00 36.94 Arlene [facility] Body height 2024-02-29 23:00:00 162.6 cm [facility] Body weight 2024-02-29 23:00:00 66.225 kg [facility] BMI 2024-02-29 23:00:00 25.06 kg/m2 [facility] Systolic blood pressure 2024-01-17 12:15:00 136 mm[Hg] [facility] Diastolic blood pressure 2024-01-17 12:15:00 73 mm[Hg] [facility] Heart rate 2024-01-17 12:15:00 79 /min [facility] Body temperature 2024-01-17 12:15:00 36.72 Arlene [facility] Respiratory rate 2024-01-17 12:15:00 18 /min [facility] Body height 2024-01-17 12:15:00 162.6 cm [facility] Body weight 2024-01-17 12:15:00 62.398 kg [facility] BMI 2024-01-17 12:15:00 23.61 kg/m2 [facility] Systolic blood pressure 2024-01-12 14:22:00 122 mm[Hg] [facility] Diastolic blood pressure 2024-01-12 14:22:00 79 mm[Hg] [facility] Heart rate 2024-01-12 14:22:00 76 /min [facility] Body temperature 2024-01-12 14:22:00 36.72 Arlene [facility] Respiratory rate 2024-01-12 14:22:00 18 /min [facility] Body height 2024-01-12 14:22:00 162.6 cm [facility] Body weight 2024-01-12 14:22:00 63.231 kg [facility] BMI 2024-01-12 14:22:00 23.93 kg/m2 [facility] Systolic blood pressure 2023-01-02 05:00:00 93 mm[Hg] [facility] Diastolic blood pressure 2023-01-02 05:00:00 64 mm[Hg] [facility] Heart rate 2023-01-02 05:00:00 50 /min [facility] Body temperature 2023-01-02 05:00:00 36.22 Arlene [facility] Oxygen saturation in Arterial blood by Pulse oximetry 2023-01-02 05:00:00 98 /min [facility] Respiratory rate 2023-01-02 03:00:00 19 /min [facility] Body height 2023-01-02 02:00:00 162.6 cm [facility] Body weight 2023-01-02 02:00:00 63.504 kg [facility] BMI 2023-01-02 02:00:00 24.03 kg/m2 [facility] Systolic blood pressure 2022-12-29 08:00:00 118 mm[Hg] [facility] Diastolic blood pressure 2022-12-29 08:00:00 68 mm[Hg] [facility] Heart rate 2022-12-29 08:00:00 53 /min [facility] Respiratory rate 2022-12-29 08:00:00 16 /min [facility] Oxygen saturation in Arterial blood by Pulse oximetry 2022-12-29 08:00:00 100 /min [facility] Body temperature 2022-12-29 06:43:00 36.61 Arlene [facility] Body height 2022-12-29 06:43:00 162.6 cm [facility] Body weight 2022-12-29 06:43:00 58.968 kg [facility] BMI 2022-12-29 06:43:00 22.31 kg/m2 [facility] Systolic blood pressure 2022-07-24 14:19:00 117 mm[Hg] [facility] Diastolic blood pressure 2022-07-24 14:19:00 85 mm[Hg] [facility] Heart rate 2022-07-24 14:19:00 89 /min [facility] Body temperature 2022-07-24 14:19:00 36.28 Arlene [facility] Respiratory rate 2022-07-24 14:19:00 16 /min [facility] Body height 2022-07-24 14:19:00 162.6 cm [facility] Body weight 2022-07-24 14:19:00 58.968 kg [facility] BMI 2022-07-24 14:19:00 22.31 kg/m2 [facility] Systolic blood pressure 2022-06-03 13:23:00 98 mm[Hg] [facility] Diastolic blood pressure 2022-06-03 13:23:00 65 mm[Hg] [facility] Heart rate 2022-06-03 13:23:00 107 /min [facility] Body temperature 2022-06-03 13:19:00 36.44 Arlene [facility] Respiratory rate 2022-06-03 13:19:00 18 /min [facility] Oxygen saturation in Arterial blood by Pulse oximetry 2022-06-03 13:19:00 97 /min [facility] Body weight 2022-06-03 09:36:00 58.469 kg bed scale was used, pt refused to stand on the regular scale [facility] 2022-06-03 09:36:00 22.13 kg/m2 [facility] Body height 2022-06-01 01:00:00 162.6 cm [facility] Systolic blood pressure 2021-10-10 05:10:00 121 mm[Hg] [facility] Diastolic blood pressure 2021-10-10 05:10:00 90 mm[Hg] [facility] Heart rate 2021-10-10 05:10:00 74 /min [facility] Body temperature 2021-10-10 05:10:00 36.56 Arlene [facility] Respiratory rate 2021-10-10 05:10:00 19 /min [facility] Body height 2021-10-10 05:10:00 162.6 cm [facility] Body weight 2021-10-10 05:10:00 56.7 kg [facility] BMI 2021-10-10 05:10:00 21.46 kg/m2 [facility] Oxygen saturation in Arterial blood by Pulse oximetry 2021-10-10 05:10:00 100 /min [facility] Procedures Procedure Date / Time Performed Performing Clinician Source THYROID STIMULATING HORMONE 2024-03-04 03:10[facility]OLIC [facility] (39524) 2024-03-04 03:10:00 Lucrecia [facility]holli [facility] CBC WITH DIFF 2024-03-04 03:10:[address] [facility] FREE T4 2024-03-01 02:27:[address] [facility] [address] ABDOMEN PELVIS W CONTRAST 2024-03-01 01:28:58 Singer [facility] URINE DRUG (IMMUNOASSAY) - COMPREHENSIVE DRUG SCREEN W/O REFLEX 2024-03-01 01:25:00 Singer [facility] POCT TEST 2024-03-01 00:37:00 Singer [facility] THYROID STIMULATING HORMONE 2024-03-01 00:34:00 Singer [facility] COMP. METABOLIC PANEL ([id number]) 2024-03-01 00:34:00 Singer [facility] CBC WITH DIFF 2024-03-01 00:34:00 Singer [facility] URINALYSIS 2024-03-01 00:34:00 Singer [facility] FREE T3 2024-03-01 00:34:00 Singer [facility] POCT TEST 2024-01-17 12:15:00 Ashlyn Ramos [facility] US OVARY TORSION 2023-01-02 04:11:07 Jared Hancock [facility] POCT TEST 2023-01-02 02:50:00 Jared Hancock [facility] COMP. METABOLIC PANEL ([id number]) 2023-01-02 02:44:00 Jared Hancock [facility] CBC WITH DIFF 2023-01-02 02:44:00 [facility] URINALYSIS 2023-01-02 02:44:00 Jared Hancock [facility] NOTICE OF PRIVACY PRACTICES 2023-01-02 01:58:59 Doctor Unassigned, [place] [facility] CONSENT/REFUSAL FOR DIAGNOSIS AND TREATMENT 2023-01-02 01:58:33 Doctor Unassigned, [place] [facility] BASIC METABOLIC PANEL (NA, K, CL, CO2, GLUCOSE, BUN, CREATININE, CA) 2022-12-29 06:49:00 Yasmin [facility] CBC WITH DIFF 2022-12-29 06:49:00 Yasmin [facility] URINALYSIS 2022-12-29 06:47:00 Yasmin [facility] POCT TEST 2022-12-29 06:47:00 Yasmin [facility] NOTICE OF PRIVACY PRACTICES 2022-12-29 06:39:53 Doctor Unassigned, [place] [facility] CONSENT/REFUSAL FOR DIAGNOSIS AND TREATMENT 2022-12-29 06:37:56 Doctor Unassigned, [place] [facility] CONSENT/REFUSAL FOR DIAGNOSIS AND TREATMENT 2022-07-24 14:13:56 Doctor Unassigned, [place] [facility] MAGNESIUM 2022-06-03 09:34:00 [facility]OLIC [facility] (NA, K, CL, CO2, GLUCOSE, BUN, CREATININE, CA) 2022-06-03 09:34:00 [facility] WITH DIFF 2022-06-03 09:34:[address] [facility] MR CARDIAC MORPHOLOGY W WO CONTRAST 2022-06-02 15:45:00 [facility] MAGNESIUM 2022-06-02 10:03:00 [facility] HEPATIC FUNCTION PANEL ([id number]) (ALB,T.PRO,BILI T,BU/BC,ALT,AST,ALK PHOS) 2022-06-02 10:03:00 [facility] BASIC METABOLIC PANEL (NA, K, CL, CO2, GLUCOSE, BUN, CREATININE, CA) 2022-06-02 10:03:00 [facility] CBC WITH DIFF 2022-06-02 10:03:00 [facility] PROTHROMBIN TIME / INR 2022-06-02 10:03:00 [facility] HEPATITIS B SURFACE ANTIBODY 2022-06-02 10:03:00 [facility] HCV ANTIBODY 2022-06-02 10:03:00 [facility] HBC ANTIBODY (IGM & IGG) 2022-06-02 10:03:00 [facility] GC & CHLAMYDIA AMPLIFIED ASSAY 2022-06-01 17:08:00 [facility] ANTICARDIOLIPIN ANTIBODIES 2022-06-01 15:17:00 [facility] THYROID PEROXIDASE (TPO) AB 2022-06-01 15:17:00 [facility] CYCLIC CITRULLINATED PEPTIDE 2022-06-01 15:17:00 [facility] ANTI-B2 GLYCOPROTEIN I AB 2022-06-01 15:17:00 [facility] BASIC METABOLIC PANEL (NA, K, CL, CO2, GLUCOSE, BUN, CREATININE, CA) 2022-06-01 00:45:00 Amina [facility] CBC WITH DIFF 2022-06-01 00:45:00 Amina [facility] PROTHROMBIN TIME / INR 2022-06-01 00:45:00 Amina [facility] ACTIVATED PARTIAL THRMPLAS RAJ 2022-06-01 00:45:00 Amina [facility] HEPATITIS B SURFACE ANTIGEN 2022-06-01 00:45:00 [facility] LACTIC ACID WHOLE BLOOD 2022-06-01 00:45:00 Amina [facility] LYME, LATE DISEASE (ABS, JESS W/REFLEX TO WB) 2022-06-01 00:45:00 Abhi Moseley [facility] MAGNESIUM 2022-05-31 08:24:00 Aria Hyde [facility] BASIC METABOLIC PANEL (NA, K, CL, CO2, GLUCOSE, BUN, CREATININE, CA) 2022-05-31 08:24:00 Tony Hill [facility] HIV 1/2 AG-AB WITH REFLEX 2022-05-31 08:24:00 Abhi Moseley [facility] XR CHEST 1 VW 2022-05-30 18:12:00 Tony Hill [facility] URINALYSIS 2022-05-30 18:08:00 Tony Hill [facility] URINE CULTURE 2022-05-30 18:08:00 Tony Hill [facility] PROTEIN CREAT RATIO URINE RANDOM 2022-05-30 18:08:00 Tony Hill [facility] CREATINE KINASE 2022-05-30 17:56:00 Liz [facility] BASIC METABOLIC PANEL (NA, K, CL, CO2, GLUCOSE, BUN, CREATININE, CA) 2022-05-30 17:56:[address] [facility] [address] HEAD WO CONTRAST 2022-05-30 11:06:02 Barrett [facility] FREE T4 2022-05-30 06:11:00 Liz Tony [facility] CBC WITH DIFF 2022-05-30 06:11:00 Liz [facility] HB ECG ROUTINE & RHYTHM STRIP 2022-05-30 05:23:39 Barrett [facility] RHEUMATOID FACTOR 2022-05-29 22:41:00 Liz Tony [facility] C4 COMPLEMENT 2022-05-29 22:41:00 Liz [facility] SEDIMENTATION RATE 2022-05-29 22:41:00 Liz [facility] PROTHROMBIN TIME / INR 2022-05-29 22:41:00 Liz [facility] ACTIVATED PARTIAL THRMPLAS RJA 2022-05-29 22:41:00 Liz [facility] ANTI-NUCLEAR ANTIBODY SCREEN 2022-05-29 22:41:00 Liz [facility] ANTI-NUCLEAR ANTIBODY TITER 2022-05-29 22:41:00 Liz [facility] ANTI-SSB(LA) 2022-05-29 22:41:00 Abhi Moseley [facility] ANTI-DOUBLE STRANDED DNA 2022-05-29 22:41:00 Tony Hill [facility] GALV ONLY - SYPHILIS IGG/IGM 2022-05-29 22:41:00 Darshan Gan [facility] ANTI-NUCLEAR ANTIBODY-PATHOLOGIST INTERPRETATION 2022-05-29 22:41:00 Tony Hill [facility] CORTISOL STIMULATION 60 MIN 2022-05-29 17:46:00 [facility] 30 MIN 2022-05-29 17:16:00 Liz [facility] ADRENOCORTICOTROPIC HORMONE 2022-05-29 16:30:00 Liz Tony [facility] C-REACTIVE PROTEIN 2022-05-29 16:30:00 [facility] 0 MIN 2022-05-29 16:30:00 Tony Hill [facility] XR CHEST 1 VW 2022-05-29 14:46:47 Anthony Fischer [facility] TRANSTHORACIC ECHO (TTE) COMPLETE 2022-05-29 13:59:00 [facility] HB ECG ROUTINE & RHYTHM STRIP 2022-05-29 12:47:45 Tony Hill [facility] PHOSPHORUS 2022-05-29 09:48:00 Tony Hill [facility] MAGNESIUM 2022-05-29 09:48:00 Liz Tony [facility] CORTISOL AM 2022-05-29 09:48:00 Aria Hyde [facility] TROPONIN I 2022-05-29 09:48:00 Liz [facility] HEPATIC FUNCTION PANEL ([id number]) (ALB,T.PRO,BILI T,BU/BC,ALT,AST,ALK PHOS) 2022-05-29 09:48:00 [facility] BASIC METABOLIC PANEL (NA, K, CL, CO2, GLUCOSE, BUN, CREATININE, CA) 2022-05-29 09:48:00 Liz Tony [facility] CBC WITH DIFF 2022-05-29 09:48:00 Tony Hill [facility] LACTIC ACID WHOLE BLOOD 2022-05-28 19:46:00 Tony Hill [facility] HB ECG ROUTINE & RHYTHM STRIP 2022-05-28 19:30:05 Tony Hill [facility] MRSA / MSSA SCREEN BY PCR, MELISSA 2022-05-28 18:47:00 Tony Hill [facility] CT CHEST PULMONARY ANGIOGRAM 2022-05-28 17:17:12 Elvin [facility] COVID-19 (ID NOW RAPID TESTING) 2022-05-28 16:37:00 [facility] 2022-05-28 16:37:00 [facility] ROUTINE & RHYTHM STRIP 2022-05-28 13:55:45 [facility] PHOS[facility]US 2022-05-28 13:36:00 [facility] CREATINE KINASE 2022-05-28 13:36:00 [facility] MAGN[facility] 2022-05-28 13:36:00 [facility] TROPONIN I 2022-05-28 13:36:[facility] 2022-05-28 13:36:00 [facility] THYROID STIMULATING HORMONE 2022-05-28 13:36:00 [facility] COMP. METABOLIC PANEL ([id number]) 2022-05-28 13:36:00 [facility] ETH[facility] 2022-05-28 13:36:00 [facility] CBC WITH DIFF 2022-05-28 13:36:00 [facility] 2022-05-28 13:36:00 [facility] 2022-05-28 13:36:00 [facility] N-TERMINAL PRO-BNP 2022-05-28 13:36:00 Elis Oconnor [facility] URINE DRUG (IMMUNOASSAY) - COMPREHENSIVE DRUG SCREEN W/O REFLEX 2022-05-28 13:36:00 Elis Oconnor [facility] CONSENT/REFUSAL FOR DIAGNOSIS AND TREATMENT 2022-05-28 13:23:47 Doctor Unassigned, [place] [facility] HOSPITAL ADMISSION 2022-05-28 05:01:00 Doctor Unassigned, [place] [facility] ASSIGNMENT OF BENEFITS 2021-10-10 06:40:03 Doctor Unassigned, [place] [facility] URINALYSIS 2021-10-10 06:00:00 Mireya Castellon [facility] POCT TEST 2021-10-10 06:00:00 Mireya Castellon [facility] NOTICE OF PRIVACY PRACTICES 2021-10-10 05:07:28 Doctor Unassigned, [place] [facility] CONSENT/REFUSAL FOR DIAGNOSIS AND TREATMENT 2021-10-10 05:07:13 Doctor Unassigned, [place] [facility] Encounters Start Date/Time End Date/Time Encounter Type Admission Type Attending [facility] Facility Care Department Encounter ID Source 2024-03-14 11:15:00 2024-03-14 11:15:00 Outpatient CHRISTOPHER NICHOLAS [id number] Janet Carver 2024-03-03 21:30:00 2024-03-03 23:40:00 Emergency [facility] [id number] [facility] 2024-03-03 21:30:00 2024-03-03 23:40:[address] [facility] 1.2.840.114 350.1.13.10 4.2.7.2.686 [id number] [facility] 2024-02-29 18:03:00 2024-02-29 22:44:00 Emergency X ADELFO BLANKENSHIP [facility] [id number] [facility] 2024-02-29 18:03:00 2024-02-29 22:44:00 Emergency Blankenship, Adelfo [facility] 1..840.114 350.1.13.10 4.2.7.2.686 [id number] [facility] 2024-02-05 07:00:01 2024-02-05 23:59:00 Outpatient R CONCEPCIÓN JOHNSON [facility] [id number] [facility] 2024-02-05 07:00:01 2024-02-05 23:59:00 Hospital Encounter Concepción Johnson [facility] 1..840.114 350.1.13.10 4.2.7.2.686 [id number] [facility] 2024-01-17 07:15:00 2024-01-17 07:34:15 Outpatient R ASHLYN RAMOS [facility] [id number] [facility] 2024-01-17 07:15:00 2024-01-17 07:34:15 Office Visit Ashlyn [facility] & [facility]ILD [facility] 1..840.114 350.1.13.10 4.2.7.2.686 [id number] [facility] 2024-01-17 07:30:00 2024-01-17 07:32:46 Outpatient R ASHLYN RAMOS [facility] [id number] [facility] 2024-01-15 00:00:00 2024-01-15 00:00:00 Telephone Concepción Johnson [facility] 1..840.114 350.1.13.10 4.2.7.2.686 [id number] [facility] 2024-01-15 00:00:00 2024-01-15 00:00:00 Telephone Concepción Johnson [facility] MATERNAL & CHILD [facility] 1.2.840.114 350.1.13.10 4.2.7.2.686 [id number] [facility] 2024-01-12 09:15:00 2024-01-12 10:27:54 Outpatient R CONCEPCIÓN JOHNSON [facility] [id number] [facility] 2024-01-12 09:15:00 2024-01-12 10:27:54 Office Visit Concepción Johnson [facility]ILD [facility] 1.2.840.114 350.1.13.10 4.2.7.2.686 [id number] [facility] 2023-05-17 08:28:58 2023-05-17 08:28:58 Outpatient [facility] [id number] Crow Mckeon 2023-01-01 21:14:00 2023-01-02 00:10:00 Emergency X JARED HANCOCK [facility] [id number] [facility] 2023-01-01 21:14:00 2023-01-02 00:10:[address] [facility] 1.2.840.114 350.1.13.10 4.2.7.2.686 [id number] [facility] 2022-12-29 01:38:00 2022-12-29 03:46:00 Emergency X REMIGIO WALLIS [facility] [id number] [facility] 2022-12-29 01:38:00 2022-12-29 03:46:[address] [facility] 1.2.840.114 350.1.13.10 4.2.7.2.686 [id number] [facility] 2022-07-24 08:22:00 2022-07-24 10:05:00 Emergency X JUAN MANUEL GTZ [facility] [id number] [facility] 2022-07-24 08:22:00 2022-07-24 10:05:[address] [facility] 1.2.840.114 350.1.13.10 4.2.7.2.686 [id number] [facility] 2022-07-19 00:00:00 2022-07-19 00:00:00 Patient Outreach Siri Silverio 1.2.840.114 350.1.13.10 4.2.7.2.686 [id number] [facility] 2022-06-20 00:00:00 2022-06-20 00:00:00 Patient Outreach ChelseaMarkell [facility] 1.2.840.114 350.1.13.10 4.2.7.2.686 [id number] [facility] 2022-06-15 00:00:00 2022-06-15 00:00:00 Patient Outreach Siri Silverio 1.2.840.114 350.1.13.10 4.2.7.2.686 [id number] [facility] 2022-06-14 00:00:00 2022-06-14 00:00:00 Patient Outreach Siri Silverio 1.2.840.114 350.1.13.10 4.2.7.2.686 [id number] [facility] 2022-06-10 00:00:00 2022-06-10 00:00:00 Transition of Care Tobias Evangelinatierra MEANS 1.2.840.114 350.1.13.10 4.2.7.2.686 [id number] [facility] 2022-06-06 00:00:00 2022-06-06 00:00:00 Transition of Care Tobias Evangelinatierra MEANS 1.2.840.114 350.1.13.10 4.2.7.2.686 [id number] [facility] 2022-06-06 00:00:00 2022-06-06 00:00:00 Transition of Care Evangelina Collado 1.2840.114 350.1.13.10 4.2.7.2.686 [id number] [facility] 2022-06-03 13:52:31 2022-06-03 23:59:00 Outpatient Justina [facility] [id number] [facility] 2022-05-28 08:29:00 2022-06-03 11:43:00 Hospital Encounter Elvin, Elis Hill, Tony De Oliveira Hannah, Margie Inman, [facility] 1..114 350.1.13.10 4.2.7.2.686 [id number] [facility] 2022-05-28 08:29:00 2022-06-03 11:43:00 Inpatient Rip [facility] [id number] [facility] 2021-10-09 23:25:00 2021-10-10 01:50:00 Emergency X Mireya [facility]STELLON [facility] [id number] [facility] 2021-10-09 23:25:00 2021-10-10 01:50:[address] [facility] 1.0.114 350.1.13.10 4.2.7.2.686 [id number] [facility] 2021-05-12 00:00:00 2021-05-12 00:00:00 Telephone Trista Eason [facility] 1.0.114 350.1.13.10 4.2.7.2.686 [id number] [facility] 2021-05-10 00:00:00 2021-05-10 00:00:00 Telephone Jose Álvarez [facility] 1.2840.114 350.1.13.10 4.2.7.2.686 [id number] [facility] 2021-05-10 00:00:00 2021-05-10 00:00:00 Telephone Pcp, Patient Does Not Have A [facility] Balbir?[facility] 1.84.114 350.1.13.10 4.2.7.2.686 [id number] [facility] 2021-05-08 18:20:00 2021-05-08 18:20:00 Outpatient R LALI, ATTENDING [facility] [id number] [facility] 2021-05-07 09:00:00 2021-05-07 09:00:00 Outpatient R ROZINA LUJAN [facility] [id number] [facility] 2020-05-05 11:45:00 2020-05-05 11:45:00 Outpatient kaleigh [facility] [id number] [facility] 2020-01-14 00:00:00 2020-01-14 00:00:00 Telephone Pcp, Patient Does Not Have A [facility] 1.2840.114 350.1.13.10 4.2.7.2.686 [id number] 2020-01-14 00:00:00 2020-01-14 00:00:00 Telephone Pcp, Patient Does Not Have A [facility] 1.2840.114 350.1.13.10 4.2.7.2.686 [id number] [facility] Results Test Description Test Time Test Comments Results Result Co [facility][id number][facility]2024-03-04 04:27:28* Test Item Value Reference Range Interpretation Comme nts NA (test code = 5588321100) 143 mmol/L 135-145 K (test code = 0123814479) 3.9 mmol/L 3.5-5.0 CL (test code = 2472936464) 111 mmol/L 98-108 H CO2 TOTAL (test code = 0676967636) 25 mmol/L 23-31 AGAP (test code = 6028666590) 7 2-16 BUN (test code = 1231701924) 14 mg/dL 7-23 GLUCOSE (test code = 2651027924) 92 mg/dL 70-110 CREATININE (test code = 2160-0) 0.71 mg/dL 0.50-1.04 TOTAL BILI (test code = 4689927371) 0.4 mg/dL 0.1-1.1 CALCIUM (test code = 3584839852) 9.0 mg/dL 8.6-10.6 T PROTEIN (test code = 4080837249) 7.1 g/dL 6.3-8.2 ALBUMIN (test code = 2392531123) 4.3 g/dL 3.5-5.0 ALK PHOS (test code = 5507101424) 59 U/L 34-122 ALTv (test code = 1742-6) 9 U/L 5-35 AST(SGOT) (test code = 6345791735) 32 U/L 13-40 eGFR (test code = 61173-6) 115.3 mL/min/1.73m2 CKD-EPI eGFR (2020). Assuming creatinine has been stable day-to-day for at least three months, the eGFR indicates Category G1 (>= 90 mL/min/1.73 m2) Lab Interpretation (test code = 74712-9) [id number] 04:03:25* Test Item Value Reference Range Interpretation Comme nts WBC (test code = 6690-2) 7.14 4.30-11.10 RBC (test code = 789-8) 4.35 3.93-5.25 HGB (test code = 718-7) 13.1 g/dL 11.6-15.0 HCT (test code = 4544-3) 38.3 % 35.7-45.2 MCV (test code = 787-2) 88.0 fL 80.6-95.5 MCH (test code = 785-6) 30.1 pg 25.9-32.8 MCHC (test code = 786-4) 34.2 g/dL 31.6-35.1 RDW-SD (test code = 93571-7) 38.3 fL 39.0-49.9 L RDW-CV (test code = 788-0) 11.9 % 12.0-15.5 L PLT (test code = 777-3) 196 166-358 MPV (test code = 68073-5) 11.0 fL 9.5-12.9 NRBC/100 WBC (test code = 4934925520) 0.0 0.0-10.0 NRBC x10^3 (test code = 2231305066) See_Comment [Automated messa ge] The system which generated this result transmitted reference range: 10*3/?L. The reference range was not used to interpret this result as normal/abnormal. GRAN MAT (NEUT) % (test code = 770-8) 63.0 % IMM GRAN % (test code = 6486382994) 0.30 % LYMPH % (test code = 736-9) 30.5 % MONO % (test code = 5905-5) 5.0 % EOS % (test code = 713-8) 0.8 % BASO % (test code = 706-2) 0.4 % GRAN MAT x10^3(ANC) (test code = 1328772310) 4.49 10*3/uL 1.88-7.09 IMM GRAN x10^3 (test code = 9498953785) 0.00-0.06 LYMPH x10^3 (test code = 731-0) 2.18 10*3/uL 1.32-3.29 MONO x10^3 (test code = 742-7) 0.36 10*3/uL 0.33-0.92 EOS x10^3 (test code = 711-2) 0.06 10*3/uL 0.03-0.39 BASO x10^3 (test code = 704-7) 0.03 10*3/uL 0.01-0.07 Lab Interpretation (test code = 42674-2) [facility] [id number] 03:23:22* Test Item Value Reference Range Interpretation Comme nts FREE T4 (test code = 4415584944) 1.45 0.78-2.20 Lab Interpretation (test cod e = 44861-1) Normal [facility]CT [facility] PELVIS W [id number] 02:58:31ORDERING PHYSICIAN: ADELFO BLANKENSHIP HISTORY: Abdominal pain, acute, nonlocalized look for a pheo also. TECHNIQUE: CT abdomen and pelvis with intravenous contrast. Thisexamination was performed according to ALARA principles. COMPARISON: None. FINDINGS:Visualized lower chest: Within normal limits. Hepatobiliary: Liver, gallbladder, spleen, and pancreas are within normallimits. ? Genitourinary: Adrenal glands are unremarkable. Kidneys are normal in sizewithout hydronephrosis or nephrolithiasis. Urinary bladder is unremarkable.Pelvic organs are within normal limits. Bowel: Stomach, small, and large bowel are within normal limits. Noevidence of acute appendicitis. Vascular and retroperitoneum: Aorta and inferior vena cava are withinnormal limits. No lymphadenopathy. Bones: No acute abnormality.[facility] FREE [id number] 02:43:13* Test Item Value Reference Range Interpretation Comme nts FREE T3 (test code = 3721833072) 4.13 pg/mL 2.77-5.27 Lab Interpretation (test cod e = 59408-7) Normal [facility] CenterThyroid Stimulating [id number] 01:43:47 * Test Item Value Reference Range Interpretation Comme nts TSH (test code = 7746911146) 0.04 0.45-4.70 L Lab Interpretation (test cod e = 71505-4) Abnormal [facility] CenterComp. Metabolic Panel (31500)2024-03-01 01:13:22* Test Item Value Reference Range Interpretation Comme nts NA (test code = 5761740974) 143 mmol/L 135-145 K (test code = 3547113317) 3.9 mmol/L 3.5-5.0 CL (test code = 8532174380) 111 mmol/L 98-108 H CO2 TOTAL (test code = 5475824087) 29 mmol/L 23-31 AGAP (test code = 4093941962) 3 2-16 BUN (test code = 6713796526) 13 mg/dL 7-23 GLUCOSE (test code = 4375440862) 89 mg/dL 70-110 CREATININE (test code = 2160-0) 0.79 mg/dL 0.50-1.04 TOTAL BILI (test code = 9642170063) 0.4 mg/dL 0.1-1.1 CALCIUM (test code = 2387208366) 8.8 mg/dL 8.6-10.6 T PROTEIN (test code = 1805211480) 6.6 g/dL 6.3-8.2 ALBUMIN (test code = 6502701214) 4.0 g/dL 3.5-5.0 ALK PHOS (test code = 7765714462) 54 U/L 34-122 ALTv (test code = 1742-6) 9 U/L 5-35 AST(SGOT) (test code = 4108810638) 19 U/L 13-40 eGFR (test code = 39400-8) 101.4 mL/min/1.73m2 CKD-EPI eGFR (2020). Assuming creatinine has been stable day-to-day for at least three months, the eGFR indicates Category G1 (>= 90 mL/min/1.73 m2) Lab Interpretation (test code = 81407-2) Abnormal [facility] with [id number] 01:03:03* Test Item Value Reference Range Interpretation Comme nts WBC (test code = 6690-2) 6.45 4.30-11.10 RBC (test code = 789-8) 3.99 3.93-5.25 HGB (test code = 718-7) 12.2 g/dL 11.6-15.0 HCT (test code = 4544-3) 36.4 % 35.7-45.2 MCV (test code = 787-2) 91.2 fL 80.6-95.5 MCH (test code = 785-6) 30.6 pg 25.9-32.8 MCHC (test code = 786-4) 33.5 g/dL 31.6-35.1 RDW-SD (test code = 90438-3) 38.3 fL 39.0-49.9 L RDW-CV (test code = 788-0) 11.6 % 12.0-15.5 L PLT (test code = 777-3) 158 166-358 L MPV (test code = 38365-2) 11.3 fL 9.5-12.9 NRBC/100 WBC (test code = 4175336373) 0.0 0.0-10.0 NRBC x10^3 (test code = 5441034066) See_Comment [Automated messa ge] The system which generated this result transmitted reference range: 10*3/?L. The reference range was not used to interpret this result as normal/abnormal. GRAN MAT (NEUT) % (test code = 770-8) 62.3 % IMM GRAN % (test code = 8874800598) 0.50 % LYMPH % (test code = 736-9) 30.9 % MONO % (test code = 5905-5) 5.6 % EOS % (test code = 713-8) 0.5 % BASO % (test code = 706-2) 0.2 % GRAN MAT x10^3(ANC) (test code = 8329765086) 4.03 10*3/uL 1.88-7.09 IMM GRAN x10^3 (test code = 2100704800) 0.03 10*3/uL 0.00-0.06 LYMPH x10^3 (test code = 731-0) 1.99 10*3/uL 1.32-3.29 MONO x10^3 (test code = 742-7) 0.36 10*3/uL 0.33-0.92 EOS x10^3 (test code = 711-2) 0.03 10*3/uL 0.03-0.39 BASO x10^3 (test code = 704-7) 0.01-0.07 Lab Interpretation (test code = 14204-8) Abnormal [facility] CenterPOOK [id number] 00:37:00* Test Item Value Reference Range Interpretation Comme nts POCT PREG (test code = 1605) Negative On board controls acceptable with C Line (test code = 3574) Yes POCT PREG LOT # (test code = 3575) [id number] POCT PREG TEST DATE ( test code = 3576) 01/19/2025 Lab Interpretation (test cod e = 91864-4) Normal [facility] [id number] 12:15:00* Test Item Value Reference Range Interpretation Comme nts POCT PREG (test code = 1605) Negative On board controls acceptable with C Line (test code = 3574) Yes POCT PREG LOT # (test code = 3575) POCT PREG TEST DATE ( test code = 3576) [facility] [id number] 12:15:00* Test Item Value Reference Range Interpretation Comme nts POCT PREG (test code = 1605) Negative On board controls acceptable with C Line (test code = 3574) Yes POCT PREG LOT # (test code = 3575) POCT PREG TEST DATE ( test code = 3576) [facility] [id number] 12:15:00* Test Item Value Reference Range Interpretation Comme nts POCT PREG (test code = 1605) Negative On board controls acceptable with C Line (test code = 3574) Yes POCT PREG LOT # (test code = 3575) POCT PREG TEST DATE ( test code = 3576) [facility] [id number] 02:50:00* Test Item Value Reference Range Interpretation Comme nts POCT PREG (test code = 1605) negative On board controls acceptable with C Line (test code = 3574) positive POCT PREG LOT # (test code = 3575) [id number] POCT PREG TEST DATE ( test code = 3576) 06/23/2024 Lab Interpretation (test cod e = 53883-9) Normal [facility] [id number] 06:47:00* Test Item Value Reference Range Interpretation Comme nts POCT PREG (test code = 1605) Negative On board controls acceptable with C Line (test code = 3574) Present POCT PREG LOT # (test code = 3575) [id number] POCT PREG TEST DATE ( test code = 3576) 04/25/2024 Lab Interpretation (test cod e = 95347-7) Normal [facility] CenterLYME, LATE DISEASE (ABS, JESS W/REFLEX TO WB) 2022-06-03 04:33:35* Test Item Value Reference Range Interpretation Comme nts LYME EIA (test code = 88760-4) See_Comment When the Borreli a burgdorferi Abs, [...] antibody to B. burgdorferi ? detected.Performed By: [employer] [place] [id number] Director: Gavin Collado MD, PhD [Automated message] The system which generated this result transmitted reference range: 0.00 - 1.20 BETHEL. The reference range was not used to interpret this result as normal/abnormal. [facility] CenterTHYROID PEROXIDASE (TPO) [id number] 16:21:03 * Test Item Value Reference Range Interpretation Comments TPO Ab IgG (test code = 6677316597) See_Comment H [Automated message] The system which [...] and Graves'disease. Lab Interpretation (test code = 99791-8) Abnormal [facility] CenterCYCLIC CITRULLINATED [id number] 16:04:26* Test Item Value Reference Range Interpretation Comme nts CCP IgG (test code = 7094164007) 2.6 U 0-20 ДМИТРИЙ (test code = ДМИТРИЙ) INTERPRETATION: UNITS: Negative <20Weak Positive 20-39Moderate Positive 40-59Strong Positive >=60 A positive result indicates the presence of CCP IgG antibodies and suggests the possibility of RA antibodies and suggests the possibility of SLE. A negative result indicates no CCP IgG antibodies or levels below the cut-off ofthe assay. Lab Interpretation (test code = 86975-2) Normal [facility] CenterANTICARDIOLIPIN [id number] 15:58:16 * Test Item Value Reference Range Interpretation Comments Anticardiolipin Antibody IgG (test code = 3205987496) See_Comment [Automated message] The system which generated this result transmitted reference range: 0.0 - 10.0 GPL. The reference range was not used to interpret this result as normal/abnormal . Anticardiolipin Antibody IgM (test code = 4419585009) See_Comment [Automated message] The system which generated this result transmitted reference range: 0.0 - 10.0 MPL. The reference range was not used to interpret this result as normal/abnormal . Anticardiolipin Antibody IgA (test code = 2093033727) See_Comment [Automated message] The system which generated [...] date (i.e. 4-6 weeks) to confirmpositivity. ?Juan R et al. ?J Thromb Haemost 2006; 4: 2210-4 Lab Interpretation (test code = 09677-8) Normal [facility] CenterANTI-B2 GLYCOPROTEIN I [id number] 15:53:57* Test Item Value Reference Range Interpretation Comments Anti-B2 Glycoprotein 1 IgG (test code = 1360698244) See_Comment [Automated message] The system which generated this result transmitted reference range: 0.0 - 20.0 SGU. The reference range was not used to interpret this result as normal/abnormal. Anti-B2 Glycoprotein 1 IgM (test code = 8590818563) See_Comment [Automated message] The system which generated this result transmitted reference range: 0.0 - 20.0 SMU. The reference range was not used to interpret this result as normal/abnormal. Anti-B2 Glycoprotein 1 IgA (test code = 8360928915) See_Comment [Automated message] The system which generated [...] losses and/or thrombocytopenia. TEST PERFORMED AT:[facility]. [address] [place] [address].[facility] [employer] [facility] [place] [address] Lab Interpretation (test code = 03730-9) Normal [facility] CenterHEPATITIS B SURFACE [id number] 15:44:25* Test Item Value Reference Range Interpretation Comme nts HBsAB (test code = 7225234216) Indeterminate HBsAb Semi-Quantitative (test code = 9240176906) mIU/mL ДМИТРИЙ (test code = ДМИТРИЙ) Unable to determine if antibody to Hepatitis B Surface Antigen is present at levels consistent with immunity. ?Patient's immune status should be assessed with other clinical information and/or retesting in 4-6 weeks as clinically indicated. ?If any questions, please contact Clinical Chemistry Director perfusionist at .Interpretati on: ?Hepatitis B Surface Antibody ? Negative - Patient is considered to be not immune to infection with HBV. ? ? Positive - Anti-HBs detected at greater than or equal to 12 mIU/mL. ?Patient is considered to be immune to infection with HBV. ? [facility] CenterHBC ANTIBODY (IGM & IGG)2022-06-02 11:48:38* Test Item Value Reference Range Interpretation Comme nts HBC (test code = 5212201196) Negative HBC Semi-Quantitative (test code = 9287047931) [facility] CenterHCV [id number] 11:48:37* Test Item Value Reference Range Interpretation Comme nts HCV Ab (test code = 26052-8) Negative HCV Semi-Quantitative (test code = 72625-0) [facility] CenterHEPATIC FUNCTION PANEL (60183) (ALB,T.PRO,BILI T,BU/BC,ALT,AST,ALK PHOS)2022-06-02 11:06:34* Test Item Value Reference Range Interpretation Comme nts TOTAL BILI (test code = 0279927231) 0.2 mg/dL 0.1-1.1 BILI UNCON (test code = 0697854516) 0.1 mg/dL 0.1-1.1 BILI CONJ (test code = 7860196025) 0.0 mg/dL 0-0.3 T PROTEIN (test code = 2214937929) 5.0 g/dL 6.3-8.2 L ALBUMIN (test code = 4043337866) 2.8 g/dL 3.5-5 L ALK PHOS (test code = 7104250130) 54 U/L 34-122 ALTv (test code = 1742-6) 12 U/L 5-35 AST(SGOT) (test code = 0831627015) 18 U/L 13-40 Lab Interpretation (test cod e = 91676-5) Abnormal [facility] CenterMAGNESIUM2022-09-15 11:06:34* Test Item Value Reference Range Interpretation Comme nts MAGNESIUM (test code = 4227023876) 2.1 mg/dL 1.7-2.4 Lab Interpretation (test cod e = 52901-7) Normal [facility] METABOLIC PANEL (NA, K, CL, CO2, GLUCOSE, BUN, CREATININE, CA)2022-06-02 11:06:34* Test Item Value Reference Range Interpretation Comme nts NA (test code = 4218074924) 139 mmol/L 135-145 K (test code = 6973039955) 4.2 mmol/L 3.5-5 CL (test code = 4833534582) 112 mmol/L 98-108 H CO2 TOTAL (test code = 1651218673) 26 mmol/L 23-31 AGAP (test code = 6059266303) 2-16 L BUN (test code = 4592026401) 16 mg/dL 7-23 GLUCOSE (test code = 1485848412) 84 mg/dL 70-110 CREATININE (test code = 5034729463) 0.75 mg/dL 0.5-1.04 CALCIUM (test code = 2354082781) 7.9 mg/dL 8.6-10.6 L eGFR (test code = 2521660037) mL/min/1.73m2 ДМИТРИЙ (test code = ДМИТРИЙ) Association [...] imaging tests). Lab Interpretation (test code = 09779-6) Abnormal [facility] WITH [id number] 10:25:33* Test Item Value Reference Range Interpretation Comme nts WBC (test code = 6690-2) See_Comment [Automated [employer]] The system which generated this result transmitted reference range: 4.30 - 11.10 10*3/?L. The reference range was not used to interpret this result as normal/abnormal. RBC (test code = 789-8) See_Comment L [Automated [employer]] The system which generated this result transmitted [...] 34.7 g/dL 31.6-35.1 RDW-SD (test code = 04663-9) 41.0 fL 39-49.9 RDW-CV (test code = 788-0) 12.6 % 12-15.5 PLT (test code = 777-3) See_Comment L [Automated [employer]] The system which generated this result transmitted reference range: 166 - 358 10*3/?L. The reference range was not used to interpret this result as normal/abnormal. MPV (test code = 01701-0) 10.6 fL 9.5-12.9 NRBC/100 WBC (test code = 8247950363) See_Comment [Automated [employer] ssage] The system which generated this result transmitted reference range: 0.0 - 10.0 /100 WBCs. The reference range was not used to interpret this result as normal/abnormal. NRBC x10^3 (test code = 9995298357) See_Comment [Automated messa ge] The system which generated this result transmitted reference range: 10*3/?L. The reference range was not used to interpret this result as normal/abnormal. GRAN MAT (NEUT) % (test code = 770-8) 58.3 % IMM GRAN % (test code = 3358263055) 0.30 % LYMPH % (test code = 736-9) 33.2 % MONO % (test code = 5905-5) 5.5 % EOS % (test code = 713-8) 2.5 % BASO % (test code = 706-2) 0.2 % GRAN MAT x10^3(ANC) (test code = 1637557569) 3.49 10*3/uL 1.88-7.09 IMM GRAN x10^3 (test code = 0034801879) 0-0.06 LYMPH x10^3 (test code = 731-0) 1.99 10*3/uL 1.32-3.29 MONO x10^3 (test code = 742-7) 0.33 10*3/uL 0.33-0.92 EOS x10^3 (test code = 711-2) 0.15 10*3/uL 0.03-0.39 BASO x10^3 (test code = 704-7) 0.01-0.07 Lab Interpretation (test code = 72421-6) Abnormal [facility] CenterProthrombin Time / [id number] 10:25:12* Test Item Value Reference Range Interpretation [...] the indications. Lab Interpretation (test code = 04366-0) Normal [facility]FACE [id number] 21:24:29 * Test Item Value Reference Range Interpretation Comme nts HBsAg Semi-Quantitative (basilio t code = 5195-3) Negative Negative [facility] METABOLIC PANEL (NA, K, CL, CO2, GLUCOSE, BUN, CREATININE, CA)2022-06-01 01:26:24* Test Item Value Reference Range Interpretation Comme nts NA (test code = 1007766276) 141 mmol/L 135-145 K (test code = 1792735950) 3.7 mmol/L 3.5-5 CL (test code = 2758657786) 110 mmol/L 98-108 H CO2 TOTAL (test code = 2274305255) 27 mmol/L 23-31 AGAP (test code = 2700881735) 2-16 BUN (test code = 1414922466) 16 mg/dL 7-23 GLUCOSE (test code = 2490870031) 101 mg/dL 70-110 CREATININE (test code = 2048092658) 0.83 mg/dL 0.5-1.04 CALCIUM (test code = 9195991689) 8.3 mg/dL 8.6-10.6 L eGFR (test code = 5399266125) mL/min/1.73m2 ДМИТРИЙ (test code = ДМИТРИЙ) Association [...] imaging tests). Lab Interpretation (test code = 00040-7) Abnormal [facility] CenterLactic Acid Whole [id number] 01:17:52* Test Item Value Reference Range Interpretation Comme [facility] LACTIC ACID (test code = 4679217610) 1.01 mmol/L 0.5-2.2 Lab Interpretation (test cod e = 50912-3) Normal [facility] CenteraPTT2022-09-14 01:09:01* Test Item Value Reference Range Interpretation Comme [facility] APTT Patient (test code = 3173-2) See_Comment [Automated [employer]] The system which generated this result transmitted reference range: 26 - 36 Seconds. The reference range was not used to interpret this result as normal/abnormal. Lab Interpretation (test code = 51260-8) Normal [facility] CenterProthrombin Time / [id number] 01:09:01* Test Item Value Reference Range Interpretation Comme [facility] PROTIME PATIENT (test code = 5964-2) See_Comment [[employer]] The system which generated this result transmitted reference range: 10.1 - 12.6 Seconds. The reference range was not used to interpret this result as normal/abnormal. INR (test code = 6301-6) Normal INR <1.1; Warfarin Therapeutic range 2.0 to 3.0 or 2.5 to 3.5, depending upon the indications. Lab Interpretation (test code = 00477-1) Normal [facility] CenterCBC WITH [id number] 01:03:39* Test Item Value Reference Range Interpretation Comme nts WBC (test code = 6690-2) See_Comment [[employer]] The system which generated this result transmitted reference range: 4.30 - 11.10 10*3/?L. The reference range was not used to interpret this result as normal/abnormal. RBC (test code = 789-8) See_Comment [Automated [employer]] The system which generated this result [...] 33.9 g/dL 31.6-35.1 RDW-SD (test code = 25159-8) 40.8 fL 39-49.9 RDW-CV (test code = 788-0) 12.3 % 12-15.5 PLT (test code = 777-3) See_Comment [Automated [employer]] The system which generated this result transmitted reference range: 166 - 358 10*3/?L. The reference range was not used to interpret this result as normal/abnormal. MPV (test code = 95102-5) 10.8 fL 9.5-12.9 NRBC/100 WBC (test code = 4063972748) See_Comment [Automated [employer] ssage] The system which generated this result transmitted reference range: 0.0 - 10.0 /100 WBCs. The reference range was not used to interpret this result as normal/abnormal. NRBC x10^3 (test code = 3980047052) See_Comment [Automated [employer] ssage] The system which generated this result transmitted reference range: 10*3/?L. The reference range was not used to interpret this result as normal/abnormal. GRAN MAT (NEUT) % (test code = 770-8) 56.8 % IMM GRAN % (test code = 8621593730) 0.10 % LYMPH % (test code = 736-9) 37.1 % MONO % (test code = 5905-5) 4.3 % EOS % (test code = 713-8) 1.2 % BASO % (test code = 706-2) 0.5 % GRAN MAT x10^3(ANC) (test code = 7920265399) 4.67 10*3/uL 1.88-7.09 IMM GRAN x10^3 (test code = 7927198229) 0-0.06 LYMPH x10^3 (test code = 731-0) 3.05 10*3/uL 1.32-3.29 MONO x10^3 (test code = 742-7) 0.35 10*3/uL 0.33-0.92 EOS x10^3 (test code = 711-2) 0.10 10*3/uL 0.03-0.39 BASO x10^3 (test code = 704-7) 0.04 10*3/uL 0.01-0.07 [facility] CenterTransthoracic echo (TTE)2022-05-29 16:43:30* Test Item Value Reference Range Interpretation Comme nts Height (test code = 9484137307) in Weight (test code = 7871486750) lbs Systolic BP (test code = 1027407382) mmHg Diastolic BP (test code = 4348221347) mmHg Heart Rate (test code = 4176510797) bpm BSA (test code = 7838256619) 1.60 m2 Ao root annulus (test code = 1415176303) 2.8 cm Ao root diam (test code = 6612558055) 2.80 cm Aortic root (test code = 8920470218) 2.8 cm LVOT diameter (test code = 7704378898) 1.80 cm LVOT area (test code = 2333703035) 2.60 cm2 LVIDD (test code = 0028257804) 4.50 cm Left Ventricular End Diastolic Volume by Teichholz Method (test code = 8742122) 91.2 mL IVS (test code = 2074914935) 0.71 cm Interventricular Septum Diastolic Thickness by 2D (test code = 7318213) 0.71 cm LVPWD (test code = 3308923368) 0.71 cm PW (test code = 6292194081) 0.71 cm 0.6-1.1 EF(Teich) (test code = 6108155645) 61.00 % LVIDS (test code = 4517692488) 3.00 cm Left Ventricular End Systolic Volume by Teichholz Method (test code = 7772299) 35.6 mL FS (test code = 1794475697) 33 % EF - 2D (test code = 85268007) 61.00 % LA size (test code = 2029168097) 2.9 cm Pulmonic Regurgitant End Max Velocity (test code = 4268778705) 161.8 cm/s LAV(MOD-sp4) (test code = 2275418478) 29.10 mL MV stenosis pressure 1/2 time (test code = 1514910216) 65.3 ms E wave decelartion time (test code = 7959543664) 0.23 s MV Peak E Yaz (test code = 6826711029) 121.5 cm/s MV Peak A Yaz (test code = 6241995425) 43.8 cm/s E/A ratio (test code = 9858613916) ratio MR max PG (test code = 8238383563) 65.00 mm[Hg] MR max yaz (test code = 8435896175) 401.70 cm/s Mr max yaz (test code = 4199271715) 401.7 m/s MV Prop V (test code = 2384437687) 44.60 cm/s MV E/e' septal (test code = 9283592193) 19.3 cm/s Tapse (test code = 0132577604) 2.13 cm LVOT stroke volume (test code = 1443822371) 72.90 cm3 LVOT peak yaz (test code = 8556648443) 144.5 cm/s LVOT mn grad (test code = 1695768912) mmHg AV LVOT peak gradient (test code = 1529993903) mmHg LVOT peak VTI (test code = 1723006404) 28.5 cm LV V1 mean (test code = 0179056169) 104.40 cm/s Aortic valve mean velocity (test code = 5205582450) 112.8 cm/s Ao peak yaz (test code = 9176326744) 161.3 cm/s Ao VTI (test code = 6688766519) 34.5 cm AV area by cont VTI (test code = 1949239706) 2.1 cm2 AV area peak yaz (test code = 3128294710) 2.3 cm2 Ao max PG (test code = 1950526411) 10.40 mm[Hg] AV peak gradient (test code = 5220591386) mmHg AV valve area (test code = 1701659673) 2.11 cm2 AV mean gradient (test code = 5165121122) mmHg Radiology Study observation (narrative) (test code = 26518-7) ДМИТРИЙ (test code = ДМИТРИЙ) ?Left?Ventricle: Left [...] 2D, color flow Doppler and spectral Doppler. [facility] RTCJ4764-70-05 13:36:00* Test Item Value Reference Range Interpretation Comme nts POCT PREG (test code = 1605) Negative On board controls acceptable with C Line (test code = 3574) Present POCT PREG LOT # (test code = 3575) [id number] POCT PREG TEST DATE ( test code = 3576) 08/17/2023 Lab Interpretation (test cod e = 49273-8) Normal [facility] [id number] 06:00:00* Test Item Value Reference Range Interpretation Comme nts POCT PREG (test code = 1605) negative On board controls acceptable with C Line (test code = 3574) positive POCT PREG LOT # (test code = 3575) [id number] POCT PREG TEST DATE ( test code = 3576) 09/17/2022 Lab Interpretation (test cod e = 01964-9) Normal [facility] Notes Date/Time Note Provider Source 2024-03-03 23:35:10 3609-33-90L10:35:10F ormatting of this note might be different from the original.Pt not in TR 11, EVS states pt walked out front door,pt removed IV and left in the room. 06390-1Fecbryrsi department IjffGO8814-52-07J25:56:24[facility] NoteTXT1.2.840.979391.1.13.104.2.7 .2.878196|[id number] for patient xtju81594-2JwheEMQIIXXJGWIHorcwvtm d C-CDA narrative [id number] J Hoot RN[address] Ts[id number] 10AHFRUYPFDUVJIXTFMWDWTZ5372-16-28 T23:56:241.2.840.324354.1.72.3.15| 1.2.840.705712.1.13.104.2.7.2.7278 [id number] Marely Lawler RN [facility] 2024-03-03 22:51:09 2142-86-86Y49:51:09F ormatting of this note might be different from the original.Pt increasingly argumentative with ED staff and physicians. Pt requesting doors and curtains to be open and was explained that due to other patients privacy I was unable to do that and patient became hostile. Pt asked if she could walk to the bathroom and I told her to call perfusionist light so we could unhook her IV and she said, "so what the fuck is the difference then of my curtain open or me walking to the bathroom." I asked the patient what was really going on because she has been upset and argumentative since triage and she began to scream and yell for someone else higher up to come in the room because, "I am fucking sick up you people and this fucking place."COA Jenny notified of patients request. 57877-4Rpfuhaebx department HgiyQN5409-70-33C93:54:48[facility] NoteTXT1.2.840.135674.1.13.104.2.7 .2.151304|[id number] for patient mduc86284-2SnggUEAZUQLNBDMArfqnxsg d C-CDA narrative textUT[address] Cruz [id number] 93FVENLDVSZBBLMDJTQOZHNH5003-57-76 T22:54:481.2.840.485718.1.72.3.15| 1.2.840.835726.1.13.104.2.7.2.7278 [id number] [facility] 2024-03-03 21:23:34 9864-47-18H66:23:34F ormatting of this note might be different from the original.Pt arrived ambulatory with complaints of migraine, vomiting, diarrhea, and "just feeling awful" for the past few days. Pt was seen her on 02/28 and told her thyroid levels were high. Pt stopped taking her thyroid meds.Pt has an appointment Monday with PCP but states she can't wait that long d/t feeling so bad. 48789-4Vjyldohlz department Triage syyhXQ3357-46-89Z69:25:58[facility] Triage noteTXT1.2.840.282762.1.13.104.2.7 .2.662918|[id number] for patient bpdh91375-2Zmcgqtfpr department NoteLNNARRATIVEFormatted C-CDA narrative [id number] D Roman RNUT[id number] 75HIVGCXLLAIJXCULOHBEGVY2619-83-02 T21:25:581.2.840.271085.1.72.3.15| 1.2.840.746539.1.13.104.2.7.2.7278 [id number] Brianne Zamora RN [facility] 2024-02-29 22:44:05 9214-03-21V09:44:05F ormatting of this note might be different from the original.PT D/C home. GCS15, VS stable. Given D/C paperwork. Pt ambulatory at time of discharge, drowsy so taken to auto by w/c with SO assist. Pt educated on med usage, follow up care, s/s worsening condition, need for hydration. Pt verbalized understanding. [place] 37118-5Tbfgxcvvb department TgomUA1210-96-61F17:44:29[facility] NoteTXT1.2.840.427098.1.13.104.2.7 .2.825454|[id number] for patient xdaf13189-5RgjnCNQCOXLOAVJOixndyad d C-CDA narrative [id number] E Linkes RN[address] CavzNefb[id number] 00ZUCKEUKGZINSDLCMKYEDYM3362-33-42 T22:44:291.2.840.866916.1.72.3.15| 1.2.840.222256.1.13.104.2.7.2.7278 [id number] Leana Oviedo RN [facility] 2024-02-29 17:58:21 1930-22-11N09:58:21F ormatting of this note might be different from the original.Patient reports headache in both temples and right lower abdominal pain for 3 days. N/V x 6 times today. She states she got on depo about 1.5 months ago and feels like she has been on her period for 1 month straight. 92414-9Uzpqkelfv department Triage kfecLG4817-59-95A84:59:52[facility] Triage noteTXT1.2.840.288458.1.13.104.2.7 .2.024301|[id number] for patient ojhd68896-4Nwfpnlygw department NoteLNNARRATIVEFormatted C-CDA narrative [id number] M Leibee [id number] 78PULRWRUXLARDTMRZGMRORN3436-84-06 T17:59:521.2.840.089926.1.72.3.15| 1.2.840.498672.1.13.104.2.7.2.7278 [id number] Refugio Haney RN [facility] 2024-01-15 15:54:41 6902-23-50E93:54:41F ormatting of this note might be different from the original.See other encounter. 39729-4Bcwrcrgbf encounter LnaaLO1286-19-79H34:54:48Telephone encounter NoteTXT1.2.840.960847.1.13.104.2.7 .2.280211|[id number] for patient gtxu63105-5DinqSTWMUJNVVBUDazasjdv d C-CDA narrative [id number] Garcia [id number] 14GILKAVQIGNYXMHECQFDNGT0556-40-50 T15:54:481.2.840.214504.1.72.3.15| 1.2.840.953571.1.13.104.2.7.2.7278 [id number] Eva Espana LVN [facility] 2024-01-15 15:32:16 8293-69-89S44:32:16F ormatting of this note might be different from the original.Please notify the patient her tsh is elevated she needs to seek her pcp for further mgmtISAC Gan 01/15/2024 3:35 PM 12156-1Xfajuyrra encounter OcicWT4492-15-46V91:35:52Telephone encounter NoteTXT1.2.840.404649.1.13.104.2.7 .2.368760|[id number] for patient sjiq47288-5HoflMQVEBLLNUMUAfdatvjy d C-CDA narrative [id number] 91ZQDVRVNJSXLBINCVBZTFYK8263-86-56 T15:35:521.2.840.990941.1.72.3.15| 1.2.840.211525.1.13.104.2.7.2.7278 [id number] [facility] 2024-01-15 08:43:34 3511-79-35Q41:43:34F ormatting of this note might be different from the original.Patient informed of results for TSH on 01/11 and to contact PCP for management, verbalized understanding. 09302-1Bjnbzwplv encounter YwffJY2070-13-91O14:44:10Telephone encounter NoteTXT1.2.840.441953.1.13.104.2.7 .2.050030|[id number] for patient lrtm96914-5GspbSBCOVGUDPYDWgidwepp d C-CDA narrative [id number] Garcia [id number] 34VOIHRCBYHBEZCOICOFGOIB3279-64-54 T08:44:101.2.840.275999.1.72.3.15| 1.2.840.715520.1.13.104.2.7.2.7278 [id number] Eva Espana AUTO SERVICE INSTRUCTOR [facility] 2024-01-15 08:19:16 3657-98-86Q74:19:16F ormatting of this note might be different from the original.Copied from [facility] #[id number]. Topic: Clinical - Results>> Jan 15, 2024 8:18 AM Patient Boxing Instructor wrote:Leonela HOPKINS is a 33 year old female requesting call back for result clarification. Please call [phone] signed by Magalys Helm at 01/15/2024 8:20 AM USI94176-9Onpuwaufu encounter JqpaRQ1530-17-14R53:20:00Telephone encounter NoteTXT1.2.840.231960.1.13.104.2.7 .2.725628|[id number] for patient hbjy06787-6OzovXOPBKABROPLNiclmebu d C-CDA narrative [id number] L Martinez[address] Td[id number] 52PRNKLEAJNRLUZVHUBGVPUN1212-88-98 T08:20:001.2.840.935663.1.72.3.15| 1.2.840.598519.1.13.104.2.7.2.7278 [id number] Magalys Helm [facility]
--- NOTE | 2024-03-06 17:56 | RAD REPORT ---
EXAM DESCRIPTION: CT - Head Brain Wo Cont - 03/06/2024 5:28 pm CLINICAL HISTORY: Syncope;Headache COMPARISON: HEAD BRAIN W O CONTRAST dated 01/04/2011 TECHNIQUE: Noncontrast head CT images were obtained without IV contrast. Multiplanar reformats were generated and reviewed. All CT scans are performed using dose optimization technique as appropriate and may include automated exposure control or mA/KV adjustment according to patient size. FINDINGS: No intracranial hemorrhage, mass, or edema. Midline structures are unremarkable. Normal ventricular caliber for age. [place]-white matter differentiation is preserved, without evidence of acute infarct. No abnormal extra- axial fluid collections. Mastoid air cells and visualized portions of the paranasal sinuses are clear. No acute bony findings. IMPRESSION: No evidence of an acute intracranial process.
[2024-03-06 18:03] LABS: Absolute Monocytes 0.4 K/uL (0.1-1.3); Absolute Neutrophil 5.1 K/uL (1.8-8.0); Basophils % 0.5 % (0-1.3); Eosinophils % 0.6 % (0-4.4); Hematocrit 38.5 % (36.0-45.0); Hemoglobin 13.2 g/dL (12.0-15.0); Lymphocytes % 26.3 % (15.3-44.8); MCH 29.9 pg (27.0-35.0); MCHC 34.4 g/dL (32.0-36.0); MPV 8.9 fL (7.6-11.3); Monocytes % 4.7 % (3.3-12.3); Neutrophils % 67.9 % (41.7-73.7); Platelets 195 thou/uL (152-406); RBC Red Blood Cell Count 4.42 M/uL (3.86-4.86)
[2024-03-06 18:08] LABS: PT Prothrombin Time 12.5 SECONDS (9.5-12.5); PTT, Activated Partial Thromb 30.7 SECONDS (24.3-36.9); Protime INR 1.14
[2024-03-06 18:09] LABS: Specific Gravity 1.033 (1.005-1.030)
[2024-03-06] MEDS ORDERED: ONDANSETRON 4 MG/2 ML VIAL ONE (18:10)
[2024-03-06] MEDS ORDERED: NA CHLORIDE 0.9% 1,000 ML ONE (18:11)
[2024-03-06] MEDS ORDERED: KETOROLAC 30 MG/ML INJ ONE (18:11)
[2024-03-06 18:19] LABS: Specific Gravity > 1.030 (1.005-1.030); Sqamous Epithelial <5 /HPF (None Seen); Urine Bacteria <20 /HPF (<20); Urine Bilirubin NEGATIVE (Negative); Urine Blood Negative (Negative); Urine Clarity Turbid (Clear); Urine Color Yellow (Yellow); Urine Culture Reflex Order NOT NEEDED; Urine Glucose NEGATIVE (Negative); Urine Ketones NEGATIVE (Negative); Urine Microscopic Reflex YN ORDER UMIC; Urine Mucus 3+ /HPF (None Seen); Urine Nitrite NEGATIVE (Negative); Urine Protein TRACE (Negative); Urine RBC <5 /HPF (None Seen); Urine Urobilinogen Normal (Normal); Urine WBC <5 /HPF (<5)
[2024-03-06 18:26] LABS: ALT/SGPT 17 U/L (13-56); AST/SGOT < 10 U/L (15-37); Albumin 3.7 g/dL (3.4-5.0); Albumin/Globulin Ratio 1.2 (1.1-1.8); Alkaline Phosphatase 56 U/L (45-117); Anion Gap 7.7 mEq/L (5.0-15.0); BUN Blood Urea Nitrogen 12 mg/dL (7-18); Bicarbonate 23 mEq/L (21-32); Bilirubin Direct < 0.2 mg/dL (0-0.2); Bilirubin Indirect, Calculated 0.1 mg/dL (0.2-0.8); Bilirubin Total 0.3 mg/dL (0.2-1.0); Globulin 3.1 g/dL (2.3-3.5); Glomerular Filtration Rate 98 ml/min (=/>90); Glucose Level 102 mg/dL (74-106); Magnesium 2.1 mg/dL (1.6-2.4); Potassium 3.7 mEq/L (3.5-5.1); Protein, Total 6.8 g/dL (6.4-8.2); Sodium Level 141 mEq/L (136-145); Troponin High Sensitivity 3.4 pg/mL (<58.9)
--- NOTE | 2024-03-06 18:36 | RAD REPORT ---
EXAM DESCRIPTION: RADChest Single View03/06/2024 5:14 pm CLINICAL HISTORY: syncope COMPARISON: Chest Single View dated 02/26/2024 TECHNIQUE: Portable AP view of the chest. FINDINGS: The lungs are clear. No pneumothorax or effusion. The cardiomediastinal contours are unre markable. IMPRESSION: No acute cardiopulmonary process.
[2024-03-06] MEDS ORDERED: METOCLOPRAMIDE 10 MG/2mL INJ ONE (18:50)
[2024-03-06] MEDS ORDERED: DIPHENHYDRAMINE 50 MG/ML VIAL ONE (18:50)
[2024-03-06] MEDS ORDERED: dexAMETHasone 10 MG/ML VIAL ONE (18:50)
--- NOTE | 2024-03-06 20:14 | ER ---
Nurse's Notes [facility] Name: Leonela Ramos Age: 33 yrs Sex: Female : 1990 Arrival Date: 03/06/2024 Time: 16:50 Bed 19 [facility] MD: Diagnosis: Headache;Syncope Presentation: 03/06 16:54 Chief complaint: Patient states: headache/migraine, has been passing out. Coronavirus ko1 screen: At this time, the client does not indicate any symptoms associated with coronavirus-19. Ebola Screen: No symptoms or risks identified at this time. Initial Sepsis Screen: Does the patient meet any 2 criteria? No. Patient's initial sepsis screen is negative. Does the patient have a suspected source of infection? No. Patient's initial sepsis screen is negative. Risk Assessment: Do you want to hurt yourself or someone else? Patient reports no desire to harm self or others. Onset of symptoms is unknown. 16:54 Method Of Arrival: Ambulatory ko1 16:54 Acuity: AMADA 3 ko1 Triage Assessment: 17:00 Headache History: The patient has had previous headaches and this one is similar to ko1 previous episodes. General: Appears in no apparent distress. Behavior is calm, cooperative, appropriate for age. 17:02 Pain: Complains of pain in headache Pain currently is 10 out of 10 on a pain scale. ko1 Pain began last week Also complains of nausea. Neuro: Reports headache a syncopal episode. 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 - Infectious Disease History:: Denies. - Social history:: Smoking status: Patient denies any tobacco usage or history of. Screenin:09 [facility] ED Fall Risk Assessment (Adult) History of falling in the last 3 months, cp4 including since admission No falls in past 3 months (0 pts) Confusion or Disorientation No (0 pts) Intoxicated or Sedated No (0 pts) Impaired Gait No (0 pts) Mobility Assist Device Used No (0 pt) Altered Elimination No (0 pt) Score/Fall Risk Level 0 - 2 = Low Risk Oriented to surroundings, Maintained a safe environment, Assessed \\T\\ reinforced patient's understanding of fall precautions, Hourly rounding (assess needs \\T\\ fall precautionary measures) done. Abuse screen: Denies threats or abuse. Nutritional screening: No deficits noted. Tuberculosis screening: No symptoms or risk factors identified. Assessment: 20:09 Reassessment: Patient refusing vitals sign monitoring. Patient keeps taking off cp4 equipment. Pain: Complains of pain in headache. 20:11 Reassessment: Patient states she is taking her own IV out. States " I don't want you cp4 touching me.". 20:16 Reassessment: Patient refused discharge papers and left the ED. Patient opened urine cp4 cup prior to leaving and poured urine all over the counter. Vital Signs: 16:54 BP 122 / 88; Pulse 72; Resp 16; Temp 97; Pulse Ox 100% ; ko1 19:35 BP 117 / 79 Supine; Pulse 70; cp4 19:35 BP 111 / 77 Sitting; Pulse 57; cp4 19:35 BP 111 / 81 Standing; Pulse 75; cp4 [place] Coma Score: 20:13 Eye Response: spontaneous(4). Motor Response: obeys commands(6). Verbal Response: sp4 oriented(5). Total: 15. ED Course: 16:52 Patient arrived in ED. ra3 16:55 Kirstie Altamirano FNP-C is [facility]. kb 16:55 Seth Smalls MD is Attending Physician. kb 16:59 Triage completed. ko1 17:02 Arm band placed on right wrist. Patient placed in an exam room, on a stretcher, on ko1 face hardener, on pulse oximetry, Patient notified of wait time. 17:06 Rupesh Browne, RN is Primary Nurse. bp 17:16 Chest Single View XRAY In Process Unspecified. EDMS 17:29 CT Head Brain wo Cont In Process Unspecified. EDMS 20:07 Attending Physician role handed off by Seth Smalls MD sp4 20:07 Keaton Hunter MD is Attending Physician. sp4 20:09 Bed in low position. Call light in reach. Side rails up X2. Provided Education on: cp4 migraine. 20:09 No provider procedures requiring assistance completed. cp4 20:18 intact, bleeding controlled, No redness/swelling at site. Pressure dressing applied. cp4 Administered Medications: 18:15 Drug: NS 0.9% IV 1000 ml IV at 1000 ml once Route: IV; Rate: 1000 ml; Site: right bp forearm; 20:19 Follow up: Response: No adverse reaction; IV Status: Completed infusion cp4 18:15 Drug: Ondansetron IVP 4 mg IVP once; over 2 minutes Route: IVP; Site: right forearm; bp 18:48 Follow up: Response: No adverse reaction bp 18:15 Drug: Ketorolac IVP 30 mg IVP once Route: IVP; Site: right forearm; bp 18:48 Follow up: Response: No adverse reaction bp 18:55 Drug: metoCLOPramide IVP 10 mg IVP once; over 1 to 2 minutes Route: IVP; Site: right bp forearm; 19:13 Follow up: Response: No adverse reaction cp4 18:55 Drug: diphenhydrAMINE IVP 12.5 mg IVP once Route: IVP; Site: right forearm; bp 19:13 Follow up: Response: No adverse reaction cp4 18:56 Drug: Decadron - Dexamethasone IVP 10 mg IVP once Route: IVP; Site: right forearm; bp 19:13 Follow up: Response: No adverse reaction cp4 Medication: 20:09 VIS not applicable for this client. cp4 Outcome: 20:14 Discharge ordered by . kb 20:18 Discharged to home ambulatory, cp4 20:18 Condition: stable 20:18 Discharge instructions given to Patient left refusing discharge instructions. 20:20 Patient left the ED. cp4 Signatures: Dispatcher [employer] EDKirstie Han, JUANC SANDWICH ARTIST-Rupesh Quinones RN RN Laurence Feng RN RN ko1 Keaton Hunter MD MD sp4 Potter, Christina cp4 Judith Juarez ra3 Corrections: (The following items were deleted from the chart) 17:00 17:00 PMHx: UTI, Kidney infections/stones; ko1 ko1
--- NOTE | 2024-03-06 20:14 | EDPHYS ---
Physician Documentation [facility] Name: Leonela Ramos Age: 33 yrs Sex: Female : 1990 Arrival Date: 03/06/2024 Time: 16:50 Bed 19 Private MD: ED Physician Keaton Hunter HPI: 03/06 23:18 This 33 yrs old Female presents to ER via Ambulatory with complaints of Headache - kb severe migraine. 23:18 Pt is a 33 year old female who presents for headache and a few syncopal episodes that kb started 10 days ago. Pt was seen here at onset of symptoms, workup completed and pt discharged home. Pt states she was seen at [place] since then for same symptoms and did not have any testing done there. Presents today for continued headache and another syncopal episode. States she has a history of POTS. . 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 - Infectious Disease History:: Denies. - Social history:: Smoking status: Patient denies any tobacco usage or history of. ROS: 19:46 Constitutional: As per HPI kb Exam: 19:45 Constitutional: This is a well developed, well nourished patient who is awake, alert, kb and in no acute distress. Head/Face: Normocephalic, atraumatic. Eyes: Pupils equal round and reactive to light, extra-ocular motions intact. Lids and lashes normal. Conjunctiva and sclera are non-icteric and not injected. Cornea within normal limits. Periorbital areas with no swelling, redness, or edema. ENT: Moist Mucous membranes Cardiovascular: Regular rate Respiratory: Respirations even and unlabored. No increased work of breathing. Talking in full sentences Abdomen/GI: Soft, non-tender. No distention Skin: Warm, dry with normal turgor. Normal color. MS/ Extremity: Pulses equal, no cyanosis. Neurovascular intact. Full, normal range of motion. Neuro: Awake and alert, GCS 15, oriented to person, place, time, and situation. Moves all extremities. Normal gait. 19:45 ECG was reviewed by the Attending Physician. Vital Signs: 16:54 BP 122 / 88; Pulse 72; Resp 16; Temp 97; Pulse Ox 100% ; ko1 19:35 BP 117 / 79 Supine; Pulse 70; cp4 19:35 BP 111 / 77 Sitting; Pulse 57; cp4 19:35 BP 111 / 81 Standing; Pulse 75; cp4 [place] Coma Score: 20:13 Eye Response: spontaneous(4). Motor Response: obeys commands(6). Verbal Response: sp4 oriented(5). Total: 15. MDM: 16:55 Patient medically screened. kb 18:00 Differential diagnosis: POTS, arrhythmia, abnormal electrolytes, migraine, dehydration. kb Data reviewed: vital signs, nurses notes. ED course: Pt requested to see Dr Smalls because he is her primary doctor. Dr Smalls evaluated pt. Recommends review of ordered workup, toradol, zofran and outpatient follow up if workup normal. . 19:45 Counseling: I had a detailed discussion with the patient and/or guardian regarding the kb historical points, exam findings, and any diagnostic results supporting the discharge/admit diagnosis, lab results, radiology results, the need for outpatient follow up, a cosmetic sales advisor, a family practitioner, to return to the emergency department if symptoms worsen or persist or if there are any questions or concerns that arise at home. ED course: Discussed all results with pt and gave printed copy. Educated on need for outpatient follow up with cardiology. Pt states she wants to be admitted for further evaluation because she doesn't have insurance for follow up and it takes months to get in. Requests to see the . 20:13 ED course: Patient was seen by Me personally in the room , Dr. Hunter, Patient is sp4 eating and drinking and has stable vital sings . Patient is upset and demands admission for additional evaluation. I have communicated in a clear language that there are no sings of emergent or dangerous medical condition that warrants additional ER evaluation or management in the hospital . Patient was informed that is it appropriate to discharge her home for outpatient follow up with [facility] for work up of syncopal episodes. . 03/06 17:00 Order name: Basic Metabolic Panel; Complete Time: 18:31 kb 03/06 17:00 Order name: CBC with Diff; Complete Time: 18:10 kb 03/06 17:00 Order name: Hepatic Function; Complete Time: 18:31 kb 03/06 17:00 Order name: Magnesium; Complete Time: 18:31 kb 03/06 17:00 Order name: Test, Urine; Complete Time: 18:10 kb 03/06 17:00 Order name: Protime (+inr); Complete Time: 18:10 kb 03/06 17:00 Order name: Ptt, Activated; Complete Time: 18:10 kb 03/06 17:00 Order name: Troponin High Sensitivity; Complete Time: 18:31 kb 03/06 17:00 Order name: Urinalysis w/ reflexes; Complete Time: 18:20 kb 03/06 17:00 Order name: CT Head Brain wo Cont; Complete Time: 17:58 kb 03/06 17:00 Order name: Chest Single View XRAY; Complete Time: 18:37 kb 03/06 17:00 Order name: EKG; Complete Time: 17:00 kb 03/06 17:00 Order name: Cardiac monitoring; Complete Time: 17:53 kb 03/06 17:00 Order name: EKG - Nurse/Tech; Complete Time: 19:14 kb 03/06 17:00 Order name: IV Saline Lock; Complete Time: 17:53 kb 03/06 17:00 Order name: Labs collected and sent; Complete Time: 17:53 kb 03/06 17:00 Order name: NPO; Complete Time: 17:53 kb 03/06 17:00 Order name: O2 Per Protocol; Complete Time: 17:53 kb 03/06 17:00 Order name: O2 Sat Monitoring; Complete Time: 17:53 kb 03/06 17:00 Order name: Orthostatics; Complete Time: 19:36 kb EC:45 Rate is 47 beats/min. Rhythm is regular. QRS [place] is Normal. [place] interval is normal at kb 106 msec. QRS interval is normal at 98 msec. QT interval is normal at 407 msec. Administered Medications: 18:15 Drug: NS 0.9% IV 1000 ml IV at 1000 ml once Route: IV; Rate: 1000 ml; Site: right bp forearm; 20:19 Follow up: Response: No adverse reaction; IV Status: Completed infusion cp4 18:15 Drug: Ondansetron IVP 4 mg IVP once; over 2 minutes Route: IVP; Site: right forearm; bp 18:48 Follow up: Response: No adverse reaction bp 18:15 Drug: Ketorolac IVP 30 mg IVP once Route: IVP; Site: right forearm; bp 18:48 Follow up: Response: No adverse reaction bp 18:55 Drug: metoCLOPramide IVP 10 mg IVP once; over 1 to 2 minutes Route: IVP; Site: right bp forearm; 19:13 Follow up: Response: No adverse reaction cp4 18:55 Drug: diphenhydrAMINE IVP 12.5 mg IVP once Route: IVP; Site: right forearm; bp 19:13 Follow up: Response: No adverse reaction cp4 18:56 Drug: Decadron - Dexamethasone IVP 10 mg IVP once Route: IVP; Site: right forearm; bp 19:13 Follow up: Response: No adverse reaction cp4 Disposition: 20:18 Co-signature as Attending Physician, Keaton Hunter MD I agree with the assessment sp4 and plan of care. I reviewed the patient's care provided by Advanced Practice Provider \T\ agree w/ the diagnosis \T\ care plan. I personally saw the pt \T\ performed a substantive portion of the visit, incldng all aspects of the (History/Exam/Medical Decision Making). Disposition Summary: 03/06/24 20:14 Discharge Ordered Notes: Location: Home kb Condition: Stable kb Diagnosis - Headache kb - Syncope kb Followup: kb - With: Emergency Department - When: As needed - Reason: Worsening of condition Followup: kb - With: Private Physician - When: 2 - 3 days - Reason: Recheck today's complaints, Continuance of care, Re-evaluation by your physician Discharge Instructions: - Discharge Summary Sheet kb - Syncope, Rxpx-qy-Rksb kb - General Headache Without Cause, Cpww-tl-Mhon kb Forms: - Medication Reconciliation Form kb - Antibiotic Education kb - Prescription Opioid Use kb - Patient Portal Instructions kb - Leadership Thank You Letter kb Signatures: Dispatcher [employer] Kirstie Rogel, MAXIMILIANO RICE-Rupesh Quinones RN RN bp Laurence Silvestre RN RN ko1 Keaton Hunter MD MD sp4 Chelo Estes cp4 Corrections: (The following items were deleted from the chart) 17:00 17:00 BASIC METABOLIC PANEL+C.LAB.BRZ ordered. EDMS EDMS 17:00 17:00 CBC+H.LAB.BRZ ordered. EDMS EDMS 17: 17:00 HEPATIC FUNCTION+C.LAB.BRZ ordered. EDMS EDMS 17: 17:00 MAGNESIUM+C.LAB.BRZ ordered. EDMS EDMS 17: 17:00 Test, Urine+UC.LAB.BRZ ordered. EDMS EDMS : 17:00 PROTIME (+INR)+COAG.LAB.BRZ ordered. EDMS EDMS 17: 17:00 PTT, ACTIVATED+COAG.LAB.BRZ ordered. EDMS EDMS 17:00 17:00 Troponin High Sensitivity+C.LAB.BRZ ordered. EDMS EDMS 17:00 17:00 Urinalysis+U.LAB.BRZ ordered. EDMS EDMS 17:00 17:00 PMHx: UTI, Kidney infections/stones; ko1 ko1
[2024-03-06 20:38] VITALS: BP 111/81; TEMP 97; O2SAT 100
== END 2024-03-06 20:20 | disposition home or self-care (01) ==
LOC: ER 16:50
DX: R51.9 Headache, unspecified (principal); R55 Syncope and collapse
CPT/HCPCS: 36415; 70450; 71045; 80048; 80076; 81001; 81025; 83735; 84484; 85025; 85610; 85730; 93005; J1100; J1200; J2405; J2765; J7030

== ENCOUNTER 2024-03-11 20:07 | Emergency (ER) | payer SELFPAY ==
[2024-03-11 21:09] LABS: Anion Gap 8.6 mEq/L (5.0-15.0); BUN Blood Urea Nitrogen 15 mg/dL (7-18); Bicarbonate 25 mEq/L (21-32); Glomerular Filtration Rate 93 ml/min (=/>90); Glucose Level 106 mg/dL (74-106); Potassium 3.6 mEq/L (3.5-5.1); Sodium Level 142 mEq/L (136-145)
[2024-03-11 21:10] LABS: Absolute Eosinophils 0.1 K/uL (0-0.5); Absolute Lymphocytes (CBC) 2.1 K/uL (0.7-4.9); Absolute Monocytes 0.2 K/uL (0.1-1.3); Absolute Neutrophil 7.7 K/uL (1.8-8.0); Basophils % 0.2 % (0-1.3); Eosinophils % 0.8 % (0-4.4); Hematocrit 40.9 % (36.0-45.0); Hemoglobin 14.1 g/dL (12.0-15.0); MCH 30.3 pg (27.0-35.0); MCHC 34.4 g/dL (32.0-36.0); MPV 8.8 fL (7.6-11.3); Monocytes % 2.3 % (3.3-12.3); Neutrophils % 75.7 % (41.7-73.7); Platelets 213 thou/uL (152-406); RBC Red Blood Cell Count 4.65 M/uL (3.86-4.86); Red Cell Distribution Width 12.6 % (12.1-15.2)
[2024-03-11 21:16] LABS: Troponin High Sensitivity < 3.0 pg/mL (<58.9)
[2024-03-11] MEDS ORDERED: NA CHLORIDE 0.9% 1,000 ML ONE (21:33)
--- NOTE | 2024-03-11 21:42 | EDPHYS ---
Physician Documentation [facility] Name: Leonela Ramos Age: 33 yrs Sex: Female : 1990 Arrival Date: 03/11/2024 Time: 20:07 Bed 5 Private MD: ED Physician Terence Amaya HPI: 03/11 20:28 This 33 yrs old Female presents to ER via Ambulatory with complaints of ec2 Abdominal Pain, Syncope, Headache. 20:28 Patient is a hostile patient who arrives today for evaluation of chronic abdominal pain ec2 along with headaches and syncope. Patient states that she has been evaluated multiple times and we have missed multiple diagnoses on her and expressed significant frustration regarding the hospital system as well as her chronic health. Patient states she has been admitted, states that she cannot continue living life with her passing out episodes despite this ongoing for several weeks to months. External records reviewed show that she has had a CT scan of her head as well as CT abdomen pelvis which were nonacute.. 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 - Infectious Disease History:: Denies. - Social history:: Smoking status: Patient denies any tobacco usage or history of. ROS: 20:28 Constitutional: as per hpi ec2 Exam: 20:28 Constitutional: GEN: NAD Head: atraumatic Eyes: EOMI Ears: External ears are ec2 normal. CV: regular rate LUNGS: no respiratory distress ABD: non-distended SKIN: no evidence of rashes MSK: no evidence of trauma NEURO: moves all extremities equally Vital Signs: 20:13 BP 116 / 86; Pulse 88; Resp 17; Temp 98.3; Pulse Ox 100% ; Weight 62.6 kg; Height 5 ft. bm8 4 in. ; Pain 10/10; 21:30 BP 98 / 65; Pulse 79; Resp 17 S; Pulse Ox 100% on R/A; ha1 20:13 Body Mass Index 23.69 (62.60 kg, 162.56 cm) bm8 20:13 Pain Scale: Adult bm8 MDM: 20:08 Patient medically screened. ec2 20:28 Data reviewed: vital signs. ED course: Patient arrives today for evaluation of multiple ec2 complaints: Abdominal pain, episodes of syncope as well as headache. Examination remarkable for nontoxic dividual with reassuring hemodynamics, has a nonfocal neurologic exam, is ambulatory who is generally hostile regarding her health care and answering questions. Nursing, RN, Jose, present during interaction. We had a discussion regarding doing lab tests in looking for emergent diagnoses and instructed her we will try her best to look for any actionable things that we can correct however she continued to express frustration regarding her cares.. 20:31 ED course: Differential diagnoses include processes such as psychiatric disease, ec2 electrolyte disturbances, urinary tract infection, arrhythmia.. ED course: EKG independently reviewed and interpreted by me, shows normal sinus rhythm, rate of 92, no acute ST segment elevations, intervals are nonconcerning.. 21:20 ED course: Metabolic profile reassuring, CBC without anemia, troponin is undetectable. .ec2 21:21 ED course: Chest x-ray independently reviewed and interpreted by me, shows no acute ec2 intrathoracic process. . 21:21 ED course: MDM: Differential diagnosis as documented above in ED course; All lab tests ec2 ordered and reviewed as documented above; Independent interpretation of tests: EKG as above; imaging as above; External records reviewed: Previous ED visit and associated lab work; Discuss inpatient hospitalization: Yes; . 21:40 ED course: Patient refusing medications for her abdominal pain and headache.. ec2 21:53 ED course: Additional discussion with the patient, patient states she was having ec2 urinary complaints, I said we we will be sending urine studies when she is able to provide us a urine specimen. I discussed our current findings with current data that we had back at the time and patient ultimately said she wanted to be seen by another physician, states that she went to be seen at another hospital and ultimately stormed out with her IV in place. PD contacted.. 03/11 20: Order name: Basic Metabolic Panel; Complete Time: 21:19 ec2 03/11 20:26 Order name: CBC with Diff; Complete Time: 21:19 ec2 03/11 20:26 Order name: Troponin HS; Complete Time: 21:19 ec2 03/11 20:26 Order name: XRAY Chest (1 view) ec2 03/11 20:26 Order name: Cardiac monitoring; Complete Time: 21:24 ec2 03/11 20:26 Order name: EKG - Nurse/Tech; Complete Time: 20:27 ec2 03/11 20:26 Order name: IV Saline Lock; Complete Time: 20:44 ec2 03/11 20:26 Order name: Labs collected and sent; Complete Time: 20:44 ec2 03/11 20:26 Order name: O2 Per Protocol; Complete Time: 21:11 ec2 03/11 20:26 Order name: O2 Sat Monitoring; Complete Time: 21:11 ec2 Administered Medications: 21:38 Not Given (Patient Refused): droperidol2.5 mg IVP once ha1 21:38 Not Given (Patient Refused): nfxxeqyskemjnkp32 mg IVP once ha1 21:39 Drug: NS 0.9% IV 1000 ml IV at 1 bolus Per protocol; 1000 mL bolus Route: IV; Rate: 1 ha1 bolus; Site: left antecubital; 21:45 Follow up: Response: No adverse reaction ha1 Disposition Summary: 03/11/24 21:42 Discharge Ordered Notes: Location: Home ec2 Condition: Stable ec2 Diagnosis - Syncope ec2 - Abdominal pain, Generalized ec2 - Headache ec2 Followup: ec2 - With: Private Physician - When: - Reason: Re-evaluation by your physician Forms: - Medication Reconciliation Form ec2 - Antibiotic Education ec2 - Prescription Opioid Use ec2 - Patient Portal Instructions ec2 - Leadership Thank You Letter ec2 Signatures: Dispatcher [employer] EDMS Jeanne Cowart RN RN ha1 Terence Amaya MD MD ec2 Jose Gomez RN RN bm8 Corrections: (The following items were deleted from the chart) 20: 20:26 BASIC METABOLIC PANEL+C.LAB.BRZ ordered. EDMS EDMS 20:26 20:26 CBC+H.LAB.BRZ ordered. EDMS EDMS 20:26 20:26 Troponin High Sensitivity+C.LAB.BRZ ordered. EDMS EDMS 20: 20:26 Chest Single View+RAD.RAD.BRZ ordered. EDKY EDMS 20:55 20:55 Test, Urine+UC.LAB.BRZ ordered. EDKY EDMS 20:55 20:55 Urinalysis W/Microscopic+U.LAB.BRZ ordered. EDKY EDMS 20:55 20:28 Patient has a hostile patient who arrives today for evaluation of chronic ec2 abdominal pain along with headaches and syncope. Patient states that she has been evaluated multiple times and we have missed multiple diagnoses on her and expressed significant frustration regarding the hospital system as well as her chronic health. Patient states she has been admitted, states that she cannot continue living life with her passing out episodes despite this ongoing for several weeks to months. External records reviewed show that she has had a CT scan of her head as well as CT abdomen pelvis which were nonacute.. ec2 21:40 21:40 Urinalysis+U.LAB.BRZ ordered. EDKY EDMS 21:40 21:40 URINE DRUG SCREEN+UC.LAB.BRZ ordered. EDKY EDKY
--- NOTE | 2024-03-11 21:42 | ER ---
Nurse's Notes [facility] Name: Leonela Ramos Age: 33 yrs Sex: Female : 1990 Arrival Date: 03/11/2024 Time: 20:07 Bed 5 Private MD: Diagnosis: Syncope;Abdominal pain, Generalized;Headache Presentation: 03/11 20:13 Chief complaint: Patient states: I have pased out three times today, i have abd pain bm8 and headache,, nausea. Coronavirus screen: Vaccine status: At this time, the client does not indicate any symptoms associated with coronavirus-19. Ebola Screen: Patient negative for fever greater than or equal to 101.5 degrees Fahrenheit, and additional compatible Ebola Virus Disease symptoms Patient denies exposure to infectious person. Patient denies travel to an Ebola-affected area in the 21 days before illness onset. No symptoms or risks identified at this time. Initial Sepsis Screen: Does the patient meet any 2 criteria? No. Patient's initial sepsis screen is negative. Does the patient have a suspected source of infection? No. Patient's initial sepsis screen is negative. Risk Assessment: Do you want to hurt yourself or someone else? Patient reports no desire to harm self or others. Onset of symptoms was March 01, 2024. 20:13 Method Of Arrival: Ambulatory bm8 20:13 Acuity: AMADA 3 bm8 Triage Assessment: 20:15 General: Appears in no apparent distress. uncomfortable, Behavior is calm, cooperative, bm8 appropriate for age. Pain: Complains of pain in head and abdomen. EENT: No deficits noted. No signs and/or symptoms were reported regarding the EENT system. Neuro: No deficits noted. Level of Consciousness is awake, alert, obeys commands, Oriented to person, place, time, situation, Appropriate for age. Cardiovascular: Reports syncope, Capillary refill < 3 seconds Patient's skin is warm and dry. Respiratory: No deficits noted. Airway is patent Trachea midline Respiratory effort is even, unlabored, Respiratory pattern is regular, symmetrical. GI: Abdomen is flat, non-distended, Bowel sounds present X 4 quads. Reports lower abdominal pain, upper abdominal pain, nausea, vomiting. 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 - Infectious Disease History:: Denies. - Social history:: Smoking status: Patient denies any tobacco usage or history of. Screenin:30 [facility] ED Fall Risk Assessment (Adult) History of falling in the last 3 months, ha1 including since admission Yes- single mechanical fall (1 pt) Confusion or Disorientation No (0 pts) Intoxicated or Sedated No (0 pts) Impaired Gait No (0 pts) Mobility Assist Device Used No (0 pt) Altered Elimination No (0 pt) Score/Fall Risk Level 0 - 2 = Low Risk Oriented to surroundings, Maintained a safe environment, Educated pt \T\ family on fall prevention, incl call for assistance when getting out of bed, Hourly rounding (assess needs \T\ fall precautionary measures) done. Abuse screen: Denies threats or abuse. Denies injuries from another. Nutritional screening: No deficits noted. Tuberculosis screening: No symptoms or risk factors identified. Assessment: 21:30 General: Appears comfortable, Behavior is uncooperative. General: Behavior is UNWILLING ha1 TO RECEIVE TREATMENT . Pain: Complains of pain in HEAD. Pain: Pain does not radiate. Pain currently is 7 out of 10 on a pain scale. Quality of pain is described as pressure. Neuro: Level of Consciousness is awake, alert, obeys commands, Oriented to person, place, time, situation. Cardiovascular: Capillary refill < 3 seconds Patient's skin is warm and dry. Respiratory: Airway is patent Respiratory effort is even, unlabored, Respiratory pattern is regular, symmetrical. GI: Abdomen is flat, non-distended, Abd is soft and non tender Reports nausea. GI: Bowel sounds present X 4 quads. : No signs and/or symptoms were reported regarding the genitourinary system. Derm: Skin is pink, warm \T\ dry. 21:40 Reassessment: PATIENT LEFT WITH IV IN PLACE. INFORM THE NEED TO REMOVE IV. PATIENT ha1 REFUSED TO REMOVE IV. CHARGE NURSE NOTIFIED. 21:40 General: Behavior is uncooperative, INSULTING NURSING STAFF. ha1 Vital Signs: 20:13 BP 116 / 86; Pulse 88; Resp 17; Temp 98.3; Pulse Ox 100% ; Weight 62.6 kg; Height 5 ft. bm8 4 in. ; Pain 10/10; 21:30 BP 98 / 65; Pulse 79; Resp 17 S; Pulse Ox 100% on R/A; ha1 20:13 Body Mass Index 23.69 (62.60 kg, 162.56 cm) bm8 20:13 Pain Scale: Adult bm8 ED Course: 20:08 Patient arrived in ED. [email or web address] 20:08 Terence Amaya MD is Attending Physician. ec2 20:15 Triage completed. bm8 20:15 Arm band placed on right wrist. bm8 20:43 Inserted saline lock: 20 gauge in left antecubital area, using aseptic technique. Blood rc3 collected. 20:44 Basic Metabolic Panel Sent. rc3 20:44 CBC with Diff Sent. rc3 20:44 Troponin HS Sent. rc3 21:02 Patient has correct armband on for positive identification. Placed in gown. Call light ha1 in reach. Side rails up X 1. Adult w/ patient. 21:07 XRAY Chest (1 view) In Process Unspecified. EDMS 21:45 Provided Education on: NEED TO STAY AND COMPLETE CARE. . ha1 21:46 No provider procedures requiring assistance completed. ha1 21:46 PT. REFUSED TO REMOVE IV. CHARGE NURSE NOTIFIED. ha1 Administered Medications: 21:38 Not Given (Patient Refused): droperidol2.5 mg IVP once ha1 21:38 Not Given (Patient Refused): cmvjiisrbpolkij86 mg IVP once ha1 21:39 Drug: NS 0.9% IV 1000 ml IV at 1 bolus Per protocol; 1000 mL bolus Route: IV; Rate: 1 ha1 bolus; Site: left antecubital; 21:45 Follow up: Response: No adverse reaction ha1 Medication: 21:40 VIS not applicable for this client. ha1 Outcome: 21:42 Discharge ordered by . ec2 21:45 Discharged to PATIENT LEFT BEFORE DISCHARGE ha1 21:45 Condition: stable ha1 21:45 Instructed on NEED TO STAY AND COMPLETE CARE 21:47 Patient left the ED. ha1 Signatures: Dispatcher [employer] EDMS Keith, Ami [id number] Jeanne Coawrt, RN RN ha1 Terence Amaya MD MD ec2 Jane [id number] Jose Gomez RN RN bm8
--- NOTE | 2024-03-11 22:21 | RAD REPORT ---
EXAM DESCRIPTION: Chi Single View03/11/2024 9:05 pm CLINICAL HISTORY: Cough COMPARISON: none FINDINGS: Lung bases are hazy. Upper lobes are clear. Heart is normal size IMPRESSION: Lung bases are hazy which may indicate bilateral pneumonia or overlying soft tissue. PA and lateral chest series is recommended be for further evaluation
[2024-03-12 04:15] VITALS: BP 116/86; TEMP 98.3; O2SAT 100
--- NOTE | 2024-03-12 12:42 | EKG ---
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
== END 2024-03-11 21:47 | disposition home or self-care (01) ==
LOC: ER 20:07
DX: R55 Syncope and collapse (principal); R10.84 Generalized abdominal pain; R51.9 Headache, unspecified
CPT/HCPCS: 36415; 71045; 80048; 84484; 85025; 93005; J7030

== ENCOUNTER 2024-05-19 20:49 | Emergency (ER) | payer SELFPAY ==
[2024-05-19] MEDS ORDERED: DIPHENHYDRAMINE 50 MG/ML VIAL ONE (21:52)
[2024-05-19 21:53] LABS: Absolute Eosinophils 0.1 K/uL (0-0.5); Absolute Lymphocytes (CBC) 1.9 K/uL (0.7-4.9); Absolute Monocytes 0.2 K/uL (0.1-1.3); Absolute Neutrophil 2.8 K/uL (1.8-8.0); Basophils % 0.7 % (0-1.3); Hematocrit 38.1 % (36.0-45.0); Hemoglobin 12.7 g/dL (12.0-15.0); Lymphocytes % 38.1 % (15.3-44.8); MCH 29.8 pg (27.0-35.0); MCHC 33.3 g/dL (32.0-36.0); MCV 89.7 fL (80-100); MPV 8.8 fL (7.6-11.3); Monocytes % 4.3 % (3.3-12.3); Neutrophils % 54.9 % (41.7-73.7); Platelets 199 thou/uL (152-406); RBC Red Blood Cell Count 4.25 M/uL (3.86-4.86); Red Cell Distribution Width 13.4 % (12.1-15.2)
[2024-05-19 21:55] LABS: Specific Gravity 1.018 (1.005-1.030)
[2024-05-19 21:59] LABS: Specific Gravity 1.018 (1.005-1.030); Urine Bacteria None Seen /HPF (<20); Urine Bilirubin NEGATIVE (Negative); Urine Blood Negative (Negative); Urine Clarity Turbid (Clear); Urine Color Light-Yellow (Yellow); Urine Crystals Unidentified Few /HPF (None Seen); Urine Culture Reflex Order NOT NEEDED; Urine Glucose NEGATIVE (Negative); Urine Ketones NEGATIVE (Negative); Urine Microscopic Reflex YN ORDER UMIC; Urine Mucus Slight /HPF (None Seen); Urine Nitrite NEGATIVE (Negative); Urine Protein NEGATIVE (Negative); Urine RBC <5 /HPF (None Seen); Urine Urobilinogen Normal (Normal); Urine WBC <5 /HPF (<5)
[2024-05-19 22:04] LABS: SARS-CoV-2 Antigen CONTROL BLUE LINE VIS/BG OK; SARS-CoV-2 Antigen Rapid Res Negative (Negative)
[2024-05-19 22:25] LABS: Albumin 3.8 g/dL (3.4-5.0); Albumin/Globulin Ratio 1.2 (1.1-1.8); Bilirubin Total 0.2 mg/dL (0.2-1.0); Globulin 3.3 g/dL (2.3-3.5); Protein, Total 7.1 g/dL (6.4-8.2)
--- NOTE | 2024-05-19 23:10 | EDPHYS ---
Physician Documentation [facility] Name: Leonela Ramos Age: 33 yrs Sex: Female : 1990 Arrival Date: 05/19/2024 Time: 20:49 Bed 12 Private MD: ED Physician Terence Amaya HPI: 05/19 22:02 This 33 yrs old Female presents to ER via Ambulatory with complaints of ec2 Abdominal Pain, Fever, chills. 22:02 Patient arrives today for evaluation of generalized abdominal pain, subjective fevers ec2 and chills, generalized bodyaches as well. Patient reports multiple weeks of symptoms. Nursing reports 1 week however patient states has been ongoing for "some time ".. 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 Flu vaccine is not up to date. - Infectious Disease History:: Denies. - Social history:: Smoking status: Reported history of juuling and/or vaping. ROS: 22:02 Constitutional: as per hpi ec2 Exam: 22:02 Constitutional: GEN: NAD Head: atraumatic Eyes: EOMI Ears: External ears are ec2 normal. CV: regular rate LUNGS: no respiratory distress ABD: non-distended, generalized abdominal tenderness without focality SKIN: no evidence of rashes MSK: no evidence of trauma Vital Signs: 20:59 BP 119 / 81; Pulse 75; Resp 17; Temp 98.4; Pulse Ox 100% ; Weight 61.69 kg; Height 5 ap3 ft. 4 in. ; Pain 10/10; 22:27 BP 104 / 74; Pulse 62; Resp 23; Pulse Ox 98% on R/A; tl4 23:08 BP 103 / 64; Pulse 67; Resp 19; Pulse Ox 98% on R/A; tl4 20:59 Body Mass Index 23.34 (61.69 kg, 162.56 cm) ap3 20:59 Pain Scale: Adult ap3 MDM: 21:02 Patient medically screened. ec2 22:02 Data reviewed: vital signs. ED course: Patient arrives today for evaluation of ec2 generalized abdominal pain. Examination remarkable for well-appearing nontoxic hemodynamically stable individuals otherwise in no acute distress with a reassuring examination. Will obtain lab work, urine studies, CT imaging. Differential clues processes such as viral infection, urinary tract infection, .. 23:09 ED course: On reassessment patient is well-appearing in no acute distress. Discharged ec2 home. Precautions given. . 05/19 21:02 Order name: CBC with Diff; Complete Time: 22:01 ec2 05/19 21:02 Order name: CMP; Complete Time: 22:41 ec2 05/19 21:02 Order name: Lipase; Complete Time: 22:41 ec2 05/19 21:02 Order name: Urinalysis w/ reflexes; Complete Time: 22:01 ec2 05/19 21:02 Order name: SARS RAPID; Complete Time: 22:41 ec2 05/19 21:53 Order name: Test, Urine; Complete Time: 22:01 EDMS 05/19 21:02 Order name: IV Saline Lock; Complete Time: 21:47 ec2 05/19 21:02 Order name: Labs collected and sent; Complete Time: 21:47 ec2 Administered Medications: 22:02 Not Given (Patient Refused): droperidol2.5 mg IVP once tl4 22:02 Not Given (Patient Refused): [id number] mg IVP once tl4 22:07 Not Given (Patient Refused): [id number] mg PO once tl4 22:08 Not Given (Patient Refused): ondansetron 4 mg IVP once; over 2 minutes tl4 22:27 Drug: Droperidol IVP 2.5 mg IVP once Route: IVP; Site: left forearm; tl4 23:00 Follow up: Response: No adverse reaction tl4 22:27 Drug: diphenhydrAMINE IVP 25 mg IVP once Route: IVP; Infused Over: 2 mins; Site: left tl4 forearm; 23:00 Follow up: Response: No adverse reaction tl4 Disposition Summary: 05/19/24 23:10 Discharge Ordered Notes: Location: Home ec2 Condition: Stable ec2 Diagnosis - Abdominal pain, Generalized ec2 Followup: ec2 - With: Private Physician - When: - Reason: Re-evaluation by your physician Discharge Instructions: - Discharge Summary Sheet ec2 - Abdominal Pain, Adult ec2 Forms: - Medication Reconciliation Form ec2 - Antibiotic Education ec2 - Prescription Opioid Use ec2 - Patient Portal Instructions ec2 - Leadership Thank You Letter ec2 Prescriptions: - Zofran 4 mg Oral Tablet - take 1 tablet ORAL route every 12 hours As needed; 20 tablet; Refills: 0, ec2 Product Selection Permitted Signatures: Dispatcher [employer] EDMS Michelle Short RN RN ap3 Terence Amaya MD MD ec2 Clifford Phelps RN RN tl4 Corrections: (The following items were deleted from the chart) 21:02 21:02 CBC+H.LAB.BRZ ordered. EDMS EDMS 21:02 21:02 COMPREHENSIVE METABOLIC PANEL+C.LAB.BRZ ordered. EDMS EDMS 21:02 21:02 LIPASE+C.LAB.BRZ ordered. EDMS EDMS 21:02 21:02 Urinalysis+U.LAB.BRZ ordered. EDMS EDMS 21:02 21:02 SARS-COV-2 Antigen Rapid+I.LAB.BRZ ordered. EDMS EDMS 21:53 21:02 TEST, SERUM+SC.LAB.BRZ ordered. EDMS EDMS 23:19 21:02 Abdomen Pelvis W Con+CT.RAD.BRZ ordered. EDMS EDMS
--- NOTE | 2024-05-19 23:10 | ER ---
Nurse's Notes [facility] Name: Leonela Ramos Age: 33 yrs Sex: Female : 1990 Arrival Date: 05/19/2024 Time: 20:49 Bed 12 Private MD: Diagnosis: Abdominal pain, Generalized Presentation: 05/19 20:59 Chief complaint: Patient states: she has been having whole body aches, abdominal pain, ap3 and urinary symptoms. patient reports her symptoms have been ongoing for approx one week. Coronavirus screen: At this time, the client does not indicate any symptoms associated with coronavirus-19. Ebola Screen: No symptoms or risks identified at this time. Initial Sepsis Screen: Does the patient meet any 2 criteria? No. Patient's initial sepsis screen is negative. Does the patient have a suspected source of infection? No. Patient's initial sepsis screen is negative. Risk Assessment: Do you want to hurt yourself or someone else? Patient reports no desire to harm self or others. Onset of symptoms was May 12, 2024. 20:59 Method Of Arrival: Ambulatory ap3 20:59 Acuity: AMADA 3 ap3 Triage Assessment: 21:01 General: Appears in no apparent distress. Behavior is calm, cooperative, appropriate ap3 for age. Pain: Complains of pain in abdomen and generalized body pain. Neuro: Level of Consciousness is awake, alert, obeys commands, Oriented to person, place, time, situation, Appropriate for age. Cardiovascular: Patient's skin is warm and dry. Respiratory: Airway is patent Respiratory effort is even, unlabored, Respiratory pattern is regular, symmetrical. GI: Reports lower abdominal pain, upper abdominal pain. : Reports pain with urination. 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 Flu vaccine is not up to date. - Infectious Disease History:: Denies. - Social history:: Smoking status: Reported history of juuling and/or vaping. Screenin:[facility] ED Fall Risk Assessment (Adult) History of falling in the last 3 months, ap3 including since admission No falls in past 3 months (0 pts) Confusion or Disorientation No (0 pts) Intoxicated or Sedated No (0 pts) Impaired Gait No (0 pts) Mobility Assist Device Used No (0 pt) Altered Elimination No (0 pt) Score/Fall Risk Level 0 - 2 = Low Risk Oriented to surroundings, Maintained a safe environment, Educated pt \\T\\ family on fall prevention, incl call for assistance when getting out of bed, Assessed \\T\\ reinforced patient's understanding of fall precautions, Hourly rounding (assess needs \\T\\ fall precautionary measures) done, Used ambulatory aids as needed (educated on \\T\\ assisted with), Used gait belt as appropriate. Abuse screen: Denies threats or abuse. Nutritional screening: No deficits noted. Tuberculosis screening: No symptoms or risk factors identified. Assessment: 21:48 General: Appears in no apparent distress. Behavior is calm, cooperative. Pain: tl4 Complains of pain in abdomen. Neuro: Level of Consciousness is awake, alert, obeys commands, Oriented to person, place, time, situation. Cardiovascular: Capillary refill < 3 seconds Patient's skin is warm and dry. Respiratory: Airway is patent Respiratory effort is even, unlabored, Respiratory pattern is regular, symmetrical, Breath sounds are clear bilaterally. GI: Bowel sounds present X 4 quads. Abd is soft and non tender X 4 quads. Reports nausea. : No signs and/or symptoms were reported regarding the genitourinary system. EENT: No signs and/or symptoms were reported regarding the EENT system. Derm: No signs and/or symptoms reported regarding the dermatologic system. Musculoskeletal: No signs and/or symptoms reported regarding the musculoskeletal system. 23:09 Reassessment: Patient and/or family updated on plan of care and expected duration. Pain tl4 level reassessed. Pt sleeping, family and call casarez at bedside. Will continue to monitor. 23:30 Reassessment: Pt states Dr Amaya spoke to her and answered her questions. Pt states"I tl4 don't want to hear any of that" when attempted to review discharge instructions. Pt refused to sign discharge instructions. Vital Signs: 20:59 BP 119 / 81; Pulse 75; Resp 17; Temp 98.4; Pulse Ox 100% ; Weight 61.69 kg; Height 5 ap3 ft. 4 in. ; Pain 10/10; 22:27 BP 104 / 74; Pulse 62; Resp 23; Pulse Ox 98% on R/A; tl4 23:08 BP 103 / 64; Pulse 67; Resp 19; Pulse Ox 98% on R/A; tl4 20:59 Body Mass Index 23.34 (61.69 kg, 162.56 cm) ap3 20:59 Pain Scale: Adult ap3 ED Course: 20:53 Patient arrived in ED. gm2 20:54 Terence Amaya MD is Attending Physician. ec2 21:01 Triage completed. ap3 21:02 Arm band placed on right wrist. ap3 21:25 Clifford Phelps, ROSAMARIA is Primary Nurse. tl4 21:48 CBC with Diff Sent. tl4 21:48 CMP Sent. tl4 21:48 Lipase Sent. tl4 21:48 Urinalysis w/ reflexes Sent. tl4 21:48 SARS RAPID Sent. tl4 21:49 Patient has correct armband on for positive identification. Placed in gown. Bed in low tl4 position. Call light in reach. Side rails up X 1. Adult w/ patient. Provided Education on: ed process, call casarez. Client placed on continuous cardiac and pulse oximetry monitoring. NIBP monitoring applied. Door closed. Noise minimized. Lights dimmed. Moved to private room. Warm blanket given. 21:50 No provider procedures requiring assistance completed. Initial lab(s) drawn, by me, tl4 sent to lab. Urine collected: clean catch specimen, COVID swab sent to lab. Inserted saline lock: 22 gauge in left forearm, using aseptic technique. Blood collected. Flushed with 10 mL NS. 22:27 classroom monitor on. tl4 23:32 IV discontinued, intact, bleeding controlled, No redness/swelling at site. Pressure tl4 dressing applied. Administered Medications: 22:02 Not Given (Patient Refused): droperidol2.5 mg IVP once tl4 22:02 Not Given (Patient Refused): [id number] mg IVP once tl4 22:07 Not Given (Patient Refused): [id number] mg PO once tl4 22:08 Not Given (Patient Refused): ondansetron 4 mg IVP once; over 2 minutes tl4 22:27 Drug: Droperidol IVP 2.5 mg IVP once Route: IVP; Site: left forearm; tl4 23:00 Follow up: Response: No adverse reaction tl4 22:27 Drug: diphenhydrAMINE IVP 25 mg IVP once Route: IVP; Infused Over: 2 mins; Site: left tl4 forearm; 23:00 Follow up: Response: No adverse reaction tl4 Medication: 21:49 VIS not applicable for this client. tl4 Outcome: 23:10 Discharge ordered by . ec2 23:32 Discharged to home via wheelchair, with family, tl4 23:32 Condition: stable 23:32 Discharge instructions given to Pt states "I don't want to hear any of that", refuses discharge education Instructed on Pt refused discharge education Demonstrated understanding of Pt refused discharge education Prescriptions given X 1, 23:34 Patient left the ED. tl4 Signatures: Michelle Short, RN RN [email or web address] Terence Amaya MD MD ec2 Lucina Bernardo gm2 Clifford Phelps RN RN tl4 Corrections: (The following items were deleted from the chart) 21:53 21:47 TEST, SERUM+[email or web address].LAB.BRZ drawn and sent. tl4 EDMS
[2024-05-19 23:55] VITALS: TEMP 98.4
[2024-05-19 23:56] VITALS: O2SAT 98
[2024-05-19 23:57] VITALS: BP 103/64
== END 2024-05-19 23:34 | disposition home or self-care (01) ==
LOC: ER 20:49
DX: R10.84 Generalized abdominal pain (principal); Z11.52 Encounter for screening for COVID-19
CPT/HCPCS: 36415; 80053; 81001; 81025; 83690; 85025; 87811; 96374; 96375; 99285; J1200

== ENCOUNTER 2024-09-12 06:12 | Emergency (ER) | payer SELFPAY ==
[2024-09-12] MEDS ORDERED: ACETAMINOPHEN 500 MG TAB ONE (07:20)
[2024-09-12] MEDS ORDERED: IBUPROFEN 200 MG TAB PO ONE (07:21)
[2024-09-12 07:34] LABS: Specific Gravity 1.026 (1.005-1.030)
[2024-09-12 07:38] LABS: Specific Gravity 1.026 (1.005-1.030); Urine Bilirubin NEGATIVE (Negative); Urine Blood Negative (Negative); Urine Clarity Extremely Turbid (Clear); Urine Color Yellow (Yellow); Urine Glucose NEGATIVE (Negative); Urine Ketones NEGATIVE (Negative); Urine Micro Reflex YN NO BILL NO MICROSCOPIC; Urine Nitrite NEGATIVE (Negative); Urine Protein TRACE (Negative); Urine Urobilinogen Normal (Normal); Urine pH 5.5 (5.0-7.0)
[2024-09-12 08:00] LABS: SARS-CoV-2 Antigen CONTROL BLUE LINE VIS/BG OK; SARS-CoV-2 Antigen Rapid Res Negative (Negative)
--- NOTE | 2024-09-12 08:19 | RAD REPORT ---
EXAMINATION: ONE VIEW CHEST XR CLINICAL INDICATION: Female, 33 years old.,COUGH TECHNIQUE: Frontal chest projection is submitted. Examination is limited by patient positioning and t echnique. COMPARISON: 03/11/2024 FINDINGS: The lungs are well inflated and clear. Interval improvement of right medial basal airspace opacity. N o pneumothorax or sizable effusion. The heart is normal in size. Mediastinal contours are unremarkable. IMPRESSION: No acute intrathoracic abnormalities.
--- NOTE | 2024-09-12 08:34 | EDPHYS ---
Physician Documentation [facility] Name: Leonela Ramos Age: 33 yrs Sex: Female : 1990 Arrival Date: 09/12/2024 Time: 06:12 Bed 18 Private MD: ED Physician Terence Amaya HPI: 09/12 07:10 This 33 yrs old Female presents to ER via Ambulatory with complaints of ec2 Fever, Cough. 07:10 Patient arrives today for evaluation of cough and cold symptoms onset 2 days. Also ec2 reports fevers. Patient reports cough and congestion, body aches, fevers. No vomiting, no diarrhea. Recent diagnosed with UTI and treated with antibiotics with symptom improvement in urinary discomfort. Documented history of NSAID allergy however patient states that she regularly takes ibuprofen.. 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 - Infectious Disease History:: Denies. - Social history:: Smoking status: Reported history of juuling and/or vaping. Patient/guardian denies using alcohol, street drugs. ROS: 07:10 Constitutional: as per hpi ec2 Exam: 07:10 Constitutional: GEN: NAD Head: atraumatic Eyes: EOMI Ears: External ears are normal. ec2 Mouth: Posterior pharyngeal erythema without exudates, no anterior cervical lymphadenopathy noted. CV: regular rate LUNGS: no respiratory distress, no wheezes or rales or rhonchi ABD: non-distended, soft, nontender, guarding, not rigid SKIN: no evidence of rashes MSK: no evidence of trauma Vital Signs: 06:43 BP 140 / 98; Pulse 89; Resp 17 S; Temp 102.3(O); Pulse Ox 98% on R/A; Weight 68.04 kg lg3 (R); Height 5 ft. 4 in. (R); 08:48 BP 135 / 88; Pulse 74; Resp 17; Temp 98.8(O); Pulse Ox 99% ; rs5 06:43 Body Mass Index 25.75 (68.04 kg, 162.56 cm) lg3 MDM: 07:04 Medical Screening Exam initiated ec2 07:10 Data reviewed: vital signs, nurses notes. ED course: Patient arrives today for URI ec2 signs and symptoms. Examination revealing for fever otherwise reassuring exam. Will obtain viral swabs, strep swab, urine studies. Differential includes viral infection, strep pharyngitis, urinary tract infection. Will treat with Tylenol and ibuprofen.. 07:43 ED course: Urine with leuk esterase present, patient currently on Keflex, will hold ec2 additional antibiotics.. 08:33 ED course: Swabs negative, urine noninfectious. Will discharge home have the patient ec2 follow-up with PCP. Suspect viral process. Return precautions given.. 09/12 07:09 Order name: Strep ec2 09/12 07:04 Order name: Influenza Screen (a \T\ B); Complete Time: 08:31 ec2 09/12 07:04 Order name: SARS RAPID; Complete Time: 08:31 ec2 09/12 07:04 Order name: UAM; Complete Time: 07:42 ec2 09/12 07:04 Order name: Test, Urine; Complete Time: 07:42 ec2 09/12 08:03 Order name: Throat Culture EDMS 09/12 07:04 Order name: CXR XRAY; Complete Time: 08:31 ec2 Administered Medications: 07:34 Drug: Acetaminophen PO 1000 mg PO once Route: PO; rs5 08:50 Follow up: Response: No adverse reaction; Temperature is decreased rs5 07:34 Drug: Ibuprofen PO 800 mg PO once Route: PO; rs5 08:49 Follow up: Response: No adverse reaction; Temperature is decreased rs5 Disposition Summary: 09/12/24 08:33 Discharge Ordered Notes: Location: Home ec2 Condition: Stable ec2 Diagnosis - Viral infection, unspecified ec2 Followup: ec2 - With: Private Physician - When: - Reason: Re-evaluation by your physician Discharge Instructions: - Discharge Summary Sheet ec2 - Viral Illness, Adult ec2 Forms: - Medication Reconciliation Form ec2 - Antibiotic Education ec2 - Prescription Opioid Use ec2 - Patient Portal Instructions ec2 - Leadership Thank You Letter ec2 Prescriptions: - Compazine 10 mg Oral Tablet - take 1 tablet ORAL route every 8 hours As needed; 20 tablet; Refills: 0, ec2 Product Selection Permitted - Tessalon Perles 100 mg Oral Capsule - take 1 capsule ORAL route every 8 hours As needed; 15 capsule; Refills: 0, ec2 Product Selection Permitted Signatures: Dispatcher [employer] Ricarda Soto RN RN lg3 Avery Correia RN RN rs5 Terence Amaya MD MD ec2 Corrections: (The following items were deleted from the chart) 07:09 07:09 Group A Streptococcus Rapid Sc+[id number].LAB.BRZ ordered. [place]
--- NOTE | 2024-09-12 08:34 | ER ---
Nurse's Notes [facility] Name: Leonela Ramos Age: 33 yrs Sex: Female : 1990 Arrival Date: 09/12/2024 Time: 06:12 Bed 18 Private MD: Diagnosis: Viral infection, unspecified Presentation: 09/12 06:43 Chief complaint: Patient states: diagnosed with UTI last Monday. started antibiotics lg3 Monday. spiked a fever yesterday. denies urinary symptoms at this time. complaints of body aches, fever, cough since yesterday. Coronavirus screen: Client denies travel out of the [place] in the last 14 days. Client presents with at least one sign or symptom that may indicate coronavirus-19. Standard/surgical mask placed on the client. Ebola Screen: No symptoms or risks identified at this time. Initial Sepsis Screen: Does the patient meet any 2 criteria? No. Patient's initial sepsis screen is negative. Does the patient have a suspected source of infection? No. Patient's initial sepsis screen is negative. Risk Assessment: Do you want to hurt yourself or someone else? Patient reports no desire to harm self or others. Onset of symptoms was September 11, 2024. 06:43 Method Of Arrival: Ambulatory lg3 06:43 Acuity: AMADA 3 lg3 Triage Assessment: 06:46 General: Appears in no apparent distress. comfortable, Behavior is calm, cooperative. lg3 Pain: Complains of pain in head. EENT: No deficits noted. No signs and/or symptoms were reported regarding the EENT system. Neuro: Malone Agitation-Sedation Scale (RASS): 0 - Alert and Calm Level of Consciousness is awake, alert, obeys commands, Oriented to person, place, time, situation, Reports headache. Cardiovascular: No deficits noted. Denies chest pain, shortness of breath, Capillary refill < 3 seconds Clubbing of nail beds is absent JVD is absent Patient's skin is warm and dry. Respiratory: No deficits noted. Reports cough that is Airway is patent Respiratory effort is even, unlabored, Respiratory pattern is regular, symmetrical. GI: No deficits noted. No signs and/or symptoms were reported involving the gastrointestinal system. Abdomen is round non-distended. : No signs and/or symptoms were reported regarding the genitourinary system. Derm: No deficits noted. No signs and/or symptoms reported regarding the dermatologic system. Skin is intact, is healthy with good turgor, Skin is dry, Skin is normal, Skin temperature is warm. Musculoskeletal: No deficits noted. No signs and/or symptoms reported regarding the musculoskeletal system. Circulation, motion, and sensation intact. Range of motion: intact in all extremities. DEPUTY DIRECTOR OF FINANCE: 06:46 LMP N/A - control method, Not lg3 Historical: - Allergies: 06:46 NSAIDS; lg3 06:46 PENICILLINS; lg3 06:46 Tramadol HCl; lg3 - Home Meds: 06:46 Klonopin Oral [Active]; cephalexin 500 mg Oral tablet 2 times per day [Active]; lg3 - PMHx: 06:46 Anxiety; Hypothyroidism; kidney infection; Lupus erythematosus; Ovarian cyst; POTS; lg3 - PSHx: 06:46 None; lg3 - Immunization history:: Adult Immunizations up to date. - Infectious Disease History:: Denies. - Social history:: Smoking status: Reported history of juuling and/or vaping. Patient/guardian denies using alcohol, street drugs. Screenin:00 [facility] ED Fall Risk Assessment (Adult) History of falling in the last 3 months, rs5 including since admission No falls in past 3 months (0 pts) Confusion or Disorientation No (0 pts) Intoxicated or Sedated No (0 pts) Impaired Gait No (0 pts) Mobility Assist Device Used No (0 pt) Altered Elimination No (0 pt) Score/Fall Risk Level 0 - 2 = Low Risk Oriented to surroundings, Maintained a safe environment. 07:00 Abuse screen: Denies threats or abuse. Nutritional screening: No deficits noted. rs5 Tuberculosis screening: No symptoms or risk factors identified. Assessment: 07:00 General: Appears in no apparent distress. uncomfortable, Behavior is calm, cooperative. rs5 Pain: Complains of pain in head Pain currently is 6 out of 10 on a pain scale. Quality of pain is described as aching, Is continuous. Neuro: Level of Consciousness is awake, alert, obeys commands, Oriented to person, place, time, situation. Cardiovascular: Patient's skin is warm and dry. Respiratory: Reports shortness of breath cough that is Airway is patent Respiratory effort is even, unlabored, Respiratory pattern is regular, symmetrical. GI: Abdomen is round non-distended, Abd is soft and non tender X 4 quads. : Reports urinary frequency. EENT: Reports nasal congestion. Derm: Skin is intact, Skin is pink, warm \T\ dry. Musculoskeletal: Range of motion: intact in all extremities. 08:10 Reassessment: Patient and/or family updated on plan of care and expected duration. Pain rs5 level reassessed. Patient is alert, oriented x 3, equal unlabored respirations, skin warm/dry/pink. 08:25 Reassessment: Patient and/or family updated on plan of care and expected duration. Pain rs5 level reassessed. Patient is alert, oriented x 3, equal unlabored respirations, skin warm/dry/pink. Vital Signs: 06:43 BP 140 / 98; Pulse 89; Resp 17 S; Temp 102.3(O); Pulse Ox 98% on R/A; Weight 68.04 kg lg3 (R); Height 5 ft. 4 in. (R); 08:48 BP 135 / 88; Pulse 74; Resp 17; Temp 98.8(O); Pulse Ox 99% ; rs5 06:43 Body Mass Index 25.75 (68.04 kg, 162.56 cm) lg3 ED Course: 06:15 Patient arrived in ED. gm2 06:46 Triage completed. lg3 06:46 Arm band placed on right wrist. lg3 07:00 Patient has correct armband on for positive identification. Bed in low position. Call rs5 light in reach. Side rails up X2. 07:00 No provider procedures requiring assistance completed. rs5 07:02 Terence Amaya MD is Attending Physician. ec2 07:17 Avery Correia, ROSAMARIA is Primary Nurse. rs5 07:20 Urine collected: clean catch specimen, clear. cc6 07:22 SARS RAPID Sent. cc6 07:22 Influenza Screen (a \T\ B) Sent. cc6 07:22 Test, Urine Sent. cc6 07:22 UAM Sent. cc6 07:22 COVID swab sent to lab. Flu and/or RSV swab sent to lab. cc6 07:27 Strep swab sent to lab. cc6 07:27 Strep Sent. cc6 07:44 CXR XRAY In Process Unspecified. EDMS 08:30 Patient did not have IV access during this emergency room visit. rs5 08:33 Provided Education on: discharge instructions . rs5 Administered Medications: 07:34 Drug: Acetaminophen PO 1000 mg PO once Route: PO; rs5 08:50 Follow up: Response: No adverse reaction; Temperature is decreased rs5 07:34 Drug: Ibuprofen PO 800 mg PO once Route: PO; rs5 08:49 Follow up: Response: No adverse reaction; Temperature is decreased rs5 Medication: 08:49 VIS not applicable for this client. rs5 Outcome: 08:30 Discharged to home ambulatory, rs5 08:30 Condition: stable rs5 08:30 Discharge instructions given to patient, family, Instructed on discharge instructions, follow up and referral plans. medication usage, Demonstrated understanding of instructions, follow-up care, medications, Prescriptions given X 2, 08:33 Discharge ordered by . ec2 08:50 Patient left the ED. rs5 Signatures: Dispatcher [employer] EDRicarda Soto RN RN lg3 Avery Correia RN RN rs5 Terence Amaya MD MD ec2 Lucina Bernardo gm2 Jennifer Alvarez cc6
[2024-09-12 09:48] VITALS: BP 135/88; TEMP 98.8; O2SAT 99
== END 2024-09-12 08:50 | disposition home or self-care (01) ==
LOC: ER 06:12
DX: B34.9 Viral infection, unspecified (principal); Z11.52 Encounter for screening for COVID-19
CPT/HCPCS: 36415; 71045; 81001; 81025; 87070; 87081; 87804; 87811; 99284